=== PATIENT | female | born 1945 | race Caucasian/White ===

== ENCOUNTER → 2020-01-28 15:34 | Outpatient (CLI) | payer MEDICARE, OTHER, SELFPAY ==
[2016-10-03 23:32] VITALS: BMI 27.8
[2020-01-28 15:52] LABS: Bacteria 0 SEEN /hpf (None Seen); Mucous, Urine 0 SEEN /hpf (<or=2+); Squamous Epithelial Cells - UA 0 SEEN /hpf (5-10)
[2020-01-28 16:42] LABS: Color, Urine Yellow (Yellow); Glucose, Dipstick Normal (Normal); Ketone-Dipstick Negative (Negative); Leukocyte Esterase-Dipstick 100 /ul (Negative); Nitrite-Dipstick Negative (Negative); Occult Blood-Urine 25 /ul (Negative); Protein-Dipstick Negative (Negative); Urine Bilirubin Dipstick Negative (Negative); Urine Clarity Clear (Clear); Urine Urobilinogen Normal (Normal)
[2020-01-28 16:50] LABS: Red Blood Cells-Urine 0-5 SEEN /hpf (0-5); White Blood Cells 0-5 SEEN /hpf (0-5)
== END ==
PROVIDERS: PCP Internal Medicine; Referring Provider Nurse Practitioner Primary Care; Visit Provider Nurse Practitioner Primary Care
DX: M54.5 Low back pain (principal); R50.9 Fever, unspecified
CPT/HCPCS: 81001

== ENCOUNTER 2020-03-06 08:08 | Emergency (ER) | payer MEDICARE, OTHER, SELFPAY ==
[2020-03-06 08:10] VITALS: BP 142/101; PULSE 80; RESP 18; TEMP 36.2; O2SAT 96; BMI 30.3
--- NOTE | 2020-03-06 08:40 | EKG12_ITS ---
Test Reason : PALPS Blood Pressure : / mmHG Vent. Rate : 080 BPM Atrial Rate : 080 BPM P-R Int : 180 ms QRS Dur : 094 ms QT Int : 382 ms P-R-T Axes : 045 -52 034 degrees QTc Int : 440 ms Sinus rhythm with occasional Premature ventricular complexes Left axis deviation Inferior-posterior infarct , age undetermined Abnormal ECG Confirmed by WILLY ACOSTA, VIOLET ([id number]), subeditor BRITTANY FRANKLIN ([id number]) on 03/10/2020 9:36:17 AM Referred By: Ramy Loza Confirmed By:CHRISTAL AGUILERA MD
--- NOTE | 2020-03-06 08:40 | RAD_ITS ---
STUDY: X-RAY CHEST REASON FOR EXAM: Female, 74 years old. CP, ACUTE ONSET PALPITATIONS TECHNIQUE: PA and lateral views of the chest. COMPARISON: Comparison is made with prior examination dated 05/11/2016. FINDINGS: EKG electrodes are seen. Scattered calcified granulomas. No infiltrate is seen. There is no demonstrated pleural abnormality. Normal size heart. There are calcified mediastinal lymph nodes. Normal visualized pulmonary arteries. There is atherosclerotic calcification of the aortic arch with tortuosity. There is demineralization of the osseous structures. Prior right shoulder replacement. Moderate sized hiatal hernia. RAD/Chest PA and Lateral IMPRESSION: No acute abnormality is seen. Hiatal hernia. Electronically Signed: Mt Bonner, at 9:54 EDT , Service support ,
[2020-03-06 08:49] LABS: Absolute Lymphocyte Count 2.07 X10^3/uL (0.83-4.51); Absolute Neutrophil Count 3.6 X10^3/uL (2.0-7.7); Basophil# 0.05 X10^3/uL; Basophil% 0.8 % (0-1); Eosinophil# 0.18 X10^3/uL; Eosinophils% 2.8 % (0-5); Hematocrit 42.7 % (37-47); Hemoglobin 13.7 g/dL (12.0-15.0); Lymphocyte # 2.07 X10^3/ul (4.0); Lymphocyte % 32.2 % (19-41); Mean Corp Hgb Conc 32.1 g/dL (32-36); Mean Corpuscular Hgb 27.6 pg (27.0-32.0); Mean Corpuscular Volume 85.9 fL (81-99); Mean Platelet Vol. 8.6 fl (6.2-12.0); Monocyte# 0.53 X10^3/uL; Monocyte% 8.3 % (0-10); NRBC Flagged by Analyzer 0 % (0-5); Neutrophil # 3.57 X10^3/uL (2.7-7.7); Neutrophil % 55.6 % (47-70); Platelet Count 379 K/mm3 (150-450); RBC Distribution Width CV 13.2 % (11.6-14.6); RBC Distribution Width SD 40.7 fl (35.1-43.9); Red Blood Count 4.97 M/mm3 (4.2-5.4); White Blood Count 6.4 K/mm3 (4.4-11.0)
[2020-03-06 09:17] LABS: Anion Gap 2 (5-15); BUN 13 mg/dL (7-18); BUN/Creat Ratio 14.9 RATIO (10-20); Calcium,Total 9.4 mg/dL (8.5-10.1); Chloride 108 mmol/L (98-107); Creatinine, Serum 0.87 mg/dL (0.55-1.02); EST Glomerular Filtration Rate 68 mL/min (>60); Est Glom Filt Rate - Afr Amer 82 mL/min (>60); Estimated Creatinine Clearance 50.47 ml/min; Glucose 93 mg/dL (74-106); Magnesium 2.1 mg/dL (1.6-2.6); Potassium 3.6 mmol/L (3.5-5.1); Sodium Level 141 mmol/L (136-145); Thyroid Stim Hormone (TSH) 2.95 uIU/mL (0.358-3.74)
--- NOTE | 2020-03-06 09:50 | ED.DCSUM_ITS ---
History of Present Illness Chief Complaint: Palpitations Informant: Patient Narrative: Patient presenting for evaluation secondary to palpitations. Patient reports that prior to arrival, she was seated and not participating in any sort of vigorous activity when she had a sudden onset of palpitations. She reported that this was a feeling that she was having fast beating of her heart with hard heartbeats. She does report that it was associated with a feeling of feeling flushed and nauseous. She denies being lightheaded or presyncopal. She denies any chest pain or shortness of breath. Patient reports that yesterday she had a couple of slight palpitations but nothing that it was this prolonged, the episode today lasted about 4 minutes in its entirety. Patient states that due to the fact that she had a couple of palpitations yesterday she put even more decaf coffee in her typical half calf coffee that she drinks, and drank only a 40% caffeinated mixture today. Patient denies that she is on any stimulants. No changes in weight or appetite heat or cold intolerances recently. Patient does report that she has had a history of palpitations with frko-jgc-budshif cold medications in the past. She denies any cardiovascular history, but does have a history of hypertension. No DVT or PE risk factors. Review of systems otherwise negative. Past Medical History - Allergies and Home Meds Allergies/Adverse Reactions: Allergies fvnha-4-doashjijbu inhibitor [Sdqsr-0-Opfunqscvn Inhibitor] Allergy (Verified 03/06/20 08:10) Angioedema Antihistamines - Alkylamine Allergy (Verified 03/06/20 08:10) Chest tightness iodine Allergy (Verified 03/06/20 08:10) Shortness of breath adhesive tape Adverse Reaction (Verified 03/06/20 08:10) Rash Iodinated Contrast Media [CONTRASTS] Adverse Reaction (Verified 03/06/20 08:10) Swelling Primary Care Physician: Kristian Soto MD [Primary Care Provider] - Prior records reviewed: Yes Past Medical History: - - Hypertension Surgical History: noncontributory Lives: Spouse/ Significant Other Smoking Status: Never smoker Alcohol: None Drugs: None Review of Systems All systems negative except as indicated General: Denies: Chills, Fever, Sweats Eyes: Denies: Visual changes - bilaterally, Diplopia ENT: Denies: Rhinorrhea, Sore throat Cardiovascular: Reports: Palpitations Respiratory: Denies: Dyspnea, Cough, Dyspnea on exertion Gastrointestinal: Denies: Abdominal pain, Nausea, Vomiting, Diarrhea, Melena, Hematochezia Genitourinary: Denies: Dysuria, Hematuria, Frequency Musculoskeletal: Denies: Back pain, Extremity Pain Skin: Denies: Rash, Wounds Neurological: Denies: Headache, Weakness, Numbness Physical Exam Vital Signs/Narrative: Vital Signs Temp Pulse Resp BP Pulse Ox 03/06/20 08:10 97.2 F L 80 18 142/101 H 96 Inital Vital Signs reviewed: Yes General: Well nourished, Well developed, No Acute Distress Head: Normocephalic, Atraumatic Eyes: Perrl, EOMI ENT: Moist mucous membranes, No rhinorrhea, - - Thyroid normal to palpation Neck: Supple, Nontender Cardiovascular: Regular rate, Regular rhythm, No murmurs, - - Occasional extr asystoles, 2+ radial pulses Respiratory: No distress, CTA bilaterally, Chest nontender Abdomen: Soft, Nontender, Nondistended, Normal bowel sounds Back: Nontender, Normal Inspection Extremities: Nontender, No edema Skin: Normal color, No rash Neurological: Alert, Oriented x3, Cranial nerves II-XII grossly intact, Normal Strength, Normal Sensation Psychological: Normal affect, Normal Mood Diagnostic/Tx/Re-eval Clinical Impression(s) from Imaging Studies Chest X-Ray 03/06/20 08:40 IMPRESSION: No acute abnormality is seen. Hiatal hernia. Electronically Signed: Mt Kailey, at 9:54 EDT , Service support , Laboratory Data 03/06/20 03/06/20 03/06/20 08:04 08:04 11:40 WBC 6.4 RBC 4.97 Hgb 13.7 Hct 42.7 MCV 85.9 MCH 27.6 MCHC 32.1 RDW Std Deviation 40.7 RDW Coeff of Nell 13.2 Plt Count 379 MPV 8.6 Immature Gran % (Auto) 0.300 Neut % (Auto) 55.6 Lymph % (Auto) 32.2 [place] % (Auto) 8.3 Eos % (Auto) 2.8 Baso % (Auto) 0.8 Absolute Neuts (auto) 3.6 Absolute Lymphs (auto) 2.07 Nucleated RBC % 0 Sodium 141 Potassium 3.6 Chloride 108 H Carbon Dioxide 31.0 Anion Gap 2 L BUN 13 Creatinine 0.87 Estim Creat Clear Calc 50.47 Est GFR (MDRD) Af Amer 82 Est GFR (MDRD) Non-Af 68 BUN/Creatinine Ratio 14.9 Glucose 93 Calcium 9.4 Magnesium 2.1 Troponin I < 0.015 < 0.015 TSH 2.95 - EKG Initial EKG Interpretation: - - Sinus rhythm of 80 with occasional PVCs noted, left axis deviation, inferior Q waves noted on prior EKG in 2016 - Medical Decision Making Patient presented secondary to an episode of palpitations. EKG did show the patient to be having more frequent PVCs, on telemetry monitoring she did not have any nonsustained runs of ventricular tachycardia or any couplets. Work-up was negative including CBC chemistry and 2 troponins, 3 hours apart. Patient is asymptomatic. Discussed patient's case on the telephone with covering cardiology, Dr. Shaw, and we developed a plan for the patient that she is to be discharged on a low-dose beta-gemma, metoprolol 25 twice daily, and received a Holter monitor for 24 hours with outpatient follow-up in the cardiology office. Patient was informed of this, she was discharged in stable condition. ED Disposition - Plan for ED Patient: Disposition: Home or Assisted Living Diagnosis: Palpitations, PVCs (premature ventricular contractions) Instructions: Premature Ventricular Contractions, ED Palpitations Prescriptions: Metoprolol Tartrate 25 mg PO BID #20 tab Prescription Printed Referrals: Mar Shaw MD [STAFF PHYSICIAN] - As soon as possible
[2020-03-06 10:08] VITALS: BP 173/93; PULSE 64; RESP 18; O2SAT 94
[2020-03-06 12:44] VITALS: BP 138/80; PULSE 62; RESP 17; O2SAT 98
== END 2020-03-06 13:59 | disposition home or self-care (01) ==
PROVIDERS: Emergency Provider Emergency Medicine; PCP Internal Medicine
DX: R00.2 Palpitations (principal); I49.3 Ventricular premature depolarization
CPT/HCPCS: 71046; 80048; 83735; 84443; 84484; 85025; 93005; 93225; 93226; 99285

== ENCOUNTER → 2020-03-06 14:12 | Outpatient (CLI) | payer MEDICARE, OTHER, SELFPAY ==
[2020-03-06 08:10] VITALS: BMI 30.3
== END ==
PROVIDERS: PCP Internal Medicine; Referring Provider Emergency Medicine; Visit Provider Emergency Medicine
DX: R00.2 Palpitations (principal)
CPT/HCPCS: 93225; 93226

== ENCOUNTER 2020-04-18 21:38 | Emergency (ER) | payer MEDICARE, OTHER, SELFPAY ==
[2020-04-18 21:38] VITALS: BP 176/76; PULSE 71; RESP 16; TEMP 36.9; O2SAT 96; BMI 28.1
--- NOTE | 2020-04-18 21:48 | EKG12_ITS ---
Test Reason : DYSRHYTHMIA Blood Pressure : / mmHG Vent. Rate : 069 BPM Atrial Rate : 069 BPM P-R Int : 188 ms QRS Dur : 092 ms QT Int : 410 ms P-R-T Axes : 074 -52 052 degrees QTc Int : 439 ms Normal sinus rhythm Left anterior fascicular block Inferior-posterior infarct , age undetermined Abnormal ECG Confirmed by MICKEY HAIRSTON MD ([id number]), managing editor BRITTANY FRANKLIN ([id number]) on 04/21/2020 1:47:38 PM Referred By: LISA Confirmed By:MICKEY HAIRSTON MD
--- NOTE | 2020-04-18 21:57 | RAD_ITS ---
HISTORY: Palpitations. EXAMINATION/TECHNIQUE: XR Chest 1 View: COMPARISON: March 06, 2020 FINDINGS: LINES/DEVICES: None. LUNGS: No consolidation, edema or effusion. No pneumothorax. Left basilar atelectasis MEDIASTINUM AND CARDIOVASCULAR STRUCTURES: Cardiac silhouette not enlarged. Central airways and mediastinal contour are unremarkable. Tortuous aorta BONES AND SOFT TISSUES: Right humeral head prosthesis similar to prior study RAD/Chest 1 View (Portable) IMPRESSION: Left basilar atelectasis at 2243 Reported and signed by: Nathalia Romero DO Electronically Signed: Nathalia Romero DO at 22:42 EDT Tel , Service support ,
[2020-04-18 22:07] LABS: Absolute Lymphocyte Count 2.33 X10^3/uL (0.83-4.51); Absolute Neutrophil Count 4.1 X10^3/uL (2.0-7.7); Basophil# 0.06 X10^3/uL; Basophil% 0.8 % (0-1); Eosinophil# 0.13 X10^3/uL; Eosinophils% 1.8 % (0-5); Hematocrit 40.5 % (37-47); Hemoglobin 12.8 g/dL (12.0-15.0); Lymphocyte # 2.33 X10^3/ul (4.0); Lymphocyte % 31.8 % (19-41); Mean Corp Hgb Conc 31.6 g/dL (32-36); Mean Corpuscular Hgb 27.4 pg (27.0-32.0); Mean Corpuscular Volume 86.5 fL (81-99); Mean Platelet Vol. 8.5 fl (6.2-12.0); Monocyte# 0.66 X10^3/uL; NRBC Flagged by Analyzer 0 % (0-5); Neutrophil # 4.12 X10^3/uL (2.7-7.7); Neutrophil % 56.3 % (47-70); Platelet Count 340 K/mm3 (150-450); RBC Distribution Width CV 13.8 % (11.6-14.6); RBC Distribution Width SD 43.4 fl (35.1-43.9); Red Blood Count 4.68 M/mm3 (4.2-5.4); White Blood Count 7.3 K/mm3 (4.4-11.0)
[2020-04-18 22:26] LABS: Anion Gap 5 (5-15); BUN 16 mg/dL (7-18); BUN/Creat Ratio 13.3 RATIO (10-20); Calcium,Total 9.5 mg/dL (8.5-10.1); Chloride 107 mmol/L (98-107); EST Glomerular Filtration Rate 47 mL/min (>60); Est Glom Filt Rate - Afr Amer 57 mL/min (>60); Estimated Creatinine Clearance 36.59 ml/min; Glucose 119 mg/dL (74-106); Potassium 3.7 mmol/L (3.5-5.1); Sodium Level 142 mmol/L (136-145)
[2020-04-18 22:43] VITALS: BP 158/98; PULSE 54; RESP 20; O2SAT 96
--- NOTE | 2020-04-18 22:52 | ED.DCSUM_ITS ---
History of Present Illness Chief Complaint: Palpitations Informant: Patient Onset: Today Current Severity: Mild Maximum Severity: Moderate Narrative: Patient presents with palpitations which she describes as a fluttering sensation in her chest. She does have a history of PVCs. She states that she took her evening dose of metoprolol at 7 PM and started noticing palpitations around 730. When I did not settle down by 9 PM she told her she went to come to the emergency room. She denies chest pain, shortness of breath, or near syncope. Due to high acuity the emergency room there was a wait for her to be seen at this time patient states overall she feels pretty good. She denies any recent missed doses of her medication. She was active today and went out played golf without any difficulty. - Past Medical History (1) PVCs (premature ventricular contractions) Status: Chronic (2) Hypertension Status: Chronic (3) Kidney stone Status: Resolved Past Medical History - Allergies and Home Meds Allergies/Adverse Reactions: Allergies qcxpl-0-uolpsyhffn inhibitor [Boxwe-0-Tkfiajpmlq Inhibitor] Allergy (Verified 04/18/20 21:40) Angioedema Antihistamines - Alkylamine Allergy (Verified 04/18/20 21:40) Chest tightness iodine Allergy (Verified 04/18/20 21:40) Shortness of breath adhesive tape Adverse Reaction (Verified 04/18/20 21:40) Rash Iodinated Contrast Media [CONTRASTS] Adverse Reaction (Verified 04/18/20 21:40) Swelling Primary Care Physician: Kristian Soto MD [Primary Care Provider] - Prior records reviewed: Yes Surgical History: cholecystectomy Lives: Spouse/ Significant Other Smoking Status: Never smoker Review of Systems General: Denies: Chills, Fever Eyes: Denies: Visual changes - bilaterally ENT: Denies: Bilateral ear pain Cardiovascular: Reports: Palpitations. Denies: Chest pain, Heart racing Respiratory: Denies: Dyspnea, Cough Gastrointestinal: Denies: Abdominal pain Musculoskeletal: Denies: Swelling, Extremity Pain Skin: Denies: Rash Neurological: Denies: Headache Hematologic: Denies: Easy bruising, Easy bleeding Allergy: Denies: Uticaria Physical Exam Vital Signs/Narrative: Vital Signs Temp Pulse Resp BP Pulse Ox 04/18/20 22:43 54 L 20 H 158/98 H 96 04/18/20 21:38 98.4 F 71 16 176/76 H 96 Inital Vital Signs reviewed: Yes General: Well nourished, Well developed Head: Normocephalic ENT: Moist mucous membranes Neck: Supple Cardiovascular: Regular rate, Regular rhythm Respiratory: No distress, CTA bilaterally Abdomen: Soft, Nontender Skin: Normal color Neurological: Alert, Oriented x3 Psychological: Normal affect Diagnostic/Tx/Re-eval Impressions Chest X-Ray 04/18/20 21:57 IMPRESSION: Left basilar atelectasis at 2243 Reported and signed by: Nathalia Romero DO Electronically Signed: Nathalia Romero DO at 22:42 EDT Tel , Service support , 04/18/20 21:57 Chest 1 View (Portable) [RAD] Stat Laboratory Results 04/18/20 04/18/20 21:55 21:55 WBC 7.3 RBC 4.68 Hgb 12.8 Hct 40.5 MCV 86.5 MCH 27.4 MCHC 31.6 L RDW Std Deviation 43.4 RDW Coeff of Nell 13.8 Plt Count 340 MPV 8.5 Immature Gran % (Auto) 0.300 Neut % (Auto) 56.3 Lymph % (Auto) 31.8 Pope % (Auto) 9.0 Eos % (Auto) 1.8 Baso % (Auto) 0.8 Absolute Neuts (auto) 4.1 Absolute Lymphs (auto) 2.33 Nucleated RBC % 0 Sodium 142 Potassium 3.7 Chloride 107 Carbon Dioxide 30.0 Anion Gap 5 BUN 16 Creatinine 1.20 H Estim Creat Clear Calc 36.59 Est GFR (MDRD) Af Amer 57 L Est GFR (MDRD) Non-Af 47 L BUN/Creatinine Ratio 13.3 Glucose 119 H Calcium 9.5 Troponin I < 0.015 - EKG Initial EKG Interpretation: Sinus Rhythm - Sinus at 69 with no acute ischemia. No PVCs noted. - Medical Decision Making Patient's blood work is reviewed with her. Her creatinine is slightly bumped when compared to prior labs from a month ago. She will be given a liter of IV fluid. At this time no PVCs have been noted on her quality assurance monitor body. Her symptoms are improved. She will be discharged to continue her metoprolol as scheduled. ED Disposition - Plan for ED Patient: Disposition: Home or Assisted Living Diagnosis: Palpitations Instructions: ED Palpitations Referrals: Kristian Soto MD [Primary Care Provider] - 3-5 Days if not improving
[2020-04-18 23:02] VITALS: BP 151/79; PULSE 57; RESP 18; O2SAT 93
[2020-04-18] MEDS: 0.9% Normal Saline 1,000 ML 999 ML IV (23:02)
[2020-04-19] VITALS: BP 160/79; PULSE 60; RESP 21; O2SAT 97
== END 2020-04-19 00:02 | disposition home or self-care (01) ==
LOC: ED 23:09
PROVIDERS: Emergency Provider Emergency Medicine; PCP Internal Medicine
DX: R00.2 Palpitations (principal); Z87.442 Personal history of urinary calculi
CPT/HCPCS: 71045; 80048; 84484; 85025; 93005; 99282; J7030; A4216

== ENCOUNTER 2020-09-28 23:14 | Emergency (ER) | payer MEDICARE, OTHER, SELFPAY ==
[2020-09-28 23:15] VITALS: BP 162/100; PULSE 70; RESP 16; TEMP 36.6; O2SAT 96; BMI 31.2
[2020-09-28 23:18] VITALS: BP 162/100; PULSE 65; RESP 16; TEMP 36.6; O2SAT 96; O2SAT 97
--- NOTE | 2020-09-28 23:39 | EKG12_ITS ---
Test Reason : SOB Blood Pressure : / mmHG Vent. Rate : 061 BPM Atrial Rate : 061 BPM P-R Int : 214 ms QRS Dur : 078 ms QT Int : 408 ms P-R-T Axes : 063 -33 046 degrees QTc Int : 410 ms Sinus rhythm with 1st degree A-V block Left axis deviation Inferior infarct , age undetermined Abnormal ECG Confirmed by MARIKA ACOSTA, MICKEY ([id number]), editor managing director BRITTANY FRANKLIN ([id number]) on 09/30/2020 10:34:02 AM Referred By: ZACHARY Confirmed By:MICKEY HAIRSTON MD
[2020-09-28 23:53] VITALS: O2SAT 96
[2020-09-28 23:57] LABS: Absolute Lymphocyte Count 2.44 X10^3/uL (0.83-4.51); Basophil# 0.05 X10^3/uL; Basophil% 0.8 % (0-1); Eosinophil# 0.12 X10^3/uL; Eosinophils% 1.9 % (0-5); Hematocrit 39.5 % (37-47); Hemoglobin 12.4 g/dL (12.0-15.0); Lymphocyte # 2.44 X10^3/ul (4.0); Lymphocyte % 39.2 % (19-41); Mean Corp Hgb Conc 31.4 g/dL (32-36); Mean Corpuscular Hgb 27.6 pg (27.0-32.0); Mean Corpuscular Volume 87.8 fL (81-99); Mean Platelet Vol. 8.5 fl (6.2-12.0); Monocyte# 0.58 X10^3/uL; Monocyte% 9.3 % (0-10); NRBC Flagged by Analyzer 0 % (0-5); Neutrophil # 3.02 X10^3/uL (2.7-7.7); Neutrophil % 48.5 % (47-70); Platelet Count 302 K/mm3 (150-450); RBC Distribution Width CV 13.7 % (11.6-14.6); RBC Distribution Width SD 43.8 fl (35.1-43.9); White Blood Count 6.2 K/mm3 (4.4-11.0)
--- NOTE | 2020-09-29 | RAD_ITS ---
HISTORY: chest pain ADDITIONAL HISTORY: None provided. EXAMINATION/TECHNIQUE: XR Chest 1 View AP/PA Number of images including paperwork: 1 COMPARISON: 04/18/2020 FINDINGS: LUNGS AND PLEURA: No consolidation, mass or pleural effusion. CARDIAC SILHOUETTE: Unremarkable. MEDIASTINUM AND NESS: Unchanged aortic calcification and tortuosity. UPPER ABDOMEN: Unremarkable. SKELETON AND SOFT TISSUES: No acute skeletal findings. Degenerative changes. OTHER DEVICES AND HARDWARE: Right shoulder prosthesis. RAD/Chest 1 View (Portable) IMPRESSION: No acute cardiopulmonary abnormality. at 0018 Reported and signed by: Alejandra Willams MD Electronically Signed: Alejandra Willams MD at 0:17 EST Tel , Service support ,
[2020-09-29 00:21] LABS: Anion Gap 8 (5-15); BUN 18 mg/dL (7-18); BUN/Creat Ratio 21.6 RATIO (10-20); Calcium,Total 9.3 mg/dL (8.5-10.1); Chloride 105 mmol/L (98-107); Creatinine, Serum 0.83 mg/dL (0.55-1.02); EST Glomerular Filtration Rate 71 mL/min (>60); Est Glom Filt Rate - Afr Amer 86 mL/min (>60); Estimated Creatinine Clearance 49.94 ml/min; Glucose 105 mg/dL (74-106); Magnesium 2.2 mg/dL (1.6-2.6); Potassium 3.9 mmol/L (3.5-5.1); Sodium Level 141 mmol/L (136-145); Thyroid Stim Hormone (TSH) 3.54 uIU/mL (0.358-3.74)
--- NOTE | 2020-09-29 00:35 | ED.DCSUM_ITS ---
- ER Visit Summary Date of Service: 09/29/20 Chief Complaint: Palpitations History of Present Illness: The patient is a [address] Soto and Dr. Rosenberg. Patient reports that she was in bed when when she was awakened to her heart pounding. States that it was fast, not irregular. She does report she is slightly short of breath and nauseated with this. She denies any chest pain or vomiting. States that the last approximate 10 to 15 minutes. Patient denies any chest pain or change in disposition the past month. She had a stress test last year. She has never had a heart catheterization. Physical Examination: Vitals: Stable. Afebrile. General: Well-nourished and well-developed. Head: Normocephalic atraumatic. Neck: Supple, no lymphadenopathy. No JVD. Nontender. Cardiovascular: Regular rate and rhythm. No murmurs. Respiratory: No respiratory distress. Clear to auscultation bilaterally. Abdominal: Soft, nontender, nondistended, normal bowel sounds. No guarding, rebound, or peritoneal signs. Back: Nontender. Extremities: Nontender, no edema. Skin: Normal color, no rash. Neurologic: Alert and oriented ?3. Cranial nerves II through XII are intact. Normal strength and sensation. Psych: Normal affect. Test Results: EKG is sinus at 61 with Q waves in leads III and aVF. However, this is unchanged from April 18, 2020. Troponin is negative. BNP is 73.7. Chem-7 is normal. CBC is normal. TSH is 3.54. Clinical Impression(s) from Imaging Studies Chest X-Ray 09/29/20 00:00 IMPRESSION: No acute cardiopulmonary abnormality. at 0018 Reported and signed by: Alejandra Willams MD Electronically Signed: Alejandra Willams MD at 0:17 EST Tel , Service support , Emergency Department Course and Treatment: Patient feels well and would like to go home. She is already on Lopressor. I do not believe that this episode was ischemic in nature. Treatment Plan: Patient is instructed to speak with her search analyst in the next 2 days for further evaluation potential changes to her Lopressor. Return to the emergency department for any worsening symptoms. Disposition: To home in improved and stable condition. Impression: 1 1. Palpitations. This note was generated with Spreaker dictation software. It may contain incorrect words, spelling, and punctuation that were not noted in review of the chart prior to signing ED Disposition - Plan for ED Patient: Disposition: Home or Assisted Living Instructions: ED Palpitations Referrals: Kristian Soto MD [Primary Care Provider] - Additional Instructions: Follow-up with your search analyst within 3 to 5 days.
[2020-09-29 01:17] LABS: BNP,B-Type NATRIURETIC PEPTIDE 73.7 pg/mL (0-100)
[2020-09-29 01:31] VITALS: BP 144/83; PULSE 54; RESP 20; O2SAT 96
[2020-09-29 01:38] VITALS: BP 144/83; PULSE 54; RESP 20; O2SAT 96
== END 2020-09-29 01:39 | disposition home or self-care (01) ==
LOC: ED 09-29 01:26
PROVIDERS: Emergency Provider Emergency Medicine; PCP Internal Medicine
DX: R00.2 Palpitations (principal); R06.02 Shortness of breath; I10 Essential (primary) hypertension
CPT/HCPCS: 71045; 80048; 83735; 83880; 84443; 84484; 85025; 93005; 99285; A4216

== ENCOUNTER 2021-05-22 15:35 | Emergency (ER) | payer MEDICARE, OTHER, SELFPAY ==
[2021-05-22 15:35] VITALS: BP 162/98; PULSE 80; RESP 18; TEMP 36.8; O2SAT 97; BMI 30.5
--- NOTE | 2021-05-22 15:57 | EKG12_ITS ---
Test Reason : TACHY/PALPS Blood Pressure : / mmHG Vent. Rate : 076 BPM Atrial Rate : 076 BPM P-R Int : 190 ms QRS Dur : 090 ms QT Int : 384 ms P-R-T Axes : 057 -43 029 degrees QTc Int : 432 ms Normal sinus rhythm Left axis deviation Inferior infarct , age undetermined Abnormal ECG Confirmed by MARIKA ACOSTA, MICKEY ([id number]), society editor BRITTANY FRANKLIN ([id number]) on 05/26/2021 10:40:39 AM Referred By: DINA/LISA Confirmed By:MICKEY HAIRSTON MD
--- NOTE | 2021-05-22 16:01 | RAD_ITS ---
STUDY: X-RAY CHEST REASON FOR EXAM: Female, 75 years old. chest pain TECHNIQUE: AP COMPARISON: None. FINDINGS: EKG leads project over the chest. The lungs are clear and expanded. There is no demonstrated pleural abnormality. Normal size heart. Normal mediastinum and devang. Normal visualized pulmonary arteries. There is atherosclerotic tortuosity of the aortic arch and descending thoracic aorta. Normal visualized thoracic spine. Right shoulder replacement stable. There is no demonstrated abnormality of the visualized soft tissue structures of the upper abdomen. RAD/Chest 1 View (Portable) IMPRESSION: Nonacute portable x-ray examination of the chest. Electronically Signed: Chucho Celestin MD (Brooks) at 16:26 EDT , Service support ,
[2021-05-22 16:03] VITALS: O2SAT 98
[2021-05-22 16:06] LABS: Absolute Lymphocyte Count 2.22 X10^3/uL (0.83-4.51); Absolute Neutrophil Count 4.4 X10^3/uL (2.0-7.7); Basophil# 0.05 X10^3/uL; Basophil% 0.7 % (0-1); Eosinophil# 0.09 X10^3/uL; Eosinophils% 1.2 % (0-5); Hematocrit 40.7 % (37-47); Hemoglobin 12.9 g/dL (12.0-15.0); Lymphocyte # 2.22 X10^3/ul (0.83-4.51); Lymphocyte % 30.7 % (19-41); Mean Corp Hgb Conc 31.7 g/dL (32-36); Mean Corpuscular Hgb 26.9 pg (27.0-32.0); Mean Platelet Vol. 8.6 fl (6.2-12.0); Monocyte# 0.47 X10^3/uL; Monocyte% 6.5 % (0-10); NRBC Flagged by Analyzer 0 % (0-5); Neutrophil # 4.39 X10^3/uL (2.7-7.7); Neutrophil % 60.6 % (47-70); Platelet Count 378 K/mm3 (150-450); RBC Distribution Width CV 13.2 % (11.6-14.6); RBC Distribution Width SD 41.1 fl (35.1-43.9); Red Blood Count 4.79 M/mm3 (4.2-5.4); White Blood Count 7.2 K/mm3 (4.4-11.0)
--- NOTE | 2021-05-22 16:06 | EDS_ITS ---
HPI History of Present Illness Chief Complaint: Palpitations Informant: patient Narrative Narrative: Patient sat down with a cup of decaf coffee about to watch a hallmark movie when she had onset of palpitations. She is stated they last about 15 minutes. She has had this before but they normally only last a few minutes. She had a 24-hour Holter monitor once but she does not think they ever caught her rhythm. She is on metoprolol succinate 25 mg at night. She also took a as needed metoprolol when this started. She states she had a little bit of tightness but no real pain. No dyspnea. No nausea vomiting or diaphoresis. She was not lightheaded. She states she feels completely back to normal and completely asymptomatic at this time. Nothing specifically made this better or worse. She cannot think of anything that changed recently to cause this. She takes no cold medicines or decongestants. She has not missed her metoprolol. She has no history of cardiovascular disease. PFSH PFSH Home Medications omeprazole 20 mg PO DAILY 05/11/16 [History Last Taken 05/11/16] benazepril-hydrochlorothiazide [Lotensin Hct 20-25 mg Tablet] 1 ea PO DAILY #30 tab 05/12/16 [Rx Last Taken Unknown] metoprolol tartrate 25 mg PO QHS 09/28/20 [History Last Taken Unknown] Allergy/AdvReac Type Severity Reaction Status Date / Time iipuh-2-rdvbcnnbui inhibitor Allergy Angioedema Verified 05/22/21 15:39 [Hqchq-5-Nwjtebaszm Inhibitor] Antihistamines - Alkylamine Allergy Chest Verified 05/22/21 15:39 tightness iodine Allergy Shortness Verified 05/22/21 15:39 of breath adhesive tape AdvReac Rash Verified 05/22/21 15:39 Iodinated Contrast Media AdvReac Swelling Verified 05/22/21 15:39 [CONTRASTS] Social History Smoking Status: Never smoker ROS ROS ED Constitutional Constitutional ED: Denies chills, fever(s) or subjective Eyes Eyes: Denies blurry vision ENT ENT ED: Denies rhinorrhea or sore throat Cardiovascular Cardiovascular: Reports palpitations; Denies chest pain Respiratory/Chest Respiratory/Chest: Denies cough or dyspnea Gastrointestinal Gastrointestinal: Denies nausea or vomiting Genitourinary Genitourinary ED: Denies hematuria Musculoskeletal Musculoskeletal: Denies back pain or neck pain Integumentary Denies rash Neurologic Neurologic: Denies headache(s), paresthesias or weakness Endocrine Endocrinology: Denies polydipsia or polyuria Allergic/Immunologic Allergic/Immunologic ED: Denies mouth swelling, tongue swelling or urticaria EXAM Physical Exam Const Vital Signs: 05/22/21 15:35 05/22/21 16:03 05/22/21 16:44 Temperature 98.2 F Temperature Source Oral Pulse Rate 80 68 Respiratory Rate 18 20 H Blood Pressure 162/98 H 143/84 H Blood Pressure Mean 119 103 Pulse Ox 97 98 100 Oxygen Delivery Method Room Air Room Air Positive well nourished and well developed General Appearance ED: well developed and NAD; Negative for cyanotic or diaphoretic HEENT Reports moist mucous membranes Eyes General Eye ED: Negative for pale conjunctiva or scleral icterus Neck no JVD Chest Wall inspection of chest normal Resp normal respiratory effort and clear to auscultation bilaterally Effort and Inspection: Negative for pain with movement Auscultation: Negative for rales, rhonchi or wheezes Cardio regular rate, regular rhythm and no murmurs GI normal to inspection, nondistended, normoactive bowel sounds and non-tender Palpation: soft Neuro oriented x3 Sensorium / Orientation: alert Psych mental status grossly normal Skin no rashes or lesions noted and no wounds MDM MDM MDM Narrative Medical decision making narrative: Prehospital EKG was reviewed. This was a regular tachycardia narrow complex with a rate of 188. The complexes march out. This appears to be SVT. Patient CBC and electrolytes show no marked abnormalities. Creatinine was minimally elevated at 1.06. Glucose also minimally elevated at 129. Chest x- ray is negative. EKG showed no acute process. I watched patient multiple times in the monitor. She has never had any further episodes. She is remained asymptomatic. She feels normal. She would like to go home. By history, she has had many episodes of this. She will follow up with her wreath inspector. She will continue with her metoprolol. If she develops recurrent symptoms she may need to return. She can return with any other concerning symptoms such as chest pain shortness of breath etc. Lab Data Attestation: I reviewed the patient's lab results. Labs: Laboratory Results - last 24 hr 05/22/21 05/22/21 15:40 15:40 WBC 7.2 RBC 4.79 Hgb 12.9 Hct 40.7 MCV 85.0 MCH 26.9 L MCHC 31.7 L RDW Std Deviation 41.1 RDW Coeff of Nell 13.2 Plt Count 378 MPV 8.6 Immature Gran % (Auto) 0.300 Neut % (Auto) 60.6 Lymph % (Auto) 30.7 [place] % (Auto) 6.5 Eos % (Auto) 1.2 Baso % (Auto) 0.7 Absolute Neuts (auto) 4.4 Absolute Lymphs (auto) 2.22 Nucleated RBC % 0 Sodium 139 Potassium 3.7 Chloride 105 Carbon Dioxide 28.0 Anion Gap 6 BUN 16 Creatinine 1.06 H Estim Creat Clear Calc 40.82 Est GFR (MDRD) Af Amer 65 Est GFR (MDRD) Non-Af 54 L BUN/Creatinine Ratio 15.1 Glucose 129 H Calcium 9.4 Troponin I High Sens 8 Radiography Diagnostic Testing: Clinical Impression(s) from Imaging Studies Chest X-Ray 05/22/21 16:01 IMPRESSION: Nonacute portable x-ray examination of the chest. Electronically Signed: Chucho Celestin MD (Brooks) at 16:26 EDT , Service support , EKG Initial EKG: Comments: EKG done for palpitations read by me shows a normal sinus rhythm with overall rate of 76. No ectopy seen. No preexcitation. No ST elevation or depression. TX interval, QRS duration and QTc are normal. Discharge Plan Triage Chief Complaint: Palpitations ED Provider: Jevon Kumar Dx/Rx/DC Orders Clinical Impression: Paroxysmal SVT (supraventricular tachycardia) Instructions: ED Understanding Supraventricular Tachycardia (SVT) Prescriptions: No Action omeprazole 20 MG capsule 20 mg PO DAILY RF: 0 benazepril-hydrochlorothiazide [Lotensin HCT] 1 EACH tablet 1 ea PO DAILY Qty: 30 RF: 0 metoprolol tartrate 25 MG tablet 25 mg PO QHS RF: 0 Primary Care Provider: Kristian Soto Referrals: Kristian Soto MD [Primary Care Provider] - As Needed Disposition Disposition: Home, Self Care
[2021-05-22] MEDS: Aspirin 81 MG TAB.CHEW 324 MG PO (16:17)
[2021-05-22 16:24] LABS: Anion Gap 6 (5-15); BUN 16 mg/dL (7-18); BUN/Creat Ratio 15.1 RATIO (10-20); Calcium,Total 9.4 mg/dL (8.5-10.1); Chloride 105 mmol/L (98-107); Creatinine, Serum 1.06 mg/dL (0.55-1.02); EST Glomerular Filtration Rate 54 mL/min (>60); Est Glom Filt Rate - Afr Amer 65 mL/min (>60); Estimated Creatinine Clearance 40.82 ml/min; Glucose 129 mg/dL (74-106); Potassium 3.7 mmol/L (3.5-5.1); Sodium Level 139 mmol/L (136-145); Troponin-I HS 8 pg/mL (3.0-54.0)
[2021-05-22 16:44] VITALS: BP 143/84; PULSE 68; RESP 20; O2SAT 100
[2021-05-22 17:24] VITALS: BP 156/75; PULSE 75; RESP 18; O2SAT 99
== END 2021-05-22 17:27 | disposition home or self-care (01) ==
PROVIDERS: Emergency Provider Emergency Medicine; PCP Internal Medicine
DX: I47.1 Supraventricular tachycardia (principal); Z79.899 Other long term (current) drug therapy
CPT/HCPCS: 71045; 80048; 84484; 85025; 93005; 99285; J7030; A4216

== ENCOUNTER 2022-09-11 19:23 | Emergency (ER) | payer MEDICARE, OTHER, SELFPAY ==
[2022-09-11 19:24] VITALS: BP 169/88; PULSE 79; RESP 15; TEMP 36.4; O2SAT 98; BMI 29.9
--- NOTE | 2022-09-11 19:36 | EKG12_ITS ---
Test Reason : DYSRHYTHMIA Blood Pressure : / mmHG Vent. Rate : 072 BPM Atrial Rate : 072 BPM P-R Int : 192 ms QRS Dur : 100 ms QT Int : 408 ms P-R-T Axes : 088 -52 037 degrees QTc Int : 446 ms Normal sinus rhythm Left anterior fascicular block Inferior infarct , age undetermined Abnormal ECG Confirmed by MARIKA ACOSTA, MICKEY ([id number]), supervising editor news reel BRITTANY FRANKLIN ([id number]) on 09/13/2022 12:17:36 PM Referred By: KATH Confirmed By:MICKEY HAIRSTON MD
--- NOTE | 2022-09-11 19:45 | RAD_ITS ---
INDICATION: Chest pain EXAMINATION/TECHNIQUE: X-RAY - XR Chest 1 View COMPARISON: 05/22/2021 FINDINGS: LUNGS: Mild left lung base atelectasis. No consolidation, edema or effusion. No pneumothorax. MEDIASTINUM AND CARDIOVASCULAR STRUCTURES: Cardiac silhouette not enlarged. Central airways and mediastinal contour are unremarkable. RAD/Chest 1 View (Portable) IMPRESSION: Mild left lung base atelectasis. Electronically Signed: Fernando Newberry MD at 20:21 EST ,
[2022-09-11 19:54] LABS: Absolute Lymphocyte Count 2.63 X10^3/uL (0.83-4.51); Absolute Neutrophil Count 3.4 X10^3/uL (2.0-7.7); Basophil# 0.06 X10^3/uL; Basophil% 0.9 % (0-1); Eosinophil# 0.11 X10^3/uL; Eosinophils% 1.6 % (0-5); Hematocrit 43.2 % (37-47); Hemoglobin 13.8 g/dL (12.0-15.0); Lymphocyte # 2.63 X10^3/ul (0.83-4.51); Lymphocyte % 39.2 % (19-41); Mean Corp Hgb Conc 31.9 g/dL (32-36); Mean Corpuscular Hgb 27.5 pg (27.0-32.0); Mean Corpuscular Volume 86.2 fL (81-99); Mean Platelet Vol. 8.8 fl (6.2-12.0); Monocyte# 0.52 X10^3/uL; Monocyte% 7.7 % (0-10); NRBC Flagged by Analyzer 0 % (0-5); Neutrophil # 3.37 X10^3/uL (2.7-7.7); Neutrophil % 50.3 % (47-70); Platelet Count 374 K/mm3 (150-450); RBC Distribution Width CV 13.4 % (11.6-14.6); RBC Distribution Width SD 42.2 fl (35.1-43.9); Red Blood Count 5.01 M/mm3 (4.2-5.4); White Blood Count 6.7 K/mm3 (4.4-11.0)
[2022-09-11 20:06] VITALS: BP 151/80; PULSE 74; RESP 20; O2SAT 95
[2022-09-11 20:28] LABS: Anion Gap 7 (5-15); BUN 20 mg/dL (7-18); Calcium,Total 9.8 mg/dL (8.5-10.1); Chloride 106 mmol/L (98-107); Creatinine, Serum 0.91 mg/dL (0.55-1.02); EST Glomerular Filtration Rate 64 mL/min (>60); Est Glom Filt Rate - Afr Amer 77 mL/min (>60); Estimated Creatinine Clearance 46.13 ml/min; Glucose 169 mg/dL (74-106); Potassium 3.6 mmol/L (3.5-5.1); Sodium Level 140 mmol/L (136-145); Troponin-I HS 8 pg/mL (3.0-54.0)
--- NOTE | 2022-09-11 20:44 | EDS_ITS ---
HPI History of Present Illness Chief Complaint: Palpitations Narrative Narrative: 77-year-old female with history of SVT with palpitations. She states they lasted about an hour and a half. Patient states she took half of her nighttime dose of metoprolol 25 mg. On arrival to the ER her palpitations has resolved. She was told by EMS she was in SVT. She denies chest pain or shortness of breath. No fever, chills, cough. She was in her normal state of health prior to this event. She sees a Dr. Gomez at [facility] since her compliance auditor [facility] Home Medications omeprazole 20 mg capsule,delayed release 20 mg PO DAILY 05/11/16 [History Last Taken 05/11/16] benazepril 20 mg-hydrochlorothiazide 25 mg tablet (Lotensin HCT) 1 ea PO DAILY #30 tabs 05/12/16 [Rx Last Taken Unknown] metoprolol tartrate 25 mg tablet 25 mg PO QHS 09/28/20 [History Last Taken Unknown] Allergy/AdvReac Type Severity Reaction Status Date / Time kytta-[id number] inhibitor Allergy Angioedema Verified 09/11/22 19:31 [Uaasx-3-Ftiwxoieus Inhibitor] Antihistamines - Alkylamine Allergy Chest Verified 09/11/22 19:31 tightness iodine Allergy Shortness Verified 09/11/22 19:31 of breath adhesive tape AdvReac Rash Verified 09/11/22 19:31 Iodinated Contrast Media AdvReac Swelling Verified 09/11/22 19:31 [CONTRASTS] Social History Smoking Status: Never smoker ROS ROS ED Review of Systems ROS Unobtainable: Denies due to encephalopathy Constitutional Constitutional ED: Denies chills or fever(s) Eyes Eyes: Denies blurry vision or change in vision ENT ENT ED: Denies rhinorrhea Cardiovascular Cardiovascular: Reports palpitations and racing heartbeat; Denies chest pain Respiratory/Chest Respiratory/Chest: Denies cough or dyspnea Gastrointestinal Gastrointestinal: Denies abdominal pain or constipation Genitourinary Genitourinary ED: Denies dysuria or hematuria Musculoskeletal Musculoskeletal: Denies arthralgias or back pain Integumentary Denies abscess or Abrasions Neurologic Neurologic: Denies headache(s) or paresthesias Psychiatric Psychiatric: Denies anxiety or depression Endocrine Endocrinology: Denies cold intolerance or heat intolerance EXAM Physical Exam Const Vital Signs: 09/11/22 19:24 09/11/22 20:06 Temperature 97.5 F L Temperature Source Temporal Pulse Rate 79 74 Respiratory Rate 15 20 H Blood Pressure 169/88 H 151/80 H Blood Pressure Mean 115 103 Pulse Ox 98 95 Oxygen Delivery Method Room Air Room Air Positive well nourished General Appearance ED: NAD; Negative for pallor HEENT Reports moist mucous membranes Eyes Negative for PERRL or EOMs intact bilaterally Neck no lymphadenopathy Chest Wall inspection of chest normal and palpation of chest normal Resp normal respiratory effort and clear to auscultation bilaterally Cardio regular rate and regular rhythm GI normal to inspection, nondistended, normoactive bowel sounds Back/Spine no CVA tenderness Neuro oriented x3 and CN's II-XII intact bilaterally Sensorium / Orientation: alert Skin no rashes or lesions noted and no wounds General Skin Exam: elasticity normal; Negative for jaundice or pallor MDM MDM MDM Narrative Medical decision making narrative: 77-year-old female presenting with palpitations. I reviewed the rhythm strip from EMS and it appears to be SVT on my interpretation. It had resolved prior to arrival. She did not need adenosine. EKG was obtained and on my interpretation shows a normal sinus rhythm with a ventricular rate of 72 bpm without sign of ischemic change. Chest x-ray on my interpretation shows no acute cardiopulmonary process radiologist are persistent agrees. CBC shows no leukocytosis, hemoglobin hematocrit stable. Platelet count normal. No left shift. Renal function electrolytes within normal limits. High-sensitivity troponin is 8. Low suspicion for PE as patient has had SVT in the past. At this point since she is symptom-free I recommend she continue her metoprolol and follow-up with her compliance auditor. She is amenable to this plan. She discharged home in stable condition. Impression: 1. SVT 2. Palpitation Lab Data Labs: Laboratory Results - last 24 hr 09/11/22 09/11/22 19:08 19:08 WBC 6.7 RBC 5.01 Hgb 13.8 Hct 43.2 MCV 86.2 MCH 27.5 MCHC 31.9 L RDW Std Deviation 42.2 RDW Coeff of Nell 13.4 Plt Count 374 MPV 8.8 Immature Gran % (Auto) 0.300 Neut % (Auto) 50.3 Lymph % (Auto) 39.2 Crane % (Auto) 7.7 Eos % (Auto) 1.6 Baso % (Auto) 0.9 Absolute Neuts (auto) 3.4 Absolute Lymphs (auto) 2.63 Nucleated RBC % 0 Sodium 140 Potassium 3.6 Chloride 106 Carbon Dioxide 27.0 Anion Gap 7 BUN 20 H Creatinine 0.91 Estim Creat Clear Calc 46.13 Est GFR (MDRD) Af Amer 77 Est GFR (MDRD) Non-Af 64 BUN/Creatinine Ratio 22.0 H Glucose 169 H Calcium 9.8 Troponin I High Sens 8 Radiography Diagnostic Testing: Clinical Impression(s) from Imaging Studies Chest X-Ray 09/11/22 19:45 IMPRESSION: Mild left lung base atelectasis. Electronically Signed: Fernando Newberry MD at 20:21 EST , Discharge Plan Triage Chief Complaint: Palpitations ED Provider: Stanislav Romano Dx/Rx/DC Orders Instructions: ED Palpitations Prescriptions: No Action omeprazole 20 MG capsule 20 mg PO DAILY Label Comments: gastric reflux benazepril-hydrochlorothiazide [Lotensin HCT] 1 EACH tablet 1 ea PO DAILY Qty: 30 0RF Label Comments: BLOOD PRESSURE- ESCRIPTED TO [facility] metoprolol tartrate 25 MG tablet 25 mg PO QHS Primary Care Provider: Kristian Soto Referrals: Kristian Soto MD [Primary Care Provider] - Disposition Disposition: Home, Self Care
[2022-09-11 21:30] VITALS: BP 139/74; PULSE 61; RESP 15; O2SAT 98
== END 2022-09-11 21:46 | disposition home or self-care (01) ==
PROVIDERS: Emergency Provider Student in an Organized Health Care Education/Training Program; PCP Internal Medicine; Visit Provider Student in an Organized Health Care Education/Training Program
DX: I47.1 Supraventricular tachycardia (principal); R00.2 Palpitations
CPT/HCPCS: 71045; 80048; 84484; 85025; 93005; 99285

== ENCOUNTER 2022-10-05 09:30 | Outpatient (RCR) | payer MEDICARE, OTHER, SELFPAY ==
--- NOTE | 2022-07-15 13:18 | HP.PTEVAL_ITS ---
Patient's Visit Information LUCIANO BACA is a 77 year old F referred to Physical Therapy by Dr. Ramy Wilkes, with a diagnosis of PRIMARY OSTEOARTHRITIS ,RIGHT SHOULDER. Date of Evaluation: 07/15/22 Physical Therapist: Ray Cervantes, PT, Cert MDT, OCS - Visit Plan Frequency: 2x /Week Duration: 4 Weeks Plan: PT INTERVETIONS ROM ,RTC/SCAPULAR STRENGTHENING ,POSTURAL EX'S AND MODALTIES PRN - Subjective This 77 y/o female presents to physical therapy right shoulder pain. Patient developed right shoulder pain ~ [address] Wilkes did x-rays shoulder OA and prescribed pain medication. Pain located global right shoulder. Aggravating lifting ,raising arm with ADL'S ,reaching behind back and reaching in cupboard is limited. Symptoms affecting ADLS and housework tasks. Patient had elbow fracture ~ 18 years ago and TSR right. Patient symptoms better with rest and medication. Patient pain affects sleeping. Patient pain affects QOL and function. Patient denies paresthesia/tingling. Patient goal to have decrease pain and improve function. SOCIAL: . VOCATION: RETIRED - Pain Right Shoulder Pain Intensity (Out of 10): 9 Pain Intensity Range: 10 - Objective POSTURE: mild forward posture. NEURO: denies paresthesia/tingling. PALAPTION: unremarkable. AROM: shoulder flexion 140 degrees, abduction 135 degrees ,ER 890 degrees ,IR S1. PROM: shoulder flexion/abduction 160 degrees ,ER 90 degrees. MMT: infraspinatus 4-/5 ,supraspinatus 4-/5 ,subscapularis 4/5 ,anterior deltoid 4-/5 ,lateral deltoid 3+/5 - Special Tests R Shoulder Lift Off Test - Subscapular Tear: Negative R Shoulder Empty Can - SS: Positive R Shoulder Neer - Impingement: Positive R Shoulder Liriano Juan Antonio - Impingement: Positive R Shoulder Shrug Sign - OA/Adhesive Capsulitis: Negative - Balance/Special Test Scores Quick DASH Score: 52.2725 - Goals Goal 1:: Patient to be I with HEP Goal Time Frame: 4-6 Weeks Goal 2:: Patient to demonstrate 60% improvement with improved function with less pain Goal Time Frame: 4-6 Weeks Goal 3:: Patient to improve AROM shoulder flexion /abduction 150 degrees for reaching in cupboard and L1 IR to put on coat. Goal Time Frame: 4-6 Weeks Goal 4:: Patient to increase strength of RTC and Deltoid 4/5 to improve function for ADL's Goal Time Frame: 4-6 Weeks Goal 5:: Patient to improve quick dash by 5 points to improve function for ADLS' Goal Time Frame: 4-6 Weeks - Rehabilitation Potential Physical Therapy Diagnosis: This patient has h/o right shoulder TSR along with recent pain with weakness affecting functional activities with lifting and OH activities with ADL's thus benefit from skilled PT Rehabilitation Potential: Good - Anticipated Interventions Patient/Client Instruction: Educate patient on: Condition, Plan of Care For the Purpose of:: To decrease pain, To increase ROM, To improve muscle performance and motor function, To improve ability to perform ADL's, To increase tolerance to activity/condition/position, To improve ability of physical actions for home/community/work/leisure, To improve health of tissue Therapeutic Exercise to Include: Strength training, Postural training, Flexibil ty training, Active ROM Comment: RTC For the Purpose of:: To decrease pain, To increase ROM, To improve muscle performance and motor function, To improve ability to perform ADL's, To increase tolerance to activity/condition/position, To improve ability of physical actions for home/community/work/leisure, To improve health of tissue, To decrease soft tissue restriction, To increase flexibility/ROM, To prevent re-injury TENS: Yes IF ES: Yes Cryotherapy (ice pack, ice massage): Yes Thermo therapy (hot pack): Yes Ultrasound (thermal/non thermal): Yes For the Purpose of:: To decrease pain, To increase ROM, To improve nutrient delivery to tissue, To increase oxygenation perfusion, To improve health of tissue, To decrease soft tissue restriction Thank you for the opportunity to evaluate your patient. For Medicare and Medicare HMO plans, please review the plan of care and approve it. It will need to be FAXED BACK to us at [phone] for Medicare purposes. For Medicare only, by signing this I certify the plan of care. Please let me know if there are questions or concerns regarding this plan of care. Physician Signature: Date:
--- NOTE | 2022-08-12 09:25 | HP.PTREVAL ---
Dr. Ramy Wilkes, DO, It has been my pleasure to treat LUCIANO BACA over the last 9 visits for PRIMARY OSTEOARTHRITIS ,RIGHT SHOULDER. Please see the progress note below for an update on the physical therapy plan of care! Subjective: Doing better for ex reaching in cupboard Objective/Function: AROM: shoulder flexion 150 abduction ,ER 85,ABD 150 degrees. MMT: RTC 4/5 supraspinatus 4-/5 ,deltoid 4-/5 Plan Plan: CONT WITH POC. PT INTERVETIONS ROM ,RTC/SCAPULAR STRENGTHENING ,POSTURAL EX'S AND MODALTIES PRN Balance/Gait/Functional tests - Balance/Special Test Scores Quick DASH Score: 27.2725 Goals Goal 1:: Patient to be I with HEP Goal Time Frame: 4-6 Weeks Goal Progress: Progressing Goal 2:: Patient to demonstrate 60% improvement with improved function with less pain Goal Time Frame: 4-6 Weeks Goal Progress: Progressing Goal 3:: Patient to improve AROM shoulder flexion /abduction 150 degrees for reaching in cupboard and L1 IR to put on coat. Goal Time Frame: 4-6 Weeks Goal Progress: Progressing Goal 4:: Patient to increase strength of RTC and Deltoid 4/5 to improve function for ADL's Goal Time Frame: 4-6 Weeks Goal Progress: Progressing Goal 5:: Patient to improve quick dash by 5 points to improve function for ADLS' Goal Time Frame: 4-6 Weeks Goal Progress: Progressing Anticipated Interventions Patient/Client Instruction: Educate patient on: Condition, Plan of Care For the Purpose of:: To decrease pain, To increase ROM, To improve muscle performance and motor function, To improve ability to perform ADL's, To increase tolerance to activity/condition/position, To improve ability of physical actions for home/community/work/leisure, To improve health of tissue Therapeutic Exercise to Include: Strength training, Postural training, Flexibilty training, Active ROM Comment: RTC For the Purpose of:: To decrease pain, To increase ROM, To improve muscle performance and motor function, To improve ability to perform ADL's, To increase tolerance to activity/condition/position, To improve ability of physical actions for home/community/work/leisure, To improve health of tissue, To decrease soft tissue restriction, To increase flexibility/ROM, To prevent re-injury TENS: Yes IF ES: Yes Cryotherapy (ice pack, ice massage): Yes Thermo therapy (hot pack): Yes Ultrasound (thermal/non thermal): Yes For the Purpose of:: To decrease pain, To increase ROM, To improve nutrient delivery to tissue, To increase oxygenation perfusion, To improve health of tissue, To decrease soft tissue restriction Please do not hesitate to contact me at [phone] by phone or if you have questions or concerns regarding this new plan of care! Sincerely, Ray Cervantes, PT, Cert MDT, OCS
--- NOTE | 2022-10-05 09:58 | HP.PTDCSUM ---
It has been my pleasure to treat LUCIANO BACA referred by Dr. Ramy Wilkes DO, with the diagnosis of PRIMARY OSTEOARTHRITIS ,RIGHT SHOULDER for a total of 20 visit(s). Discharge Date: Please see the following information for a summary of their discharge status. Subjective: Doing well ..ready for d/c Right Shoulder Pain Intensity (Out of 10): 0 % Improvement: 75 Objective/Function: AROM: shoulder flexion/abduction 160 ,ER 90. MMT: RTC 4/5 ,deltoid 4-/5 Goal 1:: Patient to be I with HEP Goal Progress: Goal Met Goal 2:: Patient to demonstrate 60% improvement with improved function with less pain Goal Progress: Goal Met Goal 3:: Patient to improve AROM shoulder flexion /abduction 150 degrees for reaching in cupboard and L1 IR to put on coat. Goal Progress: Goal Met Goal 4:: Patient to increase strength of RTC and Deltoid 4/5 to improve function for ADL's Goal Progress: Goal Met Goal 5:: Patient to improve quick dash by 5 points to improve function for ADLS' Goal Progress: Goal Met Plan: D/C If there are questions or concerns regarding this patient's physical therapy, please feel free to call me at [phone]. Thank you for the referral of this patient. Sincerely, Ray Cervantes, PT, Cert MDT, OCS Balance/Gait/Functional tests - Balance/Special Test Scores Quick DASH Score: 13.6350
== END 2022-10-05 19:00 | disposition home or self-care (01) ==
LOC: PT 09:30
PROVIDERS: PCP Internal Medicine; Referring Provider Orthopaedic Surgery; Visit Provider Orthopaedic Surgery
DX: M19.011 Primary osteoarthritis, right shoulder (principal)
CPT/HCPCS: 97110; 97162

== ENCOUNTER 2023-06-01 09:30 | Outpatient (RCR) | payer MEDICARE, OTHER, SELFPAY ==
--- NOTE | 2023-04-18 12:45 | HP.PTEVAL_ITS ---
Patient's Visit Information Visit Information Visit Information: LUCIANO BACA is a 77 year old F referred to Physical Therapy by ANGEL GUERRERO with a diagnosis of BILTERAL PLANTAR FASCITIS ,EQUINUS CONTRACTURE OF ANKLE. Date of Evaluation: 04/18/23 Physical Therapist: Ray Cervantes, PT, Cert MDT, OCS Visit Plan Frequency: 2x /Week Duration: 6 Weeks Plan: PT INTERVTIONS STRETCHING CALF/PLANTAR FASCIA ,US ,CP ,MANUAL THERAPY TO CALF /PLANTAR FASCIA WITH STICK /HUAK /STM Subjective Subjective: This 77 y/o female presents to physical therapy with right plantar fasciitis . Patient has right foot pain in December 2022 which progressively worse ~ [address] recommended PT and cushion heel . Patient had x-rays - Location of pain arch to heel. Patient has new shoes and tried stretching. Patient pain worse with walking/standing impairs ADL's and housework tasks . Patient is able to sleep at night. Patient pain affects QOL and function. Pat ient denies paresthesia/tingling . Patient goals to decrease pain. VOCATION:retired SOCIAL: Pain Right Foot: Pain Intensity (Out of 10): 5 Pain Intensity Range: 10 Objective Objective: POSTURE:( frontal plane mechanics) Pes Cavus NEURO: denies paresthesia/tingling GAIT: ambulates with antalgic gait right side PALAPTION: tender G-S ,insertion of plantar fascia and calcaneus AROM: dorsiflexion 0 degrees ,plantar flexion 60 degrees , inversion 40 degrees ,eversion 5 degrees MMT: ankle grossly 5/5 ,except G-S 4/5 G-S FLEXABLITY: mod tight Balance/Special Test Scores Lower Extremity Functional Score: 30 Goals Goal 1:: Patient to be I with HEP for foot Goal Time Frame: 4-6 Weeks Goal 2:: Patient to normalize gait Goal Time Frame: 4-6 Weeks Goal 3:: Patient to improve dorsiflexion by 5 degrees to improve gait Goal Time Frame: 4-6 Weeks Goal 4:: Patient to demonstrate 50% improvement with decrease plantar fascia pain and heel pain for gait Goal Time Frame: 4-6 Weeks Goal 5:: Patient to improve LFES score by 5 -10 points to improve QOL and function Rehabilitation Potential Physical Therapy Diagnosis: This patient has right plantar fasciitis with pain heel impairs walking /standing difficulty with ADL's and housework thus benefit from skilled PT Rehabilitation Potential: Good Anticipated Interventions Patient/Client Instruction: Educate patient on: Condition and Plan of Care For the Purpose of:: To decrease pain, To increase ROM, To improve muscle performance and motor function, To improve ability to perform ADL's, To increase tolerance to activity/condition/position, To improve ability of physical actions for home/community/work/leisure, To improve gait and locomotor functions, To improve health of tissue, To decrease soft tissue restriction, To increase flexibility/ROM, To reduce risk of recurrence, To improve ability to perform tasks related to life management and To improve tolerance to ADL's Therapeutic Exercise to Include: Strength training, Postural training, Flexibilty training and Active ROM Comment: foot PF For the Purpose of:: To decrease pain, To increase ROM, To improve nutrient delivery to tissue, To increase oxygenation perfusion, To improve ability to perform ADL's, To increase tolerance to activity/condition/position, To improve ability of physical actions for home/community/work/leisure, To improve gait and locomotor functions, To improve health of tissue, To decrease soft tissue restriction and To increase flexibility/ROM Manual Therapy Techniques to Include: Mobilization and Soft tissue mobilization Comment: PLANTAR FASCIA HAWK /STICK For the Purpose of:: To decrease pain, To decrease swelling/inflammation, To increase ROM, To improve nutrient delivery to tissue, To increase oxygenation perfusion, To improve health of tissue and To decrease soft tissue restriction Cryotherapy (ice pack, ice massage): Yes Ultrasound (thermal/non thermal): Yes For the Purpose of:: To decrease pain, To increase ROM, To improve nutrient delivery to tissue, To improve muscle performance and motor function, To improve health of tissue and To decrease soft tissue restriction Text: Thank you for the opportunity to evaluate your patient. For Medicare and Medicare HMO plans, please review the plan of care and approve it. It will need to be FAXED BACK to us at [phone] for Medicare purposes. For Medicare only, by signing this I certify the plan of care. Please let me know if there are questions or concerns regarding this plan of care. Physician Sig nature: Date:
--- NOTE | 2023-04-18 12:45 | HP.PTEVAL2 ---
Patient's Visit Information Visit Information Visit Information: LCUIANO BACA is a 77 year old F referred to Physical Therapy by ANGEL GUERRERO with a diagnosis of . Date of Evaluation: Physical Therapist: Ray Cervantes, PT, Cert MDT, OCS Anticipated Interventions text: Thank you for the opportunity to evaluate your patient. For Medicare and Medicare HMO plans, please review the plan of care and approve it. It will need to be FAXED BACK to us at [phone] for Medicare purposes. For Medicare only, by signing this I certify the plan of care. Please let me know if there are questions or concerns regarding this plan of care. Physician Signature: Date:
--- NOTE | 2023-06-01 10:28 | HP.PTDCSUM ---
Discharge Summary D/C summary: It has been my pleasure to treat LUCIANO BACA referred by ANGEL GUERRERO, with the diagnosis of BILTERAL PLANTAR FASCITIS ,EQUINUS CONTRACTURE OF ANKLE for a total of 12 visit(s). Discharge Date: 06/01/23 Please see the following information for a summary of their discharge status. Subjective Subjective: Doing well Pain Right Foot: Pain Intensity (Out of 10): 0 Overall Improvement % Improvement: 90 Objective Objective/Function: POSTURE:( frontal plane mechanics) Pes Cavus NEURO: denies paresthesia/tingling GAIT: ambulates with reciprocal pattern PALAPTION: tender G-S ,insertion of plantar fascia and calcaneus AROM: dorsiflexion 0 degrees ,plantar flexion 60 degrees , inversion 40 degrees ,eversion 5 degrees MMT: ankle grossly 5/5 ,except G-S 4/5 G-S FLEXABLITY: min tight Goals Goal 1:: Patient to be I with HEP for foot Goal Progress: Goal Met Goal 2:: Patient to normalize gait Goal Progress: Goal Met Goal 3:: Patient to improve dorsiflexion by 5 degrees to improve gait Goal Progress: Goal Met Goal 4:: Patient to demonstrate 50% improvement with decrease plantar fascia pain and heel pain for gait Goal 5:: Patient to improve LFES score by 5 -10 points to improve QOL and function Goal Progress: Goal Met Plan Plan: D/C D/C Information Discharge Comments: HEP d/c sentence: If there are questions or concerns regarding this patient's physical therapy, please feel free to call me at [phone]. Thank you for the referral of this patient. Sincerely, Ray Cervantes, PT, Cert MDT, OCS Balance/Gait/Functional tests Balance/Special Test Scores Lower Extremity Functional Score: 70 Improvement % Improvement: 90
== END 2023-06-01 13:59 | disposition home or self-care (01) ==
LOC: PT 09:30
PROVIDERS: PCP Internal Medicine
DX: M72.2 Plantar fascial fibromatosis (principal); M24.573 Contracture, unspecified ankle
CPT/HCPCS: 97035; 97140; 97162

== ENCOUNTER 2023-12-07 09:00 | Outpatient (RCR) | payer MEDICARE, OTHER, SELFPAY ==
--- NOTE | 2023-09-13 14:44 | HP.PTEVAL_ITS ---
Patient's Visit Information Visit Information Visit Information: LUCIANO BACA is a 78 year old F referred to Physical Therapy by Dr. Kristian Soto MD with a diagnosis of OSTEOPOROSIS ,UNSPECIEFIED PATHOLOGICAL FRACTURE. Date of Evaluation: 09/13/23 Physical Therapist: Ray Cervantes, PT, Cert MDT, OCS Visit Plan Frequency: 2x /Week Duration: 4 Weeks Plan: PT INTERVENTIONS DLS Subjective Subjective: This 78 y/o female presents to physical therapy with osteoporosis. Patient has had osteoporosis for 20years . Recently , had bone density test sh owed decline in bone density. Dr wanted to do medication but patient declined. Patient wants to do therapy instead. Patient bone density test lower body showed worse in right hip . Patient does workout 1 x week. Denies paresthesia/tingling . Denies pain. Patient has no abnormal night pain. Patient condition affects QOL and function. Patient goals to decrease osteoporosis with exercises. SOCIAL: VOCATION: retired Objective Objective: POSTURE: mild forward posture rounded shoulders head forward GAIT: mild forward reciprocal pattern NEURO: denies paresthesia/tingling PALPATION: absent PROM HIP: WFL -IR 35 DEGREES MMT: BUE 4/5 shoulders ( peak force) 13.8 quads/hamstrings/ankle 4/5 , ( peak force) hip abduction right 17.2 ,left 18.6 ,right hip flexion 23.9 right ,left 22.9 LUMBAR ROM: min loss ,extension mod/severe loss ,side glides mod loss THORACIC ROM: flexion mod loss ,extension mod/severe loss FLEXABLITY: hamstrings min tight Special Tests L/S Slump test left side: Negative L/S Slump test right side: Negative L/S Left Straight Leg Raise: Negative L/S Right Straight Leg Raise: Negative Balance/Special Test Scores Lower Extremity Functional Score: 43 Goals Goal 1:: Patient to be I with HEP with osteoporosis program Goal Time Frame: 4-6 Weeks Goal 2:: Patient to demonstrate 70% improvement with function and ADLS Goal Time Frame: 4-6 Weeks Goal 3:: Patient to improve peak force shoulders by 5-10 # to improve function and ADLS Goal Time Frame: 4-6 Weeks Goal 4:: Patient to improve peak force of hips by 10# strength to improve function Goal Time Frame: 4-6 Weeks Goal 5:: Patient to improve LFES score by 5-10 points to improve function. Goal Time Frame: 4-6 Weeks Rehabilitation Potential Physical Therapy Diagnosis: This patient recently had bone density test recently has decreased since last test thus patient will benefit from osteoporosis program in physical therapy Rehabilitation Potential: Good Anticipated Interventions Patient/Client Instruction: Educate patient on: Condition and Plan of Care For the Purpose of:: To improve muscle performance and motor function, To improve ability to perform ADL's, To increase tolerance to activity/condition/position, To improve ability of physical actions for home/community/work/leisure, To improve health of tissue, To decrease soft tissue restriction, To increase flexibility/ROM, To improve endurance, To improve balance, To improve health and function and To improve tolerance to ADL's Other: osteoporosis Therapeutic Exercise to Include: Strength training, Endurance training, Flexibilty training and Dynamic Lumbar Stabilization Comment: osteoporosis For the Purpose of:: To improve muscle performance and motor function, To improve ability to perform ADL's, To increase tolerance to activity/condition/position, To improve ability of physical actions for home/community/work/leisure, To increase flexibility/ROM and To improve tolerance to ADL's Text: Thank you for the opportunity to evaluate your patient. For Medicare and Medicare HMO plans, please review the plan of care and approve it. It will need to be FAXED BACK to us at [phone] for Medicare purposes. For Medicare only, by signing this I certify the plan of care. Please let me know if there are questions or concerns regarding this plan of care. Physician Signature: Date:
--- NOTE | 2023-10-12 09:27 | HP.PTREVAL ---
Re-Evaluation Intro: Dr. Kristian Soto MD, It has been my pleasure to treat LUCIANO BACA over the last 9 visits for OSTEOPOROSIS ,UNSPECIEFIED PATHOLOGICAL FRACTURE. Please see the progress note below for an update on the physical therapy plan of care! Subjective Subjective: Patient had PVC's yesterday.. Objective Objective/Function: POSTURE: mild forward posture rounded shoulders head forward GAIT: mild forward reciprocal pattern NEURO: denies paresthesia/tingling PALPATION: absent PROM HIP: WFL -IR 35 DEGREES MMT: BUE 4/5 shoulders ( peak force) 13.8 quads/hamstrings/ankle 4/5 , ( peak force) hip abduction right 18.2 ,left 19.6 ,right hip flexion 23.7 right ,left 23.1 LUMBAR ROM: min loss ,extension mod/severe loss ,side glides mod loss THORACIC ROM: flexion mod loss ,extension mod/severe loss Plan Plan Plan: PT INTERVENTIONS DLS ,POSTURAL EX'S ,WB PROGRAM UE/LE ,OSTEOPOROSIS PROGRAM AND PATIENT EDUCATION Balance/Gait/Functional tests Balance/Special Test Scores Lower Extremity Functional Score: 43 Goals Goals Goal 1:: Patient to be I with HEP with osteoporosis program Goal Time Frame: 4-6 Weeks Goal Progress: Progressing Goal 2:: Patient to demonstrate 70% improvement with function and ADLS Goal Time Frame: 4-6 Weeks Goal Progress: Progressing Goal 3:: Patient to improve peak force shoulders by 5-10 # to improve function and ADLS Goal Time Frame: 4-6 Weeks Goal Progress: Progressing Goal 4:: Patient to improve peak force of hips by 10# strength to improve function Goal Time Frame: 4-6 Weeks Goal Progress: Progressing Goal 5:: Patient to improve LFES score by 5-10 points to improve function. Goal Time Frame: 4-6 Weeks Goal Progress: Progressing Anticipated Interventions Anticipated Interventions Patient/Client Instruction: Educate patient on: Condition and Plan of Care For the Purpose of:: To improve muscle performance and motor function, To improve ability to perform ADL's, To increase tolerance to activity/condition/position, To improve ability of physical actions for home/community/work/leisure, To improve health of tissue, To decrease soft tissue restriction, To increase flexibility/ROM, To improve endurance, To improve balance, To improve health and function and To improve tolerance to ADL's Other: osteoporosis Therapeutic Exercise to Include: Strength training, Endurance training, Flexibilty training and Dynamic Lumbar Stabilization Comment: osteoporosis For the Purpose of:: To improve muscle performance and motor function, To improve ability to perform ADL's, To increase tolerance to activity/condition/position, To improve ability of physical actions for home/community/work/leisure, To increase flexibility/ROM and To improve tolerance to ADL's Re-Evaluation Ending Re-evaluation ending: Please do not hesitate to contact me at [phone] by phone or if you have questions or concerns regarding this new plan of care! Sincerely, Ray Cervantes, PT, Cert MDT, OCS
--- NOTE | 2023-12-07 10:57 | HP.PTDCSUM ---
Discharge Summary D/C summary: It has been my pleasure to treat LUCIANO BACA referred by Dr. Kristian Soto MD, with the diagnosis of OSTEOPOROSIS ,UNSPECIEFIED PATHOLOGICAL FRACTURE for a total of 19 visit(s). Discharge Date: 12/07/23 Please see the following information for a summary of their discharge status. Subjective Subjective: Doing well ..ready for d/c Overall Improvement % Improvement: 100 Objective Objective/Function: POSTURE: mild forward posture rounded shoulders head forward GAIT: mild forward reciprocal pattern NEURO: denies paresthesia/tingling PALPATION: absent PROM HIP: WFL -IR 35 DEGREES MMT: BUE 4/5 shoulders ( peak force) 13.8 quads/hamstrings/ankle 4/5 , ( peak force) hip abduction right 19.2 ,left 26.6 ,right hip flexion 44,2 right ,left 44.1 LUMBAR ROM: min loss ,extension mod/severe loss ,side glides mod loss THORACIC ROM: flexion mod loss ,extension mod/severe loss Goals Goal 1:: Patient to be I with [facility] with osteoporosis program Goal Progress: Goal Met Goal 2:: Patient to demonstrate 70% improvement with function and ADLS Goal Progress: Goal Met Goal 3:: Patient to improve peak force shoulders by 5-10 # to improve function and ADLS Goal Progress: Goal Met Goal 4:: Patient to improve peak force of hips by 10# strength to improve function Goal Progress: Goal Met Goal 5:: Patient to improve LFES score by 5-10 points to improve function. Goal Progress: Goal Met Plan Plan: D/C D/C Information Discharge Comments: gym d/c sentence: If there are questions or concerns regarding this patient's physical therapy, please feel free to call me at [phone]. Thank you for the referral of this patient. Sincerely, Ray Cervantes, PT, Cert MDT, OCS Balance/Gait/Functional tests Balance/Special Test Scores Oswestry Low Back Score: 0 Lower Extremity Functional Score: 43 Improvement % Improvement: 100
== END 2023-12-07 19:00 | disposition home or self-care (01) ==
LOC: PT 09:00
PROVIDERS: PCP Internal Medicine; Referring Provider Internal Medicine; Visit Provider Internal Medicine
DX: M81.0 Age-related osteoporosis without current pathological fracture (principal)
CPT/HCPCS: 97110; 97162

== ENCOUNTER 2024-01-15 21:01 | Emergency (ER) | payer MEDICARE, OTHER, SELFPAY ==
[2024-01-15 21:02] VITALS: BP 165/89; PULSE 74; RESP 20; TEMP 36.3; O2SAT 97; BMI 31.2
--- NOTE | 2024-01-15 21:16 | EKG12_ITS ---
Test Reason : DYSRHYTHMIA Blood Pressure : / mmHG Vent. Rate : 074 BPM Atrial Rate : 074 BPM P-R Int : 208 ms QRS Dur : 090 ms QT Int : 392 ms P-R-T Axes : 083 -48 016 degrees QTc Int : 435 ms Sinus rhythm with occasional Premature ventricular complexes Pulmonary disease pattern Left anterior fascicular block Inferior-posterior infarct , age undetermined Abnormal ECG Confirmed by MARIKA ACOSTA, MICKEY ([id number]), associate entertainment editor BRITTANY FRANKLIN ([id number]) on 01/16/2024 10:08:10 AM Referred By: AR Confirmed By:MICKEY HAIRSTNO MD
--- NOTE | 2024-01-15 21:17 | EX.ED.DYSGE1 ---
HPI History of Present Illness Chief Complaint: Palpitations Narrative Narrative: 78-year-old female past medical history of paroxysmal supraventricular tachycardia for which she takes metoprolol tartrate 12.5 mg twice a day, sees a professor of environmental science at [facility], presents via EMS with heart rate in the 180s and feelings of palpitation. She states that she has been dealing with this for a few years. She is worn a Holter monitor for a month, but they never caught anything. She is experienced periods of supraventricular tachycardia that usually go away. This evening at around 8:00, over an hour ago, she went to the refrigerator and drink cold water and root beer, then started having fast, pounding heart rate when she sat down. She states that she looked on her Apple Watch, and it was confused and could not read how fast her heart rate was, saying it was in the 80s. She denies any chest pain or shortness of breath, or diaphoresis. She took her metoprolol to tartrate at around 815, was only about half an hour early from when she usually takes it, but her symptoms did not resolve so she called EMS [facility] Home Medications ?Medication ?Instructions ?Recorded ?Last Taken ?Type omeprazole 20 mg capsule,delayed 20 mg PO DAILY PRN acid reflux 05/11/16 05/11/16 History release metoprolol tartrate 25 mg tablet 12.5 mg PO BID 09/28/20 Unknown History benazepril 10 0.5 tab PO DAILY 01/15/24 Unknown History mg-hydrochlorothiazide 12.5 mg tablet Allergy/AdvReac Type Severity Reaction Status Date / Time hhlud-2-jvfbumsqpn inhibitor Allergy Angioedema Verified 01/15/24 21:04 (Tkzjx-9-Pbslumubfs Inhibitor) Antihistamines - Alkylamine Allergy Chest Verified 01/15/24 21:04 tightness iodine Allergy Shortness Verified 01/15/24 21:04 of breath adhesive tape AdvReac Rash Verified 01/15/24 21:04 Iodinated Contrast Media AdvReac Swelling Verified 01/15/24 21:04 (CONTRASTS) Social History Smoking Status: Never smoker ROS ROS ED ROS Narrative Constitutional: No fever, no chills. HEENT: No sore throat. No neck pain. No loss of vision. No rhinorrhea. Cardiovascular: No chest pain. Positive palpitations, positive pounding and chest. No pedal edema. Respiratory: No cough, no shortness of breath. Abdominal: No abdominal pain. No nausea. No vomiting. Genitourinary: No dysuria. No hematuria. Musculoskeletal: No myalgias. No arthralgias. Neurologic: No headaches. No dizziness. No lightheadedness. Skin: No rash. No change in color. Psychiatric: No depression. No anxiety. EXAM Physical Exam Narrative Exam Narrative: Afebrile. Vital signs noted. HEENT: Normocephalic. Atraumatic. PERRL, EOMI. Neck soft and supple. No point tenderness or step off. Cardiovascular: Regular rate and rhythm. No murmurs, rubs, or gallops appreciated. Respiratory: No tachypnea. Lungs clear to auscultation bilaterally. Gastrointestinal: Abdomen soft, nontender, with normoactive bowel sounds. No rebound or guarding. Neurological: Awake. Alert. Nonfocal, nonlateralizing. Skin: No rash. Normal color. No pallor. Musculoskeletal: No pedal edema. Full range of motion extremities. Const Vital Signs: 01/15/24 21:02 01/15/24 21:05 01/15/24 22:01 Temperature 97.4 F L 98.1 F Temperature Source Oral Temporal Pulse Rate 74 68 Respiratory Rate 20 H 18 Respiratory Effort Normal Non-Labored Blood Pressure 165/89 H 161/89 H Blood Pressure Mean 114 113 Pulse Ox 97 98 Oxygen Delivery Method Room Air Room Air 01/15/24 23:00 Temperature 97.7 F L Temperature Source Temporal Pulse Rate 64 Respiratory Rate 19 H Respiratory Effort Blood Pressure 143/84 H Blood Pressure Mean 103 Pulse Ox 93 Oxygen Delivery Method Room Air MDM MDM MDM Narrative Medical decision making narrative: I reviewed the prehospital EKG which showed supraventricular tachycardia at [address] changes. No STEMI. I reviewed her prior records and she has been here previously for paroxysmal SVT. However, on my interpretation of her EKG here it is normal sinus rhythm at 74 bpm with occasional PVCs which she has had in the past. She had not received any medications from EMS to bring her rhythm. I do feel that she experienced her paroxysmal SVT. I will obtain laboratory values and chest x-ray as she has gotten in the past and keep her on a cardiac nurse to make sure that she does not require any intervention or medications for her PSVT. I reviewed her laboratory work and she has a normal white count of 6.2, hemoglobin normal at 12.8, platelet count normal at 328. Sodium is normal at 139 with potassium 3.8, BUN of 16 and creatinine 0.88, glucose appropriately elevated at 137 with a normal anion gap of 7. High-sensitivity troponin 8, consistent with previous values when compared to prior laboratory work. I do not feel she requires serial enzymes. Chest x-ray in 1 view interpreted by myself independently shows no evidence of pneumonia or pneumothorax. I reviewed the radiology report which confirms my independent interpretation. At this point in time, upon repeat examination at approximately 2310, she states that she was able to take a nap. Her heart rate is 63 bpm on the monitor and appears regular. At this point in time, she did tell me that she remembers having a brief episode where her heart rate was in the 170s approximately 10 days ago but it only lasted 10 minutes. As she is having her episodes more frequently, I suggested that she continue her medication and follow-up with her professor of environmental science as soon as possible. Return instructions to the emergency department were reviewed. Patient is comfortable with discharge. Disposition is discharged home in stable condition. Lab Data Attestation: I reviewed the patient's lab results. Labs: Laboratory Results - last 24 hr 01/15/24 21:15 WBC 6.2 RBC 4.73 Hgb 12.8 Hct 40.9 MCV 86.5 MCH 27.1 MCHC 31.3 L RDW Std Deviation 43.9 RDW Coeff of Nell 13.9 Plt Count 328 MPV 8.6 Immature Gran % (Auto) 0.200 Neut % (Auto) 51.2 Lymph % (Auto) 36.8 [place] % (Auto) 9.4 Eos % (Auto) 1.6 Baso % (Auto) 0.8 Absolute Neuts (auto) 3.2 Absolute Lymphs (auto) 2.28 Nucleated RBC % 0 Sodium 139 Potassium 3.8 Chloride 106 Carbon Dioxide 26.0 Anion Gap 7 BUN 16 Creatinine 0.88 Estim Creat Clear Calc 56.55 Est GFR (MDRD) Af Amer 80 Est GFR (MDRD) Non-Af 66 BUN/Creatinine Ratio 18.2 Glucose 137 H Calcium 9.6 Troponin I High Sens 8 Radiography Diagnostic Testing: Clinical Impression(s) from Imaging Studies Chest X-Ray 01/15/24 21:20 IMPRESSION: There are no acute findings. Electronically Signed: Kwame Stevens MD at 21:44 EDT Reading Location ID and State: [facility] / [place] , Service support , Discharge Plan Triage Chief Complaint: Palpitations ED Provider: Alfredo Matos Dx/Rx/DC Orders Clinical Impression: Paroxysmal supraventricular tachycardia, Palpitations Instructions: ED Understanding Supraventricular Tachycardia (SVT), ED Palpitations Prescriptions: No Action omeprazole 20 MG capsule 20 mg PO DAILY PRN (Reason: acid reflux) Patient Comments: gastric reflux metoprolol tartrate 25 MG tablet 12.5 mg PO BID benazepril-hydrochlorothiazide 10-12.5 mg tablet 0.5 tab PO DAILY Primary Care Provider: Kristian Soto Referrals: Kristian Soto MD [Primary Care Provider] - Activity Restrictions/Additional Instructions: Follow-up with your professor of environmental science at the [facility] in the next week. Call for an appointment and tell him that you are having these episodes of paroxysmal supraventricular tachycardia more frequently. Print Language: Emirati Disposition Disposition: Home, Self Care
--- NOTE | 2024-01-15 21:20 | RAD_ITS ---
STUDY: XR Chest 1 View 01/15/2024 9:17 PM REASON FOR EXAM: Female, 78 years old. chest pain COMPARISON: 09/11/2022 TECHNIQUE: XR Chest 1 View FINDINGS: There is no demonstrated pleural abnormality. Total right shoulder arthroplasty. Normal heart size. Normal mediastinum. Normal devang. Prominent appearing increased interstitial lung markings. Normal visualized pulmonary arteries. There is atherosclerotic calcification of the aortic arch with tortuosity. There are diffuse degenerative changes of the visualized thoracic spine. There is degenerative osteoarthritis of the bilateral shoulders. There are no acute findings of the upper abdomen. RAD/Chest 1 View (Portable) IMPRESSION: There are no acute findings. Electronically Signed: Kwame Stevens MD at 21:44 EDT ,
[2024-01-15 21:24] LABS: Absolute Lymphocyte Count 2.28 X10^3/uL (0.83-4.51); Absolute Neutrophil Count 3.2 X10^3/uL (2.0-7.7); Basophil# 0.05 X10^3/uL; Basophil% 0.8 % (0-1); Eosinophils% 1.6 % (0-5); Hematocrit 40.9 % (37-47); Hemoglobin 12.8 g/dL (12.0-15.0); Lymphocyte # 2.28 X10^3/ul (0.83-4.51); Lymphocyte % 36.8 % (19-41); Mean Corp Hgb Conc 31.3 g/dL (32-36); Mean Corpuscular Hgb 27.1 pg (27.0-32.0); Mean Corpuscular Volume 86.5 fL (81-99); Mean Platelet Vol. 8.6 fl (6.2-12.0); Monocyte# 0.58 X10^3/uL; Monocyte% 9.4 % (0-10); NRBC Flagged by Analyzer 0 % (0-5); Neutrophil # 3.18 X10^3/uL (2.7-7.7); Neutrophil % 51.2 % (47-70); Platelet Count 328 K/mm3 (150-450); RBC Distribution Width CV 13.9 % (11.6-14.6); RBC Distribution Width SD 43.9 fl (35.1-43.9); Red Blood Count 4.73 M/mm3 (4.2-5.4); White Blood Count 6.2 K/mm3 (4.4-11.0)
[2024-01-15 21:42] LABS: Troponin-I HS 8 pg/mL (3.0-54.0)
[2024-01-15 22:01] VITALS: BP 161/89; PULSE 68; RESP 18; TEMP 36.7; O2SAT 98
[2024-01-15 22:27] LABS: Anion Gap 7 (5-15); BUN 16 mg/dL (7-18); BUN/Creat Ratio 18.2 RATIO (10-20); Calcium,Total 9.6 mg/dL (8.5-10.1); Chloride 106 mmol/L (98-107); Creatinine, Serum 0.88 mg/dL (0.55-1.02); EST Glomerular Filtration Rate 66 mL/min (>60); Est Glom Filt Rate - Afr Amer 80 mL/min (>60); Estimated Creatinine Clearance 56.55 ml/min; Glucose 137 mg/dL (74-106); Potassium 3.8 mmol/L (3.5-5.1); Sodium Level 139 mmol/L (136-145)
[2024-01-15 23:00] VITALS: BP 143/84; PULSE 64; RESP 19; TEMP 36.5; O2SAT 93
[2024-01-15 23:18] VITALS: BP 143/84; PULSE 78; RESP 17; TEMP 36.6; O2SAT 98
== END 2024-01-15 23:31 | disposition home or self-care (01) ==
PROVIDERS: Emergency Provider Emergency Medicine; PCP Internal Medicine; Visit Provider Emergency Medicine
DX: I47.10 Supraventricular tachycardia, unspecified (principal); R00.2 Palpitations; Z79.899 Other long term (current) drug therapy
CPT/HCPCS: 71045; 80048; 84484; 85025; 93005; 99284; A4216

== ENCOUNTER 2024-02-19 09:07 | Emergency (ER) | payer MEDICARE, OTHER, SELFPAY ==
[2024-02-19 09:07] VITALS: BP 187/84; PULSE 64; RESP 14; TEMP 35.7; O2SAT 98; BMI 30.2
--- NOTE | 2024-02-19 09:29 | EX.ED.VIS.EY ---
HPI History of Present Illness Chief Complaint: Eye Problem Detail of Chief Complaint: Left eyelid discomfort and swelling. Informant: spouse/S.O. Onset/Context/Timing Location: Left Eye Onset: Days Context: Gradual Onset Timing: Continuous Current Severity: Mild Maximum Severity: Mild Associated Symptoms Associated Symptoms - Eyes: Eyelid swelling; Negative for Burning, Crusting, Drainage, Foreign body sensation, Itching, Matting, Pain, Photophobia or Redness History of injury: No Visual correction: - (Bilateral lens implants.) Narrative Narrative: 78-year-old female with bilateral lens implants otherwise no significant past medical history of PVCs. Is developed a mild swelling to her left upper eyelid. Saw her primary care physician thought it was an early stye. It is not gotten better. Prior similar symptoms: No Recent Illness/Hospitalization: No PFSH PFSH Home Medications ?Medication ?Instructions ?Recorded ?Last Taken ?Type omeprazole 20 mg capsule,delayed 20 mg PO DAILY PRN acid reflux 05/11/16 05/11/16 History release metoprolol tartrate 25 mg tablet 12.5 mg PO BID 09/28/20 Unknown History benazepril 10 0.5 tab PO DAILY 01/15/24 Unknown History mg-hydrochlorothiazide 12.5 mg tablet Allergy/AdvReac Type Severity Reaction Status Date / Time jvwkc-9-sjdtieydks inhibitor Allergy Angioedema Verified 01/15/24 21:04 (Xxdtm-0-Txjymtpxhw Inhibitor) Antihistamines - Alkylamine Allergy Chest Verified 01/15/24 21:04 tightness iodine Allergy Shortness Verified 01/15/24 21:04 of breath adhesive tape AdvReac Rash Verified 01/15/24 21:04 Iodinated Contrast Media AdvReac Swelling Verified 01/15/24 21:04 (CONTRASTS) Social History Smoking Status: Never smoker ROS ROS ED ROS Narrative Denies recent illness. Review of Systems ROS Unobtainable: Denies due to encephalopathy Constitutional Constitutional ED: Denies chills or fever(s) Eyes Eyes: Denies blurry vision, change in vision or diplopia ENT ENT ED: Denies ear pain Cardiovascular Cardiovascular: Denies chest pain Respiratory/Chest Respiratory/Chest: Denies cough Gastrointestinal Gastrointestinal: Denies abdominal pain Genitourinary Genitourinary ED: Denies dysuria Musculoskeletal Musculoskeletal: Denies arthralgias Integumentary Denies abscess Neurologic Neurologic: Denies headache(s) Psychiatric Psychiatric: Denies anxiety Endocrine Endocrinology: Denies polydipsia Hematologic/Lymphatic Hematologic/Lymphatic: Denies easy bleeding Allergic/Immunologic Allergic/Immunologic ED: Denies mouth swelling, tongue swelling or urticaria EXAM Physical Exam Narrative Exam Narrative: This is-year-old female no acute distress vital signs stable afebrile. H EENT exam pupils round react light. Extra motions are intact. Left upper lid is swollen there is an early stye midportion of the left upper lid not on the border. Nothing to drain at this time. Pupils round reactive light. Extra motions are intact. She does have lens implants bilaterally. Her vision is unchanged. There is no preauricular lymphadenopathy. No orbital swelling or redness. Lungs clear. Heart regular rhythm. Otherwise exam unremarkable. Const Vital Signs: 02/19/24 09:07 Temperature 96.3 F L Temperature Source Temporal Pulse Rate 64 Respiratory Rate 14 Blood Pressure 187/84 H Blood Pressure Mean 118 Pulse Ox 98 Oxygen Delivery Method Room Air Positive well nourished and well developed; Negative for obese, cachectic, contractures or unkempt General Appearance ED: well developed and NAD; Negative for unkempt, cachectic or contractures Nutritional Appearance: Negative for cachectic or obese HEENT Reports other atraumatic and other; Negative for trauma or tenderness Neck no lymphadenopathy, supple and no JVD General: Negative for tenderness Resp normal respiratory effort, no retractions, no use of accessory muscles, clear to auscultation bilaterally and No percussion normal Effort and Inspection: Negative for other Cardio regular rate, regular rhythm, S1 normal heart sound, S2 normal heart sound and no murmurs Jugular Venous Distention: Negative for other GI non-tender, non-distended and no masses Inspection: Negative for other Auscultation: normoactive bowel sounds Palpation: soft Back/Spine no CVA tenderness General Back: Negative for CVA tenderness Extremity normal to inspection General Extremety ED: Negative for edema General Extremity: Negative for edema Neuro oriented x3, CN's II-XII intact bilaterally and moves all extremities Sensorium / Orientation: oriented to person, oriented to place and oriented to time; Negative for orientation impaired or other Motor Exam: strength 5/5 throughout; Negative for general weakness or strength abnormal Psych Appearance: Negative for unkempt Attitude: No agitated Mood & Affect: Negative for depressed, anxious or tearful Skin no wounds Lesions: no lesions Rashes: no rashes Trauma: Negative for abrasion or laceration Image ED - Eye Diagram: 1. Stye left upper eyelid mid lid. Not on the border. MDM MDM MDM Narrative Medical decision making narrative: Patient has a stye on her left eye. Nothing to drain at this time. Warm compresses. She has appointment to follow-up with her applications support specialist if not resolved in about 2 weeks. Discharge Plan Triage Chief Complaint: Eye Problem ED Provider: Gerald Simental Dx/Rx/DC Orders Clinical Impression: Stye Instructions: ED Stye Prescriptions: No Action omeprazole 20 MG capsule 20 mg PO DAILY PRN (Reason: acid reflux) Patient Comments: gastric reflux metoprolol tartrate 25 MG tablet 12.5 mg PO BID benazepril-hydrochlorothiazide 10-12.5 mg tablet 0.5 tab PO DAILY Primary Care Provider: Kristian Soto Referrals: Kristian Soto MD [Primary Care Provider] - Activity Restrictions/Additional Instructions: Warm compresses to your eye. Tylenol or Motrin for discomfort. Follow-up with your scheduled applications support specialist appointment as needed. Print Language: Lithuanian Disposition Disposition: Home, Self Care
== END 2024-02-19 09:33 | disposition home or self-care (01) ==
LOC: ED 09:32
PROVIDERS: Emergency Provider Emergency Medicine; PCP Internal Medicine; Visit Provider Emergency Medicine
DX: H00.014 Hordeolum externum left upper eyelid (principal)
CPT/HCPCS: 99282

== ENCOUNTER 2024-07-26 09:30 | Outpatient (RCR) | payer MEDICARE, OTHER, SELFPAY ==
--- NOTE | 2024-02-27 12:21 | HP.PTEVAL_ITS ---
Patient's Visit Information Visit Information Visit Information: LUCIANO BACA is a 78 year old F referred to Physical Therapy by Dr. Kristian Soto MD with a diagnosis of OSTEOPOROSIS ,UNSPECIFIED TYPE PATHOLGICAL FRACTURE PRESNENCE. Date of Evaluation: 02/27/24 Physical Therapist: Ray Cervantes, PT, Cert MDT, OCS Visit Plan Frequency: 2x /Week Duration: 4 Weeks Plan: PT INTERVENTIONS DLS ,POSTURAL EX'S HIP STRENGTHENING ,WB ACTIVITIES ( FUNCTIONAL STRENGTHENING) Subjective Subjective: This 78 y/o female presents to physical therapy with osteoporosis. Patient has had osteoporosis for many years . Recently ,had bone density test showed decline in bone density Aug 2023.No recent imaging. Dr wanted to do medication but patient declined but working. Patient wants to do therapy instead. Patient bone density test lower body showed worse in right hip and lumbar spine had small gains.Patient has been working out 1x week. Coughing/sneezing .Bowel/bladder- Denies paresthesia/tingling .Patient sleeping good. Patient has no abnormal night pain. Aggravating factors some ache twisting and excessive standing Patient condition affects QOL and function. Patient goals to decrease osteoporosis with exercises. SOCIAL: VOCATION: retired Pain Bilateral Back: Pain Intensity (Out of 10): 2 Pain Intensity Range: 10 Objective Objective: OSTURE: mild forward posture rounded shoulders head forward GAIT: mild forward reciprocal pattern NEURO: denies paresthesia/tingling ,reflexes L3-4,L4-5,L5-S1 1/3 PALPATION: mild tender LS/S1 PROM HIP: WFL -IR 40 DEGREES MMT: BUE 4/5 shoulders except shoulders 4-/5 quads/hamstrings/ankle 4/5 , ( peak force) hip abduction right 13.1 ,left 14.2 ,right hip flexion 21.2 right ,left 23.8 LUMBAR ROM: min loss ,extension mod/severe loss ,side glides mod loss THORACIC ROM: flexion mod loss ,extension mod/severe loss ,rotation min/mod loss FLEXABILITY: hamstrings min tight Special Tests L/S Slump test left side: Negative L/S Slump test right side: Negative L/S Left Straight Leg Raise: Negative L/S Right Straight Leg Raise: Negative Balance/Special Test Scores Oswestry Low Back Score: 11 Goals Goal 1:: Patient to be I with HEP for spine WB activities ( Osteoporosis Program) Goal Time Frame: 4-6 Weeks Goal 2:: Patient to demonstrate 75% improvement with improved function no symptoms with activity Goal Time Frame: 4-6 Weeks Goal 3:: Patient to improve peak force hips flexion/abduction by 10-15# to imp rove function Goal Time Frame: 4-6 Weeks Goal 4:: Patient to improve back oswestry score by 5 points to improve QOL and function. Goal Time Frame: 4-6 Weeks Rehabilitation Potential Physical Therapy Diagnosis: This patient has osteoporosis with decrease Lumbar ROM and weakness in hips thus benefit from skilled PT Rehabilitation Potential: Good Anticipated Interventions Patient/Client Instruction: Educate patient on: Condition and Plan of Care For the Purpose of:: To decrease pain, To increase ROM, To improve muscle performance and motor function, To improve ability to perform ADL's, To increase tolerance to activity/condition/position, To improve ability of physical actions for home/community/work/leisure, To improve health of tissue, To decrease soft tissue restriction and To reduce risk of recurrence Therapeutic Exercise to Include: Strength training, Postural training and Dynamic Lumbar Stabilization Comment: HIP STRENGTHENING WB ACTIVITIES ( OSTEOPROSIS) For the Purpose of:: To decrease pain, To increase ROM, To improve muscle performance and motor function, To improve ability to perform ADL's, To increase tolerance to activity/condition/position, To improve ability of physical actions for home/community/work/leisure, To improve health of tissue, To decrease soft tissue restriction, To improve endurance, To improve balance and To prevent re- injury Text: Thank you for the opportunity to evaluate your patient. For Medicare and Medicare HMO plans, please review the plan of care and approve it. It will need to be FAXED BACK to us at [phone] for Medicare purposes. For Medicare only, by signing this I certify the plan of care. Please let me know if there are questions or concerns regarding this plan of care. Physician Signature: Date:
--- NOTE | 2024-03-30 09:04 | HP.PTREVAL_ITS ---
Re-Evaluation Intro: Dr. Kristian Soto MD, It has been my pleasure to treat LUCIANO BACA over the last 10 visits for OSTEOPOROSIS ,UNSPECIFIED TYPE PATHOLGICAL FRACTURE PRESNENCE. Please see the progress note below for an update on the physical therapy plan of care! Subjective Subjective: Doing good Objective Objective/Function: POSTURE: mild forward posture rounded shoulders head forward GAIT: mild forward reciprocal pattern NEURO: denies paresthesia/tingling ,reflexes L3-4,L4-5,L5-S1 1/3 PALPATION: mild tender LS/S1 PROM HIP: WFL -IR 40 DEGREES MMT: BUE 4/5 shoulders except shoulders 4-/5 quads/hamstrings/ankle 4/5 , ( peak force) hip abduction right 17.3 ,left 24.2 ,right hip flexion 23.2 right ,left 23.8 LUMBAR ROM: FLEXION WFL ,extension min/mod ,side glides mod loss THORACIC ROM: flexion mod loss ,extension mod ,rotation WFL loss FLEXABILITY: hamstrings min tight Plan Plan Plan: PT INTERVENTIONS DLS ,POSTURAL EX'S HIP STRENGTHENING ,WB ACTIVITIES ( FUNCTIONAL STRENGTHENING) Balance/Gait/Functional tests Balance/Special Test Scores Oswestry Low Back Score: 10 Goals Goals Goal 1:: Patient to be I with HEP for spine WB activities ( Osteoporosis Program) Goal Time Frame: 4-6 Weeks Goal Progress: Progressing Goal 2:: Patient to demonstrate 75% improvement with improved function no symptoms with activity Goal Time Frame: 4-6 Weeks Goal Progress: Progressing Goal 3:: Patient to improve peak force hips flexion/abduction by 10-15# to improve function Goal Time Frame: 4-6 Weeks Goal Progress: Progressing Goal 4:: Patient to improve back oswestry score by 5 points to improve QOL and function. Goal Time Frame: 4-6 Weeks Goal Progress: Progressing Goal Progress: Progressing Anticipated Interventions Anticipated Interventions Patient/Client Instruction: Educate patient on: Condition and Plan of Care For the Purpose of:: To decrease pain, To increase ROM, To improve muscle performance and motor function, To improve ability to perform ADL's, To increase tolerance to activity/condition/position, To improve ability of physical actions for home/community/work/leisure, To improve health of tissue, To decrease soft tissue restriction and To reduce risk of recurrence Therapeutic Exercise to Include: Strength training, Postural training and Dynamic Lumbar Stabilization Comment: HIP STRENGTHENING WB ACTIVITIES ( OSTEOPROSIS) For the Purpose of:: To decrease pain, To increase ROM, To improve muscle performance and motor function, To improve ability to perform ADL's, To increase tolerance to activity/condition/position, To improve ability of physical actions for home/community/work/leisure, To improve health of tissue, To decrease soft tissue restriction, To improve endurance, To improve balance and To prevent re- injury Re-Evaluation Ending Re-evaluation ending: Please do not hesitate to contact me at [phone] by phone or if you have questions or concerns regarding this new plan of care! Sincerely, Ray Cervantes, PT, Cert MDT, OCS
--- NOTE | 2024-04-27 08:22 | HP.PTREVAL_ITS ---
Re-Evaluation Intro: Dr. Kristian Soto MD, It has been my pleasure to treat LUCIANO BACA over the last 16 visits for OSTEOPOROSIS ,UNSPECIFIED TYPE PATHOLGICAL FRACTURE PRESNENCE. Please see the progress note below for an update on the physical therapy plan of care! Subjective Subjective: doing okay just soreness in back Did a lot of cleaning Patient able to do more things at home Objective Objective/Function: * Patient will benefit from skilled PT to focus on WB and strengthening to prevent osteoporosis thus goals addressed and updated* POSTURE: mild forward posture rounded shoulders head forward GAIT: mild forward reciprocal pattern NEURO: denies paresthesia/tingling ,reflexes L3-4,L4-5,L5-S1 1/3 PALPATION: mild tender LS/S1 PROM HIP: WFL -IR 45DEGREES MMT: BUE 4/5 shoulders except shoulders 4-/5 quads/hamstrings/ankle 4/5 , ( peak force) hip abduction right 26.1 ,left 31.2 ,right hip flexion 43.2 right ,left38..8 LUMBAR ROM: FLEXION WFL ,extension min/mod ,side glides mod loss THORACIC ROM: flexion mod loss ,extension mod ,rotation WFL loss FLEXABILITY: hamstrings min tight Plan Plan Plan: PT INTERVENTIONS DLS ,POSTURAL EX'S HIP STRENGTHENING ,WB ACTIVITIES ( FUNCTIONAL STRENGTHENING) Balance/Gait/Functional tests Balance/Special Test Scores Oswestry Low Back Score: 9 Goals Goals Goal 1:: Patient to be I with HEP for spine WB activities ( Osteoporosis Program) Goal Time Frame: 4-6 Weeks Goal Progress: Progressing Goal 2:: Patient to demonstrate 75% improvement with improved function no symptoms with activity Goal Time Frame: 4-6 Weeks Goal Progress: Progressing Goal 3:: Patient to improve peak force hips flexion/abduction by 10-15# to improve function( new updated goal) Goal Time Frame: 4-6 Weeks Goal Progress: Progressing Goal 4:: Patient to improve back oswestry score by 5 points to improve QOL and function. Goal Time Frame: 4-6 Weeks Goal Progress: Progressing Goal Progress: Progressing Anticipated Interventions Anticipated Interventions Patient/Client Instruction: Educate patient on: Condition and Plan of Care For the Purpose of:: To decrease pain, To increase ROM, To improve muscle performance and motor function, To improve ability to perform ADL's, To increase tolerance to activity/condition/position, To improve ability of physical actions for home/community/work/leisure, To improve health of tissue, To decrease soft tissue restriction and To reduce risk of recurrence Therapeutic Exercise to Include: Strength training, Postural training and Dynamic Lumbar Stabilization Comment: HIP STRENGTHENING WB ACTIVITIES ( OSTEOPROSIS) For the Purpose of:: To decrease pain, To increase ROM, To improve muscle performance and motor function, To improve ability to perform ADL's, To increase tolerance to activity/condition/position, To improve ability of physical actions for home/community/work/leisure, To improve health of tissue, To decrease soft tissue restriction, To improve endurance, To improve balance and To prevent re- injury Re-Evaluation Ending Re-evaluation ending: Please do not hesitate to contact me at [phone] by phone or if you have questions or concerns regarding this new plan of care! Sincerely, Ray Cervantes, PT, Cert MDT, OCS
--- NOTE | 2024-05-25 10:21 | HP.PTREVAL_ITS ---
Re-Evaluation Intro: Dr. Kristian Soto MD, It has been my pleasure to treat LUCIANO BACA over the last 22 visits for OSTEOPOROSIS ,UNSPECIFIED TYPE PATHOLGICAL FRACTURE PRESNENCE. Please see the progress note below for an update on the physical therapy plan of care! Subjective Subjective: Feeling stronger ,more energy for housework Carry heavier stuff up the steps Objective Objective/Function: * Patient will benefit from skilled PT to focus on WB and strengthening to prevent osteoporosis thus goals addressed and updated* POSTURE: mild forward posture rounded shoulders head forward GAIT: mild forward reciprocal pattern NEURO: denies paresthesia/tingling ,reflexes L3-4,L4-5,L5-S1 1/3 PALPATION: mild tender LS/S1 PROM HIP: WFL -IR 45DEGREES MMT: BUE 4/5 shoulders except shoulders 4-/5 quads/hamstrings/ankle 4/5 , ( peak force) hip abduction right 24.1 ,left 30.2 ,right hip flexion 38.2 right ,left 35..8 LUMBAR ROM: FLEXION WFL ,extension min/mod ,side glides mod loss THORACIC ROM: flexion mod loss ,extension mod ,rotation WFL loss FLEXABILITY: hamstrings min tight Plan Plan Plan: PT INTERVENTIONS DLS ,POSTURAL EX'S HIP STRENGTHENING ,WB ACTIVITIES ( FUNCTIONAL STRENGTHENING),WN OSTEOPOROSIS EX'S Balance/Gait/Functional tests Balance/Special Test Scores Oswestry Low Back Score: 6 Goals Goals Goal 1:: Patient to be I with HEP for spine WB activities ( Osteoporosis Program) Goal Time Frame: 4-6 Weeks Goal Progress: Progressing Goal 2:: Patient to demonstrate 75% improvement with improved function no symptoms with activity Goal Time Frame: 4-6 Weeks Goal Progress: Progressing Goal 3:: Patient to improve peak force hips flexion/abduction by 10-15# to improve function( new updated goal) Goal Time Frame: 4-6 Weeks Goal Progress: Progressing Goal 4:: Patient to improve back oswestry score by 5 points to improve QOL and function. Goal Time Frame: 4-6 Weeks Goal Progress: Progressing Goal Progress: Progressing Anticipated Interventions Anticipated Interventions Patient/Client Instruction: Educate patient on: Condition and Plan of Care For the Purpose of:: To decrease pain, To increase ROM, To improve muscle performance and motor function, To improve ability to perform ADL's, To increase tolerance to activity/condition/position, To improve ability of physical actions for home/community/work/leisure, To improve health of tissue, To decrease soft tissue restriction and To reduce risk of recurrence Therapeutic Exercise to Include: Strength training, Postural training and Dynamic Lumbar Stabilization Comment: HIP STRENGTHENING WB ACTIVITIES ( OSTEOPROSIS) For the Purpose of:: To decrease pain, To increase ROM, To improve muscle performance and motor function, To improve ability to perform ADL's, To increase tolerance to activity/condition/position, To improve ability of physical actions for home/community/work/leisure, To improve health of tissue, To decrease soft tissue restriction, To improve endurance, To improve balance and To prevent re- injury Re-Evaluation Ending Re-evaluation ending: Please do not hesitate to contact me at [phone] by phone or if you have questions or concerns regarding this new plan of care! Sincerely, Ray Cervantes, PT, Cert MDT, OCS
--- NOTE | 2024-07-26 10:07 | HP.PTDCSUM ---
Discharge Summary D/C summary: It has been my pleasure to treat LUCIANO BACA referred by Dr. Kristian Soto MD, with the diagnosis of OSTEOPOROSIS ,UNSPECIFIED TYPE PATHOLGICAL FRACTURE PRESNENCE for a total of 33 visit(s). Discharge Date: 07/26/24 Please see the following information for a summary of their discharge status. Subjective Subjective: Doing well ready for d/c Pain Bilateral Back: Pain Intensity (Out of 10): 0 Overall Improvement % Improvement: 50 Objective Objective/Function: GAIT: mild forward reciprocal pattern NEURO: denies paresthesia/tingling ,reflexes L3-4,L4-5,L5-S1 1/3 PALPATION: mild tender LS/S1 PROM HIP: WFL -IR 45DEGREES MMT: BUE 4/5 shoulders except shoulders 4-/5 quads/hamstrings/ankle 4/5 , ( peak force) hip abduction right 26.1 ,left 26.2 ,right hip flexion 37.2 right ,left 35.8 LUMBAR ROM: FLEXION MIN ,extension min ,side glides WFL THORACIC ROM: flexion MIN ,extension mod ,rotation WFL loss FLEXABILITY: hamstrings min tight Goals Goal 1:: Patient to be I with HEP for spine WB activities ( Osteoporosis Program) Goal Progress: Goal Met Goal 2:: Patient to demonstrate 75% improvement with improved function no symptoms with activity Goal Progress: Goal Met Goal 3:: Patient to improve peak force hips flexion/abduction by 10-15# to improve function( new updated goal) Goal Progress: Goal Met Goal 4:: Patient to improve back oswestry score by 5 points to improve QOL and function. Goal Progress: Goal Met Goal Progress: Goal Met Plan Plan: D/C D/C Information Discharge Comments: HEP d/c sentence: If there are questions or concerns regarding this patient's physical therapy, please feel free to call me at [phone]. Thank you for the referral of this patient. Sincerely, Ray Cervantes, PT, Cert MDT, OCS Balance/Gait/Functional tests Balance/Special Test Scores Oswestry Low Back Score: 1 Improvement % Improvement: 50
== END 2024-07-26 19:00 | disposition home or self-care (01) ==
LOC: PT 09:30
PROVIDERS: PCP Internal Medicine; Referring Provider Internal Medicine; Visit Provider Internal Medicine
DX: M81.0 Age-related osteoporosis without current pathological fracture (principal)
CPT/HCPCS: 97110; 97162; 97530

== ENCOUNTER 2025-01-18 12:41 | Emergency (ER) | payer MEDICARE, OTHER, SELFPAY ==
[2025-01-18] VITALS (7 sets, daily range): BP systolic 98–172; BP diastolic 68–107; PULSE 70–141; RESP 16–30; TEMP 36.6–36.7; O2SAT 93–97; BMI 28.5
--- NOTE | 2025-01-18 12:58 | EKG12_ITS ---
Test Reason : Blood Pressure : */* mmHG Vent. Rate : 124 BPM Atrial Rate : * BPM P-R Int : * ms QRS Dur : 82 ms QT Int : 324 ms P-R-T Axes : * -44 30 degrees QTcB Int : 465 ms Atrial fibrillation with rapid ventricular response Left axis deviation Inferior infarct (cited on or before 04-Jan-2002) Abnormal ECG Confirmed by Ramy Davis ([id number]), restaurant expeditor MARISA BOYCE ([id number]) on 01/22/2025 11:38:03 AM Referred By: Alfredo Matos Confirmed By: Ramy Davis
--- NOTE | 2025-01-18 12:59 | EX.ED.DYSGE1 ---
HPI History of Present Illness Chief Complaint: Palpitations Narrative Narrative: 39-year-old female past medical history of paroxysmal SVT presents with heart palpitations that started around 1120 this morning, approximately an hour and a half or longer ago. She denies any chest pain and may feel little short of breath but no fevers or chills, no cough. Of note, she had history of paroxysmal SVT for which she would take half a dose of metoprolol 12.5 mg orally. She has not had an episode since last year and around this time. She states she followed up with her tinware lithograph press operator, Dr. Hassan in early November, approximately 2 months ago, and since she had not had an episode took her off her daily 12.5 mg of metoprolol. In the event that she had the palpitations and rapid heart rate again, she was supposed to take her dosing. She felt it shortly before, then stronger at around 1120, and states that her heart rate was as high as 180 bpm. While she denies chest pain she states that this feels different than her SVT, and is maintaining a rate in the 130s to 140s. She denies any leg swelling, no exacerbating or alleviating factors. [facility] Medical History Irregular heart beat Hypertension Home Medications ?Medication ?Instructions ?Recorded ?Last Taken ?Type omeprazole 20 mg capsule,delayed 20 mg PO DAILY PRN acid reflux 05/11/16 05/11/16 History release metoprolol tartrate 25 mg tablet 12.5 mg PO BID 09/28/20 Unknown History benazepril 10 0.5 tab PO DAILY 01/15/24 Unknown History mg-hydrochlorothiazide 12.5 mg tablet apixaban 5 mg tablet (Eliquis) 5 mg PO BID #60 tabs 01/18/25 Unknown Rx Allergy/AdvReac Type Severity Reaction Status Date / Time psrft-5-imizoztzkk inhibitor Allergy Angioedema Verified 01/18/25 12:49 (Eypxw-5-Epuhfklgdb Inhibitor) Antihistamines - Alkylamine Allergy Chest Verified 01/18/25 12:49 tightness iodine Allergy Shortness Verified 01/18/25 12:49 of breath adhesive tape AdvReac Rash Verified 01/18/25 12:49 Iodinated Contrast Media AdvReac Swelling Verified 01/18/25 12:49 (CONTRASTS) Social History Smoking Status: Never smoker ROS ROS ED ROS Narrative Review of systems positive for heart palpitations. No chest pain, mild shortness of breath but no fevers or chills, no cough. No leg swelling. No exacerbating or alleviating factors. States feels different than previous SVT episodes. EXAM Physical Exam Narrative Exam Narrative: Afebrile. Vital signs noted. Nontoxic-appearing. Cardiovascular examination reveals an irregularly irregular tachycardia with no murmurs rubs or gallops appreciated. Abdomen is soft nontender. No guarding or rebound. Lungs clear to auscultation bilaterally. No pedal edema appreciated bilaterally. Neurological examination nonfocal and nonlateralizing. Const Vital Signs: 01/18/25 12:43 01/18/25 13:15 01/18/25 13:21 Temperature 98.1 F Temperature Source Oral Pulse Rate 137 H 141 H 139 H Respiratory Rate 18 21 H Blood Pressure 172/107 H 122/86 H Blood Pressure Mean 128 98 Pulse Ox 97 97 Oxygen Delivery Method Room Air Room Air 01/18/25 13:23 01/18/25 13:24 01/18/25 13:25 Temperature Temperature Source Pulse Rate 119 H 126 H 116 H Respiratory Rate 30 H 26 H Blood Pressure 98/71 102/68 Blood Pressure Mean 80 79 Pulse Ox 94 93 Oxygen Delivery Method Room Air Room Air MDM MDM MDM Narrative Medical decision making narrative: Differential diagnosis includes but not limited to paroxysmal SVT episode versus atrial fibrillation versus heart palpitations. She may be dehydrated or have other electrolyte imbalance. As she has already taken metoprolol, EKG will be obtained to determine her current rhythm. On my individual interpretation, demonstrates atrial fibrillation with rapid ventricular response at [address] changes. No STEMI. I reviewed her laboratory work and she has a normal white count of 7.0 with hemoglobin normal at 13.0, hematocrit 41.0, platelet count normal at 355. Electrolyte panel is grossly unremarkable, magnesium also normal at 2.2 with potassium 4.1. LFTs are remarkable for alk phos slightly elevated at 114 which I think is nonspecific. Urinalysis negative for ketones or infection. I do not feel antibiotics are indicated. Chest x-ray interpreted by myself independently shows no evidence of pneumonia or pneumothorax. I reviewed the radiology report which confirms my independent interpretation but comments on linear atelectasis in the left base. She was administered labetalol 20 mg intravenously. Repeat examination does show her heart rate in the 60s to 70s and appears regular on the monitor. I do think that she cardioverted. I will obtain a second EKG, and I contacted the office of her tinware lithograph press operator at the [facility] Dr. Hassan. However, they have not returned the call. Repeat EKG interpreted by myself independently demonstrates normal sinus rhythm at 64 bpm without ectopy or acute ST changes. No STEMI. I discussed patient with Dr. Davis with cardiology who recommended putting her back on her oral metoprolol 12.5 mg twice a day and starting her on Eliquis 5 mg twice a day and following up with her tinware lithograph press operator. She was told of the risk of spontaneous hemorrhage and catastrophic hemorrhage with the use of Eliquis and acknowledges an understanding. She is to avoid falls and return instructions to the emergency department were reviewed. Repeat examination shows her feeling improved and she is no longer feels palpitations. Disposition is discharged home in stable condition. History & Record Review Discussion w/independent historian: Patient Lab Data Attestation: I reviewed the patient's lab results. Labs: Laboratory Results - last 24 hr 01/18/25 01/18/25 12:23 13:10 WBC 7.0 RBC 4.89 Hgb 13.0 Hct 41.0 MCV 83.8 MCH 26.6 L MCHC 31.7 L RDW Std Deviation 43.3 RDW Coeff of Nell 14.1 Plt Count 355 MPV 8.9 Immature Gran % (Auto) 0.300 Neut % (Auto) 55.5 Lymph % (Auto) 34.1 Fannin % (Auto) 7.9 Eos % (Auto) 1.3 Baso % (Auto) 0.9 Absolute Neuts (auto) 3.9 Absolute Lymphs (auto) 2.38 Nucleated RBC % 0 Sodium 139 Potassium 4.1 Chloride 101 Carbon Dioxide 25.7 Anion Gap 12 BUN 13 Creatinine 0.78 Estim Creat Clear Calc 58.59 Est GFR (MDRD) Non-Af 78 BUN/Creatinine Ratio 16.6 Glucose 98 Calcium 9.8 Magnesium 2.2 Total Bilirubin 0.26 AST 24 ALT 15 Alkaline Phosphatase 114 H Total Protein 7.7 Albumin 4.4 Globulin 3.3 Albumin/Globulin Ratio 1.3 Urine Color Yellow Urine Clarity Clear Urine pH 7.0 Ur Specific [place] 1.005 Urine Protein Negative Urine Glucose (UA) Normal Urine Ketones Negative Urine Occult Blood 10 H Urine Nitrite Negative Urine Bilirubin Negative Urine Urobilinogen Normal Ur Leukocyte Esterase Negative Urine RBC 0 SEEN Urine WBC 0-5 SEEN Ur Squamous Epith Cells 0 SEEN Urine Bacteria 0 SEEN Urine Mucus 0 SEEN Radiography Diagnostic Testing: Clinical Impression(s) from Imaging Studies Chest X-Ray 01/18/25 13:26 IMPRESSION: Mild increased linear markings at the left lung base suggestive of linear atelectasis. Reading Location: [facility] Management Discussion w/another healthcare provider: Multi Disciplined Language Analyst (Dr. Davis, cardiology) Discharge Plan Triage Chief Complaint: Palpitations ED Provider: Alfredo Matos Dx/Rx/DC Orders Clinical Impression: Atrial fibrillation with rapid ventricular response, New onset a-fib Instructions: ED AFIB, ED Palpitations Prescriptions: New Eliquis 5 mg tablet 5 mg PO BID Qty: 60 0RF No Action omeprazole 20 MG capsule 20 mg PO DAILY PRN (Reason: acid reflux) Patient Comments: gastric reflux metoprolol tartrate 25 MG tablet 12.5 mg PO BID benazepril-hydrochlorothiazide 10-12.5 mg tablet 0.5 tab PO DAILY Primary Care Provider: Kristian Soto Referrals: Kristian Soto MD [Primary Care Provider] - Activity Restrictions/Additional Instructions: Follow-up with your tinware lithograph press operator, 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 Return to the emergency department with an elevated heart rate above 120 bpm. You should take your metoprolol tartrate 12.5 mg orally twice a day as you have been doing prior to November. Take Eliquis 5 mg twice daily. Avoid falls or hitting your head. Return to the emergency department with bleeding, new or worsening symptoms. Print Language: Stateless Disposition Disposition: Home, Self Care
[2025-01-18 13:17] LABS: Bacteria 0 SEEN /hpf (None Seen); Mucous, Urine 0 SEEN /hpf (<or=2+); Red Blood Cells-Urine 0 SEEN /hpf (0-5); Squamous Epithelial Cells - UA 0 SEEN /hpf (5-10)
[2025-01-18] MEDS: Labetalol 20 MG/4 ML Vial IV (13:18)
[2025-01-18 13:19] LABS: Absolute Lymphocyte Count 2.38 X10^3/uL (0.83-4.51); Absolute Neutrophil Count 3.9 X10^3/uL (2.0-7.7); Basophil# 0.06 X10^3/uL; Basophil% 0.9 % (0-1); Eosinophil# 0.09 X10^3/uL; Eosinophils% 1.3 % (0-5); Lymphocyte # 2.38 X10^3/ul (0.83-4.51); Lymphocyte % 34.1 % (19-41); Mean Corp Hgb Conc 31.7 g/dL (32-36); Mean Corpuscular Hgb 26.6 pg (27.0-32.0); Mean Corpuscular Volume 83.8 fL (81-99); Mean Platelet Vol. 8.9 fl (6.2-12.0); Monocyte# 0.55 X10^3/uL; Monocyte% 7.9 % (0-10); NRBC Flagged by Analyzer 0 % (0-5); Neutrophil # 3.88 X10^3/uL (2.7-7.7); Neutrophil % 55.5 % (47-70); Platelet Count 355 K/mm3 (150-450); RBC Distribution Width CV 14.1 % (11.6-14.6); RBC Distribution Width SD 43.3 fl (35.1-43.9); Red Blood Count 4.89 M/mm3 (4.2-5.4)
[2025-01-18 13:19] LABS: Color, Urine Yellow (Yellow); Glucose, Dipstick Normal (Normal); Ketone-Dipstick Negative (Negative); Leukocyte Esterase-Dipstick Negative /ul (Negative); Nitrite-Dipstick Negative (Negative); Occult Blood-Urine 10 /ul (Negative); Protein-Dipstick Negative (Negative); Specific Gravity, Urine 1.005 (1.002-1.030); Urine Bilirubin Dipstick Negative (Negative); Urine Clarity Clear (Clear); Urine Urobilinogen Normal (Normal)
[2025-01-18 13:25] LABS: White Blood Cells 0-5 SEEN /hpf (0-5)
--- NOTE | 2025-01-18 13:26 | RAD_ITS ---
PROCEDURE: CHEST 1 VIEW (PORTABLE) N/A REASON FOR EXAM: PALPITATIONS TECHNIQUE: Frontal view of the chest. COMPARISON: Prior study dated January 15, 2024. FINDINGS: Hardware: EKG electrodes are seen. Status post right reverse shoulder replacement. Heart: Heart is nonenlarged. Tortuosity of the descending thoracic aorta. Lungs: Mild increased markings at the left lung base suggestive of linear atelectasis. Bones: Degenerative changes are identified within the thoracic spine. Other: RAD/Chest 1 View (Portable) IMPRESSION: Mild increased linear markings at the left lung base suggestive of linear atele ctasis. Reading Location: [place] [id number]
[2025-01-18 13:44] LABS: ALB/GLOB Ratio 1.3 RATIO (0.9-2.4); AST(SGOT) 24 U/L (<=31); Alanine Aminotransfer ALT/SGPT 15 U/L (<=34); Albumin, Serum 4.4 g/dL (3.4-4.8); Alkaline Phosphatase 114 U/L (35-104); Anion Gap 12 (5-15); BUN 13 mg/dL (4-19); BUN/Creat Ratio 16.6 RATIO (10-20); Calcium,Total 9.8 mg/dL (7.6-11.0); Carbon Dioxide 25.7 mmol/L (21.0-32.0); Chloride 101 mmol/L (98-108); Creatinine, Serum 0.78 mg/dL (0.70-1.20); EST Glomerular Filtration Rate 78 (>60); Estimated Creatinine Clearance 58.59 ml/min (50-250); Globulin 3.3 g/dL (2.2-4.2); Glucose 98 mg/dL (70-99); Magnesium 2.2 mg/dL (1.5-2.2); Potassium 4.1 mmol/L (3.3-5.1); Protein, Total 7.7 g/dL (5.9-8.4); Sodium Level 139 mmol/L (133-145); Total Bilirubin 0.26 mg/dL (0.00-1.30)
--- NOTE | 2025-01-18 13:47 | EKG12_ITS ---
Test Reason : ARRYTH Blood Pressure : */* mmHG Vent. Rate : 64 BPM Atrial Rate : 64 BPM P-R Int : 194 ms QRS Dur : 88 ms QT Int : 406 ms P-R-T Axes : 74 -47 17 degrees QTcB Int : 418 ms Normal sinus rhythm Left anterior fascicular block CAN NOT RULE OUT INFERIOR MD Abnormal ECG Confirmed by Ramy Davis ([id number]), online editor MARISA BOYCE ([id number]) on 01/22/2025 11:38:24 AM Referred By: Alfredo Matos Confirmed By: Ramy Davis
[2025-01-18] MEDS: APIXABAN 5 MG TABLET PO (15:18)
== END 2025-01-18 15:23 | disposition home or self-care (01) ==
PROVIDERS: Emergency Provider Emergency Medicine; PCP Internal Medicine; Referring Provider Emergency Medicine; Visit Provider Emergency Medicine
DX: I48.91 Unspecified atrial fibrillation (principal)
CPT/HCPCS: 71045; 80053; 81001; 83735; 85025; 93005; 96374; 99285; A4216

== ENCOUNTER 2025-02-12 14:30 | Outpatient (RCR) | payer MEDICARE, OTHER, SELFPAY ==
--- NOTE | 2024-08-24 09:37 | HP.PTEVAL ---
Patient's Visit Information Visit Information Visit Information: LUCIANO BACA is a 79 year old F referred to Physical Therapy by Dr. Kristian Soto MD with a diagnosis of OSTEOPOROSIS ,TYPE ,UNSPECIFIED PATHOLOGICAL FRACTURE PRESENCE. Date of Evaluation: 08/24/24 Physical Therapist: Ray Cervantes, PT, Cert MDT, OCS Visit Plan Frequency: 2x /Week Duration: 4 Weeks Plan: PT INTERVENTIONS DLS ,POSTURAL EX'S HIP STRENGTHENING ,WB ACTIVITIES ( FUNCTIONAL STRENGTHENING) AND AEROBIC EX'S Subjective Subjective: This 78 y/o female presents to physical therapy with osteoporosis. Patient seen DR and recommended PT. Patient did not have bone density test. Patient has had osteoporosis for many years . Thus PT doesn't help. Patient had last bone density Aug 2023.No recent imaging. Recently seen service promoter salesperson leakage valve aorta is same size . Patient wants to manage osteoporosis with diet and strengthening.In 2023, Patient bone density test lower body showed worse in right hip and lumbar spine had small gains. Patient has been working out 1x week. Coughing/sneezing .Bowel/bladder- Denies paresthesia/tingling .Patient sleeping good. Patient has no abnormal night pain. Aggravating factors some ache twisting and excessive standing Patient condition affects QOL and function. Patient goals to manage osteoporosis with exercises. SOCIAL: VOCATION: retired Objective Objective: POSTURE: mild forward posture rounded shoulders head forward GAIT: mild forward reciprocal pattern NEURO: denies paresthesia/tingling ,reflexes L3-4,L4-5,L5-S1 1/3 PALPATION: mild tender LS/S1 PROM HIP: WFL -IR 40 DEGREES MMT: BUE 4/5 shoulders except shoulders 4-/5 quads/hamstrings/ankle 4/5 , ( peak force) hip abduction right 20.0 ,left 18.2 ,right hip flexion 23. 5right ,left 24.8 LUMBAR ROM: WFL ,extension mod,side glides min loss THORACIC ROM: flexion min loss ,extension mod/severe loss ,rotation mi loss FLEXABILITY: hamstrings min tight Special Tests L/S Slump test left side: Negative L/S Slump test right side: Negative L/S Left Straight Leg Raise: Negative L/S Right Straight Leg Raise: Negative Lumbar Standing: Flexion - Mechanical Response: No effect Lumbar Standing: Flexion - Symptoms During Testing: No effect Lumbar Standing: Flexion - Symptoms After Testing: No effect Lumbar Standing: Extension - Mechanical Response: No effect Lumbar Standing: Extension - Symptoms During Testing: Increases Lumbar Standing: Extension - Symptoms After Testing: No worse Lumbar Standing: Right Side Glides - Mechanical Response: No effect Lumbar Standing: Right Side [place] - Symptoms During Testing: No effect Lumbar Standing: Right Side [place] - Symptoms After Testing: No effect Lumbar Standing: Left Side [place] - Mechanical Response: No effect Lumbar Standing: Left Side [place] - Symptoms During Testing: No effect Lumbar Standing: Left Side [place] - Symptoms After Testing: No effect R Hip Scour: Negative R Hip Quadrant - Intraarticular Pathology: Negative L Hip Scour: Negative L Hip Quadrant - Intraarticular Pathology: Negative Balance/Special Test Scores Lower Extremity Functional Score: 37 Goals Goal 1:: Patient to be I with HEP for spine WB activities ( Osteoporosis Program) Goal Time Frame: 4-6 Weeks Goal 2:: Patient to demonstrate 75% improvement with improved function no symptoms with activity Goal Time Frame: 4-6 Weeks Goal 3:: Patient to improve peak force hips flexion/abduction by 10-15# to improve function Goal Time Frame: 4-6 Weeks Goal 4:: Patient to improve back oswestry score by 5 points to improve QOL and function. Goal Time Frame: 4-6 Weeks Rehabilitation Potential Physical Therapy Diagnosis: This patient has osteoporosis with decrease Lumbar ROM and weakness in hips along with cardiac issues comorbities influences condition thus benefit from skilled Rehabilitation Potential: Good Anticipated Interventions Patient/Client Instruction: Educate patient on: Condition and Plan of Care For the Purpose of:: To decrease pain, To increase ROM, To improve muscle performance and motor function, To improve ability to perform ADL's, To increase tolerance to activity/condition/position, To improve ability of physical actions for home/community/work/leisure, To improve health of tissue, To decrease soft tissue restriction and To increase flexibility/ROM Therapeutic Exercise to Include: Strength training, Power training, Endurance training, Balance training and Dynamic Lumbar Stabilization Comment: BLE -HIPS For the Purpose of:: To decrease pain, To improve muscle performance and motor function, To improve ability to perform ADL's, To increase tolerance to activity/condition/position, To improve ability of physical actions for home/community/work/leisure, To improve health of tissue, To decrease soft tissue restriction and To increase flexibility/ROM Text: Thank you for the opportunity to evaluate your patient. For Medicare and Medicare HMO plans, please review the plan of care and approve it. It will need to be FAXED BACK to us at [phone] for Medicare purposes. For Medicare only, by signing this I certify the plan of care. Please let me know if there are questions or concerns regarding this plan of care. Physician Signature: Date:
--- NOTE | 2024-09-27 15:04 | HP.PTREVAL_ITS ---
Re-Evaluation Intro: Dr. Kristian Soto MD, It has been my pleasure to treat LUCIANO BACA over the last 10 visits for OSTEOPOROSIS ,TYPE ,UNSPECIFIED PATHOLOGICAL FRACTURE PRESENCE. Please see the progress note below for an update on the physical therapy plan of care! Subjective Subjective: Doing better overall ..stability Objective Objective/Function: Patient will continue to benefit from skilled PT with goal appropriate POSTURE: mild forward posture rounded shoulders head forward GAIT: mild forward reciprocal pattern NEURO: denies paresthesia/tingling ,reflexes L3-4,L4-5,L5-S1 1/3 PALPATION: mild tender LS/S1 PROM HIP: WFL -IR 40 DEGREES MMT: BUE 4/5 shoulders except shoulders 4-/5 quads/hamstrings/ankle 4/5 , ( peak force) hip abduction right 25.0 ,left 18.4 ,right hip flexion 23.9. right ,left 24.8 LUMBAR ROM: WFL ,extension mod,side glides min loss THORACIC ROM: flexion min loss ,extension mod loss ,rotation min loss FLEXABILITY: hamstrings min tight Plan Plan Plan: PT INTERVENTIONS DLS ,POSTURAL EX'S HIP STRENGTHENING ,WB ACTIVITIES ( FUNCTIONAL STRENGTHENING) AND AEROBIC EX'S Balance/Gait/Functional tests Balance/Special Test Scores Lower Extremity Functional Score: 48 Goals Goals Goal 1:: Patient to be I with HEP for spine WB activities ( Osteoporosis Program) Goal Time Frame: 4-6 Weeks Goal Progress: Progressing Goal 2:: Patient to demonstrate 75% improvement with improved function no symptoms with activity Goal Time Frame: 4-6 Weeks Goal 3:: Patient to improve peak force hips flexion/abduction by 10-15# to improve function Goal Time Frame: 4-6 Weeks Goal Progress: Progressing Goal 4:: Patient to improve LFES score by 5 points to improve QOL and function. Goal Time Frame: 4-6 Weeks Goal Progress: Progressing Anticipated Interventions Anticipated Interventions Patient/Client Instruction: Educate patient on: Condition and Plan of Care For the Purpose of:: To decrease pain, To increase ROM, To improve muscle performance and motor function, To improve ability to perform ADL's, To increase tolerance to activity/condition/position, To improve ability of physical actions for home/community/work/leisure, To improve health of tissue, To decrease soft tissue restriction and To increase flexibility/ROM Therapeutic Exercise to Include: Strength training, Power training, Endurance training, Balance training and Dynamic Lumbar Stabilization Comment: BLE -HIPS For the Purpose of:: To decrease pain, To improve muscle performance and motor function, To improve ability to perform ADL's, To increase tolerance to activity/condition/position, To improve ability of physical actions for home/community/work/leisure, To improve health of tissue, To decrease soft tissue restriction and To increase flexibility/ROM Re-Evaluation Ending Re-evaluation ending: Please do not hesitate to contact me at [phone] by phone or Fax: if you have questions or concerns regarding this new plan of care! Sincerely, Ray Cervantes, PT, Cert MDT, OCS
--- NOTE | 2024-11-07 11:02 | HP.PTREVAL ---
Re-Evaluation Intro: Dr. Kristian Soto MD, It has been my pleasure to treat LUCIANO BACA over the last 19 visits for OSTEOPOROSIS ,TYPE ,UNSPECIFIED PATHOLOGICAL FRACTURE PRESENCE. Please see the progress note below for an update on the physical therapy plan of care! Subjective Subjective: Doing okay ,monitor HR per MD BP was elevated yesterday Objective Objective/Function: Patient will continue to benefit from skilled PT with goal appropriate thus skilled PT due to motor HR during ex's to ensure under 106 beats POSTURE: mild forward posture rounded shoulders head forward GAIT: mild forward reciprocal pattern NEURO: denies paresthesia/tingling ,reflexes L3-4,L4-5,L5-S1 1/3 PALPATION: mild tender LS/S1 PROM HIP: WFL -IR 40 DEGREES MMT: BUE 4/5 shoulders except shoulders 4-/5 quads/hamstrings/ankle 4/5 , ( peak force) hip abduction right 25.9 ,left 19.4 ,right hip flexion 24.1. right ,left 25.1 LUMBAR ROM: WFL ,extension mod,side glides min loss THORACIC ROM: flexion min loss ,extension mod loss ,rotation min loss FLEXABILITY: hamstrings min tight Plan Plan Plan: PT INTERVENTIONS DLS ,POSTURAL EX'S HIP STRENGTHENING ,WB ACTIVITIES ( FUNCTIONAL STRENGTHENING) AND AEROBIC EX'S Balance/Gait/Functional tests Balance/Special Test Scores Lower Extremity Functional Score: 50 Goals Goals Goal 1:: Patient to be I with HEP for spine WB activities ( Osteoporosis Program) Goal Time Frame: 4-6 Weeks Goal Progress: Progressing Goal 2:: Patient to demonstrate 75% improvement with improved function no symptoms with activity Goal Time Frame: 4-6 Weeks Goal Progress: Progressing Goal 3:: Patient to improve peak force hips flexion/abduction by 10-15# to improve function Goal Time Frame: 4-6 Weeks Goal Progress: Progressing Goal 4:: Patient to improve LFES score by 5 points to improve QOL and function. Goal Time Frame: 4-6 Weeks Goal Progress: Progressing Anticipated Interventions Anticipated Interventions Patient/Client Instruction: Educate patient on: Condition and Plan of Care For the Purpose of:: To decrease pain, To increase ROM, To improve muscle performance and motor function, To improve ability to perform ADL's, To increase tolerance to activity/condition/position, To improve ability of physical actions for home/community/work/leisure, To improve health of tissue, To decrease soft tissue restriction and To increase flexibility/ROM Therapeutic Exercise to Include: Strength training, Power training, Endurance training, Balance training and Dynamic Lumbar Stabilization Comment: BLE -HIPS For the Purpose of:: To decrease pain, To improve muscle performance and motor function, To improve ability to perform ADL's, To increase tolerance to activity/condition/position, To improve ability of physical actions for home/community/work/leisure, To improve health of tissue, To decrease soft tissue restriction and To increase flexibility/ROM Re-Evaluation Ending Re-evaluation ending: Please do not hesitate to contact me at [phone] by phone or if you have questions or concerns regarding this new plan of care! Sincerely, Ray Cervantes PT, Cert MDT, OCS
--- NOTE | 2024-12-18 09:25 | HP.PTREVAL_ITS ---
Re-Evaluation Intro: Dr. Kristian Soto MD, It has been my pleasure to treat LUCIANO BACA over the last 27 visits for OSTEOPOROSIS ,TYPE ,UNSPECIFIED PATHOLOGICAL FRACTURE PRESENCE. Please see the progress note below for an update on the physical therapy plan of care! Subjective Subjective: Doing good . Objective Objective/Function: *Patient will continue to benefit from skilled PT with goal appropriate thus skilled PT to diminish osteoporosis * POSTURE: mild forward posture rounded shoulders head forward GAIT: mild forward reciprocal pattern NEURO: denies paresthesia/tingling ,reflexes L3-4,L4-5,L5-S1 1/3 PALPATION: mild tender LS/S1 PROM HIP: WFL -IR 40 DEGREES MMT: BUE 4/5 shoulders except shoulders 4-/5 quads/hamstrings/ankle 4/5 , ( peak force) hip abduction right 15.9 ,left 19.5 ,right hip flexion 25.8. right ,left 28.1 LUMBAR ROM: WFL ,extension mod,side glides min loss THORACIC ROM: flexion min loss ,extension mod loss ,rotation min loss FLEXABILITY: hamstrings min tight Plan Plan Plan: PT INTERVENTIONS DLS ,POSTURAL EX'S HIP STRENGTHENING ,WB ACTIVITIES ( FU NCTIONAL STRENGTHENING) AND AEROBIC EX'S Balance/Gait/Functional tests Balance/Special Test Scores Lower Extremity Functional Score: 50 Goals Goals Goal 1:: Patient to be I with HEP for spine WB activities ( Osteoporosis Program) Goal Time Frame: 4-6 Weeks Goal Progress: Progressing Goal 2:: Patient to demonstrate 75% improvement with improved function no symptoms with activity Goal Time Frame: 4-6 Weeks Goal Progress: Progressing Goal 3:: Patient to improve peak force hips flexion/abduction by 10-15# to improve function Goal Time Frame: 4-6 Weeks Goal Progress: Progressing Goal 4:: Patient to improve LFES score by 5 points to improve QOL and function. Goal Time Frame: 4-6 Weeks Goal Progress: Progressing Anticipated Interventions Anticipated Interventions Patient/Client Instruction: Educate patient on: Condition and Plan of Care For the Purpose of:: To decrease pain, To increase ROM, To improve muscle performance and motor function, To improve ability to perform ADL's, To increase tolerance to activity/condition/position, To improve ability of physical actions for home/community/work/leisure, To improve health of tissue, To decrease soft tissue restriction and To increase flexibility/ROM Therapeutic Exercise to Include: Strength training, Power training, Endurance training, Balance training and Dynamic Lumbar Stabilization Comment: BLE -HIPS For the Purpose of:: To decrease pain, To improve muscle performance and motor function, To improve ability to perform ADL's, To increase tolerance to activity/condition/position, To improve ability of physical actions for home/community/work/leisure, To improve health of tissue, To decrease soft tissue restriction and To increase flexibility/ROM Re-Evaluation Ending Re-evaluation ending: Please do not hesitate to contact me at [phone] by phone or if you have questions or concerns regarding this new plan of care! Sincerely, Ray Cervantes, PT, Cert MDT, OCS
--- NOTE | 2025-02-12 15:02 | HP.PTDCSUM_ITS ---
Discharge Summary D/C summary: It has been my pleasure to treat LUCIANO BACA referred by Dr. Kristian Soto MD, with the diagnosis of OSTEOPOROSIS ,TYPE ,UNSPECIFIED PATHOLOGICAL FRACTURE PRESENCE for a total of 32 visit(s). Discharge Date: 02/12/25 Please see the following information for a summary of their discharge status. Subjective Subjective: Seen Dr mcelroy to resume exercises Still golfing Seen Material Handling Crew Supervisor calcium gemma ,lotensin w/o diuretic On telle for A-Fib No SOB or chest Plan to go to family Overall Improvement % Improvement: 60 Objective Objective/Function: POSTURE: mild forward posture rounded shoulders head forward GAIT: mild forward reciprocal pattern NEURO: denies paresthesia/tingling ,reflexes L3-4,L4-5,L5-S1 1/3 PALPATION: mild tender LS/S1 PROM HIP: WFL -IR 40 DEGREES MMT: BUE 4/5 shoulders except shoulders 4-/5 quads/hamstrings/ankle 4/5 , ( peak force) hip abduction right 14.3 ,left 22.5 ,right hip flexion 22.8. right ,left 26.1 LUMBAR ROM: WFL ,extension mod,side glides min loss THORACIC ROM: flexion min loss ,extension mod loss ,rotation min loss FLEXABILITY: hamstrings min tight Goals Goal 1:: Patient to be I with HEP for spine WB activities ( Osteoporosis Program) Goal Progress: Goal Met Goal 2:: Patient to demonstrate 75% improvement with improved function no symptoms with activity Goal Progress: Goal Met Goal 3:: Patient to improve peak force hips flexion/abduction by 10-15# to improve function Goal Progress: Goal Met Goal 4:: Patient to improve LFES score by 5 points to improve QOL and function. Goal Progress: Goal Met Goal Progress: Goal Met Plan Plan: D/C O HEP D/C Information Discharge Comments: HEP d/c sentence: If there are questions or concerns regarding this patient's physical therapy, please feel free to call me at [phone]. Thank you for the referral of this patient. Sincerely, Ray Cervantes, PT, Cert MDT, OCS Balance/Gait/Functional tests Balance/Special Test Scores Lower Extremity Functional Score: 61 Improvement % Improvement: 60
== END 2025-02-12 15:22 | disposition home or self-care (01) ==
LOC: PT 14:30
PROVIDERS: PCP Internal Medicine; Referring Provider Internal Medicine; Visit Provider Internal Medicine
DX: M81.0 Age-related osteoporosis without current pathological fracture (principal)
CPT/HCPCS: 97110; 97162; 97530

== ENCOUNTER 2025-03-30 01:51 | Emergency (ER) | payer MEDICARE, OTHER, SELFPAY ==
[2025-03-30] VITALS (16 sets, daily range): BP systolic 128–160; BP diastolic 76–104; PULSE 67–182; RESP 14–30; TEMP 36.6; O2SAT 93–98; BMI 29.6
--- NOTE | 2025-03-30 02:00 | EKG12_ITS ---
Test Reason : PALPITATIONS Blood Pressure : */* mmHG Vent. Rate : 173 BPM Atrial Rate : * BPM P-R Int : * ms QRS Dur : 86 ms QT Int : 280 ms P-R-T Axes : * -18 87 degrees QTcB Int : 475 ms Critical Test Result: High HR Supraventricular tachycardia Marked ST abnormality, possible lateral subendocardial injury Abnormal ECG Confirmed by Ramy Davis ([id number]), editor & co founder MARISA BOYCE ([id number]) on 04/02/2025 10:29:26 AM Referred By: CASSIE Confirmed By: Ramy Davis
--- NOTE | 2025-03-30 02:05 | EKG12_ITS ---
Test Reason : RHYTHM CONVERSION Blood Pressure : */* mmHG Vent. Rate : 92 BPM Atrial Rate : 92 BPM P-R Int : 178 ms QRS Dur : 86 ms QT Int : 364 ms P-R-T Axes : 51 -43 38 degrees QTcB Int : 450 ms Normal sinus rhythm Left axis deviation Abnormal ECG Confirmed by Ramy Davis ([id number]), food editor MARISA BOYCE ([id number]) on 04/02/2025 10:29:44 AM Referred By: CASSIE Confirmed By: Ramy Davis
[2025-03-30 02:19] LABS: Hematocrit 37.9 % (37-47); Hemoglobin 12.1 g/dL (12.0-15.0); Immature Granulocytes Count 0.020 X10^3/uL (0.0-0.0); Mean Corp Hgb Conc 31.9 g/dL (32-36); Mean Corpuscular Volume 83.7 fL (81-99); Mean Platelet Vol. 8.6 fl (6.2-12.0); NRBC Flagged by Analyzer 0 % (0-5); Platelet Count 328 K/mm3 (150-450); RBC Distribution Width CV 13.8 % (11.6-14.6); RBC Distribution Width SD 42.0 fl (35.1-43.9); Red Blood Count 4.53 M/mm3 (4.2-5.4); White Blood Count 7.0 K/mm3 (4.4-11.0)
--- NOTE | 2025-03-30 02:21 | EDS_ITS ---
HPI History of Present Illness Chief Complaint: Chest Pain Narrative Narrative: Chief complaint and HPI: Tachycardia and chest pressure. 79-year-old female with past medical history of atrial fibrillation, HTN presents for evaluation of tachycardia and chest pressure. Patient states that she was having side effects from her metoprolol. She was on metoprolol 12.5 mg twice daily. States she follows with [facility] cardiology. She states in January they switched her to one one 20 mg diltiazem. She is on Eliquis which she has been taking regularly. Patient states this evening around 12:30 AM. She developed tachycardia. states she could feel the palpitations. She then developed chest pressure and nausea. On EMS arrival, patient's heart rate was 160s. She denies any fever, chills, shortness of breath. Review of systems: See HPI Medications: As listed on the chart Allergies: As listed on the chart PFSH: Per chart Vital signs: As listed on the chart. Reviewed. Physical exam: Gen: A&O x3, NAD Head: Normocephalic, atraumatic Eyes: No sclera icterus, conjunctiva clear, PERRL, EOMI ENT: Moist mucous membranes Neck: Trachea midline, No JVD CV: RRR, no murmurs, no peripheral edema Resp: Lungs CTA BL, no w/r/c GI: Abd soft, non-distended, non-tender, no r/r/g Musc: Full ROM, no deformity Skin: Warm, dry Neuro: Alert, oriented, grossly intact, sensation intact Psych: Cooperative, appropriate mood and affect [facility] Medical History Irregular heart beat Hypertension Home Medications ?Medication ?Instructions ?Recorded ?Last Taken ?Type benazepril 10 0.5 tab PO DAILY 01/15/24 Un known History mg-hydrochlorothiazide 12.5 mg tablet apixaban 5 mg tablet (Eliquis) 5 mg PO BID #60 tabs Unknown Rx diltiazem HCl 120 mg 120 mg PO DAILY 03/30/25 Unk nown History tablet,extended release 24 hr Allergy/AdvReac Type Severity Reaction Status Date / Time qyeum-9-eicrhihdey inhibitor Allergy Angioedema Verified 03/30/25 01:52 (Pygmb-3-Ercxajibgf Inhibitor) Antihistamines - Alkylamine Allergy Chest Verified 03/30/25 01:52 tightness iodine Allergy Shortness Verified 03/30/25 01:52 of breath adhesive tape AdvReac Rash Verified 03/30/25 01:52 Iodinated Contrast Media AdvReac Swelling Verified 03/30/25 01:52 (CONTRASTS) Social History Smoking Status: Never smoker EXAM Physical Exam Const Vital Signs: 03/30/25 01:52 03/30/25 01:59 03/30/25 02:04 Temperature 98 F Temperature Source Oral Pulse Rate 182 H 92 93 Respiratory Rate 20 H 22 H 15 Blood Pressure 149/104 H 143/100 H Blood Pressure Mean 119 114 Pulse Ox 94 96 98 Oxygen Delivery Method 03/30/25 02:15 03/30/25 02:30 03/30/25 02:45 Temperature Temperature Source Pulse Rate 85 90 80 Respiratory Rate 15 30 H 14 Blood Pressure 148/88 H 128/80 H Blood Pressure Mean 106 95 Pulse Ox 93 95 93 Oxygen Delivery Method 03/30/25 03:00 03/30/25 03:02 03/30/25 03:08 Temperature Temperature Source Pulse Rate 87 78 Respiratory Rate 21 H 16 Blood Pressure 160/90 H 160/90 H Blood Pressure Mean 111 113 Pulse Ox 97 Oxygen Delivery Method Room Air 03/30/25 03:15 03/30/25 03:30 03/30/25 03:33 Temperature Temperature Source Pulse Rate 92 76 76 Respiratory Rate 29 H 17 14 Blood Pressure 141/76 H Blood Pressure Mean 95 Pulse Ox 98 97 96 Oxygen Delivery Method 03/30/25 03:45 03/30/25 04:00 Temperature Temperature Source Pulse Rate 76 69 Respiratory Rate 18 20 H Blood Pressure 151/86 H Blood Pressure Mean 104 Pulse Ox 95 Oxygen Delivery Method MDM MDM MDM Narrative Medical decision making narrative: 79-year-old female with past medical history of atrial fibrillation, HTN presents for evaluation of tachycardia and chest pressure. Patient takes diltiazem and Eliquis. On arrival, patient's heart rate was in the 180s. EKG was immediately obtained and personally reviewed by me, ED physician. Showed suspected atrial flutter versus SVT. Nonspecific ST changes which I think are likely secondary to her heart rate. Heart rate 173. Immediately after EKG was obtained, patient converted to normal sinus rhythm without any drug intervention. Repeat EKG was personally reviewed and interpreted by me, ED physician. Normal sinus rhythm. No ST elevation. Heart rate 92. Differential diagnosis includes but is not limited to atrial flutter, SVT, electrolyte abnormality, CHF, ACS, PE. Patient's heart rate will be monitored. Aspirin ordered. Cardiac workup ordered. CBC unremarkable without leukocytosis or anemia. Coagulation panel unremarkable. D-dimer unremarkable. BMP unremarkable without significant electrolyte abnormality. Magnesium level unremarkable. TSH elevated at 4.9. Will obtain free T4. BNP unremarkable. Free T4 unremarkable. Patient has subclinical hypothyroidism. She needs to follow-up outpatient for this. Troponin 11 and 27. Patient not having any chest pain since her tachycardia has resolved. I do suspect that this is likely in response to her tachycardia and arrhythmia. However given that patient's troponin is elevated, I did reach out to cardiology, Dr. Bob. He agrees that the elevated troponin is likely secondary to the heart rate. Given that patient has remained in normal sinus rhythm with a heart rate in the 60s. No change in medication at this time. 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 Patient and family updated of all results confirmed understanding. Patient stable to discharge home. Diagnostic: Interpreted by me/EM physician: Chest x-ray doubt pneumonia, effusion, cardiomegaly, pneumothorax. Radiology in agreement. Impression: 1. Tachycardia, suspect atrial flutter, converted to normal sinus rhythm spontaneously 2. History of atrial fibrillation on Eliquis 3. Subclinical hypothyroidism Lab Data Labs: Laboratory Results - last 24 hr 03/30/25 03/30/25 02:03 04:02 WBC 7.0 RBC 4.53 Hgb 12.1 Hct 37.9 MCV 83.7 MCH 26.7 L MCHC 31.9 L RDW Std Deviation 42.0 RDW Coeff of Nell 13.8 Plt Count 328 MPV 8.6 Immature Gran % (Auto) 0.300 Neut % (Auto) 49.5 Lymph % (Auto) 37.0 Bea[place]gard % (Auto) 11.0 H Eos % (Auto) 1.3 Baso % (Auto) 0.9 Absolute Neuts (auto) 3.5 Absolute Lymphs (auto) 2.58 Nucleated RBC % 0 PT 14.3 INR 1.1 APTT 30.6 D-Dimer Quant (PE/DVT) < 0.27 L Sodium 139 Potassium 3.7 Chloride 105 Carbon Dioxide 22.9 Anion Gap 11 BUN 16 Creatinine 0.83 Estim Creat Clear Calc 57.47 Est GFR (MDRD) Non-Af 72 BUN/Creatinine Ratio 19.4 Glucose 112 H Calcium 9.4 Magnesium 2.1 Troponin T High Sens 11 Troponin T Hi Sens 2 Hr 27 H NT pro BNP II 222 TSH 4.930 H Free T4 1.10 Radiography Diagnostic Testing: Clinical Impression(s) from Imaging Studies Chest X-Ray 03/30/25 02:54 IMPRESSION: Improved bibasilar atelectasis. Reading Location: [place] [address] Discharge Plan Triage Chief Complaint: Chest Pain ED Provider: Lasha Restrepo Dx/Rx/DC Orders Prescriptions: No Action benazepril-hydrochlorothiazide 10-12.5 mg tablet 0.5 tab PO DAILY diltiazem HCl 120 mg tablet extended release 24 hr 120 mg PO DAILY Eliquis 5 mg tablet 5 mg PO BID Qty: 60 0RF Primary Care Provider: Kristian Soto Referrals: Kristian Soto MD [Primary Care Provider] - Print Language: Marshallese
[2025-03-30 02:38] LABS: Prothrombin Time (Protime)PT. 14.3 SECONDS (11.7-14.9)
[2025-03-30 02:39] LABS: Partial Thromboplast Time 30.6 Seconds (24.1-36.2)
[2025-03-30 02:49] LABS: D-Dimer Quantitative (DVT/PE) < 0.27 FEU/ug/m (0.27-0.49)
--- NOTE | 2025-03-30 02:54 | RAD_ITS ---
PROCEDURE: CHEST PA AND LATERAL 03/30/2025 REASON FOR EXAM: CHEST PAIN TECHNIQUE: Procedure Code: RADCXR Modality: DX Procedure: CHEST PA AND LATERAL COMPARISON: 01/18/2025. FINDINGS: Improved bibasilar atelectatic pulmonary changes. Unchanged metallic prosthesis of the right shoulder. There is no demonstrated pleural abnormality. Normal heart and pericardium. Normal mediastinum and devang. Normal visualized pulmonary arteries. Normal visualized aortic arch and descending thoracic aorta. Normal visualized thoracic spine. Normal visualized ribs, clavicles, and shoulders. There is no demonstrated abnormality of the visualized soft tissue structures of the upper abdomen. RAD/Chest PA and Lateral IMPRESSION: Improved bibasilar atelectasis. Reading [facility]
[2025-03-30 03:16] LABS: Anion Gap 11 (5-15); BUN 16 mg/dL (4-19); BUN/Creat Ratio 19.4 RATIO (10-20); Calcium,Total 9.4 mg/dL (7.6-11.0); Carbon Dioxide 22.9 mmol/L (21.0-32.0); Chloride 105 mmol/L (98-108); Estimated Creatinine Clearance 57.47 ml/min (50-250); Glucose 112 mg/dL (70-99); Magnesium 2.1 mg/dL (1.5-2.2); Potassium 3.7 mmol/L (3.3-5.1); Pro- Brain NATRIURETIC PEPTIDE 222 pg/mL (<=1800); Troponin T High Sensitivity 11 ng/L (<=14)
--- OUTSIDE RECORDS SUMMARY | 2025-03-30 03:36 | XMS RPT_ITS | CCD ---
Author Organization [facility] Care Team Providers Care Record Changer Name Role Phone Kristian Soto MD Primary Care Provider Mainor ACOSTA, Vivek Alvarez Unavailable Chet ACOSTA, Murphy King Unavailable Kristian Soto MD Primary Care Provider Mainor HENSON MD, Vivek Martin Unavailable U smithailable Chet ACOSTA, Murphy King Unavailable Gregorio PROCESSING REP.Ingrid GREY Unavailable PROVIDER, UNKNOWN Admitting Unavailable PROVIDER, UNKNOWN Attending Unavailable PROVIDER, UNKNOWN Referring Unavailable KRISTIAN SOTO Primary Care Unavailable INGRID PERKINS Referring Unavailable KRISTIAN SOTO Primary Care Unavailable Dr. Kristian Soto MD Primary Care Provider Dr. Kristian Soto MD Attending Provider Dr. Kristian Soto MD Referring Provider Alfredo Matos MD Referring Provider Alfredo Matos MD Emergency Provider Dr. Kristian Soto MD Primary Care Provider Alfredo Matos MD Attending Provider Dr. Kristian Soto MD Attending Provider Dr. Kristian Soto MD Referring Provider Kristian Soto Primary Care Unavailable Kristian Soto Referring Unavailable Kristian Soto Attending Unavailable Alfredo Matos Referring Unavailable Alfredo Matos Attending Unavailable Soto, Kristian Primary Care Unavailable Soto, Kristian Primary Care Unavailable Gerald Simental Attending Unavailable Soto, Kristian Primary Care Unavailable Soto, Kristian Referring Unavailable Soto, Kristian Attending Unavailable FAULXDANIEL Referring Unavailable SOTO, ISA Primary Care Unavailable SOTO, KRISTIAN Becerra Attending Unavailable SOTO, ISA Primary Care Unavailable SOTO, KRISTIAN Becerra Referring Unavailable SOTO, ISA Primary Care Unavailable SOTO, ISA Primary Care Unavailable FAULX, DANIEL Delgado Referring Unavailable SOTO, KRISTIAN Becerra Primary Care Unavailable FAULX, DANIEL Delgado Referring Unavailable SOTO, KRISTIAN Becerra Primary Care Unavailable SOTO, KRISTIAN Becerra Attending Unavailable SOTO, KRISTIAN Becerra Primary Care Unavailable FAULX, DANIEL Delgado Referring Unavailable SOTO, ISA Primary Care Unavailable FAULX, DANIEL Delgado Referring Unavailable SOTO, KRISTIAN Becerra Primary Care Unavailable FAULX, DANIEL Delgado Referring Unavailable SOTO, KRISTIAN Becerra Primary Care Unavailable SOTO, KRISTIAN Becerra Referring Unavailable SOTO, KRISTIAN Becerra Primary Care Unavailable SOTO, KRISTIAN Becerra Referring Unavailable SOTO, KRISTIAN Becerra Primary Care Unavailable LEIDY MCKEON Attending Unavailable SOTO, KRISTIAN Becerra Referring Unavailable SOTO, KRISTIAN Becerra Primary Care Unavailable LEIDY MCKEON Attending Unavailable SOTO, KRISTIAN Becerra Primary Care Unavailable INGRID PERKINS Attending Unavailable SOTO, KRISTIAN Becerra Primary Care Unavailable SOTO, KRISTIAN Becerra Attending Unavailable SOTO, KRISTIAN Becerra Primary Care Unavailable FAULX, DANIEL Delgado Referring Unavailable SOTO, KRISTIAN Becerra Primary Care Unavailable FAULX, DANIEL Delgado Attending Unavailable FAULX, DANIEL Delgado Referring Unavailable SOTO, KRISTIAN Becerra Primary Care Unavailable FAULX, DANIEL Delgado Attending Unavailable SOTO, KRISTIAN Becerra Primary Care Unavailable Allergies Allergy Classification Reported Allergen(s) Allergy Type Date of Onset Reaction(s) Facility Adhesive Tape (1 source) Adhesive Tape Substance Allergy 03-12-[address] [facility] amLODIPine (1 source) amLODIPine Drug Allergy 09-17-[address] [facility] guaiFENesin / Phenylephrine (1 source) guaiFENesin / Phenylephrine Drug Allergy 05-19-[address] [facility] Work Phone: Iodine (and Iodine containting drugs) (1 source) Iodine Drug Allergy 05-19-[address] [facility] (20 sources) Adhesive Tape; Translations: [ADHESIVE TAPE (ROSINS)] Allergy to substance 03-12-[address] [facility] (20 sources) amLODIPine; Translations: [AMLODIPINE BESYLATE] Drug Allergy 09-17-[address] [facility] (20 sources) guaiFENesin / Phenylephrine; Translations: [PHENYLEPHRINE-GUA IFENESIN] Drug Allergy 05-19-[address] [facility] Work Phone: (20 sources) Iodine; Translations: [IODINE] Drug Allergy 05-19-20 [address] [facility] Work Phone: (20 sources) Propylamine derivative antihistamine; Translations: [ANTIHISTAMINES - ALKYLAMINE] Drug Allergy 04-18-20 20 Other: See Comments [facility] (8 sources) Influenza Virus Vaccines; Translations: [INFLUENZA VIRUS VACCINES] Propensity to adverse reactions to drug 07-07-20 09 Other: See Comments [facility] Work Phone: (20 sources) Iodinated Contrast Media; Translations: [IODINATED CONTRAST MEDIA] Drug Allergy 04-18-[address] [facility] (20 sources) Influenza Virus Vaccines Propensity to adverse reactions to drug 07-07-20 09 Other: See Comments [facility] Work Phone: (7 sources) Adhesive Tape; Translations: [adhesive tape] Propensity to adverse reactions 09-11-19 23 Rash [facility] (6 sources) alpha 1-Antitrypsin Drug Allergy 09-11-19 23 Angioedema [facility] (6 sources) Triiodobenzoic Acids Propensity to adverse reactions 09-11-19 23 Swelling [facility] (6 sources) Antihistamines - Alkylamine Allergy to substance 09-11-19 23 Chest tightness [facility] (1 source) Iodine Drug Allergy 01-19-20 25 [facility] (1 source) Iodinated Contrast Media Drug allergy (disorder) 01-19-20 25 [facility] Rep[facility] (1 source) Antihistamines - Alkylamine Drug allergy (disorder) 01-19-20 25 [facility] Rep[facility] (1 source) [id number] inhibitor Drug allergy (disorder) 01-19-20 [facility] Rep[facility] Medications Current Medications Medication Drug Class(es) Dates Sig (Normalized) Sig (Original) acyclovir 400 mg oral tablet (4 sources) Herpesvirus Nucleoside Analog DNA Polymerase Inhibitor, Herpes Simplex Virus Nucleoside Analog DNA Polymerase Inhibitor, Herpes Zoster Virus Nucleoside Analog DNA Polymerase Inhibitor Start: 06-18-2024 End: 06-23-2024 take 1 tablet by mouth three times daily acyclovir (ZOVIRAX) 400 mg tablet Indications: Herpes simplex labialis Take 1 tablet by mouth three times a day for 5 days. 15 tablet 06/18/2024 06/23/2024 Active apixaban 5 mg oral tablet (6 sources) Factor Xa Inhibitor Start: 01-18-2025 take 1 tablet by mouth twice daily apixaban (ELIQUIS) 5 mg tab(s) Take 5 mg by mouth two times a day. 01/18/2025 Active benazepril hydrochloride 5 mg oral tablet (4 sources) Angiotensin Converting Enzyme Inhibitor Start: 02-11-2025 take 1 tablet by mouth once daily benazepril (LOTENSIN) 5 mg tablet Take 1 tablet by mouth once daily. 90 tablet 3 02/11/2025 Active benazepril hydrochloride 10 mg / hydroCHLOROthiazide 12.5 mg oral tablet (20 sources) Thiazide Diuretic, Angiotensin Converting Enzyme Inhibitor Start: 02-09-2023 End: 02-11-2025 take 1 tablet by mouth once daily Benazepril-hydr oCHLOROthiazide 10-12.5 mg per tablet Take 1 tablet by mouth once daily. 01/15/2024 Active Start: 06-22-2021 End: 03-31-2022 Benazepril-hydroCHLOROthiazi de (LOTENSIN HCT) 10-12.5 mg per tablet Indications: White coat syndrome with diagnosis of hypertension One half (1/2) tablet daily. 45 tablet 3 06/22/2021 03/22/2022 Discontinued Start: 05-12-2016 End: 01-15-2024 take 20-25 mg by mouth once daily Benazepril-Hydrochlorothiazide (Lotensin Hct 20-25 Mg Tablet) 1 EACH tablet Discontinued 1 NMA PO DAILY 30 0 May 12, 2016 12:00am January 15, 2024 9:07pm Start: 08-24-2013 End: 05-12-2016 Benazepril-Hydrochlorothiazi de (Lotensin Hct 20-12.5 Tablet) 1 TAB tablet Discontinued 1 {tbl} PO DAILY August 24, 2013 1:00am May 12, 2016 11:27am Comment on above: One half (1/2) table t daily. Calcium Carbonate / vitamin D3 (9 sources) calcium carbonate/vitamin D3 (CALCIUM 500 + D ORAL) Take by mouth. Active cholecalciferol, vitamin D3, (VITAMIN D3 ORAL) (20 sources) take 4000 [IU] by mouth once daily cholecalciferol, vitamin D3, (VITAMIN D3 ORAL) Take 4,000 Units by mouth once daily. Active take 4000 [IU] by mouth once [place] cholecalciferol, vitamin D3, (VITAMIN D3 ORAL) Take 4,000 Units by mouth once daily. 0 Active Comment on above: Take 4,000 Units by mouth once daily. 24 hr dilTIAZem hydrochloride 120 mg extended release oral tablet (4 sources) Calcium Channel Gemma Start: 2024 take 1 tablet by mouth once daily dilTIAZem LA (CARDIZEM LA) 120 mg 24 hr tablet Take 1 tablet by mouth once daily. 90 tablet 3 02/11/2025 Active iv contrast (will be provided with radiology test) (2 sources) Start: 2023 End: 2023 inject 1 dose intravenously once iv contrast (will be provided with radiology test) CTA Chest. No IV access, insert saline lock prior to the sedation, infusion, injection for imaging exam. Discontinue saline lock post exam. If Pt. has a central line or IVAD, may access for administration according to line specific nursing protocol. Once exam is complete flush line and de-access according to line specific nursing protocol in the CT contrast administration guidelines link. 1 Each 0 09/06/2023 09/07/2023 Active Comment on above: CTA Chest. No IV acc ess, insert saline lock prior to the sedation, infusion, injection for imaging exam. Discontinue saline lock post exam. If Pt. has a central line or IVAD, may access for administration according to line specific nursing protocol. Once exam is complete flush line and de-access according to line specific nursing protocol in the CT contrast administration guidelines link. omeprazole 20 mg delayed release oral capsule (20 sources) Proton Pump Inhibitor Start: 2015 take 1 capsule by mouth once daily as needed omeprazole (PRILOSEC) 20 mg capsule Take 1 capsule by mouth once daily as needed. 06/10/2018 Active Comment on above: Take 1 capsule by mo [facility] once daily as needed. perflutren lipid microspheres 1.3 mL in NaCl (PF) 0.9% 10 mL injection (DEFINITY) (20 sources) Start: 2022 End: 2023 perflutren lipid microspheres 1.3 mL in NaCl (PF) 0.9% 10 mL injection (DEFINITY) Start: 08-06-2021 End: 11-05-2022 perflutren lipid microsphere s 1.3 mL in NaCl (PF) 0.9% 10 mL injection (DEFINITY) Start: 06-15-2021 End: 03-22-2022 perflutren lipid microsphere s 1.3 mL in NaCl (PF) 0.9% 10 mL injection (DEFINITY) Start: 06-15-2021 End: 09-14-2022 perflutren lipid microsphere s 1.3 mL in NaCl (PF) 0.9% 10 mL injection (DEFINITY) vitamin b12 1 mg oral tablet (20 sources) Vitamin B12 take 2 tablets by mouth once daily cyanocobalamin (VITAMIN B-12) 1,000 mcg tab Take 2,000 mcg by mouth once daily. Active Comment on above: Take 2,000 mcg by [facility] once daily. Completed/Discontinued Medications Medication Drug Class(es) Dates Sig (Normalized) Sig (Original) Ca/D3/mag ox/zinc/copy clerk/nell/sharla r (CALCIUM 600-D3 PLUS, MAG-ZINC, ORAL) (20 sources) End: 08-17-2024 Ca/D3/mag ox/zinc/copy clerk/nell/bor (CALCIUM 600-D3 PLUS, MAG-ZINC, ORAL) Take 1 capsule by mouth three times daily. 08/17/2024 Discontinued Ca/D3/mag ox/zin c/copy clerk/nell/bor (CALCIUM 600-D3 PLUS, MAG-ZINC, ORAL) Take 1 capsule by mouth three times daily. Active Ca/D3/mag ox/zin c/copy clerk/nell/bor (CALCIUM 600-D3 PLUS, MAG-ZINC, ORAL) Take 1 capsule by mouth three times daily. 0 Active Comment on above: Take 1 capsule by mo [facility] three times daily. diazePAM 5 mg oral tablet (1 source) Benzodiazepine Start: 09-03-19 End: 09-04-19 diazePAM (VALIUM) 5 mg tablet Indications: Anxiety Take 1 tablet by mouth available for use prior to procedure for 1 day. 1 tablet 09/03/2024 09/04/2024 diclofenac sodium 0.01 mg/mg topical gel (20 sources) Nonsteroidal Anti-inflammatory Drug End: 08-17-19 diclofenac (VOLTAREN) 1 % topical gel Apply to affected area as needed. 08/17/2024 Discontinued Comment on above: Apply to affected ar ea four times daily. Apply to affected ar ea as needed. magnesium citrate 100 mg oral tablet (13 sources) Start: 05-18-20 take 2 tablets by mouth once daily magnesium citrate 100 mg tab Take 2 tablets by mouth once daily. 0 05/18/2022 Active Comment on above: Take 2 tablets by [facility] once daily. metoprolol tartrate 25 mg oral tablet (20 sources) beta-Adrenergic Gemma Start: 08-02-19 End: 02-12-20 metoprolol tartrate, short acting, (LOPRESSOR) 25 mg tablet Indications: Palpitations , White coat syndrome with diagnosis of hypertension TAKE ONE-HALF (1/2) TABLET TWICE A DAY 90 tablet 3 08/02/2024 02/11/2025 Discontinued (Side Effects) Start: 09-08-2023 End: 09-07-2024 take 0.5 tablet by mouth twice daily metoprolol tartrate, short acting, (LOPRESSOR) 25 mg tablet Indications: Palpitations , White coat syndrome with diagnosis of hypertension Take 0.5 tablets by mouth two times a day. 90 tablet 3 09/08/2023 08/02/2024 Discontinued Start: 08-06-2021 End: 01-25-2023 take 0.5 tablet by mouth twice daily metoprolol tartrate, short acting, (LOPRESSOR) 25 mg tablet Indications: Palpitations , White coat syndrome with diagnosis of hypertension Take 0.5 tablets by mouth twice daily. 90 tablet 3 08/06/2021 06/15/2022 Discontinued Start: 09-28-2020 Metoprolol Tar trate 25 MG tablet Active 12.5 mg PO TWICE A DAY September 29, 2020 12:30am Start: 03-06-2020 End: 09-28-2020 take 1 tablet by mouth twice daily Metoprolol Tartrate 25 MG tablet Discontinued 25 mg PO TWICE A DAY 20 0 March 06, 2020 12:00am September 29, 2020 12:22am Comment on above: Take 0.5 tablets by mouth twice daily. naproxen 500 mg oral tablet (1 source) Nonsteroidal Anti-inflammatory Drug Start: 2 take 1 tablet by mouth twice daily as needed for pain naproxen (NAPROSYN) 500 mg tablet Indications: Acute pain of left foot Take 1 tablet by mouth twice daily as needed (for pain/inflammation). Take with food. 30 tablet 0 01/07/2022 Active Comment on above: Take 1 tablet by jamel th twice daily as needed (for pain/inflammation). Take with food. rivaroxaban 20 mg oral tablet (7 sources) Factor Xa Inhibitor Start: 2 End: 2 take 1 tablet by mouth once daily at dinner rivaroxaban (XARELTO) 20 mg tablet Indications: Acute deep vein thrombosis (DVT) of popliteal vein of left lower extremity (HCC) Take 1 tablet by mouth daily with dinner. 90 tablet 09/27/2021 01/01/2022 Discontinued (Course of therapy completed) Start: 08-30-2021 End: 11-06-2021 take 1 tablet by mouth twice daily at mealtime rivaroxaban (XARELTO DVT-PE TREAT 30D START) 15 mg (42)- 20 mg (9) DsPk Indications: Acute deep vein thrombosis (DVT) of popliteal vein of left lower extremity (HCC) Take 1 tablet (15 mg) by mouth twice daily with food for 21 days. Then take 1 tablet (20 mg) by mouth once daily with food for 9 days. 51 tablet 08/30/2021 11/06/2021 Discontinued Comment on above: Take 1 tablet by jamel th daily with dinner. 125 ml sodium chloride 9 mg/ml prefilled syringe (20 sources) Start: 06-15-2021 End: 12-28-2023 sodium chloride 0.9 % (flush) 10 mL (BD POSIFLUSH) Problems Active Problems Problem Classification Problem Date Documented Date Episodic/Chronic Aortic; peripheral; and visceral artery aneurysms (3 sources) Aneurysm of ascending aorta; Translations: [Aneurysm of ascending aorta without rupture (HCC)] Chronic Calculus of urinary tract (6 sources) Kidney stone; Translations: [Calculus of kidney] 04-18-2020 Episodic Cardiac dysrhythmias (20 sources) Multiple premature ventricular complexes; Translations: [Ventricular premature depolarization] Onset: 02-11-2025 04-18-2020 Chronic Disorders of lipid metabolism (20 sources) Hyperlipidemia; Translations: [Hyperlipidemia, unspecified] Onset: 09-17-2008 05-07-2015 Chronic Esophageal disorders (20 sources) Gastroesophageal reflux disease; Translations: [Gastro-esophageal reflux disease without esophagitis] Onset: 05-19-2005 Resolved: 10-08-2011 12-14-2013 Chronic Essential hypertension (20 sources) Hypertensive disorder; Translations: [Essential (primary) hypertension] Onset: 05-19-2005 01-19-2021 Chronic Fever of unknown origin (2 sources) Fever; Translations: [Fever, unspecified] Episodic Immunizations and screening for infectious disease (4 sources) Vaccination needed; Translations: [Encounter for immunization] Episodic Inflammation; infection of eye (except that caused by tuberculosis or sexually transmitteddisease) (3 sources) Hordeolum externum of upper eyelid of left eye; Translations: [Hordeolum externum left upper eyelid] 02-14-2024 Episodic Malaise and fatigue (2 sources) Fatigue; Translations: [Chronic fatigue, unspecified] Onset: 02-11-2025 02-11-2025 Chronic Malaise and fatigue (2 sources) Fatigue 02-11-2025 Episodic Neoplasms of unspecified nature or uncertain behavior (1 source) Neoplasm of skin; Translations: [Neoplasm of unspecified behavior of bone, soft tissue, and skin] Episodic Nutritional deficiencies (20 sources) Vitamin D deficiency; Translations: [Vitamin D deficiency, unspecified] Onset: 12-18-2010 12-18-2010 Chronic Osteoporosis (20 sources) Osteoporosis; Translations: [Age-related osteoporosis without current pathological fracture] Onset: 05-19-2005 07-27-2021 Chronic Other and unspecified benign neoplasm (1 source) Senile angioma; Translations: [Hemangioma of skin and subcutaneous tissue] Episodic Other and unspecified benign neoplasm (1 source) Multiple benign melanocytic nevi ; Translations: [Melanocytic nevi, unspecified] Episodic Other bone disease and musculoskeletal deformities (1 source) Costal chondritis; Translations: [Chondrocostal junction syndrome [Tietze]] Episodic Other circulatory disease (20 sources) Disorder of thoracic aorta; Translations: [Other specified disorders of arteries and arterioles] Onset: 10-08-2011 03-13-2019 Chronic Other circulatory disease (3 sources) Disorder of artery; Translations: [Disorder of arteries and arterioles, unspecified] 09-06-2023 Chronic Other circulatory disease (2 sources) Disorder of arteries and arterioles, unspecified; Translations: [Disorder of artery or arteriole] Onset: 07-23-2024 Chronic Other circulatory disease (1 source) Other specified disorders of arteries and arterioles; Translations: [Enlarged thoracic aorta] Onset: 03-13-2019 Chronic Other circulatory disease (4 sources) Carotid bruit; Translations: [Other specified symptoms and signs involving the circulatory and respiratory systems] 10-17-2024 Episodic Other connective tissue disease (1 source) Tendonitis of left patellar tendon; Translations: [Patellar tendinitis, left knee] Episodic Other connective tissue disease (2 sources) Foot pain; Translations: [Pain in left foot] Episodic Other connective tissue disease (2 sources) Plantar fasciitis; Translations: [Plantar fascial fibromatosis] 09-06-2023 Episodic Other lower respiratory disease (2 sources) Cough; Translations: [Cough] Episodic Other non-epithelial cancer of skin (1 source) History of malignant neoplasm of skin; Translations: [Personal history of other malignant neoplasm of skin] Episodic Other nutritional; endocrine; and metabolic disorders (20 sources) Obese class I; Translations: [Obesity, unspecified] Onset: 06-22-2021 06-22-2021 Chronic Other screening for suspected conditions (not mental disorders or infectious disease) (5 sources) Finding of thyroid gland; Translations: [Abnormal findings on diagnostic imaging of other specified body structures] Onset: 09-10-2024 09-06-2024 Chronic Other screening for suspected conditions (not mental disorders or infectious disease) (9 sources) Patient encounter status; Translations: [Encounter for screening mammogram for malignant neoplasm of breast] Episodic Other skin disorders (1 source) Disorder of nail; Translations: [Nail disorders in diseases classified elsewhere] Episodic Other skin disorders (2 sources) Actinic keratosis; Translations: [Actinic keratosis] Episodic Other skin disorders (1 source) Inflamed seborrheic keratosis; Translations: [Inflamed seborrheic keratosis] Episodic Other skin disorders (1 source) Seborrheic keratosis; Translations: [Other seborrheic keratosis] Episodic Other skin disorders (1 source) Lentiginosis; Translations: [Other melanin hyperpigmentation] Episodic Other skin disorders (2 sources) Mass of neck; Translations: [Localized swelling, mass and lump, neck] 10-17-2024 Episodic Other upper respiratory disease (20 sources) Allergic rhinitis; Translations: [Allergic rhinitis, unspecified] Onset: 12-01-2007 09-17-2008 Chronic Residual codes; unclassified (1 source) Family history of malignant melanoma; Translations: [Family history of malignant neoplasm of other organs or systems] Episodic Residual codes; unclassified (2 sources) Past history of procedure; Translations: [Other specified postprocedural states] 10-17-2024 Episodic Thyroid disorders (20 sources) Goiter; Translations: [Nontoxic goiter, unspecified] Onset: 08-17-2024 Resolved: 11-01-2024 08-17-2024 Chronic Unclassified (1 source) Aneurysm of ascending aorta without rupture; Translations: [Aneurysm of ascending aorta without rupture] Onset: 12-03-2024 Unclassified (1 source) Aneurysm of ascending aorta without rupture (HCC); Translations: [Aneurysm of ascending aorta without rupture (HCC)] Onset: 07-23-2024 Past or Other Problems Problem Classification Problem Date Documented Da te Episodic/Chronic Anxiety disorders (20 sources) Anxiety state; Translations: [Generalized anxiety disorder] Onset: 05-19-2005 Resolved: 06-15-2006 06-15-2006 Chronic Cardiac dysrhythmias (20 sources) Palpitations; Translations: [Palpitations] Onset: 03-17-2020 03-17-2020 Episodic Headache; including migraine (20 sources) Migraine aura without headache ; Translations: [Migraine with aura, not intractable, without status migrainosus] Onset: 09-30-2009 Resolved: 04-26-2012 04-26-2012 Chronic Nonspecific chest pain (20 sources) Chest pain; Translations: [Chest pain, unspecified] Onset: 05-19-2005 Resolved: 06-15-2006 06-15-2006 Episodic Other circulatory disease (2 sources) Other specified symptoms and signs involving the circulatory and respiratory systems; Translations: [Bruit of right carotid artery] Onset: 10-17-2024 Episodic Other connective tissue disease (20 sources) Capsulitis; Translations: [Enthesopathy, unspecified] Onset: 02-14-2012 Resolved: 12-14-2013 12-14-2013 Episodic Other connective tissue disease (1 source) Plantar fascial fibromatosis; Translations: [Plantar fasciitis] Onset: 07-23-2024 Episodic Other eye disorders (20 sources) Tear film insufficiency; Translations: [Dry eye syndrome of unspecified lacrimal gland] Onset: 04-26-2012 07-27-2021 Episodic Other gastrointestinal disorders (20 sources) Occult blood in stools; Translations: [Other fecal abnormalities] Onset: 08-04-2015 Resolved: 11-15-2016 11-15-2016 Episodic Other lower respiratory disease (20 sources) Wheezing; Translations: [Wheezing] Onset: 09-06-2013 Resolved: 07-21-2015 07-21-2015 Episodic Other non-traumatic joint disorders (20 sources) Multiple joint pain; Translations: [Pain in unspecified joint] Onset: 03-03-2020 03-03-2020 Episodic Other nutritional; endocrine; and metabolic disorders (20 sources) Obesity; Translations: [Obesity, unspecified] Onset: 09-17-2008 Resolved: 06-22-2021 06-22-2021 Chronic Other skin disorders (1 source) Localized swelling, mass and lump, head; Translations: [Localized swelling, mass and lump, head] Onset: 03-08-2024 Episodic Other skin disorders (1 source) Localized swelling, mass and lump, neck; Translations: [Pulsatile neck mass] Onset: 10-17-2024 Episodic Other upper respiratory infections (6 sources) Sore throat symptom; Translations: [Acute pharyngitis, unspecified] Onset: 06-18-2024 Episodic Phlebitis; thrombophlebitis and thromboembolism (20 sources) Acute deep venous thrombosis of popliteal vein of left leg; Translations: [Acute embolism and thrombosis of left popliteal vein] Onset: 08-29-2021 Resolved: 01-04-2022 09-07-2021 Episodic Residual codes; unclassified (1 source) Other specified postprocedural states; Translations: [S/P thyroid biopsy] Onset: 10-17-2024 Episodic Screening and history of mental health and substance abuse codes (2 sources) Encounter for screening for depression; Translations: [Encounter for screening examination for other mental health and behavioral disorders] Onset: 08-17-2024 Episodic Viral infection (20 sources) Herpes labialis; Translations: [Herpesviral vesicular dermatitis] Onset: 04-26-2012 04-26-2012 Episodic Results Test Name Value Interpretation Reference Range Facility CBC W Auto Differential pane l (Bld)on 02-12-2025 Basophils (Bld) [#/Vol] 0.04 10*3/uL Normal <0.[address] [facility]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 Procedure Date : Feb 11 2025 08:05:58 Edit Date : Mar 19 2025 17:45:18 Diagnosis: NORMAL SINUS RHYTHM LEFT AXIS DEVIATION INCOMPLETE RIGHT BUNDLE BRANCH BLOCK ABNORMAL ECG Confirmed by ORIN MUNIZ MD ([id number]) on 03/19/2025 5:45:13 PM Test Reason : I48.0 PAF (paroxysmal atrial fibrillation) ([facility]) Location : 567 : J24NS Overread By : ORIN MUNIZ MD Edited By : ORIN MUNIZ MD Referred By : , Acquired by : [id number], Normal [facility] 12 Lead EKGon 01-18-2025 12 Lead EKG [facility] Cardiovascular Services [address] [place] [address] 12 Lead EKG 01/18/25 1400 MR#: [id number] Acct: [id number] Name: DOT MCGILL Rep #: [id number] : 1945 79 From: Daniel Davis MD Attending Dr: Status: DEP ER Ordering Dr: Alfredo Matos MD Date: 01/18/25 Location: ED Sex: F C Admitted: Test Reason : ARRYTH Blood Pressure : */* mmHG Vent. Rate : 64 BPM Atrial Rate : 64 BPM P-R Int : 194 ms QRS Dur : 88 ms QT Int : 406 ms P-R-T Axes : 74 -47 17 degrees QTcB Int : 418 ms Normal sinus rhythm Left anterior fascicular block CAN NOT RULE OUT INFERIOR IA Abnormal ECG Confirmed by Daniel Davis ([id number]), legal editor MARISA BOYCE ([id number]) on 01/22/2025 11:38:24 AM Referred By: Alfredo Matos Confirmed By: Daniel Davis 01/22/25 113 Date Daniel Davis MD CC: Dr. Alfredo Matos MD; Dr. Kristian Soto MD Signed Normal [facility] 12 Lead EKG [facility] Cardiovascular Services [address] [place] [address] 12 Lead EKG 01/18/25 1335 MR#: [id number] Acct: [id number] Name: DOT MCGILL Rep #: [id number] : 1945 79 From: Daniel Davis MD Attending Dr: Status: DEP ER Ordering Dr: Alfredo Matos MD Date: 01/18/25 Location: ED Sex: F C Admitted: Test Reason : Blood Pressure : */* mmHG Vent. 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 Alfredo Matos MD; Dr. Kristian Soto MD Signed Normal [facility] Absolute lymphocyte countOrd ered By: Alfredo Matos on 01-18-2025 Lymphocytes Auto (Unsp spec) [#/Vol] 2.38 10*3/uL 0.83-4.51 [facility] Absolute neutrophil countOrd ered By: Alfredo Matos on 01-18-2025 Neutrophils (Bld) [#/Vol] 3.9 10*3/uL 2.0-7.7 [facility] Anion gap in Serum or Plasma Ordered By: Alfredo Matos on 01-18-2025 Anion gap [Moles/Vol] 12 mmol/L 5- [facility] Automated lymphocyte count a s percentage of total leukocytesOrdered By: Alfredo Matos on 01-18-2025 Lymphocytes/100 WBC Auto (Unsp spec) 34.1 % - [facility] BUN/creatinine ratioOrdered By: Alfredo Matos on 01-18-2025 Urea nitrogen/Creatinine [Mass ratio] 16.6 mg/mg 05-20 [facility] Basophil percentageOrdered B y: Alfredo Matos on 01-18-2025 Basophils/100 WBC (Bld) 0.9 % 0-1 [facility] Bilirubin Test strip Ql (U)O rdered By: Alfredo Matos on 01-18-2025 Bilirubin Ql (U) Negative Negative [facility] Bilirubin, totalOrdered By: Alfredo Matos on 01-18-2025 Bilirubin [Mass/Vol] 0.26 mg/dL 0.00-1.30 [facility] CBC W/Diff, Automatedon 12-31 Absolute Lymph 2.38 X10 3/uL Normal 0.83-4.51 [facility] Comment on above: Performed By: #### L 501.5200, L100.0100, L500.4050 ####[facility] [address] [place], [address] Absolute Neut 3.9 X10 3/uL Normal 2.0-7.7 [facility] Comment on above: Performed By: #### L 501.5200, L100.0100, L500.4050 ####[facility] [address] [place], [address] Basophils/100 WBC (Bld) 0.9 % Normal 0-1 [facility] Comment on above: Performed By: #### L 501.5200, L100.0100, L500.4050 ####[facility] [address] [place], [address] Eosinophils/100 WBC (Bld) 1.3 % Normal 0-5 [facility] Comment on above: Performed By: #### L 501.5200, L100.0100, L500.4050 ####[facility] [address] [place], [address] Erythrocyte distribution width (RBC) [Ratio] 14.1 % Normal 11.6-14.6 [facility] Comment on above: Performed By: #### L 501.5200, L100.0100, L500.4050 ####[facility] [address] [place], [address] Hematocrit (Bld) [Volume fraction] 41.0 % Normal 37-47 [facility] Comment on above: Performed By: #### L 501.5200, L100.0100, L500.4050 ####[facility] [address] [place], [address] Hemoglobin (Bld) [Mass/Vol] 13.0 g/dL Normal 12.0-15.0 [facility] Comment on above: Performed By: #### L 501.5200, L100.0100, L500.4050 ####[facility] [address] [place], [address] IG% 0.300 Normal 0.0-0.9 [facility] Comment on above: Result Comment: IG% - Immature Granulocytes (promyelocytes, myelocytes and metamyelocytes) > 1% indicates that a LEFT SHIFT is Present. Performed By: #### L 501.5200, L100.0100, L500.4050 ####[facility] [address] [place], [address] Lymphocytes/100 WBC (Bld) 34.1 % Normal 19-41 [facility] Comment on above: Performed By: #### L 501.5200, L100.0100, L500.4050 ####[facility] [address] [place], [address] MCH (RBC) [Entitic mass] 26.6 pg Low 27.0-32.0 [facility] Comment on above: Performed By: #### L 501.5200, L100.0100, L500.4050 ####[facility] [address] [place], [address] MCHC (RBC) [Mass/Vol] 31.7 g/dL Low 32-36 [facility] Comment on above: Performed By: #### L 501.5200, L100.0100, L500.4050 ####[facility] [address] [place], [address] MCV (RBC) [Entitic vol] 83.8 fL Normal 81-99 [facility] Comment on above: Performed By: #### L 501.5200, L100.0100, L500.4050 ####[facility] [address] [place], [address] Monocytes/100 WBC (Bld) 7.9 % Normal 0-10 [facility] Comment on above: Performed By: #### L 501.5200, L100.0100, L500.4050 ####[facility] [address] [place], [address] Neutrophils/100 WBC (Bld) 55.5 % Normal 47-70 [facility] Comment on above: Performed By: #### L 501.5200, L100.0100, L500.4050 ####[facility] [address] [place], [address] Nucleated RBC (Bld) [#/Vol] 0 10*3/uL Normal 0-5 [facility] Comment on above: Performed By: #### L 501.5200, L100.0100, L500.4050 ####[facility] [address] [place], [address] Platelet mean volume (Bld) [Entitic vol] 8.9 fL Normal 6.2-12.0 [facility] Comment on above: Performed By: #### L 501.5200, L100.0100, L500.4050 ####[facility] [address] [place], [address] Platelets (Bld) [#/Vol] 355 10*3/uL Normal 150-450 [facility] Comment on above: Performed By: #### L 501.5200, L100.0100, L500.4050 ####[facility] [address] [place], [address] RBC (Bld) [#/Vol] 4.89 10*6/uL Normal 4.2-5.4 [facility] Comment on above: Performed By: #### L 501.5200, L100.0100, L500.4050 ####[facility] [address] [place], [address] RDW SD 43.3 fl Normal 35.1-43.9 [facility] Comment on above: Performed By: #### L 501.5200, L100.0100, L500.4050 ####[facility] [address] [place], [address] WBC (Bld) [#/Vol] 7.0 10*3/uL Normal 4.4-11.0 [facility] Comment on above: Performed By: #### L 501.5200, L100.0100, L500.4050 ####[facility] [address] [place], [address] CNPNon 01-18-2025 CNPN Telephone (CARCMN) DOT MCGILL ([id number]) 1945 F Date Time Provider Department 01/18/25 DANIEL HASSAN CARCCO During your visit today, we recorded the following information about you: Lico Fung 01/18/2025 1:59 PM Signed January 18, 2025 Patient Contact Number: [phone] (home) Patient last seen within the last year: Yes Date of last office visit: 12/03/2024 Reason For Call: Other Issue: Patient in ER in atrial fibrillation Dr. Matos from [place] [facility] called. Patient is there currently w/ afib and Dr. Matos would like to speak with Dr. Hassan regarding restarting her Metoprolol. Patient was taking medication PRN and he would like to consult w/ Dr. Hassan if okay to have her restart. Dr. Matos can be reached at [phone] Encounter printed and give to Dr. Hassan. Physician: Daniel Hassan MD Patient was informed that non-urgent calls may be returned within the next three business days. Yes Lico Fung Allergies As of Date: 01/18/2025 Noted Allergy Reaction INFLUENZA VIRUS VACCINES 07/07/2009 14 - Other: See Comments Comments: Dizziness ADHESIVE TAPE (ROSINS) 03/12/2014 2 - Rash ANTIHISTAMINES - ALKYLAMINE 04/18/2020 14 - Other: See Comments ENTEX LA (PHENYLEPHRINE-GUAIFE PAULA*05/19/2005 IODINATED CONTRAST MEDIA 04/18/2020 7 - Swelling Comments: Eye swelling, SOB, airway and throat swelling IODINE 05/19/2005 NORVASC (AMLODIPINE BESYLATE) 09/17/2008 Comments: lip swelling - gum bleeding Date Reviewed: 12/03/2024 Reviewed by: Yann Hguhes MA - Fully Assessed Reason for Visit: Patient Update [1234] Prescriptions as of 01/18/2025 - Benazepril-hydroCHLOR Othiazide (LOTENSIN HCT) 10-12.5 mg per tablet One half (1/2) tablet daily. - calcium carbonate/vitamin D3 (CALCIUM 500 + D ORAL) Take by mouth. - metoprolol tartrate, short acting, (LOPRESSOR) 25 mg tablet TAKE ONE-HALF (1/2) TABLET TWICE A DAY - cholecalciferol, vitamin D3, (VITAMIN D3 ORAL) Take 4,000 Units by mouth once daily. - cyanocobalamin (VITAMIN B-12) 1,000 mcg tab Take 2,000 mcg by mouth once daily. - omeprazole (PRILOSEC) 20 mg capsule Take 1 capsule by mouth once daily as needed. 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] 09/30/2009 04/26/2012 Vitamin D deficiency [E55.9] 12/18/2010 Enlarged thoracic aorta (HCC) [I77.89] 10/08/2011 Capsulitis [M77.9] 02/14/2012 12/14/2013 Dry eye syndrome [H04.129] 04/26/2012 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] 04/26/2012 Wheezing [R06.2] 09/06/2013 07/21/2015 GERD (gastroesophageal reflux disease) [K21.9] 12/14/2013 Occult GI bleeding [R19.5] 08/04/2015 11/15/2016 Multiple joint pain [M25.50] 03/03/2020 Palpitations [R00.2] 03/17/2020 Obesity, Class I, BMI 30-34.9 [E66.811] 06/22/2021 Acute deep vein thrombosis (DVT) of popliteal v*08/29/2021 01/04/2022 Goiter [E04.9] 08/17/2024 11/01/2024 Multiple thyroid nodules [E04.2] 08/29/2024 Encounter Status:Closed by LICO FUNG on 01/18/25 [facility] CNPN Telephone (CARCMN) DOT MCGILL ([id number]) 1945 F Date Time Provider Department 01/18/25 DANIEL HASSAN CARCCO During your visit today, we recorded the following information about you: Lico Fung 01/18/2025 4:50 PM Signed January 18, 2025 Patient Contact Number: [phone] (home) Patient last seen within the last year: Yes Date of last office visit: 12/03/24 Reason For Call: Patient was in Afib and went to local ER Patient called. States HR was about 186 today and she was taken to ER. She was found to be in Afib. At that time, BP was 180/130 and patient was having Shortness of Breath and weakness. Given extra dosage of Metoprolol and told to restart Metoprolol from [facility] w/ Dr. Hassan. She was discharged w/ Eliquis 5mg twice daily and instructed to restart Metoprolol daily. Patient would like Dr. Hassan to be aware as well and awaits additional instructions. Physician: Daniel Hassan MD Patient was informed that non-urgent calls may be returned within the next three business days. Yes Irma Barr RN 01/21/2025 7:24 AM Signed Messaged patient BLAYNE Shah Roquel 01/21/2025 3:40 PM Signed Spoke with patient. She is scheduled for 02/11/25 w/ Dr. Hassan. Lico, Senior Game Advisor II January 21, 2025 Allergies As of Date: 01/18/2025 Noted Allergy Reaction INFLUENZA VIRUS VACCINES 07/07/2009 14 - Other: See Comments Comments: Dizziness ADHESIVE TAPE (ROSINS) 03/12/2014 2 - Rash ANTIHISTAMINES - ALKYLAMINE 04/18/2020 14 - Other: See Comments ENTEX LA (PHENYLEPHRINE-GUAIFE PAULA*05/19/2005 IODINATED CONTRAST MEDIA 04/18/2020 7 - Swelling Comments: Eye swelling, SOB, airway and throat swelling IODINE 05/19/2005 NORVASC (AMLODIPINE BESYLATE) 09/17/2008 Comments: lip swelling - gum bleeding Date Reviewed: 12/03/2024 Reviewed by: Yann Hughes MA - Fully Assessed Reason for Visit: Patient Update [1234] Prescriptions as of 01/21/2025 - Benazepril-hydroCHLOR Othiazide (LOTENSIN HCT) 10-12.5 mg per tablet One half (1/2) tablet daily. - calcium carbonate/vitamin D3 (CALCIUM 500 + D ORAL) Take by mouth. - metoprolol tartrate, short acting, (LOPRESSOR) 25 mg tablet TAKE ONE-HALF (1/2) TABLET TWICE A DAY - cholecalciferol, vitamin D3, (VITAMIN D3 ORAL) Take 4,000 Units by mouth once daily. - cyanocobalamin (VITAMIN B-12) 1,000 mcg tab Take 2,000 mcg by mouth once daily. - omeprazole (PRILOSEC) 20 mg capsule Take 1 capsule by mouth once daily as needed. 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] 09/30/2009 04/26/2012 Vitamin D deficiency [E55.9] 12/18/2010 Enlarged thoracic aorta (HCC) [I77.89] 10/08/2011 Capsulitis [M77.9] 02/14/2012 12/14/2013 Dry eye syndrome [H04.129] 04/26/2012 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 Carbon dioxide, total [Moles /volume] in Central venous bloodOrdered By: Alfredo Matos on 01-18-2025 CO2 [Moles/Vol] 25.7 mmol/L 21.0-32.0 [facility] Chest 1 View (Portable)on Chest 1 View (Portable) [facility] Imaging Services [address] [place] [address] Chest 1 View (Portable) MR#: [id number] Acct: [id number] Name: DOT MCGILL Rep #: [id number] : 1945 F 79 From: Mt olivarez MD PCP: Dr. Kristian Soto MD Status: REG ER Study: Chest 1 View (Portable) Date of Exam: 01/18/25 Exam# [id number] Ordering Dr: Alfredo Matos MD PROCEDURE: CHEST 1 VIEW (PORTABLE) N/A REASON FOR EXAM: PALPITATIONS TECHNIQUE: Frontal view of the chest. COMPARISON: Prior study dated January 15, 2024. FINDINGS: Hardware: EKG electrodes are seen. Status post right reverse shoulder replacement. Heart: Heart is nonenlarged. Tortuosity of the descending thoracic aorta. Lungs: Mild increased markings at the left lung base suggestive of linear atelectasis. Bones: Degenerative changes are identified within the thoracic spine. Other: RAD/Chest 1 View (Portable) IMPRESSION: Mild increased linear markings at the left lung base suggestive of linear atelectasis. Reading Location: [place] [address] CC: Dr. Alfredo Matos MD; Dr. Kristian Soto MD Motion Designer: Signed Normal [facility] Chloride assayOrdered By: Paulo Matos on 01-18-2025 Chloride [Moles/Vol] 101 mmol/L 98-108 [facility] Comprehensive Metabolic Prof ilon 01-18-2025 Albumin [Mass/Vol] 4.4 g/dL Normal 3.4-4.8 [facility] Comment on above: Performed By: #### L 501.5200, L100.0100, L500.4050 ####[facility] [address] [place], [address] Albumin/Globulin [Mass ratio] 1.3 {ratio} Normal 0.9-2.4 [facility] Comment on above: Performed By: #### L 501.5200, L100.0100, L500.4050 ####[facility] [address] [place], [address] ALK PHOS 114 U/L High 35-104 [facility] Comment on above: Performed By: #### L 501.5200, L100.0100, L500.4050 ####[facility] [address] [place], [address] ALT [Catalytic activity/Vol] 15 U/L Normal <=34 [facility] Comment on above: Performed By: #### L 501.5200, L100.0100, L500.4050 ####[facility] [address] [place], [address] AST [Catalytic activity/Vol] 24 U/L Normal <=31 [facility] Comment on above: Performed By: #### L 501.5200, L100.0100, L500.4050 ####[facility] [address] [place], [address] Bilirubin [Mass/Vol] 0.26 mg/dL Normal 0.00-1.30 [facility] Comment on above: Performed By: #### L 501.5200, L100.0100, L500.4050 ####[facility] [address] [place], [address] BUN/CRE 16.6 RATIO Normal 10-20 [facility] Comment on above: Performed By: #### L 501.5200, L100.0100, L500.4050 ####[facility] [address] [place], [address] Calcium [Mass/Vol] 9.8 mg/dL Normal 7.6-11.0 [facility] Comment on above: Performed By: #### L 501.5200, L100.0100, L500.4050 ####[facility] [address] [place], [address] Chloride [Moles/Vol] 101 mmol/L Normal 98-108 [facility] Comment on above: Performed By: #### L 501.5200, L100.0100, L500.4050 ####[facility] [address] [place], [address] CO2 [Moles/Vol] 25.7 mmol/L Normal 21.0-32.0 [facility] Comment on above: Performed By: #### L 501.5200, L100.0100, L500.4050 ####[facility] [address] [place], [address] Creatinine [Mass/Vol] 0.78 mg/dL Normal 0.70-1.20 [facility] Comment on above: Performed By: #### L 501.5200, L100.0100, L500.4050 ####[facility] [address] [place], [address] ECRCL 58.59 ml/min Normal 50-250 [facility] Comment on above: Performed By: #### L 501.5200, L100.0100, L500.4050 ####[facility] [address] [place], [address] GAP 12 Normal 5-15 [facility] Comment on above: Performed By: #### L 501.5200, L100.0100, L500.4050 ####[facility] [facility] [address] [place], [address] GFR/1.73 sq M.predicted among non-blacks MDRD (S/P/Bld) [Vol rate/Area] 78 mL/min/{1.73_m2} Normal >60 [facility] Comment on above: Result Comment: mL/m in/1.73m2 CKD-EPI Creatinine Equation (2020) Performed By: #### L 501.5200, L100.0100, L500.4050 ####[facility] [address] [place], [address] Globulin (S) [Mass/Vol] 3.3 g/dL Normal 2.2-4.2 [facility] Comment on above: Performed By: #### L 501.5200, L100.0100, L500.4050 ####[facility] [address] [place], [address] Glucose [Mass/Vol] 98 mg/dL Normal 70-99 [facility] Comment on above: Performed By: #### L 501.5200, L100.0100, L500.4050 ####[facility] [address] [place], [address] Potassium [Moles/Vol] 4.1 mmol/L Normal 3.3-5.1 [facility] Comment on above: Performed By: #### L 501.5200, L100.0100, L500.4050 ####[facility] [address] [place], [address] Sodium [Moles/Vol] 139 mmol/L Normal 133-145 [facility] Comment on above: Performed By: #### L 501.5200, L100.0100, L500.4050 ####[facility] [address] [place], [address] T PROT 7.7 g/dL Normal 5.9-8.4 [facility] Comment on above: Performed By: #### L 501.5200, L100.0100, L500.4050 ####[facility] [address] [place], [address] Urea nitrogen [Mass/Vol] 13 mg/dL Normal 4-19 [facility] Comment on above: Performed By: #### L 501.5200, L100.0100, L500.4050 ####[facility] [address] [place], [address] Emergency Department Summary on 01-18-2025 Emergency Department Summary [facility] Medical Records Department [address] [place] [address] Emergency Department Summary 01/18/25 MR#: [id number] Acct: [id number] Name: DOT MCGILL Rep #: [id number] : 1945 79 From: Alfredo aMtos MD PCP: Dr. Kristian Soto MD Status:REG ER Location: ED HPI History of Present Illness Chief Complaint: Palpitations Narrative Narrative: 39-year-old female past medical history of paroxysmal SVT presents with heart palpitations that started around 1120 this morning, approximately an hour and a half or longer ago. She denies any chest pain and may feel little short of breath but no fevers or chills, no cough. Of note, she had history of paroxysmal SVT for which she would take half a dose of metoprolol 12.5 mg orally. She has not had an episode since last year and around this time. 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 Hassan in early November, approximately 2 months ago, and since she had not had an episode took her off her daily 12.5 mg of metoprolol. In the event that she had the palpitations and rapid heart rate again, she was supposed to take her dosing. She felt it shortly before, then stronger at around 1120, and states that her heart rate was as high as 180 bpm. While she denies chest pain she states that this feels different than her SVT, and is maintaining a rate in the 130s to 140s. She denies any leg swelling, no exacerbating or alleviating factors. [facility] Medical History Irregular heart beat Hypertension Home Medications ???Medication ???Instructions ???Recorded ???Last Taken ???Type omeprazole 20 mg capsule,delayed 20 mg PO DAILY PRN acid reflux 06/1605/11/16 History release metoprolol tartrate 25 mg tablet 12.5 mg PO BID 09/28/20 Unknown Hi story benazepril 10 0.5 tab PO DAILY 01/15/24 Unknown History mg-hydrochlorothiazid e 12.5 mg tablet apixaban 5 mg tablet (Eliquis) 5 mg PO BID #60 tabs 01/18/25 Unkn own Rx Allergy/AdvReac Type Severity Reaction Status Date / Time dnsqf-7-ffjzcnptco inhibitor Allergy Angioedema Verified 01/18/25 12:49 (Rqmyl-3-Evlnqgctki Inhibitor) Antihistamines - Alkylamine Allergy Chest Verified 01/18/25 12:49 tightness iodine Allergy Shortness Verified 01/18/25 12:49 of breath adhesive tape AdvReac Rash Verified 01/18/25 12:49 Iodinated Contrast Media AdvReac Swelling Verified 01/18/25 12:49 (CONTRASTS) Social History Smoking Status: Never smoker ROS ROS ED ROS Narrative Review of systems positive for heart palpitations. No chest pain, mild shortness of breath but no fevers or chills, no cough. No leg swelling. No exacerbating or alleviating factors. States feels different than previous SVT episodes. EXAM Physical Exam Narrative Exam Narrative: Afebrile. Vital signs noted. Nontoxic-appearing. Cardiovascular examination reveals an irregularly irregular tachycardia with no murmurs rubs or gallops appreciated. Abdomen is soft nontender. No guarding or rebound. Lungs clear to auscultation bilaterally. No pedal edema appreciated bilaterally. Neurological examination nonfocal and nonlateralizing. Const Vital Signs: 01/18/25 12:43 01/18/25 13:15 01/18/25 13:21 Temperature 98.1 F Temperature Source Oral Pulse Rate 137 H 141 H 139 H Respiratory Rate 18 21 H Blood Pressure 172/107 H 122/86 H Blood Pressure Mean 128 98 Pulse Ox 97 97 Oxygen Delivery Method Room Air Room Air 01/18/25 13:23 01/18/25 13:24 01/18/25 13:25 Temperature Temperature Source Pulse Rate 119 H 126 H 116 H Respiratory Rate 30 H 26 H Blood Pressure 98/71 102/68 Blood Pressure Mean 80 79 Pulse Ox 94 93 Oxygen Delivery Method Room Air Room Air MDM MDM MDM Narrative Medical decision making narrative: Differential diagnosis includes but not limited to paroxysmal SVT episode versus atrial fibrillation versus heart palpitations. She may be dehydrated or have other electrolyte imbalance. As she has already taken metoprolol, EKG will be obtained to determine her current rhythm. On my individual interpretation, demonstrates atrial fibrillation with rapid ventricular response at [address] changes. No STEMI. I reviewed her laboratory work and she has a normal white count of 7.0 with hemoglobin normal at 13.0, hematocrit 41.0, platelet count normal at 355. Electrolyte panel is grossly unremarkable, magnesium also normal at 2.2 with potassium 4.1. LFTs are remarkable for alk phos slightly elevated at 114 which I think is nonspecific. Urinalysis negative for ketones or infection. I do not feel antibiotics are indicated. Chest x-ray interpreted by myself independently shows no evidence (more content not included)... Normal [facility] Eosinophil percentageOrdered By: Alfredo Matos on 01-18-2025 Eosinophils/100 WBC (Bld) 1.3 % 0-5 [facility] Erythrocyte distribution wid th ratioOrdered By: Alfredo Matos on 01-18-2025 Erythrocyte distribution width (RBC) [Ratio] 14.1 % 11.6-14.6 [facility] Erythrocyte distribution wid th standard deviationOrdered By: Alfredo Matos on 01-18-2025 Erythrocyte distribution width (RBC) [Ratio] 43.3 fl 35.1-43.9 [facility] Glomerular filtration rate ( GFR) estimation/1.73 sq m using serum, plasma, or whole bOrdered By: Alfredo Matos on 01-18-2025 GFR/1.73 sq M.predicted among non-blacks MDRD (S/P/Bld) [Vol rate/Area] 78 mL/min/{1.73_m2} >60 [facility] Comment on above: mL/min/1.73m2 CKD-EP I Creatinine Equation (2020) Hematocrit Auto (Bld) [Volum e fraction]Ordered By: Alfredo Matos on 01-18-2025 Hematocrit (Bld) [Volume fraction] 41.0 % 37-47 [facility] Hemoglobin measurementOrdere d By: Alfredo Matos on 01-18-2025 Hemoglobin (Bld)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 Allergic Rhinitis, Cause Unspecified Hyperlipemia Vitamin D Deficiency Enlarged thoracic aorta (HCC) Dry Eye Syndrome Herpes Simplex Labialis Gerd (Gastroesophageal Reflux Disease) Multiple Joint Pain Palpitations Obesity, Class I, Bmi 30-34.9 Multiple Thyroid Nodules Social History Tobacco Use Smoking status: Never Smokeless tobacco: Never Vaping Use Vaping status: Never Used Substance Use Topics Alcohol use: Not Currently Drug use: Never Current Outpatient Medications Medication Sig calcium carbonate/vitamin D3 (CALCIUM 500 + D ORAL) Take by mouth. metoprolol tartrate, short acting, (LOPRESSOR) 25 mg tablet TAKE ONE-HALF (1/2) TABLET TWICE A DAY Benazepril-hydroCHLOR Othiazide (LOTENSIN HCT) 10-12.5 mg per tablet One half (1/2) tablet daily. cholecalciferol, vitamin D3, (VITAMIN D3 ORAL) Take 4,000 Units by mouth once daily. cyanocobalamin (VITAMIN B-12) 1,000 mcg tab Take 2,000 mcg by mouth once daily. omeprazole (PRILOSEC) 20 mg capsule Take 1 capsule by mouth once daily as needed. No current facility-administered medications for this visit. Objective BP 130/74 (BP Site: Left Arm, BP Position: Sitting, BP Cuff Size: Large Adult) Pulse 75 Wt 75.3 kg (166 lb 0.1 oz) BMI 28.05 kg/m? Physical Exam Neck: Comments: Pulsatile artery base of right neck, non tender, consistent with tortuous artery. Cardiovascular: Rate and Rhythm: Normal rate and regular rhythm. Occasional Extrasystoles are present. Heart sounds: No murmur heard. No gallop. Pulmonary: Breath sounds: Normal breath sounds. Musculoskeletal: Right lower leg: No edema. Left lower leg: No edema. Neurological: Mental Status: She is alert. Assessment and Plan 1. White coat syndrome with diagnosis of hypertension - ICD9: 401.9, ICD10: I10 (primary diagnosis) - Controlled - Continue current medications - Home BP logs lower than office readings at this time. 2. Palpitations - ICD9: 785.1, ICD10: R00.2 - Controlled. She will see cardiology. 3. Multiple thyroid nodules - ICD9: 241.1, ICD10: E04.2 - Biopsied 3 months ago. Recheck US in one year. Kristian Soto MD Allergies As of Date: 10/31/2024 Noted Allergy Reaction INFLUENZA VIRUS VACCINES 07/07/2009 14 - Other: See Comments Comments: Dizziness ADHESIVE TAPE (ROSINS) 03/12/2014 2 - Rash ANTIHISTAMINES - ALKYLAMINE 04/18/2020 14 - Other: See Comments ENTEX LA (PHENYLEPHRINE-GUAIFE PAULA*05/19/2005 IODINATED CONTRAST MEDIA 04/18/2020 7 - Swelling Comments: Eye swelling, SOB, airway and throat swelling IODINE 05/19/2005 NORVASC (AMLODIPINE BESYLATE) 09/17/2008 Comments: lip swelling - gum bleeding Date Reviewed: 10/31/2024 Reviewed by: Trinidad Cormier LPN - Fully Assessed Reason for Visit: Blood Pressure [15] Primary Visit Diagnosis:White coat syndrome with diagnosis of hypertension [I10] Other Visit Diagnoses:Palpitation s [R00.2] Multiple thyroid nodules [E04.2] Prescriptions as of 11/01/2024 - calcium carbonate/vitamin D3 (CALCIUM 500 + D ORAL) Take by mouth. - metoprolol tartrate, short acting, (LOPRESSOR) 25 mg tablet TAKE ONE-HALF (1/2) TABLET TWICE A DAY - Benazepril-hydroCHLOR Othiazide (LOTENSIN HCT) 10-12.5 mg per tablet One half (1/2) tablet daily. - cholecalciferol, vitamin D3, (VITAMIN D3 ORAL) Take 4,000 Units by mouth once daily. - cyanocobalamin (VITAMIN B-12) 1,000 mcg tab Take 2,000 mcg by mouth once daily. - omeprazole (PRILOSEC) 20 mg capsule Take 1 capsule by mouth once daily as needed. Problem List As Of Date 10/31/2024 Noted Resolved Osteoporosis [M81.0] 05/19/2005 White coat syndrome with diagnosis of hypertens*05/19/2005 Esophageal reflux [K21.9] 05/19/2005 (more content not included)... Normal [facility] CNPNon 10-22-2024 CNPN Telephone (CARCMN) DOT MCGILL ([id number]) 1945 F Date Time Provider Department 10/22/24 DANIEL HASSANCO During your visit today, we recorded the following information about you: Tia Fungelba 10/22/2024 8:42 AM Signed October 22, 2024 Patient Contact Number: [phone] (home) Patient last seen within the last year: Yes Date of last office visit: 09/06/2023 Reason For Call: Blood Pressure Changes Patient called. In the past week or so her BP has been fluctuating. Her PCP had her complete an ultrasound of carotid d/t bulge on neck and is following with her for BP management. Patient states she would also like Dr. Hassan to be aware of what's going on. When BP was in 150s/160s last week, patient endorses lightheadedness. BP started decreasing at the latter part of the week and patient felt better. BP readings: 10/17/24 163/94 68 164/90 62 175/91 56 10/18/24 169/93 62 155/80 57 162/88 62 /25 134/79 68 131/78 128/77 62 10/20/24 134/74 64 144/80 57 Physician: Daniel Hassan MD Patient was informed that non-urgent calls may be returned within the next three business days. Yes Irma Barr RN 10/30/2024 8:37 AM Signed Messaged patient Irma Cameron RN Allergies As of Date: 10/22/2024 Noted Allergy Reaction INFLUENZA VIRUS VACCINES 07/07/2009 14 - Other: See Comments Comments: Dizziness ADHESIVE TAPE (ROSINS) 03/12/2014 2 - Rash ANTIHISTAMINES - ALKYLAMINE 04/18/2020 14 - Other: See Comments ENTEX LA (PHENYLEPHRINE-GUAIFE PAULA*05/19/2005 IODINATED CONTRAST MEDIA 04/18/2020 7 - Swelling Comments: Eye swelling, SOB, airway and throat swelling IODINE 05/19/2005 NORVASC (AMLODIPINE BESYLATE) 09/17/2008 Comments: lip swelling - gum bleeding Date Reviewed: 10/17/2024 Reviewed by: Ingrid Perkins, PROCESSING REP.COUNTERSINKER - Fully Assessed Reason for Visit: Patient Update [1234] Prescriptions as of 10/30/2024 - metoprolol tartrate, short acting, (LOPRESSOR) 25 mg tablet TAKE ONE-HALF (1/2) TABLET TWICE A DAY - Benazepril-hydroCHLOR Othiazide (LOTENSIN HCT) 10-12.5 mg per tablet One half (1/2) tablet daily. - cholecalciferol, vitamin D3, (VITAMIN D3 ORAL) Take 4,000 Units by mouth once daily. - cyanocobalamin (VITAMIN B-12) 1,000 mcg tab Take 2,000 mcg by mouth once daily. - omeprazole (PRILOSEC) 20 mg capsule Take 1 capsule by mouth once daily as needed. 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] 09/30/2009 04/26/2012 Vitamin D deficiency [E55.9] 12/18/2010 Enlarged thoracic aorta (HCC) [I77.89] 10/08/2011 Capsulitis [M77.9] 02/14/2012 12/14/2013 Dry eye syndrome [H04.129] 04/26/2012 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] 04/26/2012 Wheezing [R06.2] 09/06/2013 07/21/2015 GERD (gastroesophageal reflux disease) [K21.9] 12/14/2013 Occult GI bleeding [R19.5] 08/04/2015 11/15/2016 Multiple joint pain [M25.50] 03/03/2020 Palpitations [R00.2] 03/17/2020 Obesity, Class I, BMI 30-34.9 [E66.811] 06/22/2021 Acute deep vein thrombosis (DVT) of popliteal v*08/29/2021 01/04/2022 Goiter [E04.9] 08/17/2024 Multiple thyroid nodules [E04.2] 08/29/2024 Encounter Status:Closed by IRMA CAMERON on 10/30/[address] [facility] US CAROTID ARTERIES [facility] LABon 10-19-2024 US CAROTID ARTERIES [facility] Non-Invasive Vascular Laboratory [facility] Carotid Duplex Bilateral/Complete Date of service/time: 10/19/2024 1:35:42 PM Name: DOT MCGILL Date of : 1945 Age: 79 years Gender: F Medical History Hypertension: Yes Prior deep vein thrombosis: Yes Clinical Indication Asymptomatic cervical bruit. TECHNIQUE -------- A carotid duplex ultrasound examination was performed, including grayscale imaging and color Doppler and spectral Doppler examination of the below mentioned arteries. FINDINGS -------- RIGHT SIDE Common carotid artery: Origin: PSV: 57 cm/s. EDV: 17 cm/s. Proximal: PSV: 62 cm/s. EDV: 19 cm/s. Mid: PSV: 65 cm/s. EDV: 18 cm/s. Distal: PSV: 66 cm/s. EDV: 24 cm/s. Internal carotid artery: Origin: PSV: 64 cm/s. EDV: 18 cm/s. Proximal: PSV: 56 cm/s. EDV: 22 cm/s. Mid: PSV: 68 cm/s. EDV: 26 cm/s. Distal: PSV: 61 cm/s. EDV: 24 cm/s. ICA/CCA Ratio: 1.0 External carotid artery: Proximal: PSV: 85 cm/s. EDV: 19 cm/s. Subclavian artery: Origin: PSV: 142 cm/s. Innominate artery: PSV: 201 cm/s. Vertebral artery: PSV: 57 cm/s. EDV: 16 cm/s. LEFT SIDE Common carotid artery: Proximal: PSV: 77 cm/s. EDV: 23 cm/s. Mid: PSV: 76 cm/s. EDV: 18 cm/s. Distal: PSV: 75 cm/s. EDV: 29 cm/s. Internal carotid artery: Origin: PSV: 55 cm/s. EDV: 16 cm/s. Proximal: PSV: 66 cm/s. EDV: 24 cm/s. Mid: PSV: 75 cm/s. EDV: 28 cm/s. Distal: PSV: 83 cm/s. EDV: 29 cm/s. ICA/CCA Ratio: 0.9 External carotid artery: Proximal: PSV: 80 cm/s. EDV: 16 cm/s. Subclavian artery: Proximal: PSV: 98 cm/s. Vertebral artery: PSV: 57 cm/s. EDV: 17 cm/s. IMPRESSION Please note: the new carotid interpretation criteria are used as recommended by [facility]. RIGHT SIDE Common carotid artery: Patent. Internal carotid artery: <50% stenosis consistent with mild carotid artery disease. External carotid artery: Patent. Vertebral artery: Patent and antegrade flow noted. Innominate artery: Patent. Subclavian artery: Patent. LEFT SIDE Common carotid artery: Patent. Internal carotid artery: <50% stenosis consistent with mild carotid artery disease. External carotid artery: Patent. Vertebral artery: Patent and antegrade flow noted. Subclavian artery: Patent. Technologist: Ezekiel Martel Ordering physician: INGRID PERKINS Interpreting physician: Estiven Garcia MD Final CC [facility] : [id number] amicsSISUID See Link below for Image Normal [facility] US Carotid arteries - bilate mónica 10-19-2024 Non-Invasive Vascular Laboratory [facility] Carotid Duplex Bilateral/Complete Date of service/time: 10/19/2024 1:35:42 PM Name: DOT MCGILL Date of : 1945 Age: 79 years Gender: F Medical History Hypertension: Yes Prior deep vein thrombosis: Yes Clinical Indication Asymptomatic cervical bruit. TECHNIQUE -------- A carotid duplex ultrasound examination was performed, including grayscale imaging and color Doppler and spectral Doppler examination of the below mentioned arteries. FINDINGS -------- RIGHT SIDE Common carotid artery: Origin: PSV: 57 cm/s. EDV: 17 cm/s. Proximal: PSV: 62 cm/s. EDV: 19 cm/s. Mid: PSV: 65 cm/s. EDV: 18 cm/s. Distal: PSV: 66 cm/s. EDV: 24 cm/s. Internal carotid artery: Origin: PSV: 64 cm/s. EDV: 18 cm/s. Proximal: PSV: 56 cm/s. EDV: 22 cm/s. Mid: PSV: 68 cm/s. EDV: 26 cm/s. Distal: PSV: 61 cm/s. EDV: 24 cm/s. ICA/CCA Ratio: 1.0 External carotid artery: Proximal: PSV: 85 cm/s. EDV: 19 cm/s. Subclavian artery: Origin: PSV: 142 cm/s. Innominate artery: PSV: 201 cm/s. Vertebral artery: PSV: 57 cm/s. EDV: 16 cm/s. LEFT SIDE Common carotid artery: Proximal: PSV: 77 cm/s. EDV: 23 cm/s. Mid: PSV: 76 cm/s. EDV: 18 cm/s. Distal: PSV: 75 cm/s. EDV: 29 cm/s. Internal carotid artery: Origin: PSV: 55 cm/s. EDV: 16 cm/s. Proximal: PSV: 66 cm/s. EDV: 24 cm/s. Mid: PSV: 75 cm/s. EDV: 28 cm/s. Distal: PSV: 83 cm/s. EDV: 29 cm/s. ICA/CCA Ratio: 0.9 External carotid artery: Proximal: PSV: 80 cm/s. EDV: 16 cm/s. Subclavian artery: Proximal: PSV: 98 cm/s. Vertebral artery: PSV: 57 cm/s. EDV: 17 cm/s. IMPRESSION Please note: the new carotid interpretation criteria are used as recommended by [employer]. RIGHT SIDE Common carotid artery: Patent. Internal carotid artery: <50% stenosis consistent with mild carotid artery disease. External carotid artery: Patent. Vertebral artery: Patent and antegrade flow noted. Innominate artery: Patent. Subclavian artery: Patent. LEFT SIDE Common carotid artery: Patent. Internal carotid artery: <50% stenosis consistent with mild carotid artery disease. External carotid artery: Patent. Vertebral artery: Patent and antegrade flow noted. Subclavian artery: Patent. Technologist: Ezekiel Martel Ordering physician: INGRID PERKINS Interpreting physician: Estiven Garcia MD Final See Link below for Image [facility] CARDIOLOG[facility] 10-18-2024 CNPN Telephone (GENSWS) DOT MCGILL ([id number]) 1945 F Date Time Provider Department 10/18/24 LEIDY MCKEON GENDENNISS During your visit today, we recorded the following information about you: Leidy Mckeon MD 10/18/2024 5:31 PM Signed Patient identified by name and number Told her results of Afirma testing - benign Have recommended follow up US in one year - can be issued by her PCP. Patient acknowledges the above. Allergies As of Date: 10/18/2024 Noted Allergy Reaction INFLUENZA VIRUS VACCINES 07/07/2009 14 - Other: See Comments Comments: Dizziness ADHESIVE TAPE (ROSINS) 03/12/2014 2 - Rash ANTIHISTAMINES - ALKYLAMINE 04/18/2020 14 - Other: See Comments ENTEX LA (PHENYLEPHRINE-GUAIFE PAULA*05/19/2005 IODINATED CONTRAST MEDIA 04/18/2020 7 - Swelling Comments: Eye swelling, SOB, airway and throat swelling IODINE 05/19/2005 NORVASC (AMLODIPINE BESYLATE) 09/17/2008 Comments: lip swelling - gum bleeding Date Reviewed: 10/17/2024 Reviewed by: Ingrid Perkins, PROCESSING REP.COUNTERSINKER - Fully Assessed Reason for Visit: Results [95] Prescriptions as of 10/18/2024 - metoprolol tartrate, short acting, (LOPRESSOR) 25 mg tablet TAKE ONE-HALF (1/2) TABLET TWICE A DAY - Benazepril-hydroCHLOR Othiazide (LOTENSIN HCT) 10-12.5 mg per tablet One half (1/2) tablet daily. - cholecalciferol, vitamin D3, (VITAMIN D3 ORAL) Take 4,000 Units by mouth once daily. - cyanocobalamin (VITAMIN B-12) 1,000 mcg tab Take 2,000 mcg by mouth once daily. - omeprazole (PRILOSEC) 20 mg capsule Take 1 capsule by mouth once daily as needed. 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] 09/30/2009 04/26/2012 Vitamin D deficiency [E55.9] 12/18/2010 Enlarged thoracic aorta (HCC) [I77.89] 10/08/2011 Capsulitis [M77.9] 02/14/2012 12/14/2013 Dry eye syndrome [H04.129] 04/26/2012 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] 04/26/2012 Wheezing [R06.2] 09/06/2013 07/21/2015 GERD (gastroesophageal reflux disease) [K21.9] 12/14/2013 Occult GI bleeding [R19.5] 08/04/2015 11/15/2016 Multiple joint pain [M25.50] 03/03/2020 Palpitations [R00.2] 03/17/2020 Obesity, Class I, BMI 30-34.9 [E66.811] 06/22/2021 Acute deep vein thrombosis (DVT) of popliteal v*08/29/2021 01/04/2022 Goiter [E04.9] 08/17/2024 Multiple thyroid nodules [E04.2] 08/29/2024 Encounter Status:Closed by LEIDY MCKEON on 10/18/24 [facility] CNOVon 10-17-2024 CNOV Office Visit (INTMWS ) DOT MCGILL ([id number]) 1945 F Date Time Provider Department 10/17/24 4:00 PM INGRID PERKINS INTMWS During your visit today, we recorded the following information about you: Pulse Respiration Blood pressure Weight 66/minute 14/minute 152/82 76.1 kg Ingrid Perkins, PROCESSING REP.COUNTERSINKER 10/17/2024 4:36 PM Signed - Continue taking your current medications as prescribed. - Monitor your blood pressure at home several times a day. Take 2-4 readings in a row with about a minute in between, and average the readings. The best time to check is when you are calm, such as in the morning before eating or drinking. - Watch for any signs of severe headache, stroke symptoms (slurred speech, facial drooping, numbness, tingling, weakness on one side of the body), or heart symptoms (chest pain, shortness of breath, dizziness, or feeling like you could pass out). If you experience any of these symptoms, call 911 or go to the emergency room immediately. - Continue with your normal activities, but avoid strenuous activities that could raise your blood pressure or heart rate. Listen to your body and stop if you feel weak, tired, short of breath, or experience pain. - Schedule a carotid ultrasound as discussed. Ingrid Perkins, PROCESSING REP.COUNTERSINKER 10/17/2024 4:47 PM Signed CC: Patient presents with: Fatigue: Hypertension x 1 day HPI Dot is a 79-year-old female with a history of HTN, presenting for evaluation of elevated blood pressure readings and visible neck pulsations. The patient consented to the use of Zite software for draft documentation of the visit consistent with [facility]?s Notice of Privacy Practices. Hypertension: - Recent home blood pressure readings as high as 189 mmHg; most recent reading was 141 mmHg. - Adheres strictly to medication regimen, taking benazepril/hydrochlor othiazide 5 mg/6.25 mg daily and metoprolol. - Denies missing any doses of antihypertensive medications. - Denies chest pain, palpitations, dyspnea, orthopnea, edema. - Reports feeling sluggish and experiencing mild lightheadedness. - No recent illness, but had a cold following the second thyroid biopsy, which has resolved. - Following a diet avoiding chips, salty snacks, candy, cakes, and donuts. Right neck pulsation: - Noted visible right neck pulsations and swelling last night after showering, causing concern. Associated with sensation of pressure on the right side of her neck in that general area, resolved by this morning - Reports similar neck pulsations in her sister, who had multiple CVAs and last November. - Denies severe headaches, blurred vision, or syncope. - No issues with balance, coordination, or unilateral weakness. - Denies dysphagia, odynophagia, or sore throat. - No numbness, tingling, or facial drooping. - Recent thyroid biopsies x2 in the last 6 weeks; awaiting results. - No personal history of carotid disease, stroke or TIA Review of Systems See HPI PAST MEDICAL HISTORY Diagnosis Date Abnormal ultrasound of thyroid gland 09/03/2024 Acute deep vein thrombosis (DVT) of popliteal vein of left lower extremity (HCC) 08/29/2021 Anxiety Benign neoplasm of colon Cardiac murmur 10/08/2011 Disorder of bone and cartilage, unspecified Enlarged thoracic aorta (HCC) 10/08/2011 ECHO 09/2011 - Dilated aorta, stable since 2004, mild LVH stable since 2004. 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 Osteoporosis, unspecified 05/19/2005 Pneumonia 10/03/2019 Shingles outbreak 10/09/2019 Unspecified essential hypertension Vitamin D deficiency 12/18/2010 PAST SURGICAL HISTORY Procedure Laterality Date ARTHROPLASTY GLENOHUMRL JT HEMIARTHROPLASTY Right Hemiarthroplasty, right shoulder CHOLECYSTECTOMY Cholecystectomy COLONOSCOPY FLX DX W/COLLJ SPEC WHEN PFRMD 11/11/2000 Colonoscopy COLONOSCOPY FLX DX W/COLLJ SPEC WHEN PFRMD 10/09/2015 Colonoscopy [facility]NEA LESION-PHOTOCOAGULATI ON Left 07/2024 LIG/TRNSXJ FLP TUBE ABDL/VAG APPR UNI/BI Tubal ligation PAST SURGICAL HISTORY OF Corrective Lasix Surgery/Left Eye VAGINAL HYSTERECTOMY UTERUS 250 GM/< Hysterectomy, vaginal ALLERGIES Influenza Virus Vaccines, Adhesive Tape (Rosins), Antihistamines - Alkylamine, Entex La [Phenylephrine-Guaife nesin], Iodinated Contrast Media, Iodine, and Norvasc [Amlodipine Besylate] MEDICATIONS metoprolol tartrate, short acting, (LOPRESSOR) 25 mg tablet TAKE ONE-HALF (1/2) TABLET TWICE A DAY Benazepril-hydroCHLOR Othiazide (LOTENSIN HCT) 10-12.5 mg per tablet One half (1/2) tablet daily. cholecalciferol, vitamin D3, (VITAMIN D3 ORAL) Take 4,000 Units by mouth once daily. cyanocobalamin (VITAMIN B-12) 1,000 mcg tab Take 2,000 mcg by mouth once daily. omeprazole (PRILOSEC) 20 mg capsule (more content not included)... Normal [facility] THYROID FNA ANALYSISo n 09-28-2024 [facility] Normal [facility] Comment on above: Order Comment: Speci men Type: SPECIMEN OBTAINED BY ASPIRATION Ordering Facility: [facility] Address: [address] [place] [address] Result Comment: View results in Scanned Documents link when available. October 18, 2024 SH Performed By: #### A FIRMA #### [facility] CLIA [id number] [address] [place] [address] [place] BRIEF OP NOTon 09-28-2024 BRIEF OP NOT HNO ID: [id number] Author: RENETTA CRUZ MD Service: Radiology Author Type: Physician Type: Brief Op Note Filed: 09/28/2024 13:24 Note Text: BRIEF OPERATIVE / PROCEDURE NOTE LOG ID: [id number] SURGERY/PROCEDURE DATE: 09/28/2024 INCISION/PROCEDURE START TIME: INCISION CLOSE/PROCEDURE END TIME: SURGEON(S)/PROCEDURAL IST(S) AND DIRECTOR OF WORKFORCE DEVELOPMENT(S): Surgeons and Role: * Renetta Cruz MD - Primary No Additional Staff SURGERY/PROCEDURE(S): Ultrasound guided right thyroid nodule FNA ANESTHESIA: Local FINDINGS: ESTIMATED BLOOD LOSS: minimal SPECIMENS: multiple aspirates COMPLICATIONS: None CLOSURE TECHNIQUE: Non-primary PRE-OP/PRE-PROCEDURE DIAGNOSIS: Right thyroid nodule POST-OP/POST-PROCEDUR E DIAGNOSIS: Same as Preop SIGNATURE: Renetta Cruz MD PATIENT NAME: Dot Mcgill DATE: September 28, 2024 TIME: 1:24 PM Normal [facility] CYTOLOGY NON-GYNon ADEQUACY INTERPRETATION Normal A [facility] Comment on above: Order Comment: Speci men Type: SPECIMEN OBTAINED BY ASPIRATION Ordering Facility: [facility] Address: [address] [place] [address] Result Comment: A: R ight Thyroid #1 Adequate sample. Each letter in the above intra-procedural assessment refers to a unique site. The specific site is indicated in the final diagnosis portion of the report. Each number in this assessment references a discrete evaluation episode. The above adequacy assessment(s) were performed by senior manager mmcoe, BILL Balderas(ASCP). Intra-procedural assessment performed at [facility], [address] [place] [address] Performed By: #### C YTONON #### [facility] CLIA [id number] [address] [place] [address] AP DISCLAIMER Normal [facility] Comment on above: Order Comment: Speci men Type: SPECIMEN OBTAINED BY ASPIRATION Ordering Facility: [facility] Address: [address] [place] [address] Result Comment: Dani Kapoor Test (LDT) Disclaimer: Performance characteristics of immunohistochemical, immunofluorescent, and chromogenic in-situ hybridization tests have been determined by the performing laboratory within [facility]'s [facility]ology and Laboratory Medicine Department ([facility], [facility], [facility], [facility], [facility], [facility], or [facility]) in a manner consistent with CLIA requirements. One or more of these tests may not have been cleared or approved by the FDA. [facility] is regulated under CLIA as qualified to perform high-complexity testing. These tests are used for clinical purposes. These should not be regarded as investigational or for research. Positive and negative controls stain appropriately. Performed By: #### C YTONON #### [facility] CLIA [id number] [address] [place] [address] STATES [facility] CASE REPORT Normal [facility] Comment on above: Order Comment: Speci men Type: SPECIMEN OBTAINED BY ASPIRATION Ordering Facility: [facility] Address: [address] [place] [address] Result Comment: [facility] Cytology Report Case: [id number] Authorizing Provider: Renetta Cruz MD Collected: 09/28/2024 01:07 PM [facility] Received: 10/01/2024 05:33 AM INTERVENTIONAL RADIOLOGY Pathologist: Carrie Cannon DO Specimen: Thyroid, Right, Lobe, 3.9 cm Performed By: #### C YTONON #### [facility] CLIA [id number] [address] CLINICAL HISTORY thyroid nodules Normal [facility] Comment on above: Order Comment: Speci men Type: SPECIMEN OBTAINED BY ASPIRATION Ordering Facility: [facility] Address: [address] [place] [address] Performed By: #### C YTONON #### [facility] CLIA [id number] [address] [place] [address] DIAGNOSIS COMMENT This specimen will b e sent for reflex molecular (Afirma) testing. Please refer to the separate Afirma report for results and clinical recommendation. Normal [facility] Comment on above: Order Comment: Speci men Type: SPECIMEN OBTAINED BY ASPIRATION Ordering Facility: [facility] Address: [address] [place] [address] Performed By: #### C YTONON #### [facility] CLIA [id number] [address] FINAL DIAGNOSIS Normal [facility] Comment on above: Order Comment: Speci men Type: SPECIMEN OBTAINED BY ASPIRATION Ordering Facility: [facility] Address: [address] [place] [address] Result Comment: A - Thyroid, Right, Lobe, FNA - 3.9 cm Atypia of undetermined significance. (See comment) - Focal cytologic atypia. at 1202 EST Performed By: #### C YTONON #### [facility] CLIA [id number] [address] FINAL PERFORMING LAB Normal [facility] Comment on above: Order Comment: Speci men Type: SPECIMEN OBTAINED BY ASPIRATION Ordering Facility: [facility] Address: [address] [place] [address] Result Comment: Tech nical component, senior manager mmcoe screening performed at: [facility], [address] [place] [address] CLIA: [id number] Diagnostic interpretation performed at: [facility], [address] [place] [address] CLIA# [id number] Sonographer: Messi Jauregui MD Performed By: #### C YTONON #### [facility] CLIA [id number] [address] [place] [address] [facility] Comment on above: Order Comment: Speci men Type: SPECIMEN OBTAINED BY ASPIRATION Ordering Facility: [facility] Address: [address] [place] [address] Result Comment: A. T hyroid, Right, Lobe 30 cc clear colorless CytoLyt. ThinPrep prepared and 4 smears (1 air dried and 3 fixed). Afirma collected. Performed By: #### C YTONON #### [facility] CLIA [id number] [address] [place] [address] US FNA W GUIDANCEon 09-28-19 25 US FNA W GUIDANCE * * *Final Report* * * DATE OF EXAM: Sep 28 2024 2:49PM [facility] 8593 - US FNA W GUIDANCE / PROCEDURE REASON: R93.89 * * * * Physician Interpretation * * * * EXAM TITLE: ULTRASOUND GUIDED THYROID NODULE FINE-NEEDLE ASPIRATION CLINICAL INDICATION/HISTORY: Thyroid nodule TECHNIQUE: Patient was brought to the ultrasound suite and placed in supine position on the ultrasound table. Ultrasound examination the neck was performed to identify the percutaneous aspiration/biopsy site. Images were saved to the PACS system. Informed consent was obtained from the patient. The risks, benefits, and alternatives to the procedure were explained. The patient agrees to the procedure. Appropriate skin entry site was identified, prepped, and anesthetized. 21 gauge Sonopsy needle was advanced using direct ultrasound guidance into the thyroid nodule. Fine needle aspiration samples were obtained and evaluated by the cytology sterile supply technician to assess for specimen adequacy. Needle was removed and manual pressure and bandage were applied. There was no immediate complication. FINDINGS: Images demonstrate the needle tip within the nodule. IMPRESSION: Technically successful and uncomplicated ultrasound guided fine needle aspiration of the right thyroid nodule. Motion Designer: [facility] Transcribe Date/Time: Sep 28 2024 2:49P Dictated by : RENETTA CRUZ MD This examination was interpreted and the report reviewed and electronically signed by: RENETTA CRUZ MD on Sep 28 2024 2:51PM EST [id number] Normal [facility] US Guidance for fine needle aspiration of Unspecified body regionon 09-28-2024 IMPRESSION: Technically successful and uncomplicated ultrasound guided fine needle aspiration of the right thyroid nodule. Motion Designer: [facility] Transcribe Date/Time: Sep 28 2024 2:49P Dictated by : RENETTA CRUZ MD This examination was interpreted and the report reviewed and electronically signed by: RENETTA CRUZ MD on Sep 28 2024 2:51PM EST [employer] * * *Final Report* * * DATE OF EXAM: Sep 28 2024 2:49PM [facility] 8593 - US FNA W GUIDANCE / PROCEDURE REASON: R93.89 * * * * Physician Interpretation * * * * EXAM TITLE: ULTRASOUND GUIDED THYROID NODULE FINE-NEEDLE ASPIRATION CLINICAL INDICATION/HISTORY: Thyroid nodule TECHNIQUE: Patient was brought to the ultrasound suite and placed in supine position on the ultrasound table. Ultrasound examination the neck was performed to identify the percutaneous aspiration/biopsy site. Images were saved to the PACS system. Informed consent was obtained from the patient. The risks, benefits, and alternatives to the procedure were explained. The patient agrees to the procedure. Appropriate skin entry site was identified, prepped, and anesthetized. 21 gauge Sonopsy needle was advanced using direct ultrasound guidance into the thyroid nodule. Fine needle aspiration samples were obtained and evaluated by the cytology sterile supply technician to assess for specimen adequacy. Needle was removed and manual pressure and bandage were applied. There was no immediate complication. FINDINGS: Images demonstrate the needle tip within the nodule. [employer] Provider, [facility] - 09/28/2024 * * *Final Report* * * DATE OF EXAM: Sep 28 2024 2:49PM [facility] 8593 - US FNA W GUIDANCE / PROCEDURE REASON: R93.89 * * * * Physician Interpretation * * * * EXAM TITLE: ULTRASOUND GUIDED THYROID NODULE FINE-NEEDLE ASPIRATION CLINICAL INDICATION/HISTORY: Thyroid nodule TECHNIQUE: Patient was brought to the ultrasound suite and placed in supine position on the ultrasound table. Ultrasound examination the neck was performed to identify the percutaneous aspiration/biopsy site. Images were saved to the PACS system. Informed consent was obtained from the patient. The risks, benefits, and alternatives to the procedure were explained. The patient agrees to the procedure. Appropriate skin entry site was identified, prepped, and anesthetized. 21 gauge Sonopsy needle was advanced using direct ultrasound guidance into the thyroid nodule. Fine needle aspiration samples were obtained and evaluated by the cytology sterile supply technician to assess for specimen adequacy. Needle was removed and manual pressure and bandage were applied. There was no immediate complication. FINDINGS: Images demonstrate the needle tip within the nodule. IMPRESSION IMPRESSION: Technically successful and uncomplicated ultrasound guided fine needle aspiration of the right thyroid nodule. Motion Designer: [employer] Transcribe Date/Time: Sep 28 2024 2:49P Dictated by : RENETTA CRUZ MD This examination was interpreted and the report reviewed and electronically signed by: RENETTA CRUZ MD on Sep 28 2024 2:51PM EST [facility] Radiology Study observation (narrative) [facility] US Guidance for fine needle aspiration of Unspecified body regionOrdered By: Ccf Provider on 09-28-[address] [facility] Re-Evaluation - PT (1)on Re-Evaluation - PT (1) [facility] Physical [facility] [address] [place] [address] [address] [place] [address] / REEVALUATION / MEDICARE RECERTIFICATION PHYSICAL THERAPY MR#: [id number] Acct: [id number] Name: DOT MCGILL Rep #: [id number] : 1945 79 From: Ray Cervantes PT, Cert. T, [facility] Referring Dr.: Dr. Kristian Soto MD Status:REG RC R Insurance: MEDICARE PART A B [employer] Re-Evaluation Intro: Dr. Kristian Soto MD, It has been my pleasure to treat DOT MCGILL over the last 10 visits for OSTEOPOROSIS ,TYPE ,UNSPECIFIED PATHOLOGICAL FRACTURE PRESENCE. Please see the progress note below for an update on the physical therapy plan of care! Subjective Subjective: Doing better overall ..stability Objective Objective/Function: Patient will continue to benefit from skilled PT with goal appropriate POSTURE: mild forward posture rounded shoulders head forward GAIT: mild forward reciprocal pattern NEURO: denies paresthesia/tingling ,reflexes L3-4,L4-5,L5-S1 1/3 PALPATION: mild tender LS/S1 PROM HIP: WFL -IR 40 DEGREES MMT: BUE 4/5 shoulders except shoulders 4-/5 quads/hamstrings/ankl e 4/5 , ( peak force) hip abduction right 25.0 ,left 18.4 ,right hip flexion 23.9. right ,left 24.8 LUMBAR ROM: WFL ,extension mod,side glides min loss THORACIC ROM: flexion min loss ,extension mod loss ,rotation min loss FLEXABILITY: hamstrings min tight Plan Plan Plan: PT INTERVENTIONS DLS ,POSTURAL EX'S HIP STRENGTHENING ,WB ACTIVITIES ( FUNCTIONAL STRENGTHENING) AND AEROBIC EX'S Balance/Gait/Function al tests Balance/Special Test Scores Lower Extremity Functional Score: 48 Goals Goals Goal 1:: Patient to be I with HEP for spine WB activities ( Osteoporosis Program) Goal Time Frame: 4-6 Weeks Goal Progress: Progressing Goal 2:: Patient to demonstrate 75% improvement with improved function no symptoms with activity Goal Time Frame: 4-6 Weeks Goal 3:: Patient to improve peak force hips flexion/abduction by 10-15# to improve function Goal Time Frame: 4-6 Weeks Goal Progress: Progressing Goal 4:: Patient to improve LFES score by 5 points to improve QOL and function. Goal Time Frame: 4-6 Weeks Goal Progress: Progressing Anticipated Interventions Anticipated Interventions Patient/Client Instruction: Educate patient on: Condition and Plan of Care For the Purpose of:: To decrease pain, To increase ROM, To improve muscle performance and motor function, To improve ability to perform ADL's, To increase tolerance to activity/condition/po sition, To improve ability of physical actions for home/community/work/l eisure, To improve health of tissue, To decrease soft tissue restriction and To increase flexibility/ROM Therapeutic Exercise to Include: Strength training, Power training, Endurance training, Balance training and Dynamic Lumbar Stabilization Comment: BLE -HIPS For the Purpose of:: To decrease pain, To improve muscle performance and motor function, To improve ability to perform ADL's, To increase tolerance to activity/condition/po sition, To improve ability of physical actions for home/community/work/l eisure, To improve health of tissue, To decrease soft tissue restriction and To increase flexibility/ROM Re-Evaluation Ending Re-evaluation ending: Please do not hesitate to contact me at [phone] by phone or if you have questions or concerns regarding this new plan of care! Sincerely, Ray Cervantes PT, Cert MDT, [facility] 09/27/24 [id number] CC: Dr. Kristian Soto MD RAUL Signed For Medicare only, by signing this I certify the plan of care. Physicians Signature Date Normal [facility] CNCOon 09-25-2024 CNCO Letter Text Normal [facility] CNPNon 09-19-2024 [facility] Telephone (LDPRAD) DOT MCGILL ([id number]) 1945 F Date Time Provider Department 09/19/24 LEIDY MCKEON During your visit today, we recorded the following information about you: Leidy Mckeon MD 09/19/2024 1:55 PM Signed Left message - pathology from FNA of thyroid - no cancer seen. However, inadequate findings on right nodule. Left nodule was OK - no cancer seen and adequate pathology reading. I have offered repeat US FNA at [place] or I can refer patient to [facility] imaging center. Patient can call office to give her preference. Olivia Urrutia RN 09/19/2024 2:57 PM Signed Patient called back stating that she would like to get the repeat US FNA done at [facility]. Patient is asking that she has an order for pre procedural Valium again. BLAYNE Will Amy M, MA 09/21/2024 8:19 AM Signed Patient called back again and would like to proceed with getting set up in [place] for the repeat FNA. She has not heard anything and thought she would touch base with the office again. Please contact patient back on home phone number and it is ok to leave a message if she does not answer. Keturah Williamson RN 09/21/2024 11:04 AM Signed Pt contacted and advised of number to schedule appointment. Allergies As of Date: 09/19/2024 Noted Allergy Reaction INFLUENZA VIRUS VACCINES 07/07/2009 14 - Other: See Comments Comments: Dizziness ADHESIVE TAPE (ROSINS) 03/12/2014 2 - Rash ANTIHISTAMINES - ALKYLAMINE 04/18/2020 14 - Other: See Comments ENTEX LA (PHENYLEPHRINE-GUAIFE PAULA*05/19/2005 IODINATED CONTRAST MEDIA 04/18/2020 7 - Swelling Comments: Eye swelling, SOB, airway and throat swelling IODINE 05/19/2005 NORVASC (AMLODIPINE BESYLATE) 09/17/2008 Comments: lip swelling - gum bleeding Date Reviewed: 09/03/2024 Reviewed by: Dot Greco LPN - Fully Assessed Reason for Visit: Results [95] Prescriptions as of 09/21/2024 - metoprolol tartrate, short acting, (LOPRESSOR) 25 mg tablet TAKE ONE-HALF (1/2) TABLET TWICE A DAY - Benazepril-hydroCHLOR Othiazide (LOTENSIN HCT) 10-12.5 mg per tablet One half (1/2) tablet daily. - cholecalciferol, vitamin D3, (VITAMIN D3 ORAL) Take 4,000 Units by mouth once daily. - cyanocobalamin (VITAMIN B-12) 1,000 mcg tab Take 2,000 mcg by mouth once daily. - omeprazole (PRILOSEC) 20 mg capsule Take 1 capsule by mouth once daily as needed. 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] 09/30/2009 04/26/2012 Vitamin D deficiency [E55.9] 12/18/2010 Enlarged thoracic aorta (HCC) [I77.89] 10/08/2011 Capsulitis [M77.9] 02/14/2012 12/14/2013 Dry eye syndrome [H04.129] 04/26/2012 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] 04/26/2012 Wheezing [R06.2] 09/06/2013 07/21/2015 GERD (gastroesophageal reflux disease) [K21.9] 12/14/2013 Occult GI bleeding [R19.5] 08/04/2015 11/15/2016 Multiple joint pain [M25.50] 03/03/2020 Palpitations [R00.2] 03/17/2020 Obesity, Class I, BMI 30-34.9 [E66.811] 06/22/2021 Acute deep vein thrombosis (DVT) of popliteal v*08/29/2021 01/04/2022 Goiter [E04.9] 08/17/2024 Multiple thyroid nodules [E04.2] 08/29/2024 Encounter Status:Closed by LEIDY MCKEON on 09/19/24 [facility]avian 09-10-2024 CNOV Office Visit (GENSWS ) KEVENDOT ([id number]) 1945 F Date Time Provider Department 09/10/24 10:00 AM LEIDY MCKEON During your visit today, we recorded the following information about you: Leidy Mckeon MD 09/11/2024 2:09 PM Signed Dot is here for US guided FNA of right and left thyroid nodules PROCEDURE NOTE: After informed consent was given and patient gives permission for the procedure, the patient was in the supine position with neck in slight extension. Appropriate time out protocol was followed. The ultrasound machine was used for real time imaging. The anterior neck skin was cleansed with a sterile surgical skin preparation. The skin and subcutaneous tissues were infiltrated with 1% xylocaine with epinephrine. The ultrasound transducer probe was brought up to localize the thyroid nodules. The right thyroid nodule was identified with the US transducer. It was located in the lower pole. It was about 3.5 cm in maximum dimension A 22 G needle was inserted into the nodule under US guidance. Several passes were made to ensure obtaining enough material. Of note, this was mostly of bloody fluid - which may represent a ruptured thyroid nodule. The needle was withdrawn. The specimen was placed in a cytology fixative solution and forwarded to pathology. The above was repeated with a new 22 G needle attached to a 10 cc syringe. This was done to ensure adequate sampling. This process was again repeated until adequate sampling was deemed to be achieved. The specimens were then forwarded to pathology. Hemostasis was achieved by pressure. The left thyroid nodule were then next approached. The location of the nodule(s) was inferior aspect. It was about 1.5 cm in maximum dimension. Identified under US guidance. A 22 G needle attached to a 10 cc syringe was inserted into the nodule under US guidance. Several passes were made to ensure obtaining enough material. The needle was withdrawn. The specimen was placed in a cytology fixative solution (and also a sample for Afirma testing) The above was repeated with a new 22 G needle attached to a 10 cc syringe. This was done to ensure adequate sampling. This process was again repeated until adequate sampling was deemed to be achieved. The specimens were then forwarded to pathology. Hemostasis was achieved by pressure. A small bandaid was applied to both locations and patient told that could be removed tomorrow. No evidence of bleeding noted. Patient tolerated procedure well. Complications - none EBL - minimal Of note: the labelling for the US guided right and left images are reversed. PLAN: Wound care instructions given by clinic staff. I will contact patient with results. Patient acknowledges the above. Dot Greco LPN 09/11/2024 2:09 PM Signed UNIVERSAL PROTOCOL / SAFETY CHECKLIST Procedure to be Performed: US guided FNA of right and left thyroid nodules Sign In: A Moment of CARE was completed. Personnel directly involved with the procedure wore the appropriate PPE (Personal Protective Equipment). No special equipment needed. Patient/Surrogate Stated/Verified: PATIENT VERIFIED(optional for EMERGENT procedures): Patient name, Date of , Relevant allergies, and The intended procedure Time Out Communication: Intended patient and procedure match the source documents. Consent documented and matches the intended procedure. Relevant labs, photos, and/or imaging studies have been reviewed. Correct side/site marked and visible. Medications required for procedure verified. No fire risk assessment and interventions applicable. No implant(s) inserted. Sign Out: SIGN OUT (optional for EMERGENT procedures): All specimen containers correctly labeled. All instruments, equipment, possible retained foreign bodies accounted for. Post-procedure follow-up management communicated and Plan of Care Visit completed when applicable. MADY English Kimberly, LPN 09/10/2024 11:02 AM Addendum The following instructions are important for you related to your office visit today with the [facility]. Instructions After THYROID FINE NEEDLE ASPIRATION Please do not take aspirin or other blood thinners for the next few days. If you have bleeding from the needle site, hold pressure with a clean gauze. If the bleeding continues, contact our office immediately. I recommend taking Advil or Tylenol for the discomfort. An ice pack may improve your discomfort to the area. Contact our office immediately if you have any questions or concerns @ [phone]. Dr. Mckeon will call with results. If you note any additional difficulties, questions, or concerns, you should contact our office immediately @ [phone] and ask to be transferred to the General Surgery department. Allergies As of Date: 0 (more content not included)... Normal [facility] CYTOLOGY NON-GYNon CASE REPORT Normal [facility] Comment on above: Order Comment: Speci men Type: SPECIMEN OBTAINED BY ASPIRATIONOrdering Facility: [facility] Address: [address] [place] [address] Result Comment: [facility] Cytology Report Case: [id number] Authorizing Provider: Leidy Mckeon MD Collected: 09/10/2024 10:49 AM Ordering Location: General Surgery Received: 09/10/2024 01:42 PM Pathologist: Shanelle Gilmore MD Specimens: A) - Thyroid, Right, Lobe B) - Thyroid, Left, Lobe Performed By: #### C YTONON ####[facility] LABCLIA [id number] [address] OF [facility] CLINICAL HISTORY Normal [facility] Comment on above: Order Comment: Speci men Type: SPECIMEN OBTAINED BY ASPIRATIONOrdering Facility: [facility] Address: [address] [place] [address] Result Comment: Afir ma sample received for part B only. No Afirma was collected for part A per clinician. Performed By: #### C YTONON ####[facility] LABCLIA [id number] [address] STATES OF [facility] FINAL DIAGNOSIS Normal [facility] Comment on above: Order Comment: Speci men Type: SPECIMEN OBTAINED BY ASPIRATIONOrdering Facility: [facility] Address: [address] [place] [address] Result Comment: A - Thyroid, Right Lobe, FNA Non-diagnostic aspirate sample. Predominantly blood. Insufficient thyroid follicular epithelial cells present for evaluation. B - Thyroid, Left Lobe, FNA Benign. Benign follicular cells, cyst contents, and colloid. The following cell blocks were associated with this case: A1 Cell Block, Alcohol Fixed B1 Cell Block, Alcohol Fixed at 1657 EST Performed By: #### C YTONON ####[facility] LABCLIA [id number] [place] [id number] [place] FINAL PERFORMING LAB Normal [facility] Comment on above: Order Comment: Speci men Type: SPECIMEN OBTAINED BY ASPIRATIONOrdering Facility: [facility] Address: [address] [place] [address] Result Comment: Tech nical component, senior manager mmcoe screening performed at [facility], [address] [place], [place] [id number] CLIA# [id number] Diagnostic interpretation performed at [facility], [address] [place] [address] CLIA# [id number] Sonographer: Goran Urias M.D. Performed By: #### C YTONON ####[facility] LABCLIA [id number] [place] [address] [place] GROSS DESCRIPTION Normal [facility] Comment on above: Order Comment: Speci men Type: SPECIMEN OBTAINED BY ASPIRATIONOrdering Facility: [facility] Address: [address] [place] [address] Result Comment: A. T hyroid, Right, Lobe Two containers received, totaling 65 cc cloudy dark red CytoLyt with material. ThinPrep and Cell Block prepared. B. Thyroid, Left, Lobe 30 cc clear light pink CytoLyt with scant particles. ThinPrep and Cell Block prepared. Afirma sample received Performed By: #### C YTONON ####[facility] LABCLIA [id number] [place] [address] [place] CASE REPORT Normal [facility] Comment on above: Order Comment: Speci men Type: SPECIMEN OBTAINED BY ASPIRATIONOrdering Facility: [facility] Address: [address] [place] [address] Result Comment: [facility] Cytology Report Case: [id number] Authorizing Provider: Leidy Mckeon MD Collected: 09/10/2024 10:49 AM Ordering Location: General Surgery Received: 09/10/2024 01:42 PM Pathologist: Shanelle Gilmore MD Specimens: A) - Thyroid, Right, Lobe B) - Thyroid, Left, Lobe Performed By: #### C YTONON ####[facility] LABCLIA [id number] [place] [address] [place] CLINICAL HISTORY Normal [facility] Comment on above: Order Comment: Speci men Type: SPECIMEN OBTAINED BY ASPIRATIONOrdering Facility: [facility] Address: [address] [place] [address] Result Comment: Afir ma sample received for part B only. No Afirma was collected for part A per clinician. Performed By: #### C YTONON ####[facility] LABCLIA [id number] [place] [address] [place] FINAL DIAGNOSIS Normal [facility] Comment on above: Order Comment: Speci men Type: SPECIMEN OBTAINED BY ASPIRATIONOrdering Facility: [facility] Address: [address] [place] [address] Result Comment: A - Thyroid, Right Lobe, FNA Non-diagnostic aspirate sample. Predominantly blood. Insufficient thyroid follicular epithelial cells present for evaluation. B - Thyroid, Left Lobe, FNA Benign. Benign follicular cells, cyst contents, and colloid. The following cell blocks were associated with this case: A1 Cell Block, Alcohol Fixed B1 Cell Block, Alcohol Fixed at 1657 EST Performed By: #### C YTONON ####[facility] LABCLIA [id number] [address] STATES OF [place] FINAL PERFORMING LAB Normal [facility] Comment on above: Order Comment: Speci men Type: SPECIMEN OBTAINED BY ASPIRATIONOrdering Facility: [facility] Address: [address] [place] [address] Result Comment: Tech nical component, senior manager mmcoe screening performed at [facility], [address] [place] [address] CLIA# [id number] Diagnostic interpretation performed at [facility], [address] [place], [place] [address] CLIA# [id number] Sonographer: Goran Urias M.D. Performed By: #### C YTONON ####[facility] LABCLIA [id number] [address] STATES OF [place]OSS [place] Normal [facility] Comment on above: Order Comment: Speci men Type: SPECIMEN OBTAINED BY ASPIRATIONOrdering Facility: [facility] Address: [address] [place] [address] Result Comment: A. T hyroid, Right, Lobe Two containers received, totaling 65 cc cloudy dark red CytoLyt with material. ThinPrep and Cell Block prepared. B. Thyroid, Left, Lobe 30 cc clear light pink CytoLyt with scant particles. ThinPrep and Cell Block prepared. Afirma sample received Performed By: #### C YTONON ####[facility] LABIA [id number] [address] STATES OF [facility] THYROID BIOPSY LEFT (POC) SURG USE ONLYon 09-10-[address] [facility] US THYROID BIOPSY RIGHT (POC ) SURG USE ONLYon 09-10-[address] [facility] CNOVon 09-03-2024 CNOV Office Visit (GENSWS ) DOT MCGILL ([id number]) 1945 F Date Time Provider Department 09/03/24 11:00 AM LEIDY MCKEON During your visit today, we recorded the following information about you: Temperature Pulse Respiration Weight 97.1 degrees 64/minute 14/minute 77.6 kg Height 1.638 m Leidy Mckeon MD 09/06/2024 2:51 PM Signed Dot Mcgill 1945 REFERRING PHYSICIAN: Kristian Soto MD CHIEF COMPLAINT: Consult (Thyroid nodules) HPI: The patient is a 79 year old female incidental findings of thyroid nodules from CT chest. She notes no family history of thyroid cancer, though multiple family members had thyroid surgery She denies swallowing problems She denies globus symptoms She denies exposure to unusual radiation She denies taking thyroid hormones She has noted a raspy voice recently. US thyroid - 08/27/2024 - right thyroid nodule - 3.9 x 3 x 3 cm mixed cystic and solid with punctate echogenic foci; left lower - 1.9 x 1.5 x 1.5 cm - both of which radiologist recommends FNA PAST MEDICAL HISTORY Diagnosis Date Acute deep vein thrombosis (DVT) of popliteal vein of left lower extremity (HCC) 08/29/2021 Benign neoplasm of colon Cardiac murmur 10/08/2011 Disorder of bone and cartilage, unspecified Enlarged thoracic aorta (HCC) 10/08/2011 ECHO 09/2011 - Dilated aorta, stable since 2004, mild LVH stable since 2004. 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 Osteoporosis, unspecified 05/19/2005 Pneumonia 10/03/2019 Shingles outbreak 10/09/2019 Unspecified essential hypertension Vitamin D deficiency 12/18/2010 PAST SURGICAL HISTORY Procedure Laterality Date ARTHROPLASTY GLENOHUMRL JT HEMIARTHROPLASTY Right Hemiarthroplasty, right shoulder CHOLECYSTECTOMY Cholecystectomy COLONOSCOPY FLX DX W/COLLJ SPEC WHEN PFRMD 11/11/2000 Colonoscopy COLONOSCOPY FLX DX W/COLLJ SPEC WHEN PFRMD 10/09/2015 Colonoscopy [facility]NE[facility] LESION-PHOTOCOAGULATI ON Left 07/2024 LIG/TRNSXJ FLP TUBE ABDL/VAG APPR UNI/BI Tubal ligation PAST SURGICAL HISTORY OF Corrective Lasix Surgery/Left Eye VAGINAL HYSTERECTOMY UTERUS 250 GM/< Hysterectomy, vaginal Current Outpatient Medications Medication Sig metoprolol tartrate, short acting, (LOPRESSOR) 25 mg tablet TAKE ONE-HALF (1/2) TABLET TWICE A DAY Benazepril-hydroCHLOR Othiazide (LOTENSIN HCT) 10-12.5 mg per tablet One half (1/2) tablet daily. cholecalciferol, vitamin D3, (VITAMIN D3 ORAL) Take 4,000 Units by mouth once daily. cyanocobalamin (VITAMIN B-12) 1,000 mcg tab Take 2,000 mcg by mouth once daily. omeprazole (PRILOSEC) 20 mg capsule Take 1 capsule by mouth once daily as needed. No current facility-administered medications for this visit. ALLERGIES: Influenza Virus Vaccines, Adhesive Tape (Rosins), Antihistamines - Alkylamine, Entex La [Phenylephrine-Guaife nesin], Iodinated Contrast Media, Iodine, and Norvasc [Amlodipine Besylate] PERSONAL HISTORY: Social History Tobacco Use Smoking status: Never Smokeless tobacco: Never Vaping Use Vaping status: Never Used Substance Use Topics Alcohol use: Not Currently Drug use: Never FAMILY HISTORY Problem Relation Age of Onset Heart Mother Hypertension Mother Arthritis Mother Osteoarthritis Hyperlipidemia Mother Stroke Father Hypertension Father Hyperlipidemia Father Hypertension Sister Hypertension Sister Hypertension Sister Hypertension Sister Colon Cancer Maternal Grandfather Breast Cancer Sister 69 Thyroid Sister Thyroid Sister REVIEW OF SYSTEMS: General: The patient denies fatigue, denies weight loss, denies weight gain, denies feeling hot, and denies feelings of cold. Eyes: The patient denies glaucoma, denies eye injury/surgery, wears glasses or contacts. Ear/Nose/Throat: The patient denies allergies, denies hayfever, denies ear infections, and denies bloody noses. Cardiovascular: The patient denies chest pain, denies heart disease, notes high blood pressure,denies cardiac stent, denies prior heart attack, denies irregular heart beat, denies high cholesterol, denies poor circulation, denies heart failure, other cardiac issues, denies claudication, denies cold feet, denies peripheral arterial stent. Respiratory: The patient denies tuberculosis, denies pneumonia, denies frequent cough, denies pulmonary embolism, denies shortness of breath, and denies coughing up blood. Gastrointestinal: The patient denies difficulty swallowing, denies acid reflux, denies ulcers, denies vomiting, denies jaundice/hepatitis, denies gallbladder problems, denies black or tarry stools, denies hemorrhoids, denies bleeding from rectum, denies diverticulitis, denies constipation, denies diarrhea, denies loss of stool control, and denies hernias. Kidney/Bladder: The p (more content not included)... Normal [facility] THYROID/PARATHYROIDon US THYROID/PARATHYROID * * *Final Report * * * DATE OF EXAM: Aug 27 2024 7:50AM [facility] 1048 - US THYROID/PARATHYROID / PROCEDURE REASON: Goiter * * * * Physician Interpretation * * * * EXAMINATION: THYROID ULTRASOUND CLINICAL HISTORY: Goiter TECHNIQUE: Sonography and Doppler imaging of the thyroid was performed. Images were obtained and stored in a permanent archive. MQ: UST_1 COMPARISON: None. RESULT: Right Lobe: 5.1 cm x 2.7 cm x 3.0 cm; homogeneous echogenicity, expected vascular flow. Left Lobe: 4.2 cm x 1.6 cm x 2.1 cm; homogeneous echogenicity, expected vascular flow. Isthmus: 0.3 cm The most suspicious thyroid nodule(s) (up to four) as below: NODULE 1: Location: Right Size: 3.9 x 3 x 3 cm Characteristics: Composition: Mixed cystic and solid, 1 point Echogenicity: Hypoechoic, 2 points Shape: [id number], 0 points Margin: Smooth, 0 points Echogenic foci (add points for all that apply): Punctate echogenic foci, 3 points Internal vascularity: present Interval growth: No prior available for comparison TI-RADS Category: TR4 ACR Recommendation: TI-RADS 4 nodule. FNA is recommended. NODULE 2: Location: Left lower pole Size: 1.9 x 1.5 x 1.5 cm Characteristics: Composition: Solid or almost completely solid, 2 points Echogenicity: Hypoechoic, 2 points Shape: Qsgud-tjec-qfbb, 0 points Margin: Smooth, 0 points Echogenic foci (add points for all that apply): None, 0 points Internal vascularity: present Interval growth: No prior available for comparison TI-RADS Category: TR4 ACR Recommendation: TI-RADS 4 nodule. FNA is recommended. NODULE 3: Location: Left upper pole Size: 0.9 x 0.8 x 0.6 cm Characteristics: Composition: Solid or almost completely solid, 2 points Echogenicity: Hypoechoic, 2 points Shape: Jzcvv-xzsg-ppyv, 0 points Margin: Smooth, 0 points Echogenic foci (add points for all that apply): None, 0 points Internal vascularity: present Interval growth: No prior available for comparison TI-RADS Category: TR4 ACR Recommendation: TI-RADS 4 nodule. No FNA or follow-up imaging is advised. IMPRESSION: Thyroid nodule(s) is/are present. Fine needle aspiration is recommended if not previously performed. . TI-RADS Category: TR4 ACR Recommendation: TI-RADS 4 nodule. FNA is recommended. ACR recommendations are strictly based on the size and imaging appearance at the time of the exam and do not consider stability or previous biopsy results. Motion Designer: ALEJANDRO Transcribe Date/Time: Aug 28 2024 1:31P Dictated by : KAYLEIGH JOVEL MD This examination was interpreted and the report reviewed and electronically signed by: KAYLEIGH JOVEL MD on Aug 28 2024 1:42PM EST [id number] Normal [facility] Inital Evaluation (1) - PTon 08-24-2024 Inital Evaluation (1) - PT [facility] [address] [place] [address] / REHABILITATION SERVICES INITIAL EVALUATION MR#: [id number] Acct: [id number] Name: DOT MCGILL Rep #: [id number] : 1945 79 From: Satish An PT. T, OCS Referring Dr.: Dr. Kristian Soto MD Status: REG RCR Insurance: MEDICARE PART A B [employer] Patient's Visit Information Visit Information Visit Information: DOT MCGILL is a 79 year old F referred to Physical Therapy by Dr. Kristian Soto MD with a diagnosis of OSTEOPOROSIS ,TYPE ,UNSPECIFIED PATHOLOGICAL FRACTURE PRESENCE. Date of Evaluation: 08/24/24 Physical Therapist: Ray Cervantes PT, Cert T, OCS Visit Plan Frequency: 2x /Week Duration: 4 Weeks Plan: PT INTERVENTIONS DLS ,POSTURAL EX'S HIP STRENGTHENING ,WB ACTIVITIES ( FUNCTIONAL STRENGTHENING) AND AEROBIC EX'S Subjective Subjective: This 78 y/o female presents to physical therapy with osteoporosis. Patient seen DR and recommended PT. Patient did not have bone density test. Patient has had osteoporosis for many years . Thus PT doesn't help. Patient had last bone density Aug 2023.No recent imaging. 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 Patient wants to manage osteoporosis with diet and strengthening.In 2023, Patient bone density test lower body showed worse in right hip and lumbar spine had small gains. Patient has been working out 1x week. Coughing/sneezing .Bowel/bladder- Denies paresthesia/tingling .Patient sleeping good. Patient has no abnormal night pain. Aggravating factors some ache twisting and excessive standing Patient condition affects QOL and function. Patient goals to manage osteoporosis with exercises. SOCIAL: VOCATION: retired Objective Objective: POSTURE: mild forward posture rounded shoulders head forward GAIT: mild forward reciprocal pattern NEURO: denies paresthesia/tingling ,reflexes L3-4,L4-5,L5-S1 1/3 PALPATION: mild tender LS/S1 PROM HIP: WFL -IR 40 DEGREES MMT: BUE 4/5 shoulders except shoulders 4-/5 quads/hamstrings/ankl e 4/5 , ( peak force) hip abduction right 20.0 ,left 18.2 ,right hip flexion 23. 5right ,left 24.8 LUMBAR ROM: WFL ,extension mod,side glides min loss THORACIC ROM: flexion min loss ,extension mod/severe loss ,rotation mi loss FLEXABILITY: hamstrings min tight Special Tests L/S Slump test left side: Negative L/S Slump test right side: Negative L/S Left Straight Leg Raise: Negative L/S Right Straight Leg Raise: Negative Lumbar Standing: Flexion - Mechanical Response: No effect Lumbar Standing: Flexion - Symptoms During Testing: No effect Lumbar Standing: Flexion - Symptoms After Testing: No effect Lumbar Standing: Extension - Mechanical Response: No effect Lumbar Standing: Extension - Symptoms During Testing: Increases Lumbar Standing: Extension - Symptoms After Testing: No worse Lumbar Standing: Right Side Glides - Mechanical Response: No effect Lumbar Standing: Right Side [place] - Symptoms During Testing: No effect Lumbar Standing: Right Side [place] - Symptoms After Testing: No effect Lumbar Standing: Left Side [place] - Mechanical Response: No effect Lumbar Standing: Left Side [place] - Symptoms During Testing: No effect Lumbar Standing: Left Side [place] - Symptoms After Testing: No effect R Hip Scour: Negative R Hip Quadrant - Intraarticular Pathology: Negative L Hip Scour: Negative L Hip Quadrant - Intraarticular Pathology: Negative Balance/Special Test Scores Lower Extremity Functional Score: 37 Goals Goal 1:: Patient to be I with HEP for spine WB activities ( Osteoporosis Program) Goal Time Frame: 4-6 Weeks Goal 2:: Patient to demonstrate 75% improvement with improved function no symptoms with activity Goal Time Frame: 4-6 Weeks Goal 3:: Patient to improve peak force hips flexion/abduction by 10-15# to improve function Goal Time Frame: 4-6 Weeks Goal 4:: Patient to improve back oswestry score by 5 points to improve QOL and function. Goal Time Frame: 4-6 Weeks Rehabilitation Potential Physical Therapy Diagnosis: This patient has osteoporosis with decrease Lumbar ROM and weakness in hips along with cardiac issues comorbities influences condition thus benefit from skilled Rehabilitation Potential: Good Anticipated Interventions Patient/Client Instruction: Educate patient on: Condition and Plan of Care For the Purpose of:: To decrease pain, To increase ROM, To improve muscle performance and motor function, To improve ability to perform ADL's, To increase tolerance to activity/condition/po sition, To improve ability of physical actions for home/community/work/l eisure, To improve health of tissue, To decrease soft tissue restriction and To increase flexibility/ROM Therapeutic Exercise to Include: Strength training, Power training, Endurance dulce (more content not included)... Normal [facility] Lipid 1996 panelon 5 Cholesterol [Mass/Vol] 206 mg/dL High <200 Cl [facility] Comment on above: Order Comment: Speci men Type: BLOOD SPECIMENOrdering Facility: [facility] Address: [address] [place] [address] Result Comment: <200 mg/dL, Desirable 200-239 mg/dL, Borderline high >239 mg/dL, High Performed By: #### 3 016-3, 96468-2, 3024-01 ####[facility] LABCLIA [id number] [place] [address] [place] Cholesterol in HDL [Mass/Vol] 68 mg/dL Normal >[address] [facility] Comment on above: Order Comment: Speci men Type: BLOOD SPECIMENOrdering Facility: [facility] Address: [address] [place] [address] Result Comment: 40-5 9 mg/dL, Acceptable >59 mg/dL, High: Negative risk factor for coronary heart disease <40 mg/dL, Low: Positive risk factor for coronary heart disease Performed By: #### 3 016-3, 90993-0, 3024-01 ####[facility] LABCLIA [id number] [address] [address] [place] Cholesterol in LDL [Mass/Vol] 112 mg/dL High <[address] [facility] Comment on above: Order Comment: Leslye dasilva Type: BLOOD SPECIMENOrdering Facility: [facility] Address: [address] [place] [address] Result Comment: <100 mg/dL, Optimal 100-129 mg/dL, Near optimal/above optimal 130-159 mg/dL, Borderline high 160-189 mg/dL, High >189 mg/dL, Very high Secondary prevention optimal LDL Cholesterol levels are recommended to be < 70 mg/dL Performed By: #### 3 016-3, 20819-6, 3024-01 ####[facility] LABCLIA [id number] [address] [address] [place] Cholesterol in LDL/Cholesterol in HDL [Mass ratio] 1.65 {ratio} Normal <2.[address] [facility] Comment on above: Order Comment: Leslye dasilva Type: BLOOD SPECIMENOrdering Facility: [facility] Address: [address] [place] [address] Result Comment: Refe curtce: 1. National Cholesterol Education Program ATP III Guideline At-A-Glance Quick Desk Reference: National Heart, Lung, and Blood [place]. National Institutes of Health. 2001: NIH Publication No. 01-3305. 2. An International Atherosclerosis Society position paper: global recommendations for the management of dyslipidemia: executive summary, Atherosclerosis. 2014: 232(2):410-413. Performed By: #### 3 016-3, 48236-3, 3024-01 ####[facility] LABCLIA [id number] [place] [id number] [place] Cholesterol in VLDL [Mass/Vol] 26 mg/dL Normal <[address] [facility] Comment on above: Order Comment: Leslye dasilva Type: BLOOD SPECIMENOrdering Facility: [facility] Address: [address] [place] [address] Performed By: #### 3 016-3, 06057-7, 3024-01 ####[facility] LABCLIA [id number] [address] [address] [place] Cholesterol non HDL [Mass/Vol] 138 mg/dL High <[address] [facility] Comment on above: Order Comment: Speci men Type: BLOOD SPECIMENOrdering Facility: [facility] Address: [address] [place] [address] Result Comment: <130 mg/dL, Optimal 130-159 mg/dL, Near optimal/above optimal 160-189 mg/dL, Borderline high 190-219 mg/dL, High >219 mg/dL, Very high Secondary prevention optimal non HDL Cholesterol levels are recommended to be <100 mg/dL Performed By: #### 3 016-3, 66215-3, 7 ####[facility] LABCLIA [id number] [place] [address] [place] Cholesterol.total/Choles terol in HDL [Mass ratio] 3.03 {ratio} Normal <5.[address] [facility] Comment on above: Order Comment: Speci men Type: BLOOD SPECIMENOrdering Facility: [facility] Address: [address] [place] [address] Performed By: #### 3 016-3, 45338-4, 3024-01 ####[facility] LABCLIA [id number] [place] [address] [place] FASTING TIME 12 hrs Normal [facility] Comment on above: Order Comment: Speci men Type: BLOOD SPECIMENOrdering Facility: [facility] Address: [address] [place] [address] Performed By: #### 3 016-3, 50190-8, 7 ####[facility] LABCLIA [id number] [place] [id number] [place] Triglyceride [Mass/Vol] 130 mg/dL Normal <[address] [facility] Comment on above: Order Comment: Speci men Type: BLOOD SPECIMENOrdering Facility: [facility] Address: [address] [place] [address] Result Comment: <150 mg/dL, Normal 150-199 mg/dL, Borderline high 200-499 mg/dL, High >499 mg/dL, Very high Performed By: #### 3 016-3, 19975-8, 3024-7 ####[facility] LABIA [id number] [place] [address] [place] T4 Free SerPl-mCncon 025 Free T4 [Mass/Vol] 1.2 ng/dL Normal 0.9-1.7 [facility] Comment on above: Order Comment: Speci men Type: BLOOD SPECIMENOrdering Facility: [facility] Address: [address] [place] [address] Performed By: #### 3 016-3, 80757-9, 30247 ####[facility] [id number] [place] [address] [place] TSH SerPl-aCncon 08-18-2024 TSH Qn 2.900 m[IU]/L Normal 0.270-4.[address] [facility] Comment on above: Order Comment: Speci men Type: BLOOD SPECIMENOrdering Facility: [facility] Address: [address] [place] [address] Performed By: #### 3 016-3, 85911-0, 30247 ####[facility] [id number] [address] [place] CNOVon 08-17-2024 CNOV Office Visit (INTMWS ) DOT MCGILL ([id number]) 1945 F Date Time Provider Department 08/17/24 10:00 AM KRISTIAN SOTO INTAnniWS During your visit today, we recorded the following information about you: Temperature Pulse Respiration Blood pressure 97.7 degrees 64/minute 16/minute 131/73 Weight 77.2 kg Kristian Soto MD 08/17/2024 12:50 PM Signed Dot Mcgill is a 79 year old female here for a Medicare wellness visit. Medicare Health Risk Assessment General Health Very good Exercise: Minutes/Day 60 min Exercise: Days/Week 3 days Alcohol: Daily Use Never Alcohol: Drinks/Day Patient does not drink Alcohol: 6 or more drinks Never Feel off balance No Concerns: Teeth/Dentures No Concerns: Sexual function No Troubled by feelings None of the above Frequency: Eating healthy diet Nearly every day ADLs requiring help None of the above Safety precautions in home/vehicle Yes Smoke, vape, chews tobacco No Difficulty hearing Yes, I wear a hearing aid Difficulty seeing No Current Providers Specialists: I have reviewed specialist-related care of the patient in the medical record. Current care team: Patient Care Team: Kristian Soto MD as PCP - General (Internal Medicine) Ingrid Perkins APRN.COUNTERSINKER as Electronics Repair Technician (Internal Medicine) Outside specialists seen: Dr. Daniel Hassan, Cardiology [facility]. Dr. Estiven Shaw, [facility] Dermatology. Dr. Ngo, Ophthalmology, [facility]. Medical/Family history review Reviewed and updated problem list, medical/surgical/fami ly/social history, medications, and allergies. Opioid use review Opioid Medications (last 90 days) No data to display Anxiety/Depression screening PHQ-9 Score: 2 (Minimal Depression) TYSHAWN-7 Score: 0. Recommendation: no further intervention at this time Cognitive screening Mini Cog Score: 4 Cognitive screening reviewed and No further action needed (score 3-5). Functional Observation Was the patient's Timed Up AND Go test unsteady or >= 12 seconds? No Advance Care Planning Patient did not wish or was not able to name a surrogate decision maker or provide an advance care plan Measurements BP 131/73 Pulse 64 Temp 36.5 ?C (97.7 ?F) (Temporal) Resp 16 Wt 77.2 kg (170 lb 3.1 oz) SpO2 97% BMI 29.21 kg/m? Vision Screening: Follows with optometry/ophthalmolo gy Assessment/Plan Medicare annual wellness visit, subsequent (Z00.00) - Counseled on healthy diet and regular exercise - Fall avoidance information provided - Personalized prevention plan provided - Discussed need for and benefit of weight loss. BMI 29.21 kg/(m2) - We agreed to space out routine mammograms to every 2 years. Kristian Soto MD 08/17/2024 12:50 PM Signed This note was created using Cynvec. Subjective Dot Mcgill is a 79 year old female. She was doing well. She had some kind of corneal procedure done on the left eye. Her hypertension, palpitations, hyperlipidemia, and joint pains were controlled. She elected non medication treatment for osteoporosis. For the past several months, she had been benefiting from regular supervised physical therapy exercises, and was interested in continuing that supervised program. HEP was harder for her to sustain. She needed a new referral. 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 She's had a right sided goiter that had not been formally evaluated. Review of Systems Constitutional: Negative for fatigue and unexpected weight change. Respiratory: Negative for shortness of breath. Cardiovascular: Negative for chest pain, palpitations and leg swelling. Gastrointestinal: Negative. Musculoskeletal: Negative. Neurological: Negative for dizziness and headaches. Psychiatric/Behaviora l: Negative. 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 Allergic Rhinitis, Cause Unspecified Hyperlipemia Vitamin D Deficiency Enlarged thoracic aorta (HCC) Dry Eye Syndrome Herpes Simplex Labialis Gerd (Gastroesophageal Reflux Disease) Multiple Joint Pain Palpitations Obesity, Class I, Bmi 30-34.9 Social History Tobacco Use Smoking status: Never Smokeless tobacco: Never Vaping Use Vaping status: Never Used Substance Use Topics Alcohol use: No Drug use: No Current Outpatient Medications Medication Sig metoprolol tartrate, short acting, (LOPRESSOR) 25 mg tablet TAKE ONE-HALF (1/2) TABLET TWICE A DAY Benazepril-hydroCHLOR Othiazide (LOTENSIN HCT) 10-12.5 mg per tablet One half (1/2) tablet daily. cholecalciferol, vitamin D3, (VITAMIN D3 ORAL) Take 4,000 Units by mouth once daily. cyanocobalamin (VITAMIN B-12) 1,000 mcg tab Take 2,000 mcg by mouth once daily. omeprazole (PRILOSEC) 20 mg capsule Take 1 capsule by mouth once daily as needed. No current facility-administered medicatio (more content not included)... [facility] (CARCMN) DOT MCGILL ([id number]) 1945 F Date Time Provider Department 07/31/24 DANIEL HASSAN During your visit today, we recorded the following information about you: Lico Fung 07/31/2024 8:20 AM Signed July 31, 2024 Patient Contact Number: [phone] (home) Patient last seen within the last year: Yes Date of last office visit: 09/06/23 Reason For Call: Test Results Patient called. States she would like to know the results of her echo and CT chest from 07/23/24. She is scheduled next in November [address] Hassan, but would like to know if any medications or additional tests are needed. Physician: Daniel Hassan MD Patient was informed that non-urgent calls may be returned within the next three business days. Yes Irma Barr, RN 08/07/2024 7:43 AM Signed Messaged patient Pended echo order to Dr Hassan to sign off. Irma Cameron RN Allergies As of Date: 07/31/2024 Noted Allergy Reaction INFLUENZA VIRUS VACCINES 07/07/2009 14 - Other: See Comments Comments: Dizziness ADHESIVE TAPE (ROSINS) 03/12/2014 2 - Rash ANTIHISTAMINES - ALKYLAMINE 04/18/2020 14 - Other: See Comments ENTEX LA (PHENYLEPHRINE-GUAIFE PAULA*05/19/2005 IODINATED CONTRAST MEDIA 04/18/2020 7 - Swelling Comments: Eye swelling, SOB, airway and throat swelling IODINE 05/19/2005 NORVASC (AMLODIPINE BESYLATE) 09/17/2008 Comments: lip swelling - gum bleeding Date Reviewed: 06/15/2024 Reviewed by: Warren Wesley LPN - Fully Assessed Reason for Visit: Results [95] Primary Visit Diagnosis:Plantar fasciitis [M72.2] Other Visit Diagnoses:Aneurysm of ascending aorta without rupture (HCC) [I71.21] Disorder of artery or arteriole (HCC) [I77.9] Primary hypertension [I10] Enlarged thoracic aorta (HCC) [I77.89] Order(s):ECHO [665768] Order #: [id number]: 1 FUTURE Prescriptions as of 08/07/2024 - metoprolol tartrate, short acting, (LOPRESSOR) 25 mg tablet TAKE ONE-HALF (1/2) TABLET TWICE A DAY - Benazepril-hydroCHLOR Othiazide (LOTENSIN HCT) 10-12.5 mg per tablet One half (1/2) tablet daily. - diclofenac (VOLTAREN) 1 % topical gel Apply to affected area as needed. - Ca/D3/mag ox/zinc/copy clerk/nell/bor (CALCIUM 600-D3 PLUS, MAG-ZINC, ORAL) Take 1 capsule by mouth three times daily. - cholecalciferol, vitamin D3, (VITAMIN D3 ORAL) Take 4,000 Units by mouth once daily. - cyanocobalamin (VITAMIN B-12) 1,000 mcg tab Take 2,000 mcg by mouth once daily. - omeprazole (PRILOSEC) 20 mg capsule Take 1 capsule by mouth once daily as needed. Problem List As Of Date 07/31/2024 Noted Resolved Osteoporosis [M81.0] 05/19/2005 White coat syndrome with diagnosis of hypertens*05/19/2005 Esophageal reflux [K21.9] 05/19/2005 10/08/2011 ANXIETY STATE NOS [F41.1] 05/19/2005 06/15/2006 CHEST PAIN NOS [R07.9] 05/19/2005 06/15/2006 ALLERGIC RHINITIS NOS [J30.9] 12/01/2007 Hyperlipemia [E78.5] 09/17/2008 OVERWEIGHT [E66.9] 09/17/2008 06/22/2021 Migraine aura without headache [G43.109] 09/30/2009 04/26/2012 Vitamin D deficiency [E55.9] 12/18/2010 Enlarged thoracic aorta (HCC) [I77.89] 10/08/2011 Capsulitis [M77.9] 02/14/2012 12/14/2013 Dry eye syndrome [H04.129] 04/26/2012 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] 04/26/2012 Wheezing [R06.2] 09/06/2013 07/21/2015 GERD (gastroesophageal reflux disease) [K21.9] 12/14/2013 Occult GI bleeding [R19.5] 08/04/2015 11/15/2016 Multiple joint pain [M25.50] 03/03/2020 Palpitations [R00.2] 03/17/2020 Obesity, Class I, BMI 30-34.9 [E66.811] 06/22/2021 Acute deep vein thrombosis (DVT) of popliteal v*08/29/2021 01/04/2022 Encounter Status:Closed by DANIEL HASSAN on 08/07/[address] [facility] PT D/C Summary (1)on 024 PT D/C Summary (1) [facility] Physical Therapy [facility] [place] [address] / REHABILITATION SERVICES DISCHARGE SUMMARY MR#: [id number] Acct: [id number] Name: DOT MCGILL Rep #: [id number] : 1945 79 From: Ray Cervantes PT, Cert. T, [facility] Referring Dr.: Dr. Kristian Soto MD Status: REG RCR Insurance: MEDICARE PART A B [employer] Discharge Summary D/C summary: It has been my pleasure to treat DOT MCGILL referred by Dr. Kristian Soto MD, with the diagnosis of OSTEOPOROSIS ,UNSPECIFIED TYPE PATHOLGICAL FRACTURE PRESNENCE for a total of 33 visit(s). Discharge Date: 07/26/24 Please see the following information for a summary of their discharge status. Subjective Subjective: Doing well ready for d/c Pain Bilateral Back: Pain Intensity (Out of 10): 0 Overall Improvement % Improvement: 50 Objective Objective/Function: GAIT: mild forward reciprocal pattern NEURO: denies paresthesia/tingling ,reflexes L3-4,L4-5,L5-S1 1/3 PALPATION: mild tender LS/S1 PROM HIP: WFL -IR 45DEGREES MMT: BUE 4/5 shoulders except shoulders 4-/5 quads/hamstrings/ankl e 4/5 , ( peak force) hip abduction right 26.1 ,left 26.2 ,right hip flexion 37.2 right ,left 35.8 LUMBAR ROM: FLEXION MIN ,extension min ,side glides WFL THORACIC ROM: flexion MIN ,extension mod ,rotation WFL loss FLEXABILITY: hamstrings min tight Goals Goal 1:: Patient to be I with HEP for spine WB activities ( Osteoporosis Program) Goal Progress: Goal Met Goal 2:: Patient to demonstrate 75% improvement with improved function no symptoms with activity Goal Progress: Goal Met Goal 3:: Patient to improve peak force hips flexion/abduction by 10-15# to improve function( new updated goal) Goal Progress: Goal Met Goal 4:: Patient to improve back oswestry score by 5 points to improve QOL and function. Goal Progress: Goal Met Goal Progress: Goal Met Plan Plan: D/C D/C Information Discharge Comments: HEP d/c sentence: If there are questions or concerns regarding this patient's physical therapy, please feel free to call me at [phone]. Thank you for the referral of this patient. Sincerely, Ray Cervantes, PT, Cert MDT, OCS Balance/Gait/Function al tests Balance/Special Test Scores Oswestry Low Back Score: 1 Improvement % Improvement: 50 07/26/24 1036 CC: Dr. Kristian Soto MD RAUL Signed Normal [facility] CT CHEST CARDIAC WO IVCONon 07-23-2024 IMPRESSION: 1. Stable dilation of the mid ascending thoracic aorta (4.6 cm, area = 16.1 cm2; same in 2020) and aortic root (4.0 cm). The remainder of the thoracic aorta is normal sized. 2. Enlarged right thyroid gland. Consider dedicated examination with ultrasonography. Motion Designer: PSCB Transcribe Date/Time: Jul 23 2024 9:33A Dictated by : AISHA POSEY MD This examination was interpreted and the report reviewed and electronically signed by: RUPINDER FALK MD on Jul 23 2024 9:59AM [facility] DIVISION OF RADIOLOGY * * *Final Report* * * DATE OF EXAM: Jul 23 2024 9:00AM [facility] 2055 - CT CHEST CARDIAC WO IVCON / PROCEDURE REASON: Disorder of artery or arteriole (HCC) * * * * Physician Interpretation * * * * CT Aorta chest Direct Image Comparison: Noncontrast CT chest 06/26/2021 HISTORY: 79 years old Female with dilated thoracic aorta. Evaluation for interval change. There is request to define thoracic and aortic anatomy TECHNIQUE: SCANNER: out-patient Multi-detector scanner PROTOCOL: Prospectively triggered helical high-pitch acquisitions (triggered Flash-mode) was performed without intravenous administration of contrast material. Scan Range: thoracic inlet to the diaphragm CT Dose-Length Product (DLP): 217 mGy*cm CT Dose Reduction Employed: Automated exposure control(AEC) and iterative recon CONTRAST: None Scan acquisition: uncomplicated Macro Version: [id number] For optimization of anatomic evaluation postprocessing was performed on a dedicated workstation by the interpreting physician. STUDY LIMITATIONS: None. RESULT: LINES, TUBES and DEVICES: None CHEST: Chest wall anatomy: Enlarged right thyroid gland LUNGS: Isolated thin-walled cyst in the right lower lobe MEDIASTINUM: small mediastinal lymph nodes, which are not pathologic by size criteria. Small hiatal hernia PERICARDIUM: unremarkable CENTRAL PULMONARY ARTERY: Dilated, 3.7 cm CARDIAC CHAMBERS: assessment is limited in the non-contrast study. LEFT VENTRICLE: normal size. RIGHT VENTRICLE: normal size Left Atrium: dilated. WINIFRED: assessment is limited in the non-contrast study. Right Atrium: normal size CENTRAL VENOUS and PULMONARY VENOUS RETURN: normal. Coronary Sinus: normal size MITRAL VALVE: assessment is limited in the current study - no leaflet calcification. Moderate mitral annular calcification TRICUSPID and PULMONIC VALVE: appear unremarkable. CORONARY ANATOMY: normal origin of the coronary arteries. Direct epicardial course of the mid LAD without intramyocardial extension. Mild calcified atherosclerotic changes of the coronary arteries. However, the current study is not optimized for coronary assessment. AORTIC VALVE: assessment is limited in the current study. Mild calcification at the commissures. AORTA: Pathology: assessment for acute aortic pathology is limited in the non-contrast study. Intervention: None Complications: n/a Aortic Size: Dilation. STJ: partially effaced Wall Changes: Mild calcified wall changes arch and descending thoracic aorta. Arch Branch Vessels: Normal size proximal segments of the arch branch vessels, without evidence of wall calcification. AORTIC DIMENSIONS: [place] AORTIC ROOT: 4.0 cm measured [id number]-[id number] mid ASCENDING THORACIC AORTA: 4.6 cm area = 16.1 sq cm distal ascending thoracic aorta: 4.2 cm mid AORTIC ARCH: 3.2 cm mid DESCENDING THORACIC AORTA: 2.8 cm limited upper ABDOMEN: Cystic lesion of the liver BONES and SOFT TISSUES: degenerative changes of the thoracic spine. Right shoulder arthroplasty. Sports Medicine Trainer (topogram) images: No additional findings. DIVISION OF RADIOLOGY Provider, [facility]24 * * *Final Report* * * DATE OF EXAM: Jul 23 2024 9:00AM [facility] 2055 - CT CHEST CARDIAC WO IVCON / PROCEDURE REASON: Disorder of artery or arteriole (HCC) * * * * Physician Interpretation * * * * CT Aorta chest Direct Image Comparison: Noncontrast CT chest 06/26/2021 HISTORY: 79 years old Female with dilated thoracic aorta. Evaluation for interval change. There is request to define thoracic and aortic anatomy TECHNIQUE: SCANNER: out-patient Multi-detector scanner PROTOCOL: Prospectively triggered helical high-pitch acquisitions (triggered Flash-mode) was performed without intravenous administration of contrast material. Scan Range: thoracic inlet to the diaphragm CT Dose-Length Product (DLP): 217 mGy*cm CT Dose Reduction Employed: Automated exposure control(AEC) and iterative recon CONTRAST: None Scan acquisition: uncomplicated Macro Version: [id number] For optimization of anatomic evaluation postprocessing was performed on a dedicated workstation by the interpreting physician. STUDY LIMITATIONS: None. RESULT: LINES, TUBES and DEVICES: None CHEST: Chest wall anatomy: Enlarged right thyroid gland LUNGS: Isolated thin-walled cyst in the right lower lobe MEDIASTINUM: small mediastinal lymph nodes, which are not pathologic by size criteria. Small hiatal hernia PERICARDIUM: unremarkable CENTRAL PULMONARY ARTERY: Dilated, 3.7 cm CARDIAC CHAMBERS: assessment is limited in the non-contrast study. LEFT VENTRICLE: normal size. RIGHT VENTRICLE: normal size Left Atrium: dilated. WINIFRED: assessment is limited in the non-contrast study. Right Atrium: normal size CENTRAL VENOUS and PULMONARY VENOUS RETURN: normal. Coronary Sinus: normal size MITRAL VALVE: assessment is limited in the current study - no leaflet calcification. Moderate mitral annular calcification TRICUSPID and PULMONIC VALVE: appear unremarkable. CORONARY ANATOMY: normal origin of the coronary arteries. Direct epicardial course of the mid LAD without intramyocardial extension. Mild calcified atherosclerotic changes of the coronary arteries. However, the current study is not optimized for coronary assessment. AORTIC VALVE: assessment is limited in the current study. Mild calcification at the commissures. AORTA: Pathology: assessment for acute aortic pathology is limited in the non-contrast study. Intervention: None Complications: n/a Aortic Size: Dilation. STJ: partially effaced Wall Changes: Mild calcified wall changes arch and descending thoracic aorta. Arch Branch Vessels: Normal size proximal segments of the arch branch vessels, without evidence of wall calcification. AORTIC DIMENSIONS: [place] AORTIC ROOT: 4.0 cm measured [id number] mid ASCENDING THORACIC AORTA: 4.6 cm area = 16.1 sq cm distal ascending thoracic aorta: 4.2 cm mid AORTIC ARCH: 3.2 cm mid DESCENDING THORACIC AORTA: 2.8 cm limited upper ABDOMEN: Cystic lesion of the liver BONES and SOFT TISSUES: degenerative changes of the thoracic spine. Right shoulder arthroplasty. Sports Medicine Trainer (topogram) images: No additional findings. IMPRESSION IMPRESSION: 1. Stable dilation of the mid ascending thoracic aorta (4.6 cm, area = 16.1 cm2; same in 2020) and aortic root (4.0 cm). The remainder of the thoracic aorta is normal sized. 2. Enlarged right thyroid gland. Consider dedicated examination with ultrasonography. Motion Designer: PSCB Transcribe Date/Time: Jul 23 2024 9:33A Dictated by : AISHA POSEY MD This examination was interpreted and the report reviewed and electronically signed by: RUPINDER FALK MD on Jul 23 2024 9:59AM [facility] CT CHEST CARDIAC WO IVCON * * *Final Report* * * DATE OF EXAM: Jul 23 2024 9:00AM [facility] 6 - CT CHEST CARDIAC WO IVCON / PROCEDURE REASON: Disorder of artery or arteriole (HCC) * * * * Physician Interpretation * * * * CT Aorta chest Direct Image Comparison: Noncontrast CT chest 06/26/2021 HISTORY: 79 years old Female with dilated thoracic aorta. Evaluation for interval change. There is request to define thoracic and aortic anatomy TECHNIQUE: SCANNER: out-patient Multi-detector scanner PROTOCOL: Prospectively triggered helical high-pitch acquisitions (triggered Flash-mode) was performed without intravenous administration of contrast material. Scan Range: thoracic inlet to the diaphragm CT Dose-Length Product (DLP): 217 mGy*cm CT Dose Reduction Employed: Automated exposure control(AEC) and iterative recon CONTRAST: None Scan acquisition: uncomplicated Macro Version: [id number] For optimization of anatomic evaluation postprocessing was performed on a dedicated workstation by the interpreting physician. STUDY LIMITATIONS: None. RESULT: LINES, TUBES and DEVICES: None CHEST: Chest wall anatomy: Enlarged right thyroid gland LUNGS: Isolated thin-walled cyst in the right lower lobe MEDIASTINUM: small mediastinal lymph nodes, which are not pathologic by size criteria. Small hiatal hernia PERICARDIUM: unremarkable CENTRAL PULMONARY ARTERY: Dilated, 3.7 cm CARDIAC CHAMBERS: assessment is limited in the non-contrast study. LEFT VENTRICLE: normal size. RIGHT VENTRICLE: normal size Left Atrium: dilated. WINIFRED: assessment is limited in the non-contrast study. Right Atrium: normal size CENTRAL VENOUS and PULMONARY VENOUS RETURN: normal. Coronary Sinus: normal size MITRAL VALVE: assessment is limited in the current study - no leaflet calcification. Moderate mitral annular calcification TRICUSPID and PULMONIC VALVE: appear unremarkable. CORONARY ANATOMY: normal origin of the coronary arteries. Direct epicardial course of the mid LAD without intramyocardial extension. Mild calcified atherosclerotic changes of the coronary arteries. However, the current study is not optimized for coronary assessment. AORTIC VALVE: assessment is limited in the current study. Mild calcification at the commissures. AORTA: Pathology: assessment for acute aortic pathology is limited in the non-contrast study. Intervention: None Complications: n/a Aortic Size: Dilation. STJ: partially effaced Wall Changes: Mild calcified wall changes arch and descending thoracic aorta. Arch Branch Vessels: Normal size proximal segments of the arch branch vessels, without evidence of wall calcification. AORTIC DIMENSIONS: [place] AORTIC ROOT: 4.0 cm measured [id number] mid ASCENDING THORACIC AORTA: 4.6 cm area = 16.1 sq cm distal ascending thoracic aorta: 4.2 cm mid AORTIC ARCH: 3.2 cm mid DESCENDING THORACIC AORTA: 2.8 cm limited upper ABDOMEN: Cystic lesion of the liver BONES and SOFT TISSUES: degenerative changes of the thoracic spine. Right shoulder arthroplasty. Sports Medicine Trainer (topogram) images: No additional findings. IMPRESSION: 1. Stable dilation of the mid ascending thoracic aorta (4.6 cm, area = 16.1 cm2; same in 2020) and aortic root (4.0 cm). The remainder of the thoracic aorta is normal sized. 2. Enlarged right thyroid gland. Consider dedicated examination with ultrasonography. Motion Designer: ALEJANDRO Transcribe Date/Time: Jul 23 2024 9:33A Dictated by : AISHA POSEY MD This examination was interpreted and the report reviewed and electronically signed by: RUPINDER FALK MD on Jul 23 2024 9:59AM EST [id number] Normal [facility] Radiology Study observation (narrative) [facility] CT CHEST CARDIAC WO IVCONOrd ered By: [facility] Provider on 07-23-[address] [facility] ECHOon 07-23-2024 Echocardiography Echocardiography Report: Transthoracic Echo [facility] A17 Date of service: 07/23/2024 9:34:24 AM TOP ASSEMBLER Ordering physician: DANIEL HASSAN Indication: Re-evaluation of known ascending aortic dilatation with the change in clinical status Technologist: Phylicia Kothari Interpreting physician: Kurtis Oh MD PATIENT: Name: MRS. DOT MCGILL : 1945 Age: 79 years Gender: F History of dyslipidemia. Primary rhythm: sinus. Height: 162.60 cm BSA: 1.89 m Weight: 79.30 kg BMI: 30.0 kg/m Heart rate 58 bpm Blood pressure 129/84 mmHg Color Doppler was utilized to interrogate the cardiac valves assessed and spectral Doppler was utilized to determine the flow velocities and pressure gradients reported in this exam. MEASUREMENTS: Value Indexed Normal Max aortic dimension 4.6 cm Ao < 3.8 Left atrial volume 75 ml (biplane A-L) 40 ml/m Suly <= 34 LV ID (diastole) 4.0 cm (2D) 2.11 cm/m LV ID (systole) 2.6 cm (2D) 1.37 cm/m IVS, leaflet tips 1.3 cm (2D) Posterior wall thickness 1.2 cm (2D) Left ventricular mass 176 g (2D) 93 g/m LV stroke volume 38 ml (2D biplane) LV end diastolic volume 64 ml (2D biplane) 33.6 ml/m 29<=EDVi<62 LV end systolic volume 26 ml (2D biplane) 13.5 ml/m Ejection Fraction 60 % (2D biplane) EF > 54 FINDINGS: LEFT VENTRICLE The left ventricle is normal in size. There is mild left ventricular hypertrophy. Left ventricular systolic function is normal globally. Grade I left ventricular diastolic dysfunction. Mitral annular lateral E/e': 9.0. Mitral annular septal E/e': 15.1. Wall Motion: All scored segments are normal. RIGHT VENTRICLE The right ventricle is normal in size. Right ventricular systolic function is normal globally. RV systolic tissue Doppler velocity is 10.4 cm/s. Tricuspid annular displacement is 1.8 cm. Estimated right ventricular systolic pressure is 38 mmHg consistent with mild pulmonary hypertension. Estimated right atrial pressure is 8 mmHg based on IVC assessment. LEFT ATRIUM The left atrial cavity is moderately dilated. RIGHT ATRIUM The right atrial cavity is normal in size. Inferior Vena Cava: The inferior vena cava appears normal measuring 1.4 cm. The vessel decreases less than 50 percent with inspiration. MITRAL VALVE There is mild mitral annular calcification observed posterior. There is trace mitral valve regurgitation. There is mild thickening. The pressure half time is 108 msec. The peak mitral E/A ratio is 0.61. The average mitral E/e' ratio is 12.0. The mitral flow deceleration time is 373 msec. TRICUSPID VALVE There is moderate (2+) tricuspid valve regurgitation. There is no thickening. The hepatic venous pattern showed normal systolic flow. AORTIC VALVE There is trace aortic valve regurgitation. Tricuspid aortic valve. There is mild thickening. PULMONIC VALVE The pulmonic valve was not seen or not interrogated. There is trace pulmonic valve regurgitation. AORTA The visualized aorta is dilated. Measurements - Sinus: 3.8 cm. Sinotubular junction 2.8 cm. Mid ascending aorta 4.6 cm. Distal ascending aorta 4.2 cm. Mid arch 3.8 cm. Distal descending diaphragmatic level 2.2 cm. PULMONARY ARTERIES The pulmonary arteries are unseen or not interrogated. INTERATRIAL SEPTUM There is no evidence of intracardiac shunting as detected by Doppler. INTERVENTRICULAR SEPTUM There is no flow through the interventricular septum as detected by Doppler. PERICARDIUM There is a trivial pericardial effusion adjacent to the right ventricle. There is an epicardial fat pad. CONCLUSIONS: - Exam indication: Re-evaluation of known ascending aortic dilatation with the change in clinical status - The left ventricle is normal in size. There is mild left ventricular hypertrophy. Left ventricular systolic function is normal. EF = 60 5% (2D biplane) Grade I left ventricular diastolic dysfunction. - The right ventricle is normal in size. Right ventricular systolic function is normal. - The left atrial cavity is moderately dilated. - The visualized aorta is dilated with a maximal dimension of 4.6 cm. - There is moderate (2+) tricuspid valve regurgitation. - Estimated right ventricular systolic pressure is 38 mmHg consistent with mild pulmonary hypertension. Estimated right atrial pressure is 8 mmHg based on IVC assessment. - Exam was compared with the prior echocardiographic exam performed on 01/25/2023, stable aortic aneurysm with interval increase in TR. TR is underestimated by color doppler and more prominent by spectral doppler. * * * Final * * * [facility] [facility] Image : [id number] amicsSISUID [facility] (INTMWS[facility] DOT MCGILL ([id number]) 1945 F Date Time Provider Department 06/19/24 KRISTIAN SOTO INTWS During your visit today, we recorded the following information about you: Trinidad Cormier LPN 06/19/2024 11:53 AM Signed ----- Message from Kristian Soto MD sent at 06/19/2024 11:50 AM EST ----- Chest xray normal. Update on symptoms please based on phone message yesterday. Trinidad Cormier LPN 06/19/2024 12:01 PM Signed Temp has returned to normal, 97.4, feels that she has turned a corner. She has been drinking fluids, resting, congestion has improved, it is yellowish in color, was able to cough this am phelgm was yellow, sore throat is gone. Family is coming to her house next week for Thanksgiving, if Dr. Soto she should be on an ATB please send to [facility]. Please advise. Kristian Lino LPN, MD 06/20/2024 12:44 PM Signed No antibiotic needed. Trinidad Cormier LPN 06/20/2024 2:01 PM Signed Left message to call AND speak to nurse. Trinidad Davis LPN, LPN 06/20/2024 4:07 PM Signed Patient notified. Trinidad Cormier LPN Allergies As of Date: 06/19/2024 Noted Allergy Reaction INFLUENZA VIRUS VACCINES 07/07/2009 14 - Other: See Comments Comments: Dizziness ADHESIVE TAPE (ROSINS) 03/12/2014 2 - Rash ANTIHISTAMINES - ALKYLAMINE 04/18/2020 14 - Other: See Comments ENTEX LA (PHENYLEPHRINE-GUAIFE PAULA*05/19/2005 IODINATED CONTRAST MEDIA 04/18/2020 7 - Swelling IODINE 05/19/2005 NORVASC (AMLODIPINE BESYLATE) 09/17/2008 Comments: lip swelling - gum bleeding Date Reviewed: 06/15/2024 Reviewed by: Warren Wesley LPN - Fully Assessed Reason for Visit: Results [95] Prescriptions as of 06/20/2024 - acyclovir (ZOVIRAX) 400 mg tablet Take 1 tablet by mouth three times a day for 5 days. - Benazepril-hydroCHLOR Othiazide (LOTENSIN HCT) 10-12.5 mg per tablet One half (1/2) tablet daily. - metoprolol tartrate, short acting, (LOPRESSOR) 25 mg tablet Take 0.5 tablets by mouth two times a day. - diclofenac (VOLTAREN) 1 % topical gel Apply to affected area as needed. - Ca/D3/mag ox/zinc/copy clerk/nell/bor (CALCIUM 600-D3 PLUS, MAG-ZINC, ORAL) Take 1 capsule by mouth three times daily. - cholecalciferol, vitamin D3, (VITAMIN D3 ORAL) Take 4,000 Units by mouth once daily. - cyanocobalamin (VITAMIN B-12) 1,000 mcg tab Take 2,000 mcg by mouth once daily. - omeprazole (PRILOSEC) 20 mg capsule Take 1 capsule by mouth once daily as needed. 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] 09/30/2009 04/26/2012 Vitamin D deficiency [E55.9] 12/18/2010 Enlarged thoracic aorta (HCC) [I77.89] 10/08/2011 Capsulitis [M77.9] 02/14/2012 12/14/2013 Dry eye syndrome [H04.129] 04/26/2012 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] 04/26/2012 Wheezing [R06.2] 09/06/2013 07/21/2015 GERD (gastroesophageal reflux disease) [K21.9] 12/14/2013 Occult GI bleeding [R19.5] 08/04/2015 11/15/2016 Multiple joint pain [M25.50] 03/03/2020 Palpitations [R00.2] 03/17/2020 Obesity, Class I, BMI 30-34.9 [E66.811] 06/22/2021 Acute deep vein thrombosis (DVT) of popliteal v*08/29/2021 01/04/2022 Encounter Status:Closed by TRINIDAD CORMIER on 06/20/24 [facility] 06-18-2024 [facility] Telephone (INTMWS) DOT MCGILL ([id number]) 1945 F Date Time Provider Department 06/18/24 KRISTIAN SOTO INTMWS During your visit today, we recorded the following information about you: Stephanie Baeza RN 06/18/2024 8:39 AM Signed Pt called in and reports she saw Soto on 06/15/24. She states last night se was running a temp of 101.4 she took an Aleve and this morning it was 100.3. The Pt states she is so congested she was up 4 hours through the night and she isn't able to lay down in be, she has to be propped up. She said she is blowing out yellow mucus through her nose, and she has it in her throat but isn't able to cough it up. She reports SOB at night when trying to lay down because of all the mucus. Pt reports pressure to her ear, jaw, and molars. She reports with all this mucus it usually sprague her skin and gives her cold sore and the provider will normally call her in Acyclovir for that. Pt is asking if the provider will call her in something to help all the mucus and pressure as well. Please call into [facility] and call Pt back. Kristian Soto MD 06/18/2024 9:44 AM Signed ASSESSMENT/PLAN: 1. Viral URI with cough - ICD9: 465.9, ICD10: J06.9 (primary diagnosis) Please have her do chest xray. Take Mucinex over the counter for mucus. - XR CHEST 2V FRONTAL/LAT 2. Herpes simplex labialis - ICD9: 054.9, ICD10: B00.1 - ACYCLOVIR 400 MG TABLET MD Felisha Downey Amanda, RN 06/18/2024 10:14 AM Signed Pt called and is notified of providers results and instructions. Pt voices understanding. She will come in today to get chest x-ray. Stephanie Baeza RN Allergies As of Date: 06/18/2024 Noted Allergy Reaction INFLUENZA VIRUS VACCINES 07/07/2009 14 - Other: See Comments Comments: Dizziness ADHESIVE TAPE (ROSINS) 03/12/2014 2 - Rash ANTIHISTAMINES - ALKYLAMINE 04/18/2020 14 - Other: See Comments ENTEX LA (PHENYLEPHRINE-GUAIFE PAULA*05/19/2005 IODINATED CONTRAST MEDIA 04/18/2020 7 - Swelling IODINE 05/19/2005 NORVASC (AMLODIPINE BESYLATE) 09/17/2008 Comments: lip swelling - gum bleeding Date Reviewed: 06/15/2024 Reviewed by: Warren Wesley LPN - Fully Assessed Reason for Visit: Patient Update [1234] Medacation request [Other] Primary Visit Diagnosis:Viral URI with cough [J06.9] Other Visit Diagnosis: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] Order(s):acyclovir (ZOVIRAX) 400 mg tabletTake 1 tablet by mouth three times a day for 5 days.Disp: 15 tabletRfl: 0 XR CHEST 2V FRONTAL/LAT [[id number]] Order #: [id number] FUTURE Prescriptions as of 06/18/2024 - acyclovir (ZOVIRAX) 400 mg tablet Take 1 tablet by mouth three times a day for 5 days. - Benazepril-hydroCHLOR Othiazide (LOTENSIN HCT) 10-12.5 mg per tablet One half (1/2) tablet daily. - metoprolol tartrate, short acting, (LOPRESSOR) 25 mg tablet Take 0.5 tablets by mouth two times a day. - diclofenac (VOLTAREN) 1 % topical gel Apply to affected area as needed. - Ca/D3/mag ox/zinc/copy clerk/nell/bor (CALCIUM 600-D3 PLUS, MAG-ZINC, ORAL) Take 1 capsule by mouth three times daily. - cholecalciferol, vitamin D3, (VITAMIN D3 ORAL) Take 4,000 Units by mouth once daily. - cyanocobalamin (VITAMIN B-12) 1,000 mcg tab Take 2,000 mcg by mouth once daily. - omeprazole (PRILOSEC) 20 mg capsule Take 1 capsule by mouth once daily as needed. 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] 09/30/2009 04/26/2012 Vitamin D deficiency [E55.9] 12/18/2010 Enlarged thoracic aorta (HCC) [I77.89] 10/08/2011 Capsulitis [M77.9] 02/14/2012 12/14/2013 Dry eye syndrome [H04.129] 04/26/2012 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] 04/26/2012 Wheezing [R06.2] 09/06/2013 07/21/2015 GERD (gastroesophageal reflux disease) [K21.9] 12/14/2013 Occult GI bleeding [R19.5] 08/04/2015 11/15/2016 Multiple joint pain [M25.50] 03/03/2020 Palpitations [R00.2] 03/17/2020 Obesity, Class I, BMI 30-34.9 [E66.811] 06/22/2021 Acute deep vein thrombosis (DVT) of popliteal v*08/29/2021 01/04/2022 Prescriptions ordered this encounter Disp Refills Start End ACYCLOVIR 400 MG TABLET 15 t* 0 06/18/2024 06/23/2024 Route: ORAL Sig: Take 1 tablet by mouth three times a day for 5 days. Medications Discontinued During This Encounter Prescriptions - acyclovir (ZOVIRAX) 400 mg tablet (Discontinued) Take 1 tablet by mouth three times daily for 5 days. Encounter Status:Closed by STEPHANIE BAEZA on 06/18/24 [facility] XR CHEST 2V FRONTAL/LATon XR CHEST 2V FRONTAL/LAT * * *Final Repor t* * * DATE OF EXAM: Jun 18 2024 11:42AM WOX [id number] - XR CHEST 2V FRONTAL/LAT / PROCEDURE REASON: Viral URI with cough * * * * Physician Interpretation * * * * EXAMINATION: CHEST RADIOGRAPH (2 VIEW FRONTAL and LATERAL) CLINICAL HISTORY: Viral URI with cough MQ: [id number] EXAM DATE/TIME: 06/18/2024 11:42 AM COMPARISON: 11/18/2021 RESULT: Lines, tubes, and devices: None. Lungs and pleura: No consolidation. No lung mass. No pleural effusion. No pneumothorax. Cardiomediastinal silhouette: Normal cardiomediastinal silhouette. Bones and soft tissues: Partially visualized right shoulder prosthesis. IMPRESSION: No acute radiographic abnormality. Motion Designer: ALEJANDRO Transcribe Date/Time: Jun 19 2024 10:01A Dictated by : IRENE GRIGGS MD This examination was interpreted and the report reviewed and electronically signed by: IRENE GRIGGS MD on Jun 19 2024 10:01AM EST [id number] N Normal [facility] CNOVon 06-15-2024 CNOV Office Visit (INTMWS ) DOT MCGILL ([id number]) 1945 F Date Time Provider Department 06/15/24 9:20 AM KRISTIAN SOTO INTMWS During your visit today, we recorded the following information about you: Temperature Pulse Blood pressure Weight 98.8 degrees 59/minute 129/84 79.3 kg Height 1.626 m Kristian Soto MD 06/15/2024 10:06 AM Signed This note was created using [employer]. Subjective Dot Mcgill is a 79 year old female who presents with complaint of sore throat mild, nasal congestion, post nasal drip, and cough- dry for a week. Associated symptoms include cold sore that resolved. She denies fever, ear pain, dyspnea, wheezing, nausea, vomiting, diarrhea, and myalgias. Treatments tried include cough drops with partial relief of symptoms. Home Covid test today was negative. Her joint pains have resolved with physical therapy, exercises, and conditioning. Review of Systems Per HPI. 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 Allergic Rhinitis, Cause Unspecified Hyperlipemia Vitamin D Deficiency Enlarged thoracic aorta (HCC) Dry Eye Syndrome Herpes Simplex Labialis Gerd (Gastroesophageal Reflux Disease) Multiple Joint Pain Palpitations Obesity, Class I, Bmi 30-34.9 Current Outpatient Medications Medication Sig Benazepril-hydroCHLOR Othiazide (LOTENSIN HCT) 10-12.5 mg per tablet One half (1/2) tablet daily. metoprolol tartrate, short acting, (LOPRESSOR) 25 mg tablet Take 0.5 tablets by mouth two times a day. diclofenac (VOLTAREN) 1 % topical gel Apply to affected area as needed. Ca/D3/mag ox/zinc/copy clerk/nell/bor (CALCIUM 600-D3 PLUS, MAG-ZINC, ORAL) Take 1 capsule by mouth three times daily. cholecalciferol, vitamin D3, (VITAMIN D3 ORAL) Take 4,000 Units by mouth once daily. cyanocobalamin (VITAMIN B-12) 1,000 mcg tab Take 2,000 mcg by mouth once daily. omeprazole (PRILOSEC) 20 mg capsule Take 1 capsule by mouth once daily as needed. No current facility-administered medications for this visit. Objective BP 129/84 (BP Site: Left Arm) Pulse (!) 59 Temp 37.1 ?C (98.8 ?F) Ht 162.6 cm (5' 4) Wt 79.3 kg (174 lb 13.2 oz) SpO2 98% BMI 30.01 kg/m? Physical Exam Constitutional: General: She is not in acute distress. Appearance: She is not ill-appearing. HENT: Right Ear: Tympanic membrane normal. Left Ear: Tympanic membrane normal. Nose: Right Turbinates: Pale. Left Turbinates: Pale. Right Sinus: No maxillary sinus tenderness or frontal sinus tenderness. Left Sinus: No maxillary sinus tenderness or frontal sinus tenderness. Mouth/Throat: Mouth: Mucous membranes are moist. No oral lesions. Pharynx: Posterior oropharyngeal erythema present. No oropharyngeal exudate or uvula swelling. Cardiovascular: Heart sounds: Normal heart sounds. Pulmonary: Breath sounds: Normal breath sounds. No wheezing or rales. Abdominal: Tenderness: There is no abdominal tenderness. Lymphadenopathy: Cervical: No cervical adenopathy. Neurological: Mental Status: She is alert. Assessment and Plan 1. Sore throat - ICD9: 462, ICD10: J02.9 - suspect viral - Discussed supportive care treatment with fluids, rest and analgesia. - STREP A MOLECULAR (POC) MD Charles Downey Victor H, MD 06/15/2024 10:06 AM Signed You have a viral illness for which antibiotics are not recommended. Viral illnesses, like a cold, are expected to resolve on their own. You need rest, fluids, and over the counter medications for symptoms. Call us if symptoms worsen, persist, or if you have new symptoms. Allergies As of Date: 06/15/2024 Noted Allergy Reaction INFLUENZA VIRUS VACCINES 07/07/2009 14 - Other: See Comments Comments: Dizziness ADHESIVE TAPE (ROSINS) 03/12/2014 2 - Rash ANTIHISTAMINES - ALKYLAMINE 04/18/2020 14 - Other: See Comments ENTEX LA (PHENYLEPHRINE-GUAIFE PAULA*05/19/2005 IODINATED CONTRAST MEDIA 04/18/2020 7 - Swelling IODINE 05/19/2005 NORVASC (AMLODIPINE BESYLATE) 09/17/2008 Comments: lip swelling - gum bleeding Date Reviewed: 06/15/2024 Reviewed by: Warren Wesley LPN - Fully Assessed Reason for Visit: URI [115] Cmt: Covid was negative Primary Visit Diagnosis:Sore throat [J02.9] Order(s):STREP A MOLECULAR (POC) [[id number]] Order #: [id number]. #:[id number] Prescriptions as of 06/15/2024 - Benazepril-hydroCHLOR Othiazide (LOTENSIN HCT) 10-12.5 mg per tablet One half (1/2) tablet daily. - metoprolol tartrate, short acting, (LOPRESSOR) 25 mg tablet Take 0.5 tablets by mouth two times a day. - diclofenac (VOLTAREN) 1 % topical gel Apply to affected area as needed. - Ca/D3/mag ox/zinc/copy clerk/nell/bor (CALCIUM 600-D3 PLUS, MAG-ZINC, ORAL) Take 1 capsule by mouth three times daily. - cholecalciferol, vitamin D3, (VITAMIN D3 ORAL) Take 4,000 Units by mouth once daily (more content not included)... Normal [facility] 06-15-2024 [facility] Telephone (INTMWS) KEVENDOT ([id number]) 1945 F Date Time Provider Department 06/15/24 KRISTIAN SOTO During your visit today, we recorded the following information about you: Lottie Davis RN 06/15/2024 8:23 AM Signed Patient calling in to request appointment for today for evaluation of upper respiratory symptoms. Report low grade temperature off and on for approximately 2 weeks. Started to feel more ill last night and discomfort in left chest when coughs.. Sore throat, chills, nasal congestion, occasional left ear discomfort, cough, and fatigue. Denies chest pain, SOB, weakness or lightheadedness. Reports negative covid home test this morning. Pt requested to see Dr. Soto. Appt made for this morning. Lottie Davis RN Allergies As of Date: 06/15/2024 Noted Allergy Reaction INFLUENZA VIRUS VACCINES 07/07/2009 14 - Other: See Comments Comments: Dizziness ADHESIVE TAPE (ROSINS) 03/12/2014 2 - Rash ANTIHISTAMINES - ALKYLAMINE 04/18/2020 14 - Other: See Comments ENTEX LA (PHENYLEPHRINE-GUAIFE PAULA*05/19/2005 IODINATED CONTRAST MEDIA 04/18/2020 7 - Swelling IODINE 05/19/2005 NORVASC (AMLODIPINE BESYLATE) 09/17/2008 Comments: lip swelling - gum bleeding Date Reviewed: 02/19/2024 Reviewed by: David Tran RN - Fully Assessed Reason for Visit: Patient Update [1234] Prescriptions as of 06/15/2024 - Benazepril-hydroCHLOR Othiazide (LOTENSIN HCT) 10-12.5 mg per tablet One half (1/2) tablet daily. - metoprolol tartrate, short acting, (LOPRESSOR) 25 mg tablet Take 0.5 tablets by mouth two times a day. - diclofenac (VOLTAREN) 1 % topical gel Apply to affected area as needed. - Ca/D3/mag ox/zinc/copy clerk/nell/bor (CALCIUM 600-D3 PLUS, MAG-ZINC, ORAL) Take 1 capsule by mouth three times daily. - cholecalciferol, vitamin D3, (VITAMIN D3 ORAL) Take 4,000 Units by mouth once daily. - cyanocobalamin (VITAMIN B-12) 1,000 mcg tab Take 2,000 mcg by mouth once daily. - omeprazole (PRILOSEC) 20 mg capsule Take 1 capsule by mouth once daily as needed. 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] 09/30/2009 04/26/2012 Vitamin D deficiency [E55.9] 12/18/2010 Enlarged thoracic aorta (HCC) [I77.89] 10/08/2011 Capsulitis [M77.9] 02/14/2012 12/14/2013 Dry eye syndrome [H04.129] 04/26/2012 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] 04/26/2012 Wheezing [R06.2] 09/06/2013 07/21/2015 GERD (gastroesophageal reflux disease) [K21.9] 12/14/2013 Occult GI bleeding [R19.5] 08/04/2015 11/15/2016 Multiple joint pain [M25.50] 03/03/2020 Palpitations [R00.2] 03/17/2020 Obesity, Class I, BMI 30-34.9 [E66.811] 06/22/2021 Acute deep vein thrombosis (DVT) of popliteal v*08/29/2021 01/04/2022 Encounter Status:Closed by LOTTIE DAVIS on 06/15/[address] [facility] Michael STREP A MOLECULAR (POC)on Procedural Control Valid [facility] Strep A (POCT) Negative Negative [facility] Basic metabolic 2000 panelon 06-14-2024 Anion gap [Moles/Vol] 11 mmol/L Normal 8-15 [facility] Comment on above: Order Comment: Speci men Type: BLOOD SPECIMENOrdering Facility: [facility] Address: [address] [place] [address] Performed By: #### 2 4321-2 ####[facility] LABCLIA [id number] [place] [address] [place] Calcium [Mass/Vol] 9.8 mg/dL Normal 8.5-10.2 [facility] Comment on above: Order Comment: Speci men Type: BLOOD SPECIMENOrdering Facility: [facility] Address: [address] [place] [address] Performed By: #### 2 4321-2 ####[facility] LABCLIA [id number] [place] [address] [place] Chloride [Moles/Vol] 104 mmol/L Normal 98-107 [facility] Comment on above: Order Comment: Speci men Type: BLOOD SPECIMENOrdering Facility: [facility] Address: [address] [place] [address] Performed By: #### 2 4321-2 ####[facility] LABCLIA [id number] [place] [address] [place] CO2 [Moles/Vol] 26 mmol/L Normal 22-[address] [facility] Comment on above: Order Comment: Speci men Type: BLOOD SPECIMENOrdering Facility: [facility] Address: [address] [place], [place] [address] Performed By: #### 2 4321-2 ####[facility] LABCLIA [id number] [place] [id number] [place] Creatinine [Mass/Vol] 0.78 mg/dL Normal 0.58-0.96 [facility] Comment on above: Order Comment: Speci men Type: BLOOD SPECIMENOrdering Facility: [facility] Address: [address] [place] [address] Performed By: #### 2 4321-2 ####[facility] LABIA [id number] [place] [address] [place] Creatinine and Glomerular filtration rate.predicted panel (S/P/Bld) 78 mL/min/1.73m??? Normal >=[address] [facility] Comment on above: Order Comment: Leslye dasilva Type: BLOOD SPECIMENOrdering Facility: [facility] Address: [address] [place] [address] Result Comment: Mavis mated Glomerular Filtration Rate (eGFR) is calculated using the 2020 CKD-EPI creatinine equation. This equation utilizes serum creatinine, sex, and age as parameters. The creatinine assay has traceable calibration to isotope dilution-mass spectrometry. Refer to KDIGO guidelines for clinical interpretation. In patients with unstable renal function, e.g. those with acute kidney injury, the eGFR may not accurately reflect actual GFR. Performed By: #### 2 4321-2 ####[facility] LABIA [id number] [place] [address] [place] Glucose [Mass/Vol] 79 mg/dL Normal 74-99 [facility] Comment on above: Order Comment: Leslye brown Type: BLOOD SPECIMENOrdering Facility: [facility] Address: [address] [place] [address] Result Comment: The [place] Diabetes Association (ADA) provides guidance for cutoff values for fasting glucose and random glucose. The ADA defines fasting as no caloric intake for at least 8 hours. Fasting plasma glucose results between 100 to 125 mg/dL indicate increased risk for diabetes (prediabetes). Fasting plasma glucose results greater than or equal to 126 mg/dL meet the criteria for diagnosis of diabetes. In the absence of unequivocal hyperglycemia, results should be confirmed by repeat testing. In a patient with classic symptoms of hyperglycemia or hyperglycemic crisis, random plasma glucose results greater than or equal to 200 mg/dL meet the criteria for diagnosis of diabetes. Reference: Standards of Medical Care in Diabetes 2016, [place] [employer]. Diabetes Care. 2016.39(Suppl 1). Performed By: #### 2 4321-2 ####[facility] LABCLIA [id number] [place] [address] [place] Potassium [Moles/Vol] 4.3 mmol/L Normal 3.7-5.1 [facility] Comment on above: Order Comment: Speci men Type: BLOOD SPECIMENOrdering Facility: [facility] Address: [address] [place] [address] Performed By: #### 2 4321-2 ####[facility] LABCLIA [id number] [place] [address] [place] Sodium [Moles/Vol] 141 mmol/L Normal 136-144 [facility] Comment on above: Order Comment: Speci men Type: BLOOD SPECIMENOrdering Facility: [facility] Address: [address] [place] [address] Performed By: #### 2 4321-2 ####[facility] LABCLIA [id number] [place] [address] [place] Urea nitrogen [Mass/Vol] 13 mg/dL Normal 7-[address] [facility] Comment on above: Order Comment: Speci men Type: BLOOD SPECIMENOrdering Facility: [facility] Address: [address] [place] [address] Performed By: #### 2 4321-2 ####[facility] LABCLIA [id number] [place] [address] [place] CBC panel Auto (Bld)on 06-14 Erythrocyte distribution width (RBC) [Ratio] 14.1 % Normal 11.5-15.[address] [facility] Comment on above: Order Comment: Speci men Type: BLOOD SPECIMENOrdering Facility: [facility] Address: [address] [place] [address] Performed By: #### 5 8410-2 ####[facility] LABCLIA [id number] [address] [place] [address] [place] Hematocrit (Bld) [Volume fraction] 40.0 % Normal 36.0-46.[address] [facility] Comment on above: Order Comment: Speci men Type: BLOOD SPECIMENOrdering Facility: [facility] Address: [address] [place] [address] Performed By: #### 5 8410-2 ####[facility] LABCLIA [id number] [place] [address] [place] Hemoglobin (Bld) [Mass/Vol] 12.5 g/dL Normal 11.5-15.[address] [facility] Comment on above: Order Comment: Speci men Type: BLOOD SPECIMENOrdering Facility: [facility] Address: [address] [place] [address] Performed By: #### 5 8410-2 ####[facility] LABCLIA [id number] [place] [address] [place] MCH (RBC) [Entitic mass] 27.1 pg Normal 26.0-34.[address] [facility] Comment on above: Order Comment: Speci men Type: BLOOD SPECIMENOrdering Facility: [facility] Address: [address] [place] [address] Performed By: #### 5 8410-2 ####[facility] LABCLIA [id number] [place] [address] [place] MCHC (RBC) [Mass/Vol] 31.3 g/dL Normal 30.5-36.0 [facility] Comment on above: Order Comment: Speci men Type: BLOOD SPECIMENOrdering Facility: [facility] Address: [address] [place] [address] Performed By: #### 5 8410-2 ####[facility] LABCLIA [id number] [place] [address] [place] MCV (RBC) [Entitic vol] 86.6 fL Normal 80.0-100.[address] [facility] Comment on above: Order Comment: Speci men Type: BLOOD SPECIMENOrdering Facility: [facility] Address: [address] [place] [address] Performed By: #### 5 8410-2 ####[facility] LABIA [id number] [place] [address] [place] Nucleated RBC (Bld) [#/Vol] 10*3/uL Normal <0.[address] [facility] Comment on above: Order Comment: Speci men Type: BLOOD SPECIMENOrdering Facility: [facility] Address: [address] [place] [address] Performed By: #### 5 8410-2 ####[facility] LABIA [id number] [place] [address] [place] Platelet mean volume (Bld) [Entitic vol] 8.9 fL Low 9.0-12.[address] [facility] Comment on above: Order Comment: Speci men Type: BLOOD SPECIMENOrdering Facility: [facility] Address: [address] [place] [address] Performed By: #### 5 8410-2 ####[facility] LABIA [id number] [place] [address] [place] Platelets (Bld) [#/Vol] 344 10*3/uL Normal 150-[address] [facility] Comment on above: Order Comment: Speci men Type: BLOOD SPECIMENOrdering Facility: [facility] Address: [address] [place] [address] Performed By: #### 5 8410-2 ####[facility] LABIA [id number] [place] [address] [place] RBC (Bld) [#/Vol] 4.62 10*6/uL Normal 3.90-5.20 [facility] Comment on above: Order Comment: Speci men Type: BLOOD SPECIMENOrdering Facility: [facility] Address: [address] [place] [address] Performed By: #### 5 8410-2 ####[facility] LABCLIA [id number] [place] [id number] [place] WBC (Bld) [#/Vol] 6.71 10*3/uL Normal 3.70-11.00 [facility] Comment on above: Order Comment: Speci men Type: BLOOD SPECIMENOrdering Facility: [facility] Address: [facility] [place] [address] Performed By: #### 5 8410-2 ####[facility] LABCLIA [id number] [place] [id number] [place] Re-Evaluation - PT (1)on Re-Evaluation - PT (1) [facility] [address] [place] [address]. [address] [place] [address] / REEVALUATION / MEDICARE RECERTIFICATION PHYSICAL THERAPY MR#: [id number] Acct: [id number] Name: DOT MCGILL Rep #: [id number] : 1945 78 From: Ray Cervantes PT, Cert. T, [facility] Referring Dr.: Dr. Kristian Soto MD Status:REG RC R Insurance: MEDICARE PART A B [employer] Re-Evaluation Intro: Dr. Kristian Soto MD, It has been my pleasure to treat DOT MCGILL over the last 22 visits for OSTEOPOROSIS ,UNSPECIFIED TYPE PATHOLGICAL FRACTURE PRESNENCE. Please see the progress note below for an update on the physical therapy plan of care! Subjective Subjective: Feeling stronger ,more energy for housework Carry heavier stuff up the steps Objective Objective/Function: * Patient will benefit from skilled PT to focus on WB and strengthening to prevent osteoporosis thus goals addressed and updated* POSTURE: mild forward posture rounded shoulders head forward GAIT: mild forward reciprocal pattern NEURO: denies paresthesia/tingling ,reflexes L3-4,L4-5,L5-S1 1/3 PALPATION: mild tender LS/S1 PROM HIP: WFL -IR 45DEGREES MMT: BUE 4/5 shoulders except shoulders 4-/5 quads/hamstrings/ankl e 4/5 , ( peak force) hip abduction right 24.1 ,left 30.2 ,right hip flexion 38.2 right ,left 35..8 LUMBAR ROM: FLEXION WFL ,extension min/mod ,side glides mod loss THORACIC ROM: flexion mod loss ,extension mod ,rotation WFL loss FLEXABILITY: hamstrings min tight Plan Plan Plan: PT INTERVENTIONS DLS ,POSTURAL EX'S HIP STRENGTHENING ,WB ACTIVITIES ( FUNCTIONAL STRENGTHENING),WN OSTEOPOROSIS EX'S Balance/Gait/Function al tests Balance/Special Test Scores Oswestry Low Back Score: 6 Goals Goals Goal 1:: Patient to be I with HEP for spine WB activities ( Osteoporosis Program) Goal Time Frame: 4-6 Weeks Goal Progress: Progressing Goal 2:: Patient to demonstrate 75% improvement with improved function no symptoms with activity Goal Time Frame: 4-6 Weeks Goal Progress: Progressing Goal 3:: Patient to improve peak force hips flexion/abduction by 10-15# to improve function( new updated goal) Goal Time Frame: 4-6 Weeks Goal Progress: Progressing Goal 4:: Patient to improve back oswestry score by 5 points to improve QOL and function. Goal Time Frame: 4-6 Weeks Goal Progress: Progressing Goal Progress: Progressing Anticipated Interventions Anticipated Interventions Patient/Client Instruction: Educate patient on: Condition and Plan of Care For the Purpose of:: To decrease pain, To increase ROM, To improve muscle performance and motor function, To improve ability to perform ADL's, To increase tolerance to activity/condition/po sition, To improve ability of physical actions for home/community/work/l eisure, To improve health of tissue, To decrease soft tissue restriction and To reduce risk of recurrence Therapeutic Exercise to Include: Strength training, Postural training and Dynamic Lumbar Stabilization Comment: HIP STRENGTHENING WB ACTIVITIES ( OSTEOPROSIS) For the Purpose of:: To decrease pain, To increase ROM, To improve muscle performance and motor function, To improve ability to perform ADL's, To increase tolerance to activity/condition/po sition, To improve ability of physical actions for home/community/work/l eisure, To improve health of tissue, To decrease soft tissue restriction, To improve endurance, To improve balance and To prevent re- injury Re-Evaluation Ending Re-evaluation ending: Please do not hesitate to contact me at [phone] by phone or if you have questions or concerns regarding this new plan of care! Sincerely, Ray Cervantes, PT, Cert MDT, OCS 05/25/24 1301 CC: Dr. Kristian Soto MD RAUL Signed For Medicare only, by signing this I certify the plan of care. Physicians Signature Date Normal [facility] CNNURSEon 05-10-2024 CNNURSE Nurse Visit (FAMPWS) DOT MCGILL ([id number]) 1945 F Date Time Provider Department 05/10/24 9:15 AM [place] [facility] During your visit today, we recorded the following information about you: Kayleigh Mcgill LPN 05/10/2024 9:20 AM Signed Patient presents for COVID vaccine. Denies any problems at this time. Tolerated injection well. Kayleigh Mcgill LPN Allergies As of Date: 05/10/2024 Noted Allergy Reaction INFLUENZA VIRUS VACCINES 07/07/2009 14 - Other: See Comments Comments: Dizziness ADHESIVE TAPE (ROSINS) 03/12/2014 2 - Rash ANTIHISTAMINES - ALKYLAMINE 04/18/2020 14 - Other: See Comments ENTEX LA (PHENYLEPHRINE-GUAIFE PAULA*05/19/2005 IODINATED CONTRAST MEDIA 04/18/2020 7 - Swelling IODINE 05/19/2005 NORVASC (AMLODIPINE BESYLATE) 09/17/2008 Comments: lip swelling - gum bleeding Date Reviewed: 02/19/2024 Reviewed by: David Tran RN - Fully Assessed Reason for Visit: Imm/Inj [58] Primary Visit Diagnosis:Encounter for immunization [Z23] Order(s):[facility] COVID-19 VACCINE AGE 12+ YR (ZACK) [29261QNL] Order #: [id number] Prescriptions as of 05/10/2024 - Benazepril-hydroCHLOR Othiazide (LOTENSIN HCT) 10-12.5 mg per tablet One half (1/2) tablet daily. - metoprolol tartrate, short acting, (LOPRESSOR) 25 mg tablet Take 0.5 tablets by mouth two times a day. - diclofenac (VOLTAREN) 1 % topical gel Apply to affected area as needed. - Ca/D3/mag ox/zinc/copy clerk/nell/bor (CALCIUM 600-D3 PLUS, MAG-ZINC, ORAL) Take 1 capsule by mouth three times daily. - cholecalciferol, vitamin D3, (VITAMIN D3 ORAL) Take 4,000 Units by mouth once daily. - cyanocobalamin (VITAMIN B-12) 1,000 mcg tab Take 2,000 mcg by mouth once daily. - omeprazole (PRILOSEC) 20 mg capsule Take 1 capsule by mouth once daily as needed. 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] 09/30/2009 04/26/2012 Vitamin D deficiency [E55.9] 12/18/2010 Enlarged thoracic aorta (HCC) [I77.89] 10/08/2011 Capsulitis [M77.9] 02/14/2012 12/14/2013 Dry eye syndrome [H04.129] 04/26/2012 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 Re-Evaluation - PT (1)on Re-Evaluation - PT (1) [facility] [address] [place] [address] / REEVALUATION / MEDICARE RECERTIFICATION PHYSICAL THERAPY MR#: [id number] Acct: [id number] Name: DOT MCGILL Rep #: [id number] : 1945 78 From: Ray Cervantes PT, Cert. T, OCS Referring Dr.: Dr. Kristian Soto MD Status:REG RC R Insurance: MEDICARE PART A B [employer] Re-Evaluation Intro: Dr. Kristian Soto MD, It has been my pleasure to treat DOT MCGILL over the last 16 visits for OSTEOPOROSIS ,UNSPECIFIED TYPE PATHOLGICAL FRACTURE PRESNENCE. Please see the progress note below for an update on the physical therapy plan of care! Subjective Subjective: doing okay just soreness in back Did a lot of cleaning Patient able to do more things at home Objective Objective/Function: * Patient will benefit from skilled PT to focus on WB and strengthening to prevent osteoporosis thus goals addressed and updated* POSTURE: mild forward posture rounded shoulders head forward GAIT: mild forward reciprocal pattern NEURO: denies paresthesia/tingling ,reflexes L3-4,L4-5,L5-S1 1/3 PALPATION: mild tender LS/S1 PROM HIP: WFL -IR 45DEGREES MMT: BUE 4/5 shoulders except shoulders 4-/5 quads/hamstrings/ankl e 4/5 , ( peak force) hip abduction right 26.1 ,left 31.2 ,right hip flexion 43.2 right ,left38..8 LUMBAR ROM: FLEXION WFL ,extension min/mod ,side glides mod loss THORACIC ROM: flexion mod loss ,extension mod ,rotation WFL loss FLEXABILITY: hamstrings min tight Plan Plan Plan: PT INTERVENTIONS DLS ,POSTURAL EX'S HIP STRENGTHENING ,WB ACTIVITIES ( FUNCTIONAL STRENGTHENING) Balance/Gait/Function al tests Balance/Special Test Scores Oswestry Low Back Score: 9 Goals Goals Goal 1:: Patient to be I with HEP for spine WB activities ( Osteoporosis Program) Goal Time Frame: 4-6 Weeks Goal Progress: Progressing Goal 2:: Patient to demonstrate 75% improvement with improved function no symptoms with activity Goal Time Frame: 4-6 Weeks Goal Progress: Progressing Goal 3:: Patient to improve peak force hips flexion/abduction by 10-15# to improve function( new updated goal) Goal Time Frame: 4-6 Weeks Goal Progress: Progressing Goal 4:: Patient to improve back oswestry score by 5 points to improve QOL and function. Goal Time Frame: 4-6 Weeks Goal Progress: Progressing Goal Progress: Progressing Anticipated Interventions Anticipated Interventions Patient/Client Instruction: Educate patient on: Condition and Plan of Care For the Purpose of:: To decrease pain, To increase ROM, To improve muscle performance and motor function, To improve ability to perform ADL's, To increase tolerance to activity/condition/po sition, To improve ability of physical actions for home/community/work/l eisure, To improve health of tissue, To decrease soft tissue restriction and To reduce risk of recurrence Therapeutic Exercise to Include: Strength training, Postural training and Dynamic Lumbar Stabilization Comment: HIP STRENGTHENING WB ACTIVITIES ( OSTEOPROSIS) For the Purpose of:: To decrease pain, To increase ROM, To improve muscle performance and motor function, To improve ability to perform ADL's, To increase tolerance to activity/condition/po sition, To improve ability of physical actions for home/community/work/l eisure, To improve health of tissue, To decrease soft tissue restriction, To improve endurance, To improve balance and To prevent re- injury Re-Evaluation Ending Re-evaluation ending: Please do not hesitate to contact me at [phone] by phone or if you have questions or concerns regarding this new plan of care! Sincerely, Ray Cervantes PT, Cert T, OCS 04/27/24 0823 CC: Dr. Kristian Soto MD RAUL Signed For Medicare only, by signing this I certify the plan of care. Physicians Signature Date Normal [facility] Re-Evaluation - PT (1)on Re-Evaluation - PT (1) [facility] [place] [address] / REEVALUATION / MEDICARE RECERTIFICATION PHYSICAL THERAPY MR#: [id number] Acct: [id number] Name: DOT MCGILL Rep #: [id number] : 1945 78 From: Ray Cervantes PT, Cert. T, OCS Referring Dr.: Dr. Kristian Soto MD Status:REG RC R Insurance: MEDICARE PART A B [employer] Re-Evaluation Intro: Dr. Kristian Soto MD, It has been my pleasure to treat DOT MCGILL over the last 10 visits for OSTEOPOROSIS ,UNSPECIFIED TYPE PATHOLGICAL FRACTURE PRESNENCE. Please see the progress note below for an update on the physical therapy plan of care! Subjective Subjective: Doing good Objective Objective/Function: POSTURE: mild forward posture rounded shoulders head forward GAIT: mild forward reciprocal pattern NEURO: denies paresthesia/tingling ,reflexes L3-4,L4-5,L5-S1 1/3 PALPATION: mild tender LS/S1 PROM HIP: WFL -IR 40 DEGREES MMT: BUE 4/5 shoulders except shoulders 4-/5 quads/hamstrings/ankl e 4/5 , ( peak force) hip abduction right 17.3 ,left 24.2 ,right hip flexion 23.2 right ,left 23.8 LUMBAR ROM: FLEXION WFL ,extension min/mod ,side glides mod loss THORACIC ROM: flexion mod loss ,extension mod ,rotation WFL loss FLEXABILITY: hamstrings min tight Plan Plan Plan: PT INTERVENTIONS DLS ,POSTURAL EX'S HIP STRENGTHENING ,WB ACTIVITIES ( FUNCTIONAL STRENGTHENING) Balance/Gait/Function al tests Balance/Special Test Scores Oswestry Low Back Score: 10 Goals Goals Goal 1:: Patient to be I with HEP for spine WB activities ( Osteoporosis Program) Goal Time Frame: 4-6 Weeks Goal Progress: Progressing Goal 2:: Patient to demonstrate 75% improvement with improved function no symptoms with activity Goal Time Frame: 4-6 Weeks Goal Progress: Progressing Goal 3:: Patient to improve peak force hips flexion/abduction by 10-15# to improve function Goal Time Frame: 4-6 Weeks Goal Progress: Progressing Goal 4:: Patient to improve back oswestry score by 5 points to improve QOL and function. Goal Time Frame: 4-6 Weeks Goal Progress: Progressing Goal Progress: Progressing Anticipated Interventions Anticipated Interventions Patient/Client Instruction: Educate patient on: Condition and Plan of Care For the Purpose of:: To decrease pain, To increase ROM, To improve muscle performance and motor function, To improve ability to perform ADL's, To increase tolerance to activity/condition/po sition, To improve ability of physical actions for home/community/work/l eisure, To improve health of tissue, To decrease soft tissue restriction and To reduce risk of recurrence Therapeutic Exercise to Include: Strength training, Postural training and Dynamic Lumbar Stabilization Comment: HIP STRENGTHENING WB ACTIVITIES ( OSTEOPROSIS) For the Purpose of:: To decrease pain, To increase ROM, To improve muscle performance and motor function, To improve ability to perform ADL's, To increase tolerance to activity/condition/po sition, To improve ability of physical actions for home/community/work/l eisure, To improve health of tissue, To decrease soft tissue restriction, To improve endurance, To improve balance and To prevent re- injury Re-Evaluation Ending Re-evaluation ending: Please do not hesitate to contact me at [phone] by phone or if you have questions or concerns regarding this new plan of care! Sincerely, Ray Cervantes, PT, Cert MDT, OCS 03/30/24 0904 CC: Dr. Kristian Soto MD RAUL Signed For Medicare only, by signing this I certify the plan of care. Physicians Signature Date Normal [facility] Inital Evaluation (1) - PTon 02-27-2024 Inital Evaluation (1) - PT [facility] Physical Therapy [facility] [address] [place] [address] / REHABILITATION SERVICES INITIAL EVALUATION MR#: [id number] Acct: [id number] Name: DOT MCGILL Rep #: [id number] : 1945 78 From: Satish An PT. T, OCS Referring Dr.: Dr. Kristain Soto MD Status: REG RCR Insurance: MEDICARE PART A B [employer] Patient's Visit Information Visit Information Visit Information: DOT MCGILL is a 78 year old F referred to Physical Therapy by Dr. Kristian Soto MD with a diagnosis of OSTEOPOROSIS ,UNSPECIFIED TYPE PATHOLGICAL FRACTURE PRESNENCE. Date of Evaluation: 02/27/24 Physical Therapist: Ray Cervantes PT, Cert T, OCS Visit Plan Frequency: 2x /Week Duration: 4 Weeks Plan: PT INTERVENTIONS DLS ,POSTURAL EX'S HIP STRENGTHENING ,WB ACTIVITIES ( FUNCTIONAL STRENGTHENING) Subjective Subjective: This 78 y/o female presents to physical therapy with osteoporosis. Patient has had osteoporosis for many years . Recently ,had bone density test showed decline in bone density Aug 2023.No recent imaging. Dr wanted to do medication but patient declined but working. Patient wants to do therapy instead. Patient bone density test lower body showed worse in right hip and lumbar spine had small gains.Patient has been working out 1x week. Coughing/sneezing .Bowel/bladder- Denies paresthesia/tingling .Patient sleeping good. Patient has no abnormal night pain. Aggravating factors some ache twisting and excessive standing Patient condition affects QOL and function. Patient goals to decrease osteoporosis with exercises. SOCIAL: VOCATION: retired Pain Bilateral Back: Pain Intensity (Out of 10): 2 Pain Intensity Range: 10 Objective Objective: OSTURE: mild forward posture rounded shoulders head forward GAIT: mild forward reciprocal pattern NEURO: denies paresthesia/tingling ,reflexes L3-4,L4-5,L5-S1 1/3 PALPATION: mild tender LS/S1 PROM HIP: WFL -IR 40 DEGREES MMT: BUE 4/5 shoulders except shoulders 4-/5 quads/hamstrings/ankl e 4/5 , ( peak force) hip abduction right 13.1 ,left 14.2 ,right hip flexion 21.2 right ,left 23.8 LUMBAR ROM: min loss ,extension mod/severe loss ,side glides mod loss THORACIC ROM: flexion mod loss ,extension mod/severe loss ,rotation min/mod loss FLEXABILITY: hamstrings min tight Special Tests L/S Slump test left side: Negative L/S Slump test right side: Negative L/S Left Straight Leg Raise: Negative L/S Right Straight Leg Raise: Negative Balance/Special Test Scores Oswestry Low Back Score: 11 Goals Goal 1:: Patient to be I with HEP for spine WB activities ( Osteoporosis Program) Goal Time Frame: 4-6 Weeks Goal 2:: Patient to demonstrate 75% improvement with improved function no symptoms with activity Goal Time Frame: 4-6 Weeks Goal 3:: Patient to improve peak force hips flexion/abduction by 10-15# to improve function Goal Time Frame: 4-6 Weeks Goal 4:: Patient to improve back oswestry score by 5 points to improve QOL and function. Goal Time Frame: 4-6 Weeks Rehabilitation Potential Physical Therapy Diagnosis: This patient has osteoporosis with decrease Lumbar ROM and weakness in hips thus benefit from skilled PT Rehabilitation Potential: Good Anticipated Interventions Patient/Client Instruction: Educate patient on: Condition and Plan of Care For the Purpose of:: To decrease pain, To increase ROM, To improve muscle performance and motor function, To improve ability to perform ADL's, To increase tolerance to activity/condition/po sition, To improve ability of physical actions for home/community/work/l eisure, To improve health of tissue, To decrease soft tissue restriction and To reduce risk of recurrence Therapeutic Exercise to Include: Strength training, Postural training and Dynamic Lumbar Stabilization Comment: HIP STRENGTHENING WB ACTIVITIES ( OSTEOPROSIS) For the Purpose of:: To decrease pain, To increase ROM, To improve muscle performance and motor function, To improve ability to perform ADL's, To increase tolerance to activity/condition/po sition, To improve ability of physical actions for home/community/work/l eisure, To improve health of tissue, To decrease soft tissue restriction, To improve endurance, To improve balance and To prevent re- injury Text: Thank you for the opportunity to evaluate your patient. For Medicare and Medicare HMO plans, please review the plan of care and approve it. It will need to be FAXED BACK to us at [phone] for Medicare purposes. For Medicare only, by signing this I certify the plan of care. Please let me know if there are questions or concerns regarding this plan of care. Physician Signature: Date : 02/27/24 1222 CC: Dr. Kristian Soto MD DD: 02/26 (more content not included)... Normal [facility] Emergency Department Summary on 02-19-2024 Emergency Department Summary [facility] Medical Records Department [address] [place] [address] Emergency Department Summary 02/19/24 MR#: [id number] Acct: [id number] Name: DOT MCGILL Rep #: [id number] : 1945 78 From: Gerald Simental MD PCP: Dr. Kristian Soto MD Status:DEP ER Location: ED HPI History of Present Illness Chief Complaint: Eye Problem Detail of Chief Complaint: Left eyelid discomfort and swelling. Informant: spouse/S.O. Onset/Context/Timing Location: Left Eye Onset: Days Context: Gradual Onset Timing: Continuous Current Severity: Mild Maximum Severity: Mild Associated Symptoms Associated Symptoms - Eyes: Eyelid swelling; Negative for Burning, Crusting, Drainage, Foreign body sensation, Itching, Matting, Pain, Photophobia or Redness History of injury: No Visual correction: - (Bilateral lens implants.) Narrative Narrative: 78-year-old female with bilateral lens implants otherwise no significant past medical history of PVCs. Is developed a mild swelling to her left upper eyelid. Saw her primary care physician thought it was an early stye. It is not gotten better. Prior similar symptoms: No Recent Illness/Hospitalizati on: No PFSH PFSH Home Medications ???Medication ???Instructions ???Recorded ???Last Taken ???Type omeprazole 20 mg capsule,delayed 20 mg PO DAILY PRN acid reflux 05/11/16 05/11/16 History release metoprolol tartrate 25 mg tablet 12.5 mg PO BID 09/28/20 Unknown History benazepril 10 0.5 tab PO DAILY 01/15/24 Unknown History mg-hydrochlorothiazid e 12.5 mg tablet Allergy/AdvReac Type Severity Reaction Status Date / Time [id number] inhibitor Allergy Angioedema Verified 01/15/24 21:04 (Nmujh-9-[id number] Inhibitor) Antihistamines - Alkylamine Allergy Chest Verified 01/15/24 21:04 tightness iodine Allergy Shortness Verified 01/15/24 21:04 of breath adhesive tape AdvReac Rash Verified 01/15/24 21:04 Iodinated Contrast Media AdvReac Swelling Verified 01/15/24 21:04 (CONTRASTS) Social History Smoking Status: Never smoker ROS ROS ED ROS Narrative Denies recent illness. Review of Systems ROS Unobtainable: Denies due to encephalopathy Constitutional Constitutional ED: Denies chills or fever(s) Eyes Eyes: Denies blurry vision, change in vision or diplopia ENT ENT ED: Denies ear pain Cardiovascular Cardiovascular: Denies chest pain Respiratory/Chest Respiratory/Chest: Denies cough Gastrointestinal Gastrointestinal: Denies abdominal pain Genitourinary Genitourinary ED: Denies dysuria Musculoskeletal Musculoskeletal: Denies arthralgias Integumentary Denies abscess Neurologic Neurologic: Denies headache(s) Psychiatric Psychiatric: Denies anxiety Endocrine Endocrinology: Denies polydipsia Hematologic/Lymphatic Hematologic/Lymphatic : Denies easy bleeding Allergic/Immunologic Allergic/Immunologic ED: Denies mouth swelling, tongue swelling or urticaria EXAM Physical Exam Narrative Exam Narrative: This is-year-old female no acute distress vital signs stable afebrile. H EENT exam pupils round react light. Extra motions are intact. Left upper lid is swollen there is an early stye midportion of the left upper lid not on the border. Nothing to drain at this time. Pupils round reactive light. Extra motions are intact. She does have lens implants bilaterally. Her vision is unchanged. There is no preauricular lymphadenopathy. No orbital swelling or redness. Lungs clear. Heart regular rhythm. Otherwise exam unremarkable. Const Vital Signs: 02/19/24 09:07 Temperature 96.3 F L Temperature Source Temporal Pulse Rate 64 Respiratory Rate 14 Blood Pressure 187/84 H Blood Pressure Mean 118 Pulse Ox 98 Oxygen Delivery Method Room Air Positive well nourished and well developed; Negative for obese, cachectic, contractures or unkempt General Appearance ED: well developed and NAD; Negative for unkempt, cachectic or contractures Nutritional Appearance: Negative for cachectic or obese HEENT Reports other atraumatic and other; Negative for trauma or tenderness Neck no lymphadenopathy, supple and no JVD General: Negative for tenderness Resp normal respiratory effort, no retractions, no use of accessory muscles, clear to auscultation bilaterally and No percussion normal Effort and Inspection: Negative for other Cardio regular rate, regular rhythm, S1 normal heart sound, S2 normal heart sound and no murmurs Jugular Venous Distention: Negative for other GI non-tender, non-distended and no masses Inspection: Negative for other Auscultation: normoactive bowel sounds Palpation: soft Back/Spine no CVA tenderness General Back: Negative for CVA tenderness Extremity normal to inspe (more content not included)... Normal [facility] Absolute lymphocyte countOrd ered By: Dr. Romano on 09-11-2022 Lymphocytes Auto (Unsp spec) [#/Vol] 2.63 10*3/uL 0.83-4.51 [facility] Basophil percentageOrdered B y: Dr. Romano on 09-11-2022 Basophils/100 WBC (Bld) 0.9 % 0-1 [facility] Chloride [Moles/Vol] 106 mmol/L 98-107 [facility] Eosinophils/100 WBC (Bld) 1.6 % 0-5 [facility] Glucose [Mass/Vol] 169 mg/dL 74-106 [facility] Comment on above: Fasting Glucose resu lt greater than or equal to 126 mg/dL suggests DIABETES MELLITUS per A.D.A. criteria. Neutrophils (Bld) [#/Vol] 3.4 10*3/uL 2.0-7.7 [facility] Neutrophils/100 WBC (Bld) 50.3 % 47-70 [facility] Potassium [Moles/Vol] 3.6 mmol/L 3.5-5.1 [facility] Sodium [Moles/Vol] 140 mmol/L 136-145 [facility] WBC (Bld) [#/Vol] 6.7 10*3/uL 4.4-11.0 [facility] Blood erythrocytes count (nu mber/volume)Ordered By: Dr. Romano on 09-11-2022 RBC (Bld) [#/Vol] 5.01 10*6/uL 4.2-5.4 [facility] Blood hemoglobin measurement (mass/volume)Ordered By: Dr. Romano on 09-11-2022 Hemoglobin (Bld) [Mass/Vol] 13.8 g/dL 12.0-15.0 [facility] Blood lymphocytes/100 leukoc ytesOrdered By: Dr. Romano on 09-11-2022 Lymphocytes/100 WBC (Bld) 39.2 % 19-41 [facility] Blood monocytes/100 leukocyt esOrdered By: Dr. Romano on 09-11-2022 Monocytes/100 WBC (Bld) 7.7 % 0-10 [facility] Blood platelet mean volumeOr dered By: Dr. Romano on 09-11-2022 Platelet mean volume (Bld) [Entitic vol] 8.8 fL 6.2-12.0 [facility] Determination of erythrocyte mean corpuscular volume (MCV)Ordered By: Dr. Romano on 09-11-2022 MCV (RBC) [Entitic vol] 86.2 fL 81-99 [facility] Hematocrit Auto (Bld) [Volum e fraction]Ordered By: Dr. Romano on 09-11-2022 Hematocrit (Bld) [Volume fraction] 43.2 % 37-47 [facility] Laboratory - Chemistry and C hemistry - challengeOrdered By: Dr. Romano on 09-11-2022 CO2 [Moles/Vol] 27.0 mmol/L 21.0-32.0 [facility] Urea nitrogen/Creatinine [Mass ratio] 22.0 mg/mg 10-20 [facility] Laboratory - Hematology and Cell countsOrdered By: Dr. Romano on 09-11-2022 Erythrocyte distribution width (RBC) [Entitic vol] 42.2 fL 35.1-43.9 [facility] Erythrocyte distribution width (RBC) [Ratio] 13.4 % 11.6-14.6 [facility] Immature granulocytes/100 WBC (Bld) 0.300 % 0.0-0.9 [facility] Comment on above: IG% - Immature Granu locytes (promyelocytes, myelocytes and metamyelocytes) > 1% indicates that a LEFT SHIFT is Present. MCH (RBC) [Entitic mass] 27.5 pg 27.0-32.0 [facility] Nucleated RBC/100 WBC (Bld) [Ratio] 0 % 0-5 [facility] MCHC Auto (RBC) [Mass/Vol]Or dered By: Dr. Romano on 09-11-2022 MCHC (RBC) [Mass/Vol] 31.9 g/dL 32-36 [facility] No Panel InformationOrdered By: Dr. Romano on 09-11-2022 Estimated Creatinine Clearance Calc 46.13 ml/min [facility] Estimated GFR (MDRD) Amer 77 mL/min >60 [facility] Comment on above: GFR Calc Estimated GFR (MDRD) Non-Af Amer 64 mL/min >60 [facility] Comment on above: Non- GFR Calc Troponin I High Sensitivity 8 pg/mL 3.0-54.0 [facility] Comment on above: Please Note: New Brenna t Units and Gender Specific Reference Ranges. For more information see Policy Stat Procedure [place] High Sensitivity Troponin (TNIH) and attachments. Platelets bldOrdered By: Dr. Romano on 09-11-2022 Platelets (Bld) [#/Vol] 374 10*3/uL 150-450 [facility] Serum or plasma calcium mary jane urement (mass/volume)Ordered By: Dr. Romano on 09-11-2022 Calcium [Mass/Vol] 9.8 mg/dL 8.5-10.1 [facility] Serum or plasma creatinine m easurement (mass/volume)Ordered By: Dr. Romano on 09-11-2022 Creatinine [Mass/Vol] 0.91 mg/dL 0.55-1.02 [facility] Comment on above: The validity of the calculated GFR & GFRAA in patients over 70 years has not been determined. Clinical correlation is essential. Serum or plasma urea nitroge n measurement (mass/volume)Ordered By: Dr. Romano on 09-11-2022 Urea nitrogen [Mass/Vol] 20 mg/dL -18 [facility] Thin prep Papanicolaou smear with manual screeningOrdered By: Dr. Romano on 09-11-2022 Thin prep Papanicolaou smear with manual screening 7 5-15 [facility] KADY SCREENINGon 05-17-[address] [facility] 25-hydroxyvitamin D3 [Mass/V ol]on 03-10-2022 Interpretation and review of laboratory results Normal [facility] The reference range interval was based on an analysis of samples from healthy adults and may not pertain to children from 0-18 years old. [facility] CBC panel Auto (Bld)on 03-10 Erythrocyte distribution width (RBC) [Ratio] 13.4 % 11.5 - 15.0 % [facility] Hematocrit (Bld) [Volume fraction] 40.4 % 36.0 - 46.0 % [facility] Hemoglobin (Bld) [Mass/Vol] 13.0 g/dL 11.5 - 15.5 g/dL [facility] Interpretation and review of laboratory results Abnormal [facility] MCH (RBC) [Entitic mass] 27.2 pg 26. 0 - 34.[address] [facility] MCHC (RBC) [Mass/Vol] 32.2 g/dL 30.5 - 36.0 g/dL [facility] MCV (RBC) [Entitic vol] 84.5 fL 80.0 - 100.[address] [facility] Nucleated RBC (Bld) [#/Vol] NINF [facility] Platelet mean volume (Bld) [Entitic vol] 8.7 fL Low 9.0 - 12.[address] [facility] Platelets (Bld) [#/Vol] 335 10*3/uL [facility] RBC (Bld) [#/Vol] 4.78 10*6/uL 3.90 - 5.2 0 m/uL [facility] WBC (Bld) [#/Vol] 5.56 10*3/uL [facility] Comprehensive metabolic 2000 panelOrdered By: Mirella Cadet on 03-10-2022 Albumin [Mass/Vol] 4.2 g/dL 3.9 - 4.9 g/dL [facility] ALP [Catalytic activity/Vol] 106 U/L 34 - 123 U/L [facility] ALT [Catalytic activity/Vol] 11 U/L 7 - 38 U/L [facility] Anion gap [Moles/Vol] 8 mmol/L Low 9 - 18 mmol/L [facility] AST [Catalytic activity/Vol] 17 U/L 13 - 35 U/L [facility] Bilirubin [Mass/Vol] 0.3 mg/dL 0.2 - 1 .3 mg/dL [facility] Calcium [Mass/Vol] 9.2 mg/dL 8.5 - 10. 2 mg/dL [facility] Chloride [Moles/Vol] 105 mmol/L 97 - 10 5 mmol/L [facility] CO2 [Moles/Vol] 23 mmol/L 22 - 30 mmol/L [facility] Creatinine [Mass/Vol] 0.80 mg/dL 0.58 - 0.96 mg/dL [facility] GFR/1.73 sq M.predicted among non-blacks MDRD (S/P/Bld) [Vol rate/Area] 77 mL/min/{1.73_m2} - PINF [facility] Comment on above: Estimated Glomerular Filtration Rate (eGFR) is calculated using the 2020 CKD-EPI creatinine equation. This equation utilizes serum creatinine, sex, and age as parameters. The creatinine assay has traceable calibration to isotope dilution-mass spectrometry. Refer to KDIGO guidelines for clinical interpretation. In patients with unstable renal function, e.g. those with acute kidney injury, the eGFR may not accurately reflect actual GFR. Glucose [Mass/Vol] 99 mg/dL 74 - 99 mg/dL [facility] Comment on above: The [place] Diabete s Association (ADA) provides guidance for cutoff values for fasting glucose and random glucose. The ADA defines fasting as no caloric intake for at least 8 hours. Fasting plasma glucose results between 100 to 125 mg/dL indicate increased risk for diabetes (prediabetes). Fasting plasma glucose results greater than or equal to 126 mg/dL meet the criteria for diagnosis of diabetes. In the absence of unequivocal hyperglycemia, results should be confirmed by repeat testing. In a patient with classic symptoms of hyperglycemia or hyperglycemic crisis, random plasma glucose results greater than or equal to 200 mg/dL meet the criteria for diagnosis of diabetes. Reference: Standards of Medical Care in Diabetes 2016, [place] Diabetes Association. Diabetes Care. 2016.39(Suppl 1). Interpretation and review of laboratory results Abnormal [facility] Potassium [Moles/Vol] 4.2 mmol/L 3.7 - 5.1 mmol/L [facility] Protein [Mass/Vol] 7.1 g/dL 6.3 - 8.0 g/dL [facility] Sodium [Moles/Vol] 136 mmol/L 136 - 144 mmol/L [facility] Urea nitrogen [Mass/Vol] 14 mg/dL 7 - 21 mg/d L [facility] Lipid 1996 panelon 2 Cholesterol [Mass/Vol] 224 mg/dL High NINF - 200 mg/dL [facility] Comment on above: <200 mg/dL, Desirabl e 200-239 mg/dL, Borderline high >239 mg/dL, High Cholesterol in HDL [Mass/Vol] 68 mg/dL 39 - PINF mg/dL [facility] Comment on above: 40-59 mg/dL, Accepta ble >59 mg/dL, High: Negative risk factor for coronary heart disease <40 mg/dL, Low: Positive risk factor for coronary heart disease Cholesterol in LDL [Mass/Vol] 130 mg/dL High NINF - 100 mg/dL [facility] Comment on above: <100 mg/dL, Optimal 100-129 mg/dL, Near optimal/above optimal 130-159 mg/dL, Borderline high 160-189 mg/dL, High >189 mg/dL, Very high Secondary prevention optimal LDL Cholesterol levels are recommended to be < 70 mg/dL Cholesterol in LDL/Cholesterol in HDL [Mass ratio] 1.91 {ratio} NINF - 2.[address] [facility] Comment on above: Reference: 1. National Cholesterol Education Program ATP III Guideline At-A-Glance Quick Desk Reference: National Heart, Lung, and Blood [place]. National Institutes of Health. 2001: NIH Publication No. 01-3305. 2. An International Atherosclerosis Society position paper: global recommendations for the management of dyslipidemia: executive summary, Atherosclerosis. 2014: 232(2):410-413. Cholesterol in VLDL [Mass/Vol] 26 mg/dL NINF - 30 mg/dL [facility] Cholesterol non HDL [Mass/Vol] 156 mg/dL High NINF - 130 mg/dL [facility] Comment on above: <130 mg/dL, Optimal 130-159 mg/dL, Near optimal/above optimal 160-189 mg/dL, Borderline high 190-219 mg/dL, High >219 mg/dL, Very high Secondary prevention optimal non HDL Cholesterol levels are recommended to be <100 mg/dL Cholesterol.total/Choles terol in HDL [Mass ratio] 3.29 {ratio} NINF - 5.[address] [facility] Fasting Time [address] [facility] Interpretation and review of laboratory results Abnormal [facility] Triglyceride [Mass/Vol] 130 mg/dL NINF - 150 mg/dL [facility] Comment on above: <150 mg/dL, Normal 150-199 mg/dL, Borderline high 200-499 mg/dL, High >499 mg/dL, Very high [facility] VITAMIN D 25 HYDROXYon 03-10 25-hydroxyvitamin D3 [Mass/Vol] 49.7 ng/mL 31.0 - 80.0 ng/mL [facility] Comment on above: Classification of 25 [place] Vitamin D status: Deficiency/Insufficiency: < or = 30 ng/ml. Sufficiency/Optimal Levels: 31-80 ng/mL Toxicity: > 100 ng/mL. Test performed by chemiluminescent immunoassay. XR Foot - left AP and Latera l and obliqueon 01-08-2022 IMPRESSION: Osteopenia and degenerative change. No acute process. Motion Designer: PSCB Transcribe Date/Time: Jan 08 2022 11:12A Dictated by : LIZZETH HAAS MD This examination was interpreted and the report reviewed and electronically signed by: LIZZETH HAAS MD on Jan 08 2022 11:21AM EST [email or web address] E_DIVISION OF RADIOLOGY * * *Final Report* * * DATE OF EXAM: Jan 07 2022 6:19PM WOX [id number] - XR FOOT 3V AP/LAT/OBL LT / PROCEDURE REASON: Acute pain of left foot * * * * Physician Interpretation * * * * EXAMINATION: XR FOOT 3V AP/LAT/OBL LT HISTORY: Pain in left foot w/erythema of skin. Acute pain of left foot. TECHNIQUE: XR FOOT 3V AP/LAT/OBL LT Laterality: LEFT Number of different views (projections): 3 M: XB_1 COMPARISON: Comparison is made to prior left foot dated 01/25/2012 RESULT: Standing frontal radiographs of the bilateral feet with oblique and lateral weightbearing views of the left foot show no acute osseous, articular or soft tissue process. The bony structures are osteopenic and there is degenerative change of the IP joints with joint space narrowing and marginal spurring. Joint spaces are preserved and there are no erosive or bony destructive changes. Moderate to large calcaneal spur noted at the left Achilles tendon insertion [email or web address] E_DIVISION OF RADIOLOGY Provider, Del Garza - 01/08/2022 * * *Final Report* * * DATE OF EXAM: Jan 07 2022 6:19PM WOX [id number] - XR FOOT 3V AP/LAT/OBL LT / PROCEDURE REASON: Acute pain of left foot * * * * Physician Interpretation * * * * EXAMINATION: XR FOOT 3V AP/LAT/OBL LT HISTORY: Pain in left foot w/erythema of skin. Acute pain of left foot. TECHNIQUE: XR FOOT 3V AP/LAT/OBL LT Laterality: LEFT Number of different views (projections): 3 M: XB_1 COMPARISON: Comparison is made to prior left foot dated 01/25/2012 RESULT: Standing frontal radiographs of the bilateral feet with oblique and lateral weightbearing views of the left foot show no acute osseous, articular or soft tissue process. The bony structures are osteopenic and there is degenerative change of the IP joints with joint space narrowing and marginal spurring. Joint spaces are preserved and there are no erosive or bony destructive changes. Moderate to large calcaneal spur noted at the left Achilles tendon insertion IMPRESSION IMPRESSION: Osteopenia and degenerative change. No acute process. Motion Designer: ALEJANDRO Transcribe Date/Time: Jan 08 2022 11:12A Dictated by : LIZZETH HAAS MD This examination was interpreted and the report reviewed and electronically signed by: LIZZETH HAAS MD on Jan 08 2022 11:21AM EST [facility] XR Foot - left AP and Latera l and obliqueOrdered By: Cc Provider on 01-08-[address] [facility] XR Foot - left AP and Latera l and obliqueon 01-07-2022 Radiology Study observation (narrative) [facility] XR CHEST 2V FRONTAL/LATon [facility] XR Chest PA and Lateralon IMPRESSION: Left basilar atelectasis. Motion Designer: ALEJANDRO Transcribe Date/Time: Nov 18 2021 10:56A Dictated by : YARIEL MONREAL MD This examination was interpreted and the report reviewed and electronically signed by: YARIEL MONREAL MD on Nov 18 2021 10:58AM EST ZZZ_DO_[email or web address] E_DIVISION OF RADIOLOGY * * *Final Report* * * DATE OF EXAM: Nov 18 2021 10:49AM WOX [id number] - XR CHEST 2V FRONTAL/LAT / PROCEDURE REASON: multiple diagnoses * * * * Physician Interpretation * * * * EXAMINATION: CHEST RADIOGRAPH (2 VIEW FRONTAL & LATERAL) CLINICAL HISTORY: Fever, unspecified fever cause Cough MQ: XC2_6 EXAM DATE/TIME: 11/18/2021 10:49 AM COMPARISON: Chest x-ray on 11/19/2019. RESULT: Lines, tubes, and devices: None. Lungs and pleura: Left basilar atelectasis is demonstrated. The lungs are otherwise clear of consolidations. No lung mass. No pleural effusion. No pneumothorax. Cardiomediastinal silhouette: Stable cardiac silhouette, with tortuosity of the thoracic aorta. Bones and soft tissues: There are degenerative changes in the spine. Status post right shoulder arthroplasty. [id number] E_DIVISION OF RADIOLOGY Provider, [facility] - 11/18/2021 * * *Final Report* * * DATE OF EXAM: Nov 18 2021 10:49AM WOX [id number] - XR CHEST 2V FRONTAL/LAT / PROCEDURE REASON: multiple diagnoses * * * * Physician Interpretation * * * * EXAMINATION: CHEST RADIOGRAPH (2 VIEW FRONTAL & LATERAL) CLINICAL HISTORY: Fever, unspecified fever cause Cough MQ: XC2_6 EXAM DATE/TIME: 11/18/2021 10:49 AM COMPARISON: Chest x-ray on 11/19/2019. RESULT: Lines, tubes, and devices: None. Lungs and pleura: Left basilar atelectasis is demonstrated. The lungs are otherwise clear of consolidations. No lung mass. No pleural effusion. No pneumothorax. Cardiomediastinal silhouette: Stable cardiac silhouette, with tortuosity of the thoracic aorta. Bones and soft tissues: There are degenerative changes in the spine. Status post right shoulder arthroplasty. IMPRESSION IMPRESSION: Left basilar atelectasis. Motion Designer: PSCB Transcribe Date/Time: Nov 18 2021 10:56A Dictated by : YARIEL MONREAL MD This examination was interpreted and the report reviewed and electronically signed by: YARIEL MONREAL MD on Nov 18 2021 10:58AM EST [facility] PA and LateralOrder ed By: Ccf Provider on 11-18-[address] [facility] Vital Signs Date Time Vital Sign Value Performing Clinician Facility 02-11-2025 07:57-0400 Body height 162.6 cm Daniel Hassan MD Work Phone: [facility] 02-11-2025 07:57-0400 Body mass index (BMI) [Ratio] 28.15 kg/m2 Daniel Hassan MD Work Phone: [facility] 02-11-2025 07:57-0400 Body weight 74.39 kg Daniel Hassan MD Work Phone: [facility] 02-11-2025 07:57-0400 Diastolic blood pressure 87 mm[Hg] Daniel Hassan MD Work Phone: [facility] 02-11-2025 07:57-0400 Heart rate 60 /min Daniel Hassan MD Work Phone: [facility] 02-11-2025 07:57-0400 Respiratory rate 16 /min Daniel Hassan MD Work Phone: [facility] 02-11-2025 07:57-0400 SaO2% (BldA) [Mass fraction] 97 % Daniel Hassan MD Work Phone: [facility] 02-11-2025 07:57-0400 Systolic blood pressure 160 mm[Hg] Daniel Hassan MD Work Phone: [facility] 01-18-2025 15:21-0400 Body temperature 97.8 [degF] Dr. Kristian Soto MD Work Phone: [facility] 01-18-2025 15:21-0400 Diastolic blood pressure 69 mm[Hg] Dr. Kristian Soto MD Work Phone: [facility] 01-18-2025 15:21-0400 Heart rate 70 /min Dr. Kristian Soto MD Work Phone: [facility] 01-18-2025 15:21-0400 Respiratory rate 16 /min Dr. Kristian Soto MD Work Phone: [phone] [place] [address] 01-18-2025 15:21-0400 SaO2% (BldA) [Mass fraction] 97 % Dr. Kristian Soto MD Work Phone: [phone] [place] [address] 01-18-2025 15:21-0400 Systolic blood pressure 116 mm[Hg] Dr. Kristian Soto MD Work Phone: 9(136)[phone] [place] [address] 01-18-2025 12:43-0400 Body height 162.[address] Kristian Soto MD Work Phone: 7(965)[phone] [place] [address] 01-18-2025 12:43-0400 Body mass index (BMI) [Ratio] 28.5 kg/m2 Dr. Kristian Soto MD Work Phone: 8(321)[phone] [place] [address] 01-18-2025 12:43-0400 Body weight 75.[address] Kristian Soto MD Work Phone: [facility] 12-03-2024 15:48-0400 Body height 162.6 cm Daniel Hassan MD Work Phone: [facility] 12-03-2024 15:48-0400 Body mass index (BMI) [Ratio] 28.49 kg/m2 Daniel Hassan MD Work Phone: [facility] 12-03-2024 15:48-0400 Body weight 75.3 kg Daniel Hassan MD Work Phone: [facility] 12-03-2024 15:48-0400 Diastolic blood pressure 86 mm[Hg] Daniel Hassan MD Work Phone: [facility] 12-03-2024 15:48-0400 Heart rate 66 /min Daniel Hassan MD Work Phone: [facility] 12-03-2024 15:48-0400 Respiratory rate 16 /min Daniel Hassan MD Work Phone: [facility] 12-03-2024 15:48-0400 SaO2% (BldA) [Mass fraction] 96 % Daniel Hassan MD Work Phone: [facility] 12-03-2024 15:48-0400 Systolic blood pressure 165 mm[Hg] Daniel Hassan MD Work Phone: [facility] 10-31-2024 16:34-0400 Diastolic blood pressure 74 mm[Hg] Kristian Soto MD Work Phone: [facility] 10-31-2024 16:34-0400 Heart rate 75 /min Kristian Stoo MD Work Phone: [facility] 10-31-2024 16:34-0400 Systolic blood pressure 130 mm[Hg] Kristian Soto MD Work Phone: [facility] 10-31-2024 16:22-0400 Body mass index (BMI) [Ratio] 28.05 kg/m2 Kristian Soto MD Work Phone: [facility] 10-31-2024 16:22-0400 Body weight 75.3 kg Kristian oSto MD Work Phone: [facility] 10-17-2024 16:32-0400 Diastolic blood pressure 82 mm[Hg] Ingrid Perkins PROCESSING REP.COUNTERSINKER Work Phone: [facility] Comment on above: torey bp average 10-17-2024 16:32-0400 Systolic blood pressure 152 mm[Hg] Ingrid Perkins PROCESSING REP.COUNTERSINKER Work Phone: [facility] Comment on above: torey bp average 10-17-2024 15:56-0400 Body mass index (BMI) [Ratio] 28.35 kg/m2 Ingrid Perkins PROCESSING REP.COUNTERSINKER Work Phone: [facility] 10-17-2024 15:56-0400 Body weight 76.1 kg Ingrid Gregorio PROCESSING REP.COUNTERSINKER Work Phone: [facility] 10-17-2024 15:56-0400 Heart rate 66 /min Ingrid Gregorio PROCESSING REP.COUNTERSINKER Work Phone: [facility] 10-17-2024 15:56-0400 Respiratory rate 14 /min Ingrid Gregorio PROCESSING REP.COUNTERSINKER Work Phone: [facility] 10-17-2024 15:56-0400 SaO2% (BldA) [Mass fraction] 97 % Ingrid Gregorio PROCESSING REP.COUNTERSINKER Work Phone: [facility] 09-03-2024 10:54-0500 Body height 163.8 cm Leidy Mckeon MD Work Phone: [facility] 09-03-2024 10:54-0500 Body mass index (BMI) [Ratio] 28.9 kg/m2 Leidy Mckeon MD Work Phone: [facility] 09-03-2024 10:54-0500 Body temperature 97.11 [degF] Leidy Mckeon MD Work Phone: [facility] 09-03-2024 10:54-0500 Body weight 77.56 kg Leidy Mckeon MD Work Phone: [facility] 09-03-2024 10:54-0500 Heart rate 64 /min Leidy Mckeon MD Work Phone: [facility] 09-03-2024 10:54-0500 Respiratory rate 14 /min Leidy Mckeon MD Work Phone: [facility] 09-03-2024 10:54-0500 SaO2% (BldA) [Mass fraction] 99 % Leidy Mckeon MD Work Phone: [facility] 08-17-2024 10:17-0500 Diastolic blood pressure 73 mm[Hg] Kristian Soto MD Work Phone: [facility] Comment on above: BP [place] 08-17-2024 10:17-0500 Systolic blood pressure 131 mm[Hg] Kristian Soto MD Work Phone: [facility] Comment on above: BP [place] 08-17-2024 10:05-0500 Body mass index (BMI) [Ratio] 29.21 kg/m2 Kristian Soto MD Work Phone: [facility] 08-17-2024 10:05-0500 Body temperature 97.7 [degF] Kristian Soto MD Work Phone: [facility] 08-17-2024 10:05-0500 Body weight 77.2 kg Kristian Soto MD Work Phone: [facility] 08-17-2024 10:05-0500 Heart rate 64 /min Kristian Soto MD Work Phone: [facility] 08-17-2024 10:05-0500 Respiratory rate 16 /min Kristian Soto MD Work Phone: [facility] 08-17-2024 10:05-0500 SaO2% (BldA) [Mass fraction] 97 % Kristian Soto MD Work Phone: [facility] 06-15-2024 09:35-0500 Body height 162.6 cm Kristian Soto MD Work Phone: [facility] 06-15-2024 09:35-0500 Body mass index (BMI) [Ratio] 30.01 kg/m2 Kristian Soto MD Work Phone: [facility] 06-15-2024 09:35-0500 Body temperature 98.8 [degF] Kristian Soto MD Work Phone: [facility] 06-15-2024 09:35-0500 Body weight 79.3 kg Kristian Soto MD Work Phone: [facility] 06-15-2024 09:35-0500 Diastolic blood pressure 84 mm[Hg] Kristian Soto MD Work Phone: [facility] 06-15-2024 09:35-0500 Heart rate 59 /min Kristian Soot MD Work Phone: [facility] 06-15-2024 09:35-0500 SaO2% (BldA) [Mass fraction] 98 % Kristian Soto MD Work Phone: [facility] 06-15-2024 09:35-0500 Systolic blood pressure 129 mm[Hg] Kristian Soto MD Work Phone: [facility] 02-14-2024 09:14-0400 Diastolic blood pressure 78 mm[Hg] Kristian Soto MD Work Phone: [facility] 02-14-2024 09:14-0400 Heart rate 61 /min Kristian Soto MD Work Phone: [facility] 02-14-2024 09:14-0400 Systolic blood pressure 145 mm[Hg] Kristian Soto MD Work Phone: [facility] 02-14-2024 09:02-0400 Body mass index (BMI) [Ratio] 30.82 kg/m2 Kristian Soto MD Work Phone: [facility] 02-14-2024 09:02-0400 Body temperature 98.71 [degF] Kristian Soto MD Work Phone: [facility] 02-14-2024 09:02-0400 Body weight 78.93 kg Kristian Soto MD Work Phone: [facility] 09-06-2023 10:19-0500 Body height 160 cm Daniel Hassan MD Work Phone: [facility] 09-06-2023 10:190500 Body weight 76.2 kg Daniel Hassan MD Work Phone: [facility] 09-06-2023 10:19-0500 Diastolic blood pressure 87 mm[Hg] Daniel Hassan MD Work Phone: [facility] 09-06-2023 10:19-0500 Heart rate 49 /min Daniel Hassan MD Work Phone: [facility] 09-06-2023 10:19-0500 Respiratory rate 16 /min Danile Hassan MD Work Phone: [facility] 09-06-2023 10:19-0500 SaO2% (BldA) [Mass fraction] 96 % Daniel Hassan MD Work Phone: [facility] 09-06-2023 10:19-0500 Systolic blood pressure 165 mm[Hg] Daniel Hassan MD Work Phone: [facility] 01-25-2023 12:20-0400 Body weight 77.56 kg NA Mcqueen PROCESSING REP.COUNTERSINKER Work Phone: [facility] 01-25-2023 12:20-0400 Heart rate 59 /min NA Mcqueen PROCESSING REP.COUNTERSINKER Work Phone: [facility] 01-25-2023 12:20-0400 Respiratory rate 18 /min NA Mcqueen PROCESSING REP.COUNTERSINKER Work Phone: [facility] 01-25-2023 12:20-0400 SaO2% (BldA) [Mass fraction] 97 % NA Mcqueen PROCESSING REP.COUNTERSINKER Work Phone: [facility] 09-27-2022 10:44-0500 Body height 163.8 cm Ramila Gilford PROCESSING REP.COUNTERSINKER Work Phone: [facility] 09-27-2022 10:44-0500 Body weight 74.39 kg Ramila Gilford PROCESSING REP.COUNTERSINKER Work Phone: [facility] 09-27-2022 10:44-0500 Diastolic blood pressure 92 mm[Hg] Ramila Gilford PROCESSING REP.COUNTERSINKER Work Phone: [facility] 09-27-2022 10:44-0500 Heart rate 59 /min Ramila Gilford PROCESSING REP.COUNTERSINKER Work Phone: [facility] 09-27-2022 10:44-0500 Respiratory rate 20 /min Ramila Gilford PROCESSING REP.COUNTERSINKER Work Phone: [facility] 09-27-2022 10:44-0500 SaO2% (BldA) [Mass fraction] 96 % Ramila Ramirez PROCESSING REP.COUNTERSINKER Work Phone: [facility] 09-27-2022 10:44-0500 Systolic blood pressure 174 mm[Hg] Ramila Ramirez PROCESSING REP.COUNTERSINKER Work Phone: [facility] 09-11-2022 21:30-0500 Diastolic blood pressure 74 mm[Hg] [facility] 09-11-2022 21:30-0500 Heart rate 61 /min [facility] 09-11-2022 21:30-0500 Respiratory rate 15 /min [facility] 09-11-2022 21:30-0500 SaO2% (BldA) [Mass fraction] 98 % [facility] 09-11-2022 21:30-0500 Systolic blood pressure 139 mm[Hg] [facility] 09-11-2022 19:24-0500 Body height 162.56 cm [facility] 09-11-2022 19:24-0500 Body mass index (BMI) [Ratio] 29.9 kg/m2 [facility] 09-11-2022 19:24-0500 Body temperature 97.5 [degF] [facility] 09-11-2022 19:24-0500 Body weight 79.1 kg [facility] 08-11-2022 08:55-0500 Diastolic blood pressure 74 mm[Hg] Kristian Soto MD Work Phone: [facility] 08-11-2022 08:55-0500 Heart rate 61 /min Kristian Soto MD Work Phone: [facility] 08-11-2022 08:55-0500 Systolic blood pressure 116 mm[Hg] Kristian Soto MD Work Phone: [facility] 08-11-2022 08:45-0500 Body height 160.7 cm Kristian Soto MD Work Phone: [facility] 08-11-2022 08:45-0500 Body temperature 97.3 [degF] Kristian Soto MD Work Phone: [facility] 08-11-2022 08:45-0500 Body weight 74.84 kg Kristian Soto MD Work Phone: [facility] 08-11-2022 08:45-0500 Respiratory rate 12 /min Kristian Soto MD Work Phone: [facility] 06-15-2022 09:45-0500 Body temperature 97.2 [degF] Kristian Soto MD Work Phone: [facility] 06-15-2022 09:45-0500 Body weight 75.3 kg Kristian Soto MD Work Phone: [facility] 06-15-2022 09:45-0500 Diastolic blood pressure 84 mm[Hg] Kristian Soto MD Work Phone: [facility] 06-15-2022 09:45-0500 Heart rate 64 /min Kristian Soto MD Work Phone: [facility] 06-15-2022 09:45-0500 Respiratory rate 12 /min Kristian Soto MD Work Phone: [facility] 06-15-2022 09:45-0500 Systolic blood pressure 134 mm[Hg] Kristian Soto MD Work Phone: [facility] 03-22-2022 12:43-0400 Diastolic blood pressure 80 mm[Hg] Kristian Soto MD Work Phone: [facility] 03-22-2022 12:43-0400 Heart rate 60 /min Kristian Soto MD Work Phone: [facility] 03-22-2022 12:43-0400 Systolic blood pressure 131 mm[Hg] Kristian Soto MD Work Phone: [facility] 03-22-2022 12:30-0400 Body temperature 96.6 [degF] Kristian Soto MD Work Phone: [facility] 03-22-2022 12:30-0400 Body weight 76.66 kg Kristian Soto MD Work Phone: [facility] 03-22-2022 12:30-0400 Respiratory rate 12 /min Kristian Soto MD Work Phone: [facility] 01-07-2022 17:26-0400 Diastolic blood pressure 77 mm[Hg] Kristian Soto MD Work Phone: [facility] 01-07-2022 17:26-0400 Heart rate 60 /min Kristian Soto MD Work Phone: [facility] 01-07-2022 17:26-0400 Systolic blood pressure 126 mm[Hg] Kristian Soto MD Work Phone: [facility] 01-07-2022 17:18-0400 Body weight 78.47 kg Kristian Soto MD Work Phone: [facility] 01-07-2022 17:18-0400 Respiratory rate 16 /min Kristian Soto MD Work Phone: [facility] 11-18-2021 08:51-0400 Body height 160 cm Sabrina Miller MD Work Phone: [facility] 11-18-2021 08:51-0400 Body temperature 96.8 [degF] Sabrina Miller MD Work Phone: [facility] 11-18-2021 08:51-0400 Body weight 79.38 kg Sabrina Miller MD Work Phone: [facility] 11-18-2021 08:51-0400 Diastolic blood pressure 76 mm[Hg] Sabrina Miller MD Work Phone: [facility] 11-18-2021 08:51-0400 Heart rate 66 /min Sabrina Miller MD Work Phone: [facility] 11-18-2021 08:51-0400 Respiratory rate 12 /min Sabrina Miller MD Work Phone: [facility] 11-18-2021 08:51-0400 SaO2% (BldA) [Mass fraction] 96 % Sabrina Miller MD Work Phone: [facility] 11-18-2021 08:51-0400 Systolic blood pressure 132 mm[Hg] Sabrina Miller MD Work Phone: [facility] Encounters Encounter Date Encounter Type Care Provider Facility Start: 02-12-2025 End: 02-12-[address] Kristian Soto MD -Physical Therapy Work Phone: Start: 02-12-2025 End: 02-14-2025 Telephone encounter Daniel Hassan MD Work Phone: Cardiology Comment on above: FORMS - Medication C larification Start: 02-12-2025 End: 02-12-[address] Kristian Soto MD Work Phone: -Physical Therapy Start: 02-11-2025 End: 02-12-2025 Orders Only Daniel Hassan MD Work Phone: Cardiology Comment on above: Palpitations (Primar y Dx) Event (Zio Patch ) PAF (paroxysmal atri al fibrillation) (HCC) (Primary Dx); Palpitations; Gastroesophageal reflux disease without esophagitis; Primary hypertension; Chronic fatigue Start: 01-18-2025 End: 01-21-2025 Telephone encounter Daniel Hassan MD Work Phone: Cardiology Comment on above: Patient Update Start: 01-18-2025 End: 01-18-2025 Emergency department patient visit Dr. Kristian Soto MD Work Phone: -Emergency Department Work Phone: Start: 01-15-[address] Héctor Soto MD -Physical Therapy Work Phone: Start: 12-10-2024 End: 12-11-2024 Refill Ingrid Perkins APRN.CNP Work Phone: [facility] Comment on above: Refill Request Start: 12-03-2024 End: 12-03-2024 Patient encounter procedure Daniel Hassan MD Work Phone: Cardiology Comment on above: Enlarged thoracic ao rta (HCC) (Primary Dx) Start: 12-03-2024 End: 12-03-2024 ambulatory DANIEL HASSAN Facility:[facility] Start: 12-03-2024 End: 12-03-2024 ambulatory DANIEL HASSAN Facility:[facility] Start: 10-31-2024 End: 10-31-2024 ambulatory KRISTIAN SOTO Facility:[facility] Start: 10-31-2024 End: 10-31-2024 Office outpatient visit 15 minutes Kristian Soto MD Work Phone: [facility] Comment on above: White coat syndrome with diagnosis of hypertension (Primary Dx); Palpitations; Multiple thyroid nodules Start: 10-22-2024 End: 10-30-2024 Telephone encounter Daniel Hassan MD Work Phone: Cardiology Comment on above: Patient Update Start: 10-19-2024 ambulatory INGRID Anni GREGORIO Facil ity:[id number] Start: 10-19-2024 End: 10-19-2024 Subsequent hospital visit by physician Kyle Esparza [facility] Comment on above: Bruit of right carot id artery [R09.89] Start: 10-18-2024 End: 10-18-2024 Telephone encounter Leidy Mckeon MD Work Phone: General Surgery Comment on above: Results Start: 10-17-2024 End: 10-17-2024 Patient encounter procedure Ingrid Hutton Gregorio PROCESSING REP.COUNTERSINKER Work Phone: [facility] [place] Comment on above: Pulsatile neck mass (Primary Dx); White coat syndrome with diagnosis of hypertension; Bruit of right carotid artery; S/P thyroid biopsy Start: 10-17-2024 End: 10-17-2024 ambulatory Kristian Soto MD Work Phone: [facility] [place] Comment on above: Hypertension Start: 10-02-2024 End: 10-02-2024 Follow-up encounter Leidy Mckeon MD Work Phone: General Surgery Start: 09-28-2024 ambulatory UNKNOWN PROVIDER Facili ty:[facility] Start: 09-28-2024 End: 09-28-2024 Subsequent hospital visit by physician Renetta Cruz MD Work Phone: [facility] Comment on above: Abnormal ultrasound of thyroid gland [R93.89] Start: 09-21-2024 End: 09-21-2024 Orders Only Leidy Mckeon MD Work Phone: General Surgery Comment on above: Abnormal ultrasound of thyroid gland (Primary Dx) Start: 09-19-2024 End: 09-19-2024 Telephone encounter Leidy Mckeon MD Work Phone: [facility] Comment on above: Results Start: 09-10-2024 End: 09-10-2024 ambulatory LEIDY MCKEON Facility:[facility] Start: 09-10-2024 End: 09-10-2024 Patient encounter procedure Leidy Mckeon MD Work Phone: General Surgery Comment on above: Abnormal ultrasound of thyroid gland (Primary Dx) Start: 09-03-2024 End: 09-03-2024 ambulatory LEIDY MCKEON Facility:[facility] Start: 09-03-2024 End: 09-03-2024 Patient encounter procedure Leidy Mckeon MD Work Phone: General Surgery Comment on above: Abnormal ultrasound of thyroid gland; Anxiety Start: 08-29-2024 End: 08-29-2024 Orders Only Kristian Soto MD Work Phone: [facility] [place] Comment on above: Multiple thyroid nod ules (Primary Dx) Start: 08-27-2024 End: 08-27-2024 ambulatory KRISTIAN SOTO Facility:[facility] Start: 08-27-2024 End: 08-27-2024 Subsequent hospital visit by physician [facility] Work Phone: Radiology Comment on above: Goiter [E04.9] Start: 08-18-2024 End: 08-18-2024 ambulatory KRISTIAN SOTO Facility:[facility] Start: 08-17-2024 End: 08-17-2024 ambulatory KRISTIAN SOTO Facility:[facility] Start: 08-17-2024 End: 08-17-2024 Patient encounter procedure Kristian Soto MD Work Phone: [facility] [place] Comment on above: Medicare annual well ness visit, subsequent (Primary Dx); Screening for depression; Encounter for screening examination for other mental health and behavioral disorders; Osteoporosis, unspecified osteoporosis type, unspecified pathological fracture presence; White coat syndrome with diagnosis of hypertension; Mixed hyperlipidemia; Goiter Start: 07-31-2024 End: 08-02-2024 Refill Daniel Hassan MD Work Phone: Cardiology Comment on above: Refill Request Start: 07-31-2024 End: 08-07-2024 Telephone encounter Daniel Hassan MD Work Phone: Cardiology Comment on above: Results Start: 07-26-2024 End: 07-26-2024 ambulatory Kristian Soto Facility:[facility] Start: 07-23-2024 End: 07-23-2024 ambulatory DANIEL HASSAN Facility:[facility] Start: 07-23-2024 End: 07-23-2024 Subsequent hospital visit by physician Bill Peralta ([facility]) Work Phone: Radiology Start: 06-19-2024 End: 06-20-2024 Orders Only Daniel Hassan MD Work Phone: Cardiology Comment on above: Results Start: 06-18-2024 End: 06-18-2024 Telephone encounter Kristian Soto MD Work Phone: [facility] [place] Comment on above: Patient Update; Boaz cation request Start: 06-18-2024 End: 06-18-2024 ambulatory KRISTIAN SOTO Facility:[facility] Start: 06-18-2024 End: 06-18-2024 Subsequent hospital visit by physician Richy [facility] Work Phone: Radiology Comment on above: Viral URI with cough [J06.9] Start: 06-15-2024 End: 06-15-2024 Telephone encounter Kristian Soto MD Work Phone: [facility] [place] Comment on above: Patient Update Start: 06-15-2024 End: 06-15-2024 ambulatory KRISTIAN SOTO Facility:[facility] Start: 06-15-2024 End: 06-15-2024 Office outpatient visit 10 minutes Kristian Soto MD Work Phone: [facility] [place] Comment on above: Sore throat (Primary Dx) Start: 06-14-2024 End: 06-14-2024 ambulatory DANIEL HASSAN Facility:[facility] Start: 05-10-2024 End: 05-10-2024 ambulatory KRISTIAN SOTO Facility:[facility] Start: 05-10-2024 End: 05-10-2024 Nursing evaluation of patient and report Mi Nurse Work Phone: [facility] [place] Comment on above: Encounter for immuni zation (Primary Dx) Start: 02-19-2024 ambulatory David Tran RN NURSE O N CALL Comment on above: Blurry Vision Left E ye Start: 02-19-2024 End: 02-19-2024 Emergency department patient visit [facility] [facility] Start: 02-17-2024 End: 06-19-2024 Orders Only Kristian Soto MD Work Phone: Internal Medicine [place] Comment on above: Need for COVID-19 va ccine Start: 02-14-2024 End: 02-14-2024 Patient encounter procedure Kristian Soto MD Work Phone: [facility] [place] Comment on above: White coat syndrome with diagnosis of hypertension (Primary Dx); Osteoporosis, unspecified osteoporosis type, unspecified pathological fracture presence; Hordeolum externum of left upper eyelid; Mixed hyperlipidemia; Need for COVID-19 vaccine Start: 12-24-2023 ambulatory Kristian moran MD Work Phone: Internal [facility] [place] Comment on above: New Pharmacy for my prescriptions Start: 12-07-2023 End: 12-07-2023 ambulatory [facility] Work Phone: Start: 12-07-2023 End: 12-07-2023 Discharged Recurring [facility]-Physical Therapy Work Phone: Start: 02-07-2024 Orders Only Daniel bravo MD Work Phone: Cardiology Start: 09-06-2023 End: 09-06-2023 Patient encounter procedure Daniel Hassan MD Work Phone: Cardiology Comment on above: Plantar fasciitis (P rimary Dx); Aneurysm of ascending aorta without rupture (HCC); Palpitations; Disorder of artery or arteriole (HCC) Start: 07-01-2023 Documentation procedure Mammog gary Coordinator [facility] Start: 07-01-2023 Letter encounter Mammography Coordinator [facility] Department Start: 06-30-2023 End: 06-30-2023 Subsequent hospital visit by physician Screen Mammo [facility] Mammogram Comment on above: Screening mammogram for breast cancer [Z12.31] Start: 06-29-2023 Telephone encounter Nurse/Ervin Carbone [facility] Work Phone: Mammogram Comment on above: Orders Visit for screening mammogram (Primary Dx) Start: 06-01-2023 End: 06-01-2023 ambulatory [facility] Work Phone: Start: 06-01-2023 End: 06-01-2023 Discharged Recurring [facility]-Physical Therapy Work Phone: Start: 05-23-2023 ambulatory Antonella Curtis MA [facility] Comment on above: Population Health [facility] ([facility]) Start: 01-25-2023 End: 01-25-2023 Patient encounter procedure Britni Mcqueen APRN.COUNTERSINKER Work Phone: Cardiology Comment on above: Aneurysm of ascendin g aorta without rupture (HCC) (Primary Dx); Palpitations; White coat syndrome with diagnosis of hypertension Start: 12-13-2022 Telephone encounter Kristian reese MD Work Phone: Family Medicine [place] Comment on above: Patient Update Start: 11-18-2022 End: 11-18-2022 Patient encounter procedure Giuliana Kendall MD Work Phone: Dermatology Comment on above: Seborrheic keratosis (Primary Dx); Rodriguez angioma; Lentigines; Multiple benign nevi; Personal history of skin cancer; Family history of malignant melanoma; Actinic keratosis; Skin neoplasm Start: 10-05-2022 End: 10-05-2022 ambulatory [facility] Work Phone: Start: 10-05-2022 End: 10-05-2022 Discharged Recurring [facility]Physical Therapy Start: 10-02-2022 Orders Only Daniel bravo MD Work Phone: Cardiology Comment on above: Encounter for screen ing for cardiovascular disorders (Primary Dx) White coat syndrome with diagnosis of hypertension (Primary Dx); Mixed hyperlipidemia; Enlarged thoracic aorta (HCC) Start: 09-27-2022 End: 09-27-2022 ambulatory [facility] Work Phone: Cardiology Comment on above: zio patch Start: 09-27-2022 End: 09-27-2022 Patient encounter procedure Ramila Ramirez APRN.CNP Work Phone: Cardiology Comment on above: Heart palpitations ( Primary Dx); White coat syndrome with diagnosis of hypertension; Mixed hyperlipidemia; Primary hypertension; Enlarged thoracic aorta (HCC); Encounter for screening for cardiovascular disorders; Obesity, Class I, BMI 30-34.9 Start: 09-13-2022 Telephone encounter Daniel Hassan MD Work Phone: Cardiology Comment on above: Symptoms Start: 09-11-2022 End: 09-11-2022 Emergency department patient visit [facility]Emergency Department Start: 09-09-2022 Registered Recurring [facility]Physical Therapy Start: 08-11-2022 End: 08-11-2022 Patient encounter procedure Kristian Soto MD Work Phone: [facility] [place] Comment on above: Medicare annual well ness visit, subsequent (Primary Dx) Start: 06-15-2022 End: 06-15-2022 Patient encounter procedure Kristian Soto MD Work Phone: [facility] [place] Comment on above: Costochondritis (Nidia warren Dx); Mixed hyperlipidemia Start: 06-09-2022 Refill Daniel bravo MD Work Phone: Cardiology Comment on above: Refill Request Start: 05-17-2022 Documentation procedure Mammog gary Coordinator [facility] Start: 05-17-2022 Letter encounter Mammography Coordinator [facility] Department Start: 05-17-2022 End: 05-17-2022 Subsequent hospital visit by physician Screen Mammo [facility] Mammogram Comment on above: Screening mammogram for breast cancer [Z12.31] Start: 05-14-2022 ambulatory Kristian moran MD Work Phone: [facility] [place] Comment on above: Magnesium Citrate Start: 03-31-2022 Telephone encounter Kristian reese MD Work Phone: [facility] [place] Comment on above: Medication Problem Start: 03-22-2022 End: 03-22-2022 Patient encounter procedure Kristian Soto MD Work Phone: [facility] [place] Comment on above: Mixed hyperlipidemia (Primary Dx); White coat syndrome with diagnosis of hypertension; Need for COVID-19 vaccine Start: 02-21-2022 End: 06-19-2024 ambulatory Kristian Soto MD Work Phone: [facility] [place] Comment on above: Blood work Start: 01-07-2022 End: 01-07-2022 Subsequent hospital visit by physician Xr [facility] Work Phone: Radiology Comment on above: Acute pain of left f oot [M79.672] Start: 01-07-2022 End: 01-07-2022 Patient encounter procedure Kristian Soto MD Work Phone: [facility] [place] Comment on above: Acute pain of left f oot (Primary Dx) Start: 01-01-2022 End: 01-01-2022 Patient encounter procedure Kristian Soto MD Work Phone: [facility] [place] Comment on above: Patellar tendonitis of left knee (Primary Dx) Start: 12-24-2021 Refill Kristian moran MD Work Phone: [facility] [place] Comment on above: Refill Request Start: 12-16-2021 End: 12-16-2021 Patient encounter procedure Giuliana Kendall MD Work Phone: Dermatology Comment on above: Nail disorders in di seases classified elsewhere (Primary Dx); Actinic keratosis; Inflamed seborrheic keratosis Start: 11-18-2021 End: 11-18-2021 Subsequent hospital visit by physician Xr [facility] Work Phone: Radiology Comment on above: ov Start: 11-18-2021 End: 11-18-2021 Patient encounter procedure Sabrina Miller MD Work Phone: [facility] [place] Comment on above: Fever, unspecified f ever cause (Primary Dx); Cough; Sore throat Start: 11-05-2021 End: 06-19-2024 ambulatory Kristian Soto MD Work Phone: [facility] [place] Comment on above: Root Canal Procedures Date Procedure Procedure Detail Performing Clinician Start: 02-11-2025 Ecg routine ecg w/le ast 12 lds i&r only Daniel Hassan MD Work Phone: Start: 01-18-2025 Plain chest X-ray Dr. Black Soto MD Work Phone: Start: 01-18-2025 Urnls dip stick/tabl et reagent auto microscopy Dr. Kristian Soto MD Work Phone: Start: 01-18-[address] Kristian Soto MD Work Phone: Start: 12-03-2024 Follow-up visit Follow Up DANIEL HASSAN Start: 10-19-2024 Duplex scan extracra nial art compl bi study Ingrid Perkins PROCESSING REP.COUNTERSINKER Work Phone: Start: 09-28-2024 Fine needle aspirati on bx w/us gdn 1st lesion Leidy Mckeon MD Work Phone: Start: 09-10-2024 US THYROID BIOPSY LE FT (POC) SURG USE ONLY Leidy Mckeon MD Work Phone: Start: 09-10-2024 US THYROID BIOPSY RI GHT (POC) SURG USE ONLY Leidy Mckeon MD Work Phone: Start: 08-17-2024 Adult depression scr eening assessment Kristian Soto MD Work Phone: Start: 07-23-2024 Ct thorax w/o contra st material Daniel Hassan MD Work Phone: Start: 06-15-2024 STREP A MOLECULAR (POC) Kristian Soto MD Work Phone: Start: 05-10-2024 PFIZER-BIONTECH COVI D-19 VACCINE AGE 12+ YR (COMIRNATY) Kristian Soto MD Work Phone: Start: 09-11-2022 Plain chest X-ray Start: 07-21-2022 Lipid 1996 panel - S deandre or Plasma Antonella Curtis MA Start: 05-17-2022 End: 05-17-2022 Screening mammography bi 2-view breast inc cad Ingrid Older PROCESSING REP.COUNTERSINKER Work Phone: Start: 03-22-2022 PFIZER-BIONTECH COVI D-19 VACCINE, AGE 12+ YR (MARQUEZ TOP) Kristian Soto MD Work Phone: Start: 01-07-2022 Radex foot complete minimum 3 views Kristian Soto MD Work Phone: Start: 11-18-2021 Radiologic exam ches t 2 views Sabrina Miller MD Work Phone: Start: 06-20-2021 Adult depression scr eening assessment Sabrina Miller MD Work Phone: Start: 05-20-2021 Mammography Sabrina huynh MD Work Phone: Start: 10-09-2015 Colonoscopy Sabrina huynh MD Work Phone: Plan of Treatment Date Care Activity Detail Author Start: 02-13-2028 Diabetes Screening Diabetes Screening [facility] Start: 07-21-2027 Lipid 1996 panel - Serum or Plasma Lipid Screening [facility] Start: 07-21-2027 LIPID SCREEN LIPID SCREEN [facility] Start: 06-14-2027 Diabetes Screening Diabetes Screening [facility] Start: 03-10-2027 LIPID SCREEN LIPID SCREEN [facility] Start: 08-03-2026 Diabetes Screening Diabetes Screening [facility] Start: 12-22-2025 LIPID SCREEN LIPID SCREEN [facility] Start: 10-08-[address] [facility] Start: 10-08-2025 COLORECTAL CANCER SCREENING COLORECTAL CANCER SCREENING [facility] Start: 08-23-2025 Screening for osteoporosis Bone Density Screening [facility] Start: 08-17-2025 Anxiety Screening Anxiety Screening [facility] Start: 08-17-2025 Depression Screening Depression Screening [facility] Start: 08-17-2025 Medicare Annual Wellness Visit Medicare Annual Wellness Visit [facility] Start: 08-17-2025 RSV Vaccine (1 - 1-dose 75+ series) RSV Vaccine (1 - 1-dose 75+ series) [facility] Comment on above: Postponed from 2022 (Declined at t his time) Start: 08-17-2025 Shingrix Vaccine (1 of 2) Shingrix Vaccine (1 of 2) [facility] Comment on above: Postponed from 1997 (Declined at t his time) Start: 08-17-2025 Urine microalbumin profile DTaP,Tdap,Td Vaccine (1 - Tdap) [facility] Comment on above: Postponed from 1966 (Declined at t his time) Start: 08-14-2025 End: 11-13-2025 CBC panel - Blood by Automated count COMPLETE BLOOD COUNT Lab Routine PAF (paroxysmal atrial fibrillation) (HCC) Palpitations Gastroesophageal reflux disease without esophagitis Primary hypertension Chronic fatigue Expected: 08/14/2025, Expires: 11/13/[address] [facility] Comment on above: Expected: 08/14/2025, Expires: Start: 08-14-2025 End: 11-13-2025 Comprehensive metabolic 2000 panel - Serum or Plasma COMPREHENSIVE METABOLIC PANEL Lab Routine PAF (paroxysmal atrial fibrillation) (HCC) Palpitations Gastroesophageal reflux disease without esophagitis Primary hypertension Chronic fatigue Expected: 08/14/2025, Expires: 11/13/[address] [facility] Comment on above: Expected: 08/14/2025, Expires: Start: 08-14-2025 End: 08-14-2025 ambulatory 08/14/2025 7:00 AM EST Results Only [place] Salinas [facility] [address] [place] [address] [place] [facility] Start: 07-21-2025 DIABETES SCREEN DIABETES SCREEN [facility] Start: 07-21-2025 Diabetes Screening Diabetes Screening [facility] Start: 04-02-2025 End: 04-02-2025 Patient encounter procedure 04/02/2025 8:40 AM EDT Office Visit [facility] [place] [address] [place] [address] Kristian Soto MD [address] [place] [address] 5 month follow-up [facility] [place] Comment on above: 5 month follow-up Start: 03-10-2025 DIABETES SCREEN DIABETES SCREEN [facility] Start: 02-12-2025 End: 02-12-2025 ambulatory 02/12/2025 1:45 PM EDT Results Only Jordin Salinas [facility] [address] [place] [address] Jordin [place] [facility] Start: 02-11-2025 End: 05-13-2025 CBC W Auto Differential panel - Blood COMPLETE BLOOD COUNT AND DIFFERENTIAL Lab Routine Palpitations Expected: 02/11/2025, Expires: 05/13/[address] [facility] Comment on above: Expected: 02/11/2025, Expires: Start: 02-11-2025 End: 05-13-2025 Comprehensive metabolic 2000 panel - Serum or Plasma COMPREHENSIVE METABOLIC PANEL Lab Routine Palpitations Expected: 02/11/2025, Expires: 05/13/[address] [facility] Comment on above: Expected: 02/11/2025, Expires: Start: 02-11-2025 End: 05-13-2025 Thyrotropin [Units/volume] in Serum or Plasma THYROID STIMULATING HORMONE Lab Routine PAF (paroxysmal atrial fibrillation) (HCC) Expected: 02/11/2025, Expires: 05/13/[address] [facility] Comment on above: Expected: 02/11/2025, Expires: Start: 02-11-2025 End: 05-13-2025 Thyroxine (T4) free [Mass/volume] in Serum or Plasma T4 FREE/FREE THYROXINE Lab Routine PAF (paroxysmal atrial fibrillation) (HCC) Expected: 02/11/2025, Expires: 05/13/2025 [facility] Work Phone: Comment on above: Expected: 02/11/2025, Expires: Start: 02-11-2025 End: 05-13-2025 Triiodothyronine (T3) [Mass/volume] in Serum or Plasma T3 Lab Routine PAF (paroxysmal atrial fibrillation) (HCC) Expected: 02/11/2025, Expires: 05/13/[address] [facility] Comment on above: Expected: 02/11/2025, Expires: Start: 01-18-2025 [facility] Start: 12-03-2024 End: 12-03-2024 ambulatory 12/03/2024 3:15 PM EDT Results Only Cardiology [address] [place] [address] Aneurysm of ascending aorta without rupture (HCC) [I71.21] Cardiology Comment on above: Aneurysm of ascending aorta without rupt ure (HCC) [I71.21] Start: 12-03-2024 End: 12-03-2024 Patient encounter procedure Cardiology Comment on above: Aneurysm of ascending aorta without rupt ure (HCC) [I71.21] Plantar fasciitis [M 72.2] Start: 11-08-2024 Covid-19 Vaccine ( season) Covid-19 Vaccine () [facility] Start: 10-31-2024 End: 10-31-2024 Patient encounter procedure 10/31/2024 1:00 PM EDT Office Visit Internal Medicine [facility] [address] [place], [place] [id number] Kristian Soto MD [address] [place], [place] [phone] bp f/u [facility] [place] Comment on above: bp f/u Start: 10-19-2024 End: 10-19-2024 Patient encounter procedure [facility] Comment on above: Pulsatile neck mass [R22.1]; Bruit of ri ght carotid artery [R09.89]; S/P thyroid biopsy [Z98.890] *Pulsatile neck mass [R22.1]; Bruit of right carotid artery [R09.89]; S/P thyroid biopsy [Z98.890] Start: 09-10-2024 End: 09-10-2024 Patient encounter procedure 09/10/2024 10:00 AM EST Office Visit General Surgery [address] [place], [place] [phone] Leidy Mckeon MD [address] [place] [id number] U/S FNA R & L THYROID General Surgery Comment on above: U/S FNA R & L THYROID Start: 09-03-2024 End: 09-03-2024 Patient encounter procedure 09/03/2024 11:00 AM EST Office Visit General Surgery [address] [place], [place] [phone] Leidy Mckeon MD [address] [place] [phone] thyroid nodules General Surgery Comment on above: thyroid nodules Start: 08-27-2024 End: 08-27-2024 Patient encounter procedure 08/27/2024 7:45 AM EST Appointment Radiology [address] [place], [place] [phone] Goiter [E04.9] Radiology Comment on above: Goiter [E04.9] Start: 08-18-2024 End: 11-17-2024 Lipid 1996 panel - Serum or Plasma LIPID PANEL BASIC Lab Routine Mixed hyperlipidemia Expected: 08/18/2024, Expires: 11/17/[address] [facility] Comment on above: Expected: 08/18/2024, Expires: Start: 08-18-2024 End: 11-17-2024 Thyrotropin [Units/volume] in Serum or Plasma THYROID STIMULATING HORMONE Lab Routine Goiter Expected: 08/18/2024, Expires: 11/17/2024 [facility] Work Phone: Comment on above: Expected: 08/18/2024, Expires: Start: 08-18-2024 End: 11-17-2024 Thyroxine (T4) free [Mass/volume] in Serum or Plasma T4 FREE/FREE THYROXINE Lab Routine Goiter Expected: 08/18/2024, Expires: 11/17/[address] [facility] Comment on above: Expected: 08/18/2024, Expires: Start: 08-18-2024 End: 09-16-2025 US Thyroid gland US THYROID/PARATHYROID Radiology Routine Goiter Expected: 08/18/2024, Expires: 09/16/[address] [facility] Comment on above: Expected: 08/18/2024, Expires: Start: 08-17-2024 End: 08-17-2024 Patient encounter procedure 08/17/2024 10:00 AM EST Office Visit Internal Medicine [place] [address] [place] [address] Kristian Soto MD [address] [place], [place] [phone] Annual Medicare Wellness w/6 month follow-up [facility] Medicine [place] Comment on above: Annual Medicare Wellness w/6 month follo w-up Start: 08-01-2024 Advance Directive Discussion Advance Directive Discussion [facility] Start: 07-23-2024 End: 07-23-2024 Patient encounter procedure Radiology Comment on above: Aneurysm of ascending aorta without rupt ure (HCC) [I71.21] Start: 06-18-2024 End: 06-18-2024 Patient encounter procedure 06/18/2024 2:20 PM EST Office Visit Cardiology [address] [place] [address] Daniel Hassan MD [address] [place] [address] Plantar fasciitis; Aneurysm of ascending aorta without rupture; Palpitations; Disorder of artery or arteriole; EKG, Echo, and CT, patient will have Labs conducted at [place] prior to app Cardiology Comment on above: Plantar fasciitis; Aneurysm of ascending aorta without rupture; Palpitations; Disorder of artery or arteriole; EKG, Echo, and CT, patient will have Labs conducted at [place] prior to appts Start: 06-18-2024 End: 06-18-2024 Patient encounter procedure 06/18/2024 12:30 PM EST Appointment Cardiology [address] [place] [address] Plantar fasciitis; Aneurysm of ascending aorta without rupture; Palpitations; Disorder of artery or arteriole; EKG, Echo, and CT, patient will have Labs conducted at [place] prior to app Cardiology Comment on above: Plantar fasciitis; Aneurysm of ascending aorta without rupture; Palpitations; Disorder of artery or arteriole; EKG, Echo, and CT, patient will have Labs conducted at [place] prior to appts Start: 06-18-2024 End: 06-18-2024 Patient encounter procedure Radiology Comment on above: PATIENT IS CLAUSTROPHOBIC, ALLERGIC TO: Iodine, Contrast, and Antihistamines Plantar fasciitis; A neurysm of ascending aorta without rupture; Palpitations; Disorder of artery or arteriole; EKG, Echo, and CT, patient will have Labs conducted at [place] prior to appts Start: 06-16-2024 DIABETES SCREEN DIABETES SCREEN [facility] Start: 06-14-2024 End: 06-14-2024 ambulatory 06/14/2024 7:00 AM EST Results Only [facility] [address] [place] [address] Labs for Plantar fasciitis [M72.2] [facility] Comment on above: Labs for Plantar fasciitis [M72.2] Start: 05-10-2024 End: 05-10-2024 Nursing evaluation of patient and report 05/10/2024 9:15 AM EDT Nurse Visit Family Medicine [place] [address] [place], [place] [phone] Nurse, Or [address] [facility] [place] [phone] Covid-19 vaccine [facility] [place] Comment on above: Covid-19 vaccine Start: 04-27-2024 End: 04-27-2024 Patient encounter procedure 04/27/2024 10:40 AM EDT Office Visit Dermatology [address] [address] Helen Alcantar MD [address] [place] [address] SKIN EXAM Dermatology Comment on above: SKIN EXAM Start: 04-01-2024 Covid-19 Vaccine ( season) Covid-19 Vaccine () [facility] Start: 02-23-2024 End: 02-23-2024 Nursing evaluation of patient and report 02/23/2024 11:30 AM EDT Nurse Visit Family Medicine [place] [address] [place], [place] [phone] Nurse, Or [address] [place], [place] [phone] Covid-19 vaccine [facility] [place] Comment on above: Covid-19 vaccine Start: 02-17-2024 PFIZER-BIONTECH COVID-19 VACCINE ( SEASON) AGE 12+ YR PFIZER-BIONTECH COVID-19 VACCINE ( SEASON) AGE 12+ YR Immunization/Injection Routine Need for COVID-19 vaccine Expected: 02/17/2024 [facility] Work Phone: Comment on above: Expected: 02/17/2024 Start: 02-14-2024 End: 02-14-2024 Patient encounter procedure 02/14/2024 9:00 AM EDT Office Visit Internal Medicine [place] [address] [place] [address] Kristian Soto MD [address] [place], [place] [phone] 6 month follow-up [facility] Comment on above: 6 month follow-up Start: 02-10-2024 Annual PCP Team Chronic Disease Visit Annual PCP Team Chronic Disease Visit [facility] Start: 02-10-2024 BP Controlled (<130/80) BP Controlled (<130/80) [facility] Start: 02-10-2024 Urine microalbumin profile DTaP,Tdap,Td Vaccine (1 - Tdap) [facility] Comment on above: Postponed from 1966 (Declined at t his time) Start: 12-15-2023 ANNUAL PCP TEAM CHRONIC DISEASE VISIT ANNUAL PCP TEAM CHRONIC DISEASE VISIT [facility] Start: 12-11-2023 ANNUAL PCP TEAM CHRONIC DISEASE VISIT ANNUAL PCP TEAM CHRONIC DISEASE VISIT [facility] Start: 09-06-2023 End: 12-06-2023 Basic metabolic 2000 panel - Serum or Plasma BASIC METABOLIC PNL Lab Routine Plantar fasciitis Aneurysm of ascending aorta without rupture (HCC) Palpitations Disorder of artery or arteriole (HCC) Expected: 09/06/2023, Expires: 12/06/2023 [facility] Work Phone: Comment on above: Expected: 09/06/2023, Expires: 4 Start: 09-06-2023 End: 12-06-2023 CBC panel - Blood by Automated count CBC Lab Routine Plantar fasciitis Aneurysm of ascending aorta without rupture (HCC) Palpitations Disorder of artery or arteriole (HCC) Expected: 09/06/2023, Expires: 12/06/2023 [facility] Work Phone: Comment on above: Expected: 09/06/2023, Expires: 4 Start: 08-11-2023 ANNUAL PCP TEAM CHRONIC DISEASE VISIT ANNUAL PCP TEAM CHRONIC DISEASE VISIT [facility] Start: 08-11-2023 BP CONTROLLED (<130/80) BP CONTROLLED (<130/80) [facility] Start: 08-01-2023 Behavioral Health Screening Behavioral Health Screening [facility] Start: 06-15-2023 ANNUAL PCP TEAM CHRONIC DISEASE VISIT ANNUAL PCP TEAM CHRONIC DISEASE VISIT [facility] Start: 05-17-[address] [facility] Start: 04-06-2023 Covid-19 Vaccine ( season) Covid-19 Vaccine () [facility] Start: 03-22-2023 ANNUAL PCP TEAM CHRONIC DISEASE VISIT ANNUAL PCP TEAM CHRONIC DISEASE VISIT [facility] Start: 01-07-2023 ANNUAL PCP TEAM CHRONIC DISEASE VISIT ANNUAL PCP TEAM CHRONIC DISEASE VISIT [facility] Start: 01-07-2023 BP CONTROLLED (<130/80) BP CONTROLLED (<130/80) [facility] Start: 01-01-2023 ANNUAL PCP TEAM CHRONIC DISEASE VISIT ANNUAL PCP TEAM CHRONIC DISEASE VISIT [facility] Start: 01-01-2023 BP CONTROLLED (<130/80) BP CONTROLLED (<130/80) [facility] Start: 11-18-2022 ANNUAL PCP TEAM CHRONIC DISEASE VISIT ANNUAL PCP TEAM CHRONIC DISEASE VISIT [facility] Start: 10-02-2022 End: 12-02-2022 Comprehensive metabolic 2000 panel - Serum or Plasma COMP METABOLIC PANEL Lab Routine White coat syndrome with diagnosis of hypertension Mixed hyperlipidemia Enlarged thoracic aorta (HCC) Expected: 10/02/2022, Expires: 12/02/2022 [facility] Work Phone: Comment on above: Expected: 10/02/2022, Expires: Start: 10-02-2022 End: 12-02-2022 Lipid 1996 panel - Serum or Plasma LIPID PANEL BASIC Lab Routine White coat syndrome with diagnosis of hypertension Mixed hyperlipidemia Enlarged thoracic aorta (HCC) Expected: 10/02/2022, Expires: 12/02/2022 [facility] Work Phone: Comment on above: Expected: 10/02/2022, Expires: 3 Start: 09-27-2022 End: 11-27-2022 Comprehensive metabolic 2000 panel - Serum or Plasma COMP METABOLIC PANEL Lab Routine Encounter for screening for cardiovascular disorders [facility] coat syndrome with diagnosis of hypertension Primary hypertension Enlarged thoracic aorta (HCC) Heart palpitations Mixed hyperlipidemia Expected: 09/27/2022, Expires: 11/27/2022 [facility] Work Phone: Comment on above: Expected: 09/27/2022, Expires: Start: 09-27-2022 End: 11-27-2022 Lipid 1996 panel - Serum or Plasma LIPID PANEL BASIC Lab Routine Encounter for screening for cardiovascular disorders White coat syndrome with diagnosis of hypertension Primary hypertension Enlarged thoracic aorta (HCC) Heart palpitations Mixed hyperlipidemia Expected: 09/27/2022, Expires: 11/27/2022 [facility] Work Phone: Comment on above: Expected: 09/27/2022, Expires: 3 Start: 09-11-2022 [facility] Start: 07-22-2022 End: 09-21-2022 Basic metabolic 2000 panel - Serum or Plasma BASIC METABOLIC PNL Lab Routine Mixed hyperlipidemia Expected: 07/22/2022, Expires: 09/21/2022 [facility] Work Phone: Comment on above: Expected: 07/22/2022, Expires: 3 Start: 07-22-2022 End: 09-21-2022 Lipid 1996 panel - Serum or Plasma LIPID PANEL BASIC Lab Routine Mixed hyperlipidemia Expected: 07/22/2022, Expires: 09/21/2022 [facility] Work Phone: Comment on above: Expected: 07/22/2022, Expires: 3 Start: 06-20-2022 Adult depression screening assessment DEPRESSION SCREENING [facility] Start: 2022 RSV Vaccine (1 - 1-dose 75+ series) RSV Vaccine (1 - 1-dose 75+ series) [facility] Start: 05-20-[address] [facility] Start: 05-17-2022 COVID-19 VACCINE (5 - Booster for Pfizer series) COVID-19 VACCINE (5 - Booster for Pfizer series) [facility] Start: 09-13-2021 COVID-19 VACCINE (4 - Booster for Pfizer series) COVID-19 VACCINE (4 - Booster for Pfizer series) [facility] Start: 08-01-2021 ADVANCE DIRECTIVE DISCUSSION ADVANCE DIRECTIVE DISCUSSION [facility] Start: 08-01-2021 DEPRESSION ASSESSMENT DEPRESSION ASSESSMENT [facility] Start: 07-29-2016 FECAL OCCULT BLOOD FECAL OCCULT BLOOD [facility] Start: 2007 RSV Vaccine (1 - 1-dose 60+ series) RSV Vaccine (1 - 1-dose 60+ series) [facility] Start: 1997 SHINGRIX VACCINE (1 of 2) SHINGRIX VACCINE (1 of 2) [facility] Start: 1992 COLOGUARD (FIT-DNA) COLOGUARD (FIT-DNA) [facility] Start: [address] COLONOGRAP[address] [facility] Start: [address] [facility] Start: 1966 Urine microalbumin profile [facility] Start: 1965 Anxiety Screening Anxiety Screening [facility] Start: 1965 BP CONTROLLED (<130/80) BP CONTROLLED (<130/80) [facility] in Start: 1965 Depression Screening Depression Screening [facility] End: 10-05-2024 Ct angiography chest w/contrast/noncontrast CTA CHEST (GATED) W IVCON Radiology Routine Disorder of artery or arteriole (HCC) 1 Occurrences starting 09/06/2023 until 10/05/2024 [facility] Work Phone: Comment on above: 1 Occurrences starting 09/06/2023 until 10/05/2024 End: 11-01-2023 CT CALCIUM SCORING SELF [place] ([place]) [place] CALCIUM SCORING [place]F [place]) Radiology Routine Encounter for screening for cardiovascular disorders 1 Occurrences starting 10/02/2022 until 11/01/2023 [facility] Work Phone: Comment on above: 1 Occurrences starting 10/02/2022 until 11/01/2023 CYTOLOGY NON-CULTURAL CENTRE MANAGER [facility] Work Phone: End: 09-28-2024 CYTOLOGY NON-CULTURAL CENTRE MANAGER CYTOLOGY NON-CULTURAL CENTRE MANAGER Lab Routine ONCE for 1 Occurrences starting 09/28/2024 until 09/28/2024 [facility] Work Phone: Comment on above: ONCE for 1 Occurrences starting 09/28/19 until 09/28/2024 ECG COMPLETE ECG COMPLETE ECG Routine Palpitations 09/27/2022 10:04 AM EST [facility] Work Phone: End: 10-03-2023 ECG COMPLETE ECG COMPLETE ECG Routine White coat syndrome with diagnosis of hypertension Mixed hyperlipidemia Enlarged thoracic aorta (HCC) 1 Occurrences starting 10/02/2022 until 10/03/2023 [facility] Work Phone: Comment on above: 1 Occurrences starting 10/02/2022 until 10/03/2023 End: 01-26-2024 ECG COMPLETE ECG COMPLETE ECG Routine Palpitations Aneurysm of ascending aorta without rupture (HCC) 1 Occurrences starting 01/25/2023 until 01/26/2024 [facility] Work Phone: Comment on above: 1 Occurrences starting 01/25/2023 until 01/26/2024 End: 09-06-2024 ECG COMPLETE ECG COMPLETE ECG Routine Plantar fasciitis Aneurysm of ascending aorta without rupture (HCC) Palpitations Disorder of artery or arteriole (HCC) 1 Occurrences starting 09/06/2023 until 09/06/2024 [facility] Work Phone: Comment on above: 1 Occurrences starting 09/06/2023 until 09/06/2024 End: 02-11-2026 ECG COMPLETE [facility] Work Phone: Comment on above: 1 Occurrences starting 02/11/2025 until 02/11/2026 ECG COMPLETE ECG COMPLETE ECG Routine PAF (paroxysmal atrial fibrillation) (HCC) 02/11/2025 8:[address] [facility] End: 09-27-2023 Echocardiography ECHO Cardiology Routine Encounter for screening for cardiovascular disorders White coat syndrome with diagnosis of hypertension Primary hypertension Enlarged thoracic aorta (HCC) Heart palpitations Mixed hyperlipidemia 1 Occurrences starting 09/27/2022 until 09/27/2023 [facility] Work Phone: Comment on above: 1 Occurrences starting 09/27/2022 until 09/27/2023 End: 09-06-2024 Echocardiography ECHO Cardiology Routine Plantar fasciitis Aneurysm of ascending aorta without rupture (HCC) Palpitations Disorder of artery or arteriole (HCC) 1 Occurrences starting 09/06/2023 until 09/06/2024 [facility] Work Phone: Comment on above: 1 Occurrences starting 09/06/2023 until 09/06/2024 End: 08-07-2025 Echocardiography ECHO Cardiology Routine Plantar fasciitis Aneurysm of ascending aorta without rupture (HCC) Disorder of artery or arteriole (HCC) Primary hypertension Enlarged thoracic aorta (HCC) 1 Occurrences starting 08/07/2024 until 08/07/2025 [facility] Work Phone: Comment on above: 1 Occurrences starting 08/07/2024 until 08/07/2025 Guidance for percuta neous biopsy.core needle of Thyroid gland IMAGING GUIDED BIOPSY THYROID Radiology Routine Abnormal ultrasound of thyroid gland Ordered: 09/21/2024 [facility] Work Phone: Comment on above: Ordered: 09/21/2024 Influenza virus A an d B RNA and SARS-CoV-2 (COVID-19) N gene panel - Respiratory specimen by DIANA with probe detection COVID WITH FLUA+B, ROUTINE Microbiology Routine Fever, unspecified fever cause Cough Sore throat 11/18/2021 9:35 AM EDT [facility] Work Phone: End: 07-29-2024 KADY SCREENING KADY SCREENING Radiology Routine Screening mammogram for breast cancer 1 Occurrences starting 06/30/2023 until 07/29/2024 [facility] Work Phone: Comment on above: 1 Occurrences starting 06/30/2023 until 07/29/2024 KADY SCREENING KADY SCREENING Ra diology Routine Screening mammogram for breast cancer 06/30/2023 1:48 PM EST [facility] Work Phone: KADY SCREENING KADY SCREENING Ra diology Routine Visit for screening mammogram Ordered: 07/01/2023 [facility] Work Phone: Comment on above: Ordered: 07/01/2023 OUTSIDE VENDOR CARDI AC OUTPATIENT EXTENDED RHYTHM RECORDING (WITHOUT TELEMETRY) OUTSIDE VENDOR CARDIAC OUTPATIENT EXTENDED RHYTHM RECORDING (WITHOUT TELEMETRY) Holter Routine Encounter for screening for cardiovascular disorders White coat syndrome with diagnosis of hypertension Primary hypertension Enlarged thoracic aorta (HCC) Heart palpitations Mixed hyperlipidemia Ordered: 09/27/2022 [facility] Work Phone: Comment on above: Ordered: 09/27/2022 OUTSIDE VENDOR CARDI AC OUTPATIENT EXTENDED RHYTHM RECORDING (WITHOUT TELEMETRY) OUTSIDE VENDOR CARDIAC OUTPATIENT EXTENDED RHYTHM RECORDING (WITHOUT TELEMETRY) Holter Routine PAF (paroxysmal atrial fibrillation) (HCC) Ordered: 02/11/[address] [facility] Comment on above: Ordered: 02/11/2025 Patient Education [facility] Work Phone: Patient referral [facility] Work Phone: SURGICAL PATHOLOGY SURGICAL PATH OLOGY Lab Routine Skin neoplasm 11/18/2022 3:10 PM EDT [facility] Work Phone: End: 10-17-2025 US Carotid arteries US CAROTID ARTERIES [facility] LAB Vascular Lab CHEY Pulsatile neck mass Bruit of right carotid artery S/P thyroid biopsy 1 Occurrences starting 10/17/2024 until 10/17/2025 [facility] Work Phone: Comment on above: 1 Occurrences starting 10/17/2024 until 10/17/2025 US Thyroid gland US THYROID/PARA THYROID Radiology Routine Goiter 08/27/2024 7:50 AM EST [facility] Work Phone: End: 07-18-2025 XR Chest PA and Lateral XR CHEST 2V FRONTAL/LAT Radiology Routine Viral URI with cough 1 Occurrences starting 06/18/2024 until 07/18/2025 [facility] Work Phone: Comment on above: 1 Occurrences starting 06/18/2024 until 07/18/2025 XR Chest PA and Lateral XR CHEST 2V FRONTAL/LAT Radiology Routine Viral URI with cough 06/18/2024 11:[address] [facility] XR FOOT GENERAL 3V AP/LAT/OBL LEFT XR FOOT GENERAL 3V AP/LAT/OBL LEFT Radiology Routine Acute pain of left foot 01/07/2022 6:19 PM EDT [facility] Work Phone: [facility] Immunizations Immunization Date Immunization Notes Care Provider Kori ozuna 05-10-2024 COVID-19 vaccine, ag e 12+ yr (PFIZER-BIONTECH COMIRNATY) Or Nurse Work Phone: [facility] 02-09-2023 COVID-19 vaccine, ag e 12+ yr, bivalent (PFIZER-BIONTECH) Antonella Curtis MA [facility] Work Phone: 10-24-2022 COVID-19 booster vaccine, age 12+ yr, bivalent (PFIZER-BIONTECH) Daniel Hassan MD Work Phone: [facility] Work Phone: 03-22-2022 COVID-19 vaccine, ag e 12+ yr (PFIZER-BIONTECH - MARQUEZ TOP) Kristian Soto MD Work Phone: [facility] Work Phone: 05-13-2021 COVID-19 vaccine, ag e 12+ yr (PFIZER-BIONTECH - PURPLE TOP) Sabrina Miller MD Work Phone: [facility] 10-22-2020 COVID-19 vaccine, ag e 12+ yr (PFIZER-BIONTECH - PURPLE TOP) Sabrina Miller MD Work Phone: [facility] Work Phone: 10-01-2020 COVID-19 vaccine, ag e 12+ yr (PFIZER-BIONTECH - PURPLE TOP) Sabrina Miller MD Work Phone: [facility] 07-21-2015 pneumococcal conjuga te vaccine, 13 valent Sabrina Miller MD Work Phone: [facility] 11-21-2012 pneumococcal polysaccharide vaccine, 23 valent Sabrina Miller MD Work Phone: [facility] Work Phone: 06-13-2009 influenza virus vacc ine, unspecified formulation Sabrina Miller MD Work Phone: [facility] 06-12-2008 influenza virus vacc ine, unspecified formulation Sabrina Miller MD Work Phone: [facility] 06-06-2007 influenza virus vacc ine, unspecified formulation Sabrina Miller MD Work Phone: [facility] 06-15-2006 influenza virus vacc ine, unspecified formulation Sabrina Miller MD Work Phone: [facility] Work Phone: Payers Date Payer Category Payer Self-pay [id number] 2014 Private Health Insurance HUMANA HU[employer]NA MEDICARE SUPPLEMENT [id number] 2014-Present [phone] [address] [address] [place] [address] Indemnity [id number] 2014 Private Health Insurance [id number] 2014 Private Health Insurance [id number] 2012 Medicare MEDICARE MEDICAR E A AND B [id number] 2012-Present [phone] [address] [address] [place] [address] Medicare [id number] 2012 Medicare [id number] 2012 Medicare [id number] Unknown [id number] Unknown [id number] Unknown [id number] Unknown [id number] Social History Date Type Detail Facility Start: 03-22-2022 End: 01-18-2025 Tobacco smoking status NHIS Never smoked tobacco [facility] Work Phone: Start: 11-18-2021 End: 08-17-2024 Alcohol intake Current non-drinker of alcohol (finding) [facility] Start: 09-29-2021 End: 08-04-2022 History SDOH Alcohol Frequency [address] [facility] Start: 09-29-2021 History SDOH Alcohol Std Drinks [address] [facility] Start: 09-29-2021 End: 08-04-2022 History SDOH Social Connections Phone [address] [facility] Start: 09-29-2021 End: 08-04-2022 History SDOH Social Connections Get Together [address] [facility] Start: 09-29-2021 End: 08-11-2022 History SDOH Social Connections Living [address] [facility] Start: 05-08-[address] [facility] Start: 1945 Sex Assigned At Female [facility] Start: 11-08-2021 End: 06-15-2022 Exposure to SARS-CoV-2 (event) Not sure [facility] Work Phone: Start: 06-30-2011 End: 03-22-2022 Tobacco use and exposure Smokeless tobacco non-user [facility] Work Phone: Start: 08-04-2022 History SDOH Alcohol Std Drinks [address] [facility] Start: 09-11-2022 End: 09-11-2022 Tobacco smoking status NHIS Unknown if ever smoked [facility] Start: 03-06-2020 None [facility] Start: 04-18-2020 Spouse/ Significant Other [facility] Start: 08-04-2022 End: 01-25-2023 History of Social function [facility] Start: 08-04-2022 End: 01-25-2023 Social connection and isolation panel [facility] Do you belong to any clubs or organizations such as baptist groups, unions, fraternal or athletic groups, or school groups? Yes [facility] Are you now , , , , never or living with a partner? [facility] How often to you hav e a drink containing alcohol? Never [facility] How many standard dr inks containing alcohol do you have on a typical day? Patient does not drink [facility] Do you feel stress - tense, restless, nervous, or anxious, or unable to sleep at night because your mind is troubled all the time - these days [OSQ] Not at all [facility] (I/We) worried wheth er (my/our) food would run out before (I/we) got money to buy more. Never true [facility] In the past 12 month s, was there a time when you were not able to pay the mortgage or rent on time? No [facility] Start: 07-26-2019 Gender identity Identifies as female gender (finding) [facility] Start: 07-26-2019 Sexual orientation Heterosexual (finding) [facility] Do you feel stress - tense, restless, nervous, or anxious, or unable to sleep at night because your mind is troubled all the time - these days [OSQ] Only a little [facility] Start: 09-03-2024 End: 02-11-2025 Alcoholic beverage intake Ex-drinker (finding) [facility] chetan Goals Date Patient Goal Desired Activity /State Personal health goal Functional Status Date Assessment Result Facility 02-06-2015 Are you deaf, or do you have serious difficulty hearing No 02/06/2015 11:38 AM Madeline Sun [facility] Work Phone: 02-06-2015 Are you blind, or do you have serious difficulty seeing, even when wearing glasses No 02/06/2015 11:38 AM Madeline Sun [facility] 02-06-2015 Do you have serious difficulty walking or climbing stairs No 02/06/2015 11:38 AM Madeline Sun [facility] 02-06-2015 Do you have difficul ty dressing or bathing No 02/06/2015 11:38 AM Madeline Sun [facility] 02-06-2015 Because of a physica l, mental, or emotional condition, do you have difficulty doing errands alone such as visiting a physician's office or shopping No 02/06/2015 11:38 AM Madeline Sun [facility] Mental Status Date Assessment Result Facility 01-18-2025 Cognitive function Level Of Cons ciousness Awake;Alert;Appropriate;Fol lows Commands [facility] Work Phone: 02-06-2015 Because of a physica l, mental, or emotional condition, do you have serious difficulty concentrating, remembering, or making decisions No 02/06/2015 11:38 AM Madeline Sun [facility] Clinical Notes 01-04-2016 to 02-14-2025 Telephone Encounter - Irma Cameron RN - 02/14/2025 10:52 AM EDTTelephone Encounter - Irma Cameron RN - 02/14/2025 10:52 AM EDTTelephone Encounter - Irma Cameron RN - 02/13/2025 10:32 AM EDT Note Date & Type Note Facility 02-14-2025 Telephone encount er Note Form signed by Dr. Hassan Given to admin Lico to fax over Irma Cameron RN [facility] 02-14-2025 Miscellaneous Notes Formattin g of this note might be different from the original. Form signed by Dr. Hassan Given to admin Lico to fax over Irma Cameron RN Form printed and placed in physician's folder. Irma Cameron RN Type of form: Medication clarification Form received via fax When form is completed, Fax form to [employer] Form has been forwarded to Nurse Endo Pool and saved on OPD folder Note: Patient last seen 02/11/25 Lico Fung documented in this encounter [facility] 02-13-2025 Telephone encount er Note Form printed and placed in physician's folder. Irma Cameron RN [facility] 02-12-2025 Telephone encount er Note Type of form: Medication clarification Form received via fax When form is completed, Fax form to [employer] Form has been forwarded to Nurse Teto Kaur and saved on OPD folder Note: Patient last seen 02/11/[address] [facility] 02-12-2025 Discharge summary [facility] 02-12-2025 Discharge summary Note Date/Time February 12, 2025 3:22pm [facility] Physical Therapy [facility] [address] [place] [address] / REHABILITATION SERVICES DISCHARGE SUMMARY MR#: [id number] Acct: [id number] Name: DOT MCGILL Rep #: [id number] : 1945 79 From: Cert. KARLA DurandT, OCS Referring Dr.: Dr. Kristian Soto MD Status : REG RCR Insurance: MEDICARE PART A B [employer] Discharge Summary D/C summary: It has been my pleasure to treat DOT MCGILL referred by Dr. Kristian Soto MD, with the diagnosis of OSTEOPOROSIS ,TYPE ,UNSPECIFIED PATHOLOGICAL FRACTURE PRESENCE for a total of 32 visit(s). Discharge Date: 02/12/25 Please see the following information for a summary of their discharge status. Subjective Subjective: Seen Dr mcelroy to resume exercises Still golfing Seen Hydraulic Spinner calcium gemma ,lotensin w/o diuretic On telle for A-Fib No SOB or chest Plan to go to family Overall Improvement % Improvement: 60 Objective Objective/Function: POSTURE: mild forward posture rounded shoulders head forward GAIT: mild forward reciprocal pattern NEURO: denies paresthesia/tingling ,reflexes L3-4,L4-5,L5-S1 1/3 PALPATION: mild tender LS/S1 PROM HIP: WFL -IR 40 DEGREES MMT: BUE 4/5 shoulders except shoulders 4-/5 quads/hamstrings/ankle 4/5 , ( peak force) hip abduction right 14.3 ,left 22.5 ,right hip flexion 22.8. right ,left 26.1 LUMBAR ROM: WFL ,extension mod,side glides min loss THORACIC ROM: flexion min loss ,extension mod loss ,rotation min loss FLEXABILITY: hamstrings min tight Goals Goal 1:: Patient to be I with HEP for spine WB activities ( Osteoporosis Program) Goal Progress: Goal Met Goal 2:: Patient to demonstrate 75% improvement with improved function no symptoms with activity Goal Progress: Goal Met Goal 3:: Patient to improve peak force hips flexion/abduction by 10-15# to improve function Goal Progress: Goal Met Goal 4:: Patient to improve LFES score by 5 points to improve QOL and function. Goal Progress: Goal Met Goal Progress: Goal Met Plan Plan: D/C O HEP D/C Information Discharge Comments: HEP d/c sentence: If there are questions or concerns regarding this patient's physical therapy, please feel free to call me at [phone]. Thank you for the referral of thispatient. Sincerely, Ray Cervantes PT, Cert MDT, OCS Balance/Gait/Functional tests Balance/Special Test Scores Lower Extremity Functional Score: 61 Improvement % Improvement: 60 <Electronically signed by Ray Cervantes PT, Cert. T, OCS> 02/12/25 150 CC: Dr. Kristian Soto MD ~ RAUL Signed [facility] Work Phone: 1(601) 327-101307-14-2025 NoteEducation (CARDMN) DOT MCGILL ([id number]) 1945 F Date Time Provider Department 02/11/25 9:30 AM [facility] MONIT[facility] Reason for Visit: Event [921] Cmt: Zio Patch Primary Visit Diagnosis:Paroxysmal atrial fibrillation (HCC) [I48.0] During your visit today, we recorded the following information about you: Allergies As of Date: 02/11/2025 Noted Allergy Reaction INFLUENZA VIRUS VACCINES 07/07/2009 14 - Other: See Comments Comments: Dizziness ADHESIVE TAPE (ROSINS) 03/12/2014 2 - Rash ANTIHISTAMINES - ALKYLAMINE 04/18/2020 14 - Other: See Comments ENTEX LA (PHENYLEPHRINE-GUAIFENES*05/19/2005 IODINATED CONTRAST MEDIA 04/18/2020 7 - Swelling Comments: Eye swelling, SOB, airway and throat swelling IODINE 05/19/2005 NORVASC (AMLODIPINE BESYLATE) 09/17/2008 Comments: lip swelling - gum bleeding Date Reviewed: 02/11/2025 Reviewed by: Yann Hughes MA - Fully Assessed Prescriptions as of 02/11/2025 - apixaban (ELIQUIS) 5 mg tab(s) Take 5 mg by mouth two times a day. - Benazepril-hydroCHLOROthiazide 10-12.5 mg per tablet Take 1 tablet by mouth once daily. - dilTIAZem LA (CARDIZEM LA) 120 mg 24 hr tablet Take 1 tablet by mouth once daily. - benazepril (LOTENSIN) 5 mg tablet Take 1 tablet by mouth once daily. - calcium carbonate/vitamin D3 (CALCIUM 500 + D ORAL) Take by mouth. - cholecalciferol, vitamin D3, (VITAMIN D3 ORAL) Take 4,000 Units by mouth once daily. - cyanocobalamin (VITAMIN B-12) 1,000 mcg tab Take 2,000 mcg by mouth once daily. - omeprazole (PRILOSEC) 20 mg capsule Take 1 capsule by mouth once daily as needed. Encounter Status:Closed by ESTIVEN DONOVAN on 02/11/25[facility]07-14-2025 NoteHNO ID: [id number] Author: ?, ?, ? Service: ? Author Type: ? Type: Progress Notes Filed: 02/11/2025 09:27 Note Text: EVENT MONITOR DISPOSABLE PATCH INSTRUCTIONS Patient Name: Dot Mcgill [facility] Number: [id number] Skin prepped and cleansed with alcohol Patch secured to prepped area Monitor Activated Serial #: [id number] Patient Instructed: Prescribed order timeframe Bathing guidelines Usage of event button and diary documentation Return of monitor at the end of prescribed order Call with problems [phone] or [phone]. [phone] Patient expresses a good understanding of instructions [facility] History of Present illness Narrative* Estiven Donovan - 02/11/2025 9:25 AM EDT EVENT MONITOR DISPOSABLE PATCH INSTRUCTIONS Patient Name: Dot Preston Number: [id number] Skin prepped and cleansed with alcohol Patch secured to prepped area Monitor Activated Serial #: [id number] Patient Instructed: Prescribed order timeframe Bathing guidelines Usage of event button and diary documentation Return of monitor at the end of prescribed order Call with problems [phone] or [phone]. [phone] Patient expresses a good understanding of instructions Estiven Sanjana Julia [facility] Instructions* Patient Instructions* Daniel Hassan MD - 02/11/2025 8:43 AM EDT Please stop at [employer] today to picker feeder your monitor. Please go to the lab in [place] tomorrow to have your thyroid checked out. Keep taking the Eliquis as prescribed. STOP metoprolol tartrate and replace it with diltiazem 120 mg once daily when it arrives from [facility] STOP Benazepril-HCT and replace it with benazepril alone, 5 mg once daily when it arrives from [facility]. You do not need to limit your lifestyle because of the Eliqus or the atrial fib. I will contact you via [employer] in several weeks to see how you are doing and to review your monitorresults. At that time we can decide if a trip to see a rhythm specialist is warranted. I will see you back again in six months. [facility] History of Present illness Narrative* Daniel Hassan MD - 02/11/2025 8:00 AM EDT Images from the original note were not included. [facility] [place] [facility] Department Principal Physician Kristian Soto MD [address] [place] [address] Visit Date February 11, 2025 Visit Type Scheduled follow up History of Present Illness Dot Mcgill is a 79 year-old woman who is here today for follow up of her palpitations, dyspnea, and dilated ascending aorta. Her medical history is also noteworthy for hypertension, GERD and obesity. I last saw Ms. Mcgill in November 2024 and at that time she described vivid nightmares that she attributed to her metoprolol. Her blood pressures were also somewhat labile making her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 Constitutional: General: She is not in acute distress. Appearance: Normal appearance. She is not ill-appearing or toxic-appearing. Neck: Vascular: Carotid bruit (right) present. Cardiovascular: Rate and Rhythm: Normal rate and regular rhythm. Pulses: Normal pulses. Heart sounds: Murmur (08/06) heard. Pulmonary: Effort: Pulmonary effort is normal. Breath sounds: Normal breath sounds. No wheezing, rhonchi or rales. Musculoskeletal: Right lower leg: No edema. Le (more content not included)...[facility]03-19-2025 History of Present illness Narrative* Ingrid Perkins, PROCESSING REP.[facility] - 10/17/2024 4:38 PM EDT Images from the original note were not included. CC: Patient presents with: Fatigue: Hypertension x 1 day HPI Dot is a 79-year-old female with a history of HTN, presenting for evaluation of elevated blood pressure readings and visible neck pulsations. The patient consented to the use of Zite software for draft documentation of the visit consistent with [facility] s Notice of Privacy Practices. Hypertension: - Recent home blood pressure readings as high as 189 mmHg; most recent reading was 141 mmHg. - Adheres strictly to medication regimen, taking benazepril/hydrochlorothiazide 5 mg/6.25 mg daily and metoprolol. - Denies missing any doses of antihypertensive medications. - Denies chest pain, palpitations, dyspnea, orthopnea, edema. - Reports feeling sluggish and experiencing mild lightheadedness. - No recent illness, but had a cold following the second thyroid biopsy, which has resolved. - Following a diet avoiding chips, salty snacks, candy, cakes, and donuts. Right neck pulsation: - Noted visible right neck pulsations and swelling last night after showering, causing concern. Associated with sensation of pressure on the right side of her neck in that general area, resolved by this morning - Reports similar neck pulsations in her sister, who had multiple CVAs and last November. - Denies severe headaches, blurred vision, or syncope. - No issues with balance, coordination, or unilateral weakness. - Denies dysphagia, odynophagia, or sore throat. - No numbness, tingling, or facial drooping. - Recent thyroid biopsies x2 in the last 6 weeks; awaiting results. - No personal history of carotid disease, stroke or TIA Review of Systems See HPI PAST MEDICAL HISTORY Diagnosis Date Abnormal ultrasound of thyroid gland 09/03/2024 Acute deep vein thrombosis (DVT) of popliteal vein of left lower extremity (HCC) 08/29/2021 Anxiety Benign neoplasm of colon Cardiac murmur 10/08/2011 Disorder of bone and cartilage, unspecified Enlarged thoracic aorta (HCC) 10/08/2011 ECHO 09/2011 - Dilated aorta, stable since 2004, mild LVH stable since 2004. 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 Osteoporosis, unspecified 05/19/2005 Pneumonia 10/03/2019 Shingles outbreak 10/09/2019 Unspecified essential hypertension Vitamin D deficiency 12/18/2010 PAST SURGICAL HISTORY Procedure Laterality Date ARTHROPLASTY GLENOHUMRL JT HEMIARTHROPLASTY Right Hemiarthroplasty, right shoulder CHOLECYSTECTOMY Cholecystectomy COLONOSCOPY FLX DX W/COLLJ SPEC WHEN PFRMD 11/11/2000 Colonoscopy COLONOSCOPY FLX DX W/COLLJ SPEC WHEN PFRMD 10/09/2015 Colonoscopy DEST [place]NEA LESION-PHOTOCOAGULATION Left 07/2024 LIG/TRNSXJ FLP TUBE ABDL/VAG APPR UNI/BI Tubal ligation PAST SURGICAL HISTORY OF Corrective Lasix Surgery/Left Eye VAGINAL HYSTERECTOMY UTERUS 250 GM/< Hysterectomy, vaginal ALLERGIES Influenza Virus Vaccines, Adhesive Tape (Rosins), Antihistamines - Alkylamine, Entex La [Phenylephrine-Guaifenesin], Iodinated Contrast Media, Iodine, and Norvasc [Amlodipine Besylate] MEDICATIONS metoprolol tartrate, short acting, (LOPRESSOR) 25 mg tablet TAKE ONE-HALF (1/2) TABLET TWICE A DAY Benazepril-hydroCHLOROthiazide (LOTENSIN HCT) 10-12.5 mg per tablet One half (1/2) tablet daily. cholecalciferol, vitamin D3, (VITAMIN D3 ORAL) Take 4,000 Units by mouth once daily. cyanocobalamin (VITAMIN B-12) 1,000 mcg tab Take 2,000 mcg by mouth once daily. omeprazole (PRILOSEC) 20 mg capsule Take 1 capsule by mouth once daily as needed. FAMILY HISTORY Problem Relation Age of Onset Heart Mother Hypertension Mother Arthritis Mother Osteoarthritis Hyperlipidemia Mother Stroke Father Hypertension Father Hyperlipidemia Father Thyroid Sister Stroke Sister Hypertension Sister Colon Cancer Sister Breast Cancer Sister Thyroid Sister Hypertension Sister Colon Cancer Maternal Grandfather Social History Tobacco Use Smoking status: Never Smokeless tobacco: Never Vaping Use Vaping status: Never Used Substance Use Topics Alcohol use: Not Currently Drug use: Never BP 152/82 Pulse 66 Resp 14 Wt 76.1 kg (167 lb 12.3 oz) SpO2 97% BMI 28.35 kg/m Physical Exam Vitals reviewed. Constitutional: General: She is not in acute distress. Appearance: Normal appearance. She is not ill-appearing or toxic-appearing. Neck: Vascular: Carotid bruit (right) present. Cardiovascular: Rate and Rhythm: Normal rate and regular rhythm. Pulses: Normal pulses. Heart sounds: Murmur (1/6) heard. Pulmonary: Effort: Pulmonary effort is normal. Breath sounds: Normal breath sounds. No wheezing, rhonchi or rales. Musculoskeletal: Right lower leg: No edema. Left lower leg: No edema. Lymphadenopathy: Cervical: No cervical adenopathy. Skin: General: Skin is warm and dry. Neurological: Mental Status: She is alert. Motor: Motor function is intact. Gait: Gait is intact. Data Reviewed: most recent labs, thyroid ultrasound, EKG and echocardiogram Assessment/Plan 1. Pulsatile neck mass (R22.1) 2. Bruit of right carotid artery (R09.89) - Noted visible pulsation in the neck; no associated pain or dysphagia. - Ordered carotid ultrasound to evaluate for potential vascular abnormalities. - Advised patient to monitor for any new or worsening symptoms such as severe headache or neurological deficits and to seek immediate medical attention if they occur. 3. White coat syndrome with diagnosis of hypertension (I10) - Blood pressure readings have been elevated at home, but improved during the visit. - Current antihypertensive regimen includes benazepril-hydrochlorothiazide and metoprolol. - Discussed potential for white coat hypertension contributing to elevated readings. - Advised patient to continue current medication regimen without changes at this time. - Instructed patient on proper home blood pressure monitoring techniques: take readings 2-3 times in a row with about a minute in between, and average the results; best taken in the morning after emptying the bladder and before eating or drinking. - Advised to avoid strenuous activities that may elevate blood pressure and to listen to her body, stopping activities if feeling weak, tired, or short of breath. - Follow-up scheduled in no longer than 2 weeks to reassess blood pressure and review carotid ultrasound results. 4. S/P thyroid biopsy (Z98.890) - Recent thyroid biopsies performed on 09/28/24, see #1 and 2 Prescription instructions reviewed with patient as applicable. Potential red flag symptoms discussed with the patient. Reviewed appropriate action plan to take if red flag symptoms occur. Patient agreeable to treatment plan. Ingrid Perkins APRN.CNP Medical Decision Making: Problems: Moderate: New problem with uncertain prognosis and 1+ chronic illnesses with change Data: Unique test result(s) reviewed: 3+ Unique test(s) ordered: 1 Risk: Low: Low risk from testing/treatment Medical Decision Making Level: 4 - Moderate documented [facility] Instructions* Patient Instructions* Ingrid Perkins APRN.CNP - 10/17/2024 4:36 PM EDT - Continue taking your current medications as prescribed. - Monitor your blood pressure at home several times a day. Take 2-4 readings in a row with about a minute in between, and average the readings. The best time to check is when you are calm, such as inthe morning before eating or drinking. - Watch for any signs of severe headache, stroke symptoms (slurred speech, facial drooping, numbness, tingling, weakness on one side of the body), or heart symptoms (chest pain, shortness of breath, dizziness, or feeling like you could pass out). If you experience any of these symptoms, call 911 orgo to the emergency room immediately. - Continue with your normal activities, but avoid strenuous activities that could raise your blood pressure or heart rate. Listen to your body and stop if you feel weak, tired, short of breath, or experience pain. - Schedule a carotid ultrasound as discussed. documented in [facility]25 Telephone encounter Note * Telephone Encounter - Amy Zuniga RN - 10/17/2024 12:57 PM EDT Patient calls for high blood pressure on at home cuff. Patient with slight headache and generalizedweakness. Nurse triage recommends see provider within 24 hours. Same day scheduled. Patient to bring blood pressure cuff in to compare to office cuff. Care advice reviewed. Patient verbalizes understanding. Reason for Disposition Systolic BP >= 180 OR Diastolic >= 110 Answer Assessment - Initial Assessment Questions 1. BLOOD PRESSURE:181/99, 175/90, 165/94. HR running in the 50's. Tired. Overall feels not well butnothing specific. 2. ONSET: Started monitoring BP just before calling in 3. HOW: Automatic BP cuff. 4. HISTORY: Yes, medicated for years with no issues. 5. MEDICINES: Lotensin 10-12.5 mg 1/2 tab daily. Metoprolol 25 mg 1/2 tablet BID. 6. OTHER SYMPTOMS: Slight headache and generalized weakness. No blurred vision, chest pain, difficulty breathing. Feels a pulsating in her neck. Protocols used: Blood Pressure - [id number]-[id number]-PP [facility]03-19-2025 Miscellaneous Notes* Telephone Encounter - Amy Zuniag RN - 10/17/2024 12:57 PM EDT Patient calls for high blood pressure on at home cuff. Patient with slight headache and generalizedweakness. Nurse triage recommends see provider within 24 hours. Same day scheduled. Patient to bring blood pressure cuff in to compare to office cuff. Care advice reviewed. Patient verbalizes understanding. Reason for Disposition Systolic BP >= 180 OR Diastolic >= 110 Answer Assessment - Initial Assessment Questions 1. BLOOD PRESSURE:181/99, 175/90, 165/94. HR running in the 50's. Tired. Overall feels not well butnothing specific. 2. ONSET: Started monitoring BP just before calling in 3. HOW: Automatic BP cuff. 4. HISTORY: Yes, medicated for years with no issues. 5. MEDICINES: Lotensin 10-12.5 mg 1/2 tab daily. Metoprolol 25 mg 1/2 tablet BID. 6. OTHER SYMPTOMS: Slight headache and generalized weakness. No blurred vision, chest pain, difficulty breathing. Feels a pulsating in her neck. Protocols used: Blood Pressure - [id number] documented in this [facility]-04-2025 Telephone encounter Note * Telephone Encounter - Leidy Mckeon MD - 10/02/2024 4:20 PM EST Called patient with results - identified by number and name. Told patient cytopathology. Specimen being sent for further testing with Afirma. Told patient that this may take several weeks and I will call her with the results. She states that it would OK to leave a message on the answering machine in the future. [facility] Work Phone: 1(509) 887-540903-04-2025 Miscellaneous Notes* Telephone Encounter - Leidy Mckeon MD - 10/02/2024 4:20 PM EST Called patient with results - identified by number and name. Told patient cytopathology. Specimen being sent for further testing with Afirma. Told patient that this may take several weeks and I will call her with the results. She states that it would OK to leave a message on the answering machine in the future. documented [facility] [address] [facility]02-28-2025 Surgery Surgical operation note* Brief Op Note - Renetta Cruz MD - 09/28/2024 1:23 PM EST BRIEF OPERATIVE / PROCEDURE NOTE LOG ID: [id number] SURGERY/PROCEDURE DATE: 09/28/2024 INCISION/PROCEDURE START TIME: INCISION CLOSE/PROCEDURE END TIME: SURGEON(S)/PROCEDURALIST(S) AND DIRECTOR OF WORKFORCE DEVELOPMENT(S): Surgeons and Role: * Renetta Cruz MD - Primary No Additional Staff SURGERY/PROCEDURE(S): Ultrasound guided right thyroid nodule FNA ANESTHESIA: Local FINDINGS: ESTIMATED BLOOD LOSS: minimal SPECIMENS: multiple aspirates COMPLICATIONS: None CLOSURE TECHNIQUE: Non-primary PRE-OP/PRE-PROCEDURE DIAGNOSIS: Right thyroid nodule POST-OP/POST-PROCEDURE DIAGNOSIS: Same as Preop SIGNATURE: Renetta Cruz MD PATIENT NAME: Dot Mcgill DATE: September 28, 2024 TIME: 1:[address] [facility] Work Phone: 1(635) 554-266202-28-2025 Surgical operation note* Brief Op Note - Renetta Cruz MD - 09/28/2024 1:23 PM EST BRIEF OPERATIVE / PROCEDURE NOTE LOG ID: [id number] SURGERY/PROCEDURE DATE: 09/28/2024 INCISION/PROCEDURE START TIME: INCISION CLOSE/PROCEDURE END TIME: SURGEON(S)/PROCEDURALIST(S) AND DIRECTOR OF WORKFORCE DEVELOPMENT(S): Surgeons and Role: * Renetta Cruz MD - Primary No Additional Staff SURGERY/PROCEDURE(S): Ultrasound guided right thyroid nodule FNA ANESTHESIA: Local FINDINGS: ESTIMATED BLOOD LOSS: minimal SPECIMENS: multiple aspirates COMPLICATIONS: None CLOSURE TECHNIQUE: Non-primary PRE-OP/PRE-PROCEDURE DIAGNOSIS: Right thyroid nodule POST-OP/POST-PROCEDURE DIAGNOSIS: Same as Preop SIGNATURE: Renetta Cruz MD PATIENT NAME: Dot Mcgill DATE: September 28, 2024 TIME: 1:24 PM documented [address] [facility]-19-2025 Telephone encounter Note * Telephone Encounter - Olivia Urrutia RN - 09/19/2024 2:54 PM EST Patient called back stating that she would like to get the repeat US FNA done at [facility]. Patient is asking that she has an order for pre procedural Valium again. Olivia Urrutia RN [facility]02-19-2025 Miscellaneous Notes* Telephone Encounter - Olivia Urrutia RN - 09/19/2024 2:54 PM EST Patient called back stating that she would like to get the repeat US FNA done at [facility]. Patient is asking that she has an order for pre procedural Valium again. Olivia Urrutia RN * Telephone Encounter - Leidy Mckeon MD - 09/19/2024 1:54 PM EST Left message - pathology from FNA of thyroid - no cancer seen. However, inadequate findings on right nodule. Left nodule was OK - no cancer seen and adequate pathology reading. I have offered repeat US FNA at [place] or I can refer patient to [facility]. Patient can call office to give her preference. documented [address] [facility]02-19-2025 Telephone encounter Note * Telephone Encounter - Leidy Mckeon MD - 09/19/2024 1:54 PM EST Left message - pathology from FNA of thyroid - no cancer seen. However, inadequate findings on right nodule. Left nodule was OK - no cancer seen and adequate pathology reading. I have offered repeat US FNA at [place] or I can refer patient to [facility]. Patient can call office to give her preference. [facility] Work Phone: 1(806) 227-981902-10-2025 Instructions* Patient Instructions* Dot Greco LPN - 09/10/2024 10:39 AM EST The following instructions are important for you related to your office visit today with the [facility]. Instructions After THYROID FINE NEEDLE ASPIRATION Please do not take aspirin or other blood thinners for the next few days. If you have bleeding from the needle site, hold pressure with a clean gauze. If the bleeding continues, contact our office immediately. I recommend taking Advil or Tylenol for the discomfort. An ice pack may improve your discomfort to the area. Contact our office immediately if you have any questions or concerns @ [phone]. Dr. Mckeon will call with results. If you note any additional difficulties, questions, or concerns, you should contact our office immediately @ [phone] and ask to be transferred to the General Surgery department. documented in this encounterWilson [facility]02-10-2025 NoteHNO ID: [id number] Author: DOT GRECO LPN Service: ? Author Type: LICENSED NURSE Type: Procedures Filed: 09/11/2024 14:09 Note Text: UNIVERSAL PROTOCOL / SAFETY CHECKLIST Procedure to be Performed: US guided FNA of right and left thyroid nodules Sign In: A Moment of CARE was completed. Personnel directly involved with the procedure wore the appropriate PPE (Personal Protective Equipment). No special equipment needed. Patient/Surrogate Stated/Verified: PATIENT VERIFIED(optional for EMERGENT procedures): Patient name, Date of , Relevant allergies, and The intended procedure Time Out Communication: Intended patient and procedure match the source documents. Consent documented and matches the intended procedure. Relevant labs, photos, and/or imaging studies have been reviewed. Correct side/site marked and visible. Medications required for procedure verified. No fire risk assessment and interventions applicable. No implant(s) inserted. Sign Out: SIGN OUT (optional for EMERGENT procedures): All specimen containers correctly labeled. All instruments, equipment, possible retained foreign bodies accounted for. Post-procedure follow-up management communicated and Plan of Care Visit completed when applicable. [facility] Procedure note* Dot Greco LPN - 09/10/2024 10:32 AM EST UNIVERSAL PROTOCOL / SAFETY CHECKLIST Procedure to be Performed: US guided FNA of right and left thyroid nodules Sign In: A Moment of CARE was completed. Personnel directly involved with the procedure wore the appropriate PPE (Personal Protective Equipment). No special equipment needed. Patient/Surrogate Stated/Verified: PATIENT VERIFIED(optional for EMERGENT procedures): Patient name, Date of , Relevant allergies, and The intended procedure Time Out Communication: Intended patient and procedure match the source documents. Consent documented and matches the intended procedure. Relevant labs, photos, and/or imaging studies have been reviewed. Correct side/site marked and visible. Medications required for procedure verified. No fire risk assessment and interventions applicable. No implant(s) inserted. Sign Out: SIGN OUT (optional for EMERGENT procedures): All specimen containers correctly labeled. All instruments, equipment, possible retained foreign bodies accounted for. Post-procedure follow-up management communicated and Plan of Care Visit completed when applicable. Dot Greco LPN [facility]02-10-2025 Procedure note* Dot Greco LPN - 09/10/2024 10:32 AM EST UNIVERSAL PROTOCOL / SAFETY CHECKLIST Procedure to be Performed: US guided FNA of right and left thyroid nodules Sign In: A Moment of CARE was completed. Personnel directly involved with the procedure wore the appropriate PPE (Personal Protective Equipment). No special equipment needed. Patient/Surrogate Stated/Verified: PATIENT VERIFIED(optional for EMERGENT procedures): Patient name, Date of , Relevant allergies, and The intended procedure Time Out Communication: Intended patient and procedure match the source documents. Consent documented and matches the intended procedure. Relevant labs, photos, and/or imaging studies have been reviewed. Correct side/site marked and visible. Medications required for procedure verified. No fire risk assessment and interventions applicable. No implant(s) inserted. Sign Out: SIGN OUT (optional for EMERGENT procedures): All specimen containers correctly labeled. All instruments, equipment, possible retained foreign bodies accounted for. Post-procedure follow-up management communicated and Plan of Care Visit completed when applicable. Dot Greco LPN documented in [address] [facility]02-10-2025 NoteHNO ID: [id number] Author: LEIDY MCKEON MD Service: ? Author Type: Physician Type: Progress Notes Filed: 09/11/2024 14:09 Note Text: Dot is here for US guided FNA of right and left thyroid nodules PROCEDURE NOTE: After informed consent was given and patient gives permission for the procedure, the patient was in the supine position with neck in slight extension. Appropriate time out protocol was followed. The ultrasound machine was used for real time imaging. The anterior neck skin was cleansed with a sterile surgical skin preparation. The skin and subcutaneous tissues were infiltrated with 1% xylocaine with epinephrine. The ultrasound transducer probe was brought up to localize the thyroid nodules. The right thyroid nodule was identified with the US transducer. It was located in the lower pole. It was about 3.5 cm in maximum dimension A 22 G needle was inserted into the nodule under US guidance. Several passes were made to ensure obtaining enough material. Of note, this was mostly of bloody fluid - which may represent a ruptured thyroid nodule. The needle was withdrawn. The specimen was placed in a cytology fixative solution and forwarded to pathology. The above was repeated with a new 22 G needle attached to a 10 cc syringe. This was done to ensure adequate sampling. This process was again repeated until adequate sampling was deemed to be achieved. The specimens were then forwarded to pathology. Hemostasis was achieved by pressure. The left thyroid nodule were then next approached. The location of the nodule(s) was inferior aspect. It was about 1.5 cm in maximum dimension. Identified under US guidance. A 22 G needle attached to a 10 cc syringe was inserted into the nodule under US guidance. Several passes were made to ensure obtaining enough material. The needle was withdrawn. The specimen was placed in a cytology fixative solution (and also a sample for Afirma testing) The above was repeated with a new 22 G needle attached to a 10 cc syringe. This was done to ensure adequate sampling. This process was again repeated until adequate sampling was deemed to be achieved. The specimens were then forwarded to pathology. Hemostasis was achieved by pressure. A small bandaid was applied to both locations and patient told that could be removed tomorrow. No evidence of bleeding noted. Patient tolerated procedure well. Complications - none EBL - minimal Of note: the labelling for the US guided right and left images are reversed. PLAN: Wound care instructions given by clinic staff. I will contact patient with results. Patient acknowledges the above.[facility]02-10[facility]25 History of Present illness Narrative* Leidy Mckeon MD - 09/10/2024 10:18 AM EST Dot is here for US guided FNA of right and left thyroid nodules PROCEDURE NOTE: After informed consent was given and patient gives permission for the procedure, the patient was inthe supine position with neck in slight extension. Appropriate time out protocol was followed. The ultrasound machine was used for real time imaging. The anterior neck skin was cleansed with a sterile surgical skin preparation. The skin and subcutaneous tissues were infiltrated with 1% xylocaine with epinephrine. The ultrasound transducer probe was brought up to localize the thyroid nodules. The right thyroid nodule was identified with the US transducer. It was located in the lower pole. It was about 3.5 cm in maximum dimension A 22 G needle was inserted into the nodule under US guidance. Several passes were made to ensure obtaining enough material. Of note, this was mostly of bloody fluid - which may represent a ruptured thyroid nodule. The needle was withdrawn. The specimen was placed in a cytology fixative solution and forwarded to pathology. The above was repeated with a new 22 G needle attached to a 10 cc syringe. This was done to ensure adequate sampling. This process was again repeated until adequate sampling was deemed to be achieved. The specimens were then forwarded to pathology. Hemostasis was achieved by pressure. The left thyroid nodule were then next approached. The location of the nodule(s) was inferior aspect. It was about 1.5 cm in maximum dimension. Identified under US guidance. A 22 G needle attached to a 10 cc syringe was inserted into the nodule under US guidance. Several passes were made to ensure obtaining enough material. The needle was withdrawn. The specimen was placed in a cytology fixative solution (and also a sample for Afirma testing) The above was repeated with a new 22 G needle attached to a 10 cc syringe. This was done to ensure adequate sampling. This process was again repeated until adequate sampling was deemed to be achieved. The specimens were then forwarded to pathology. Hemostasis was achieved by pressure. A small bandaid was applied to both locations and patient toldthat could be removed tomorrow. No evidence of bleeding noted. Patient tolerated procedure well. Complications - none EBL - minimal Of note: the labelling for the US guided right and left images are reversed. PLAN: Wound care instructions given by clinic staff. I will contact patient with results. Patient acknowledges the above. [facility] NoteHNO ID: [id number] Author: DOT GRECO LPN Service: ? Author Type: LICENSED NURSE Type: Progress Notes Filed: 09/06/2024 14:51 Note Text: REVIEW OF SYSTEMS: General: The patient denies fatigue, denies weight loss, denies weight gain, denies feeling hot, and denies feelings of cold. Eyes: The patient denies glaucoma, denies eye injury/surgery, wears glasses or contacts. Ear/Nose/Throat: The patient denies allergies, denies hayfever, denies ear infections, and denies bloody noses. Cardiovascular: The patient denies chest pain, denies heart disease, notes high blood pressure,denies cardiac stent, denies prior heart attack, denies irregular heart beat, denies high cholesterol, denies poor circulation, denies heart failure, other cardiac issues, denies claudication, denies cold feet, denies peripheral arterial stent. Respiratory: The patient denies tuberculosis, denies pneumonia, denies frequent cough, denies pulmonary embolism, denies shortness of breath, and denies coughing up blood. Gastrointestinal: The patient denies difficulty swallowing, denies acid reflux, denies ulcers, denies vomiting, denies jaundice/hepatitis, denies gallbladder problems, denies black or tarry stools, denies hemorrhoids, denies bleeding from rectum, denies diverticulitis, denies constipation, denies diarrhea, denies loss of stool control, and denies hernias. Kidney/Bladder: The patient denies kidney stones, denies urine infections, and denies bloody urine. Skin: The patient denies a history of skin cancer, denies bleeding/changing moles, and notes a history of skin rash. Neurologic: The patient denies a history of epilepsy/convulsions, denies headaches, denies head/spinal injuries, and denies stroke/TIA. Psychiatric: The patient denies psychiatric medications, denies depression, and denies voices, denies substance abuse. Endocrine: The patient denies thyroid disorders, denies diabetes, and denies hormonal problems. Hematologic: The patient denies a history of bruising, denies bleeding, and denies anemia, denies blood clots. Infections: The patient denies a history of measles and mumps, denies rheumatic fever, and denies sexually transmitted diseases. Musculoskeletal: The patient denies back pain/injury, denies back problems, denies sciatica, denies knee/foot trouble, denies arthritis, or denies gout. When was patient's last Mammogram screening? 06/30/2023 Last Colonoscopy: 8 years ago per patient Dot Greco [facility]02-03-2025 History of Present illness Narrative* Dot Greco LPN - 09/03/2024 10:58 AM EST REVIEW OF SYSTEMS: General: The patient denies fatigue, denies weight loss, denies weight gain, denies feeling hot, and denies feelings of cold. Eyes: The patient denies glaucoma, denies eye injury/surgery, wears glasses or contacts. Ear/Nose/Throat: The patient denies allergies, denies hayfever, denies ear infections, and denies bloody noses. Cardiovascular: The patient denies chest pain, denies heart disease, notes high blood pressure,denies cardiac stent, denies prior heart attack, denies irregular heart beat, denies high cholesterol, denies poor circulation, denies heart failure, other cardiac issues, denies claudication, denies coldfeet, denies peripheral arterial stent. Respiratory: The patient denies tuberculosis, denies pneumonia, denies frequent cough, denies pulmonary embolism, denies shortness of breath, and denies coughing up blood. Gastrointestinal: The patient denies difficulty swallowing, denies acid reflux, denies ulcers, denies vomiting, denies jaundice/hepatitis, denies gallbladder problems, denies black or tarry stools, denies hemorrhoids, denies bleeding from rectum, denies diverticulitis, denies constipation, denies diarrhea, denies loss of stool control, and denies hernias. Kidney/Bladder: The patient denies kidney stones, denies urine infections, and denies bloody urine. Skin: The patient denies a history of skin cancer, denies bleeding/changing moles, and notes a history of skin rash. Neurologic: The patient denies a history of epilepsy/convulsions, denies headaches, denies head/spinal injuries, and denies stroke/TIA. Psychiatric: The patient denies psychiatric medications, denies depression, and denies voices, denies substance abuse. Endocrine: The patient denies thyroid disorders, denies diabetes, and denies hormonal problems. Hematologic: The patient denies a history of bruising, denies bleeding, and denies anemia, denies blood clots. Infections: The patient denies a history of measles and mumps, denies rheumatic fever, and denies sexually transmitted diseases. Musculoskeletal: The patient denies back pain/injury, denies back problems, denies sciatica, deniesknee/foot trouble, denies arthritis, or denies gout. When was patient's last Mammogram screening? 06/30/2023 Last Colonoscopy: 8 years ago per patient Dot Greco LPN * Leidy Mckeon MD - 09/03/2024 10:55 AM EST Dot Mcgill 1945 REFERRING PHYSICIAN: Kristian Soto MD CHIEF COMPLAINT: Consult (Thyroid nodules) HPI: The patient is a 79 year old female incidental findings of thyroid nodules from CT chest. She notes no family history of thyroid cancer, though multiple family members had thyroid surgery She denies swallowing problems She denies globus symptoms She denies exposure to unusual radiation She denies taking thyroid hormones She has noted a raspy voice recently. US thyroid - 08/27/2024 - right thyroid nodule - 3.9 x 3 x 3 cm mixed cystic and solid with punctateechogenic foci; left lower - 1.9 x 1.5 x 1.5 cm - both of which radiologist recommends FNA PAST MEDICAL HISTORY Diagnosis Date Acute deep vein thrombosis (DVT) of popliteal vein of left lower extremity (HCC) 08/29/2021 Benign neoplasm of colon Cardiac murmur 10/08/2011 Disorder of bone and cartilage, unspecified Enlarged thoracic aorta (HCC) 10/08/2011 ECHO 09/2011 - Dilated aorta, stable since 2004, mild LVH stable since 2004. 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 Osteoporosis, unspecified 05/19/2005 Pneumonia 10/03/2019 Shingles outbreak 10/09/2019 Unspecified essential hypertension Vitamin D deficiency 12/18/2010 PAST SURGICAL HISTORY Procedure Laterality Date ARTHROPLASTY GLENOHUMRL JT HEMIARTHROPLASTY Right Hemiarthroplasty, right shoulder CHOLECYSTECTOMY Cholecystectomy COLONOSCOPY FLX DX W/COLLJ SPEC WHEN PFRMD 11/11/2000 Colonoscopy COLONOSCOPY FLX DX W/COLLJ SPEC WHEN PFRMD 10/09/2015 Colonoscopy DEST CORNEA LESION-PHOTOCOAGULATION Left 07/2024 LIG/TRNSXJ FLP TUBE ABDL/VAG APPR UNI/BI Tubal ligation PAST SURGICAL HISTORY OF Corrective Lasix Surgery/Left Eye VAGINAL HYSTERECTOMY UTERUS 250 GM/< Hysterectomy, vaginal Current Outpatient Medications Medication Sig metoprolol tartrate, short acting, (LOPRESSOR) 25 mg tablet TAKE ONE-HALF (1/2) TABLET TWICE A DAY Benazepril-hydroCHLOROthiazide (LOTENSIN HCT) 10-12.5 mg per tablet One half (1/2) tablet daily. cholecalciferol, vitamin D3, (VITAMIN D3 ORAL) Take 4,000 Units by mouth once daily. cyanocobalamin (VITAMIN B-12) 1,000 mcg tab Take 2,000 mcg by mouth once daily. omeprazole (PRILOSEC) 20 mg capsule Take 1 capsule by mouth once daily as needed. No current facility-administered medications for this visit. ALLERGIES: Influenza Virus Vaccines, Adhesive Tape (Rosins), Antihistamines - Alkylamine, Entex La [Phenylephrine-Guaifenesin], Iodinated Contrast Media, Iodine, and Norvasc [Amlodipine Besylate] PERSONAL HISTORY: Social History Tobacco Use Smoking status: Never Smokeless tobacco: Never Vaping Use Vaping status: Never Used Substance Use Topics Alcohol use: Not Currently Drug use: Never FAMILY HISTORY Problem Relation Age of Onset Heart Mother Hypertension Mother Arthritis Mother Osteoarthritis Hyperlipidemia Mother Stroke Father Hypertension Father Hyperlipidemia Father Hypertension Sister Hypertension Sister Hypertension Sister Hypertension Sister Colon Cancer Maternal Grandfather Breast Cancer Sister 69 Thyroid Sister Thyroid Sister REVIEW OF SYSTEMS: General: The patient denies fatigue, denies weight loss, denies weight gain, denies feeling hot, and denies feelings of cold. Eyes: The patient denies glaucoma, denies eye injury/surgery, wears glasses or contacts. Ear/Nose/Throat: The patient denies allergies, denies hayfever, denies ear infections, and denies bloody noses. Cardiovascular: The patient denies chest pain, denies heart disease, notes high blood pressure,denies cardiac stent, denies prior heart attack, denies irregular heart beat, denies high cholesterol, denies poor circulation, denies heart failure, other cardiac issues, denies claudication, denies coldfeet, denies peripheral arterial stent. Respiratory: The patient denies tuberculosis, denies pneumonia, denies frequent cough, denies pulmonary embolism, denies shortness of breath, and denies coughing up blood. Gastrointestinal: The patient denies difficulty swallowing, denies acid reflux, denies ulcers, denies vomiting, denies jaundice/hepatitis, denies gallbladder problems, denies black or tarry stools, denies hemorrhoids, denies bleeding from rectum, denies diverticulitis, denies constipation, denies diarrhea, denies loss of stool control, and denies hernias. Kidney/Bladder: The patient denies kidney stones, denies urine infections, and denies bloody urine. Skin: The patient denies a history of skin cancer, denies bleeding/changing moles, and notes a history of skin rash. Neurologic: The patient denies a history of epilepsy/convulsions, denies headaches, denies head/spinal injuries, and denies stroke/TIA. Psychiatric: The patient denies psychiatric medications, denies depression, and denies voices, denies substance abuse. Endocrine: The patient denies thyroid disorders, denies diabetes, and denies hormonal problems. Hematologic: The patient denies a history of bruising, denies bleeding, and denies anemia, denies blood clots. Infections: The patient denies a history of measles and mumps, denies rheumatic fever, and denies sexually transmitted diseases. Musculoskeletal: The patient denies back pain/injury, denies back problems, denies sciatica, deniesknee/foot trouble, denies arthritis, or denies gout. PHYSICAL EXAMINATION: General: The patient is 79 year old female, well nourished, well hydrated in no acute distress. Thepatient is oriented to time, place, and person. VITALS: Pulse 64, temperature 36.2 C (97.1 F), temperature source Temporal, resp. rate 14, height 163.8 cm (5' 4.5), weight 77.6 kg (171 lb), SpO2 99%. There is no height or weight on file to calculate BMI. Head - atraumatic, no evidence of infection Neck - supple with no jugular venous distention noted. Trachea is midline.No thyroid enlargement orthyroid nodules detected. No masses noted. Head: Normal cephalic, atraumatic Eyes: pupils are equally round, sclera are clear/anicteric Neck is supple with no tracheal deviation Cardiac: normal heart sounds, systolic murmur, regular Respiratory: Normal respiratory excursion and pattern. Abdominal exam: benign Extremities: no clubbing, cyanosis or edema. Neuro: non focal Psych: normal mood The sensitive examination was discussed with the Patient or Patient's Authorized Clip Coater. Asapplicable, any other physician, advance practice provider, medical student, or other health professional student that will be observing or involved in the sensitive examination for educational or training purposes was discussed with the Patient or Authorized Clip Coater. The Patient or Authorized Clip Coater has agreed to proceed with the sensitive examination. (Sensitive examination includes inspection and/or palpation of the breasts, pelvis, prostate and anorectal regions) Assessment IMPRESSION: abnormal ultrasound of thyroid PLAN: I have discussed the above with the patient and her who is present with her I have offered US guided FNA of right and left thyroid nodules. I have explained the procedure to the patient. I have counseled the patient as to the risks of the procedure, including but not limited to: infection, bleeding, injury to any blood vessels/nerves, scar tissue, wound infections, complications of anesthesia, etc. - the patient understands. She requests valium to take prior to the procedure. I have prescribed this. The patient wishes to proceed. I have answered all questions to the patient s satisfaction and the patient has no further questions. I have confirmed and edited as necessary, the PFSH and ROS obtained by others. Consultation requested by Dr. Kristian Soto for an opinion regarding patient's abnormal ultrasound of thyroid. My final recommendations will be communicated back to the requesting physician by wayof shared Medical record or letter to requesting physician via US mail. . Diagnoses: (R93.89) Abnormal ultrasound of thyroid gland (F41.9) Anxiety Medical Decision Making: Problems: Moderate: New problem with uncertain prognosis Risk: Low: Low risk from testing/treatment Medical Decision Making Level: 3 - Low Leidy Mckeon MD documented [facility] NoteHNO ID: [id number] Author: LEIDY MCKEON MD Service: ? Author Type: Physician Type: Progress Notes Filed: 09/06/2024 14:51 Note Text: Dot Mcgill 1945 REFERRING PHYSICIAN: Kristian Soto MD CHIEF COMPLAINT: Consult (Thyroid nodules) HPI: The patient is a 79 year old female incidental findings of thyroid nodules from CT chest. She notes no family history of thyroid cancer, though multiple family members had thyroid surgery She denies swallowing problems She denies globus symptoms She denies exposure to unusual radiation She denies taking thyroid hormones She has noted a raspy voice recently. US thyroid - 08/27/2024 - right thyroid nodule - 3.9 x 3 x 3 cm mixed cystic and solid with punctate echogenic foci; left lower - 1.9 x 1.5 x 1.5 cm - both of which radiologist recommends FNA PAST MEDICAL HISTORY Diagnosis Date Acute deep vein thrombosis (DVT) of popliteal vein of left lower extremity (HCC) 08/29/2021 Benign neoplasm of colon Cardiac murmur 10/08/2011 Disorder of bone and cartilage, unspecified Enlarged thoracic aorta (HCC) 10/08/2011 ECHO 09/2011 - Dilated aorta, stable since 2004, mild LVH stable since 2004. 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 Osteoporosis, unspecified 05/19/2005 Pneumonia 10/03/2019 Shingles outbreak 10/09/2019 Unspecified essential hypertension Vitamin D deficiency 12/18/2010 PAST SURGICAL HISTORY Procedure Laterality Date ARTHROPLASTY GLENOHUMRL JT HEMIARTHROPLASTY Right Hemiarthroplasty, right shoulder CHOLECYSTECTOMY Cholecystectomy COLONOSCOPY FLX DX W/COLLJ SPEC WHEN PFRMD 11/11/2000 Colonoscopy COLONOSCOPY FLX DX W/COLLJ SPEC WHEN PFRMD 10/09/2015 Colonoscopy DEST CORNEA LESION-PHOTOCOAGULATION Left 07/2024 LIG/TRNSXJ FLP TUBE ABDL/VAG APPR UNI/BI Tubal ligation PAST SURGICAL HISTORY OF Corrective Lasix Surgery/Left Eye VAGINAL HYSTERECTOMY UTERUS 250 GM/< Hysterectomy, vaginal Current Outpatient Medications Medication Sig metoprolol tartrate, short acting, (LOPRESSOR) 25 mg tablet TAKE ONE-HALF (1/2) TABLET TWICE A DAY Benazepril-hydroCHLOROthiazide (LOTENSIN HCT) 10-12.5 mg per tablet One half (1/2) tablet daily. cholecalciferol, vitamin D3, (VITAMIN D3 ORAL) Take 4,000 Units by mouth once daily. cyanocobalamin (VITAMIN B-12) 1,000 mcg tab Take 2,000 mcg by mouth once daily. omeprazole (PRILOSEC) 20 mg capsule Take 1 capsule by mouth once daily as needed. No current facility-administered medications for this visit. ALLERGIES: Influenza Virus Vaccines, Adhesive Tape (Rosins), Antihistamines - Alkylamine, Entex La [Phenylephrine-Guaifenesin], Iodinated Contrast Media, Iodine, and Norvasc [Amlodipine Besylate] PERSONAL HISTORY: Social History Tobacco Use Smoking status: Never Smokeless tobacco: Never Vaping Use Vaping status: Never Used Substance Use Topics Alcohol use: Not Currently Drug use: Never FAMILY HISTORY Problem Relation Age of Onset Heart Mother Hypertension Mother Arthritis Mother Osteoarthritis Hyperlipidemia Mother Stroke Father Hypertension Father Hyperlipidemia Father Hypertension Sister Hypertension Sister Hypertension Sister Hypertension Sister Colon Cancer Maternal Grandfather Breast Cancer Sister 69 Thyroid Sister Thyroid Sister REVIEW OF SYSTEMS: General: The patient denies fatigue, denies weight loss, denies weight gain, denies feeling hot, and denies feelings of cold. Eyes: The patient denies glaucoma, denies eye injury/surgery, wears glasses or contacts. Ear/Nose/Throat: The patient denies allergies, denies hayfever, denies ear infections, and denies bloody noses. Cardiovascular: The patient denies chest pain, denies heart disease, notes high blood pressure,denies cardiac stent, denies prior heart attack, denies irregular heart beat, denies high cholesterol, denies poor circulation, denies heart failure, other cardiac issues, denies claudication, denies cold feet, denies peripheral arterial stent. Respiratory: The patient denies tuberculosis, denies pneumonia, denies frequent cough, denies pulmonary embolism, denies shortness of breath, and denies coughing up blood. Gastrointestinal: The patient denies difficulty swallowing, denies acid reflux, denies ulcers, denies vomiting, denies jaundice/hepatitis, denies gallbladder problems, denies black or tarry stools, denies hemorrhoids, denies bleeding from rectum, denies diverticulitis, denies constipation, denies diarrhea, denies loss of stool control, and denies hernias. Kidney/Bladder: The patient denies kidney stones, denies urine infections, and denies bloody urine. Skin: The patient denies a history of skin cancer, denies bleeding/changing moles, and notes a history of skin rash. Neurologic: The patient denies a history of epilepsy/convulsions, denies headaches, denies hea (more content not included)...[facility] 08-27-2024 History of Present illness Narrative* Cata Stover RDMS - 08/27/2024 7:45 AM EST Radiology Service Progress Note PATIENT NAME: Dot Mcgill DATE OF SERVICE: August 27, 2024 TIME: 1:22 PM PATIENT IDENTITY VERIFICATION COMPLETED USING TWO (2) IDENTIFIERS: Name and Date of confirmedby patient verbally. FALL SCREENING: Has the patient had 2 falls in the last year or 1 fall with injury or currently using an Ambulatory Assistive Device (Walker, Cane, Wheelchair, Crutches, etc.)? No PATIENT GENDER DATA: Assigned female at . status: : No status:NO. PATIENT RELEVANT IMPLANT DATA REVIEWED: Not Applicable PATIENT PRESENTS WITH AN IMPLANTABLE OR ATTACHED DRAPERY COUNSELOR: No RADIOLOGY DEPARTMENT: Ultrasound PERIPHERAL IV DATA: Not applicable SIGNED BY: Cata Stover RDMS RVT August 27, 2024 1:22 PM [address] [facility] NoteHNO ID: [id number] Author: CATA STOVER RDMS Service: ? Author Type: [employer] Source Operations Specialist Type: Progress Notes Filed: 08/27/2024 13:22 Note Text: Radiology Service Progress Note PATIENT NAME: Dot Mcgill DATE OF SERVICE: August 27, 2024 TIME: 1:22 PM PATIENT IDENTITY VERIFICATION COMPLETED USING TWO (2) IDENTIFIERS: Name and Date of confirmed by patient verbally. FALL SCREENING: Has the patient had 2 falls in the last year or 1 fall with injury or currently using an Ambulatory Assistive Device (Walker, Cane, Wheelchair, Crutches, etc.)? No PATIENT GENDER DATA: Assigned female at . status: : No status: NO. PATIENT RELEVANT IMPLANT DATA REVIEWED: Not Applicable PATIENT PRESENTS WITH AN IMPLANTABLE OR ATTACHED DRAPERY COUNSELOR: No RADIOLOGY DEPARTMENT: Ultrasound PERIPHERAL IV DATA: Not applicable SIGNED BY: Cata Stover RDMS RVT August 27, 2024 1:22 [facility]01-17-2025 Instructions* Patient Instructions* Kristian Soto MD - 08/17/2024 10:47 AM EST Screening schedule The following prevention plan is recommended: Depression Screening Never done Anxiety Screening Never done Advance Directive Discussion due on 08/01/2024 WHAT YOU CAN DO TO PREVENT FALLS Many falls can be prevented. By making some changes, you can lower your chances of falling. Four things YOU can do to prevent falls for you* and your caregiver 1. Begin a regular exercise program Exercise is one of the most important ways to lower your chances of falling. It makes you stronger and helps you feel better. Exercises that improve balance and coordination (like Man Chi) are the most helpful. Lack of exercise leads to weakness and increases your chances of falling. Ask your doctor or health care provider about the best type of exercise program for you. 2. Have your health care provider review your medicines Have your doctor or pharmacist review all the medicines you take, even [id number] medicines. As you get older, the way medicines work in your body can change. Some medicines, or combinations of medicines, can make you sleepy or dizzy andcan cause you to fall. 3. Have your vision checked Have your eyes checked by an eye doctor at least once a year. You may be wearing the wrong glasses or have a condition like glaucoma or cataracts that limits your vision. Poor vision can increase your chances of falling. 4. Make your home safer About half of all falls happen at home. To make your home safer: Remove things you can trip over (like papers, books, clothes, and shoes) from stairs and places where you walk. Remove small throw rugs or use double-sided tape to keep the rugs from slipping. Keep items you use often in cabinets you can reach easily without using a step stool. Have grab bars put in next to your toilet and in the tub or shower. Use non-slip mats in the bathtub and on shower floors. Improve the lighting in your home. As you get older, you need brighter lights to see well. Hang light-weight curtains or shades to reduce glare. Have handrails and lights put in on all staircases. Wear shoes both inside and outside the house. Avoid going barefoot or wearing slippers. For more information, contact: Centers for Disease Control and Prevention www.cdc.gov/injury * This information may not apply if you have certain medical conditions. [facility] NoteHNO ID: [id number] Author: KRISTIAN SOTO MD Service: ? Author Type: Physician Type: Progress Notes Filed: 08/17/2024 12:50 Note Text: This note was created using Apiaryter. Subjective Dot Mcgill is a 79 year old female. She was doing well. She had some kind of corneal procedure done on the left eye. Her hypertension, palpitations, hyperlipidemia, and joint pains were controlled. She elected non medication treatment for osteoporosis. For the past several months, she had been benefiting from regular supervised physical therapy exercises, and was interested in continuing that supervised program. HEP was harder for her to sustain. She needed a new referral. 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 She's had a right sided goiter that had not been formally evaluated. Review of Systems Constitutional: Negative for fatigue and unexpected weight change. Respiratory: Negative for shortness of breath. Cardiovascular: Negative for chest pain, palpitations and leg swelling. Gastrointestinal: Negative. Musculoskeletal: Negative. Neurological: Negative for dizziness and headaches. Psychiatric/Behavioral: Negative. 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 Allergic Rhinitis, Cause Unspecified Hyperlipemia Vitamin D Deficiency Enlarged thoracic aorta (HCC) Dry Eye Syndrome Herpes Simplex Labialis Gerd (Gastroesophageal Reflux Disease) Multiple Joint Pain Palpitations Obesity, Class I, Bmi 30-34.9 Social History Tobacco Use Smoking status: Never Smokeless tobacco: Never Vaping Use Vaping status: Never Used Substance Use Topics Alcohol use: No Drug use: No Current Outpatient Medications Medication Sig metoprolol tartrate, short acting, (LOPRESSOR) 25 mg tablet TAKE ONE-HALF (1/2) TABLET TWICE A DAY Benazepril-hydroCHLOROthiazide (LOTENSIN HCT) 10-12.5 mg per tablet One half (1/2) tablet daily. cholecalciferol, vitamin D3, (VITAMIN D3 ORAL) Take 4,000 Units by mouth once daily. cyanocobalamin (VITAMIN B-12) 1,000 mcg tab Take 2,000 mcg by mouth once daily. omeprazole (PRILOSEC) 20 mg capsule Take 1 capsule by mouth once daily as needed. No current facility-administered medications for this visit. Objective BP 131/73 Pulse 64 Temp 36.5 ?C (97.7 ?F) (Temporal) Resp 16 Wt 77.2 kg (170 lb 3.1 oz) SpO2 97% BMI 29.21 kg/m? Physical Exam Constitutional: General: She is not in acute distress. Neck: Thyroid: Thyromegaly present. No thyroid tenderness. Trachea: Trachea normal. Comments: Right sided goiter. Cardiovascular: Rate and Rhythm: Normal rate and regular rhythm. Heart sounds: No murmur heard. No gallop. Pulmonary: Breath sounds: Normal breath sounds. Musculoskeletal: Right lower leg: No edema. Left lower leg: No edema. Lymphadenopathy: Cervical: No cervical adenopathy. Neurological: Mental Status: She is alert. Gait: Gait normal. Assessment and Plan 1. Medicare annual wellness visit, subsequent - ICD9: V70.0, ICD10: Z00.00 (primary diagnosis) - See wellness visit. 2. Screening for depression - ICD9: V79.0, ICD10: Z13.31 - DEPRESSION SCREENING 3. Encounter for screening examination for other mental health and behavioral disorders - ICD9: V79.8, ICD10: Z13.39 - ANXIETY SCREENING 4. Osteoporosis, unspecified osteoporosis type, unspecified pathological fracture presence - ICD9: 733.00, ICD10: M81.0 - continue tx with exercises. BMD next year. - Reviewed the need for Calcium and Vitamin D supplements and weight bearing exercise as tolerated - CONSULT TO PHYSICAL THERAPY. Patient was aware there may be limitations for coverage. 5. White coat syndrome with diagnosis of hypertension - ICD9: 401.9, ICD10: I10 - Controlled - Continue current medications 6. Mixed hyperlipidemia - ICD9: 272.2, ICD10: E78.2 - Control undetermined, due for labs - Counseled on healthy diet and regular exercise - Discussed need for and benefit of weight loss. BMI 29.21 kg/(m2) - LIPID PANEL BASIC 7. Goiter - ICD9: 240.9, ICD10: E04.[address] scans of the chest, right sided. - THYROID STIMULATING HORMONE - T4 FREE/FREE THYROXINE - US THYROID/PARATHYROID Kristian Soto [facility]01-17-2025 History of Present illness Narrative* Kristian Soto MD - 08/17/2024 10:34 AM EST This note was created using Cell[employer] Technologyriter. Subjective Dot Mcgill is a 79 year old female. She was doing well. She had some kind of corneal procedure done on the left eye. Her hypertension, palpitations, hyperlipidemia, and joint pains were controlled. She elected non medication treatment for osteoporosis. For the past several months, she had been benefiting from regular supervised physical therapy exercises, and was interested in continuing that supervised program. HEP was harder for her to sustain. She needed a new referral. 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 She's had a right sided goiter that had not been formally evaluated. Review of Systems Constitutional: Negative for fatigue and unexpected weight change. Respiratory: Negative for shortness of breath. Cardiovascular: Negative for chest pain, palpitations and leg swelling. Gastrointestinal: Negative. Musculoskeletal: Negative. Neurological: Negative for dizziness and headaches. Psychiatric/Behavioral: Negative. 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 Allergic Rhinitis, Cause Unspecified Hyperlipemia Vitamin D Deficiency Enlarged thoracic aorta (HCC) Dry Eye Syndrome Herpes Simplex Labialis Gerd (Gastroesophageal Reflux Disease) Multiple Joint Pain Palpitations Obesity, Class I, Bmi 30-34.9 Social History Tobacco Use Smoking status: Never Smokeless tobacco: Never Vaping Use Vaping status: Never Used Substance Use Topics Alcohol use: No Drug use: No Current Outpatient Medications Medication Sig metoprolol tartrate, short acting, (LOPRESSOR) 25 mg tablet TAKE ONE-HALF (1/2) TABLET TWICE A DAY Benazepril-hydroCHLOROthiazide (LOTENSIN HCT) 10-12.5 mg per tablet One half (1/2) tablet daily. cholecalciferol, vitamin D3, (VITAMIN D3 ORAL) Take 4,000 Units by mouth once daily. cyanocobalamin (VITAMIN B-12) 1,000 mcg tab Take 2,000 mcg by mouth once daily. omeprazole (PRILOSEC) 20 mg capsule Take 1 capsule by mouth once daily as needed. No current facility-administered medications for this visit. Objective BP 131/73 Pulse 64 Temp 36.5 C (97.7 F) (Temporal) Resp 16 Wt 77.2 kg (170 lb 3.1 oz) SpO2 97% BMI 29.21 kg/m Physical Exam Constitutional: General: She is not in acute distress. Neck: Thyroid: Thyromegaly present. No thyroid tenderness. Trachea: Trachea normal. Comments: Right sided goiter. Cardiovascular: Rate and Rhythm: Normal rate and regular rhythm. Heart sounds: No murmur heard. No gallop. Pulmonary: Breath sounds: Normal breath sounds. Musculoskeletal: Right lower leg: No edema. Left lower leg: No edema. Lymphadenopathy: Cervical: No cervical adenopathy. Neurological: Mental Status: She is alert. Gait: Gait normal. Assessment and Plan 1. Medicare annual wellness visit, subsequent - ICD9: V70.0, ICD10: Z00.00 (primary diagnosis) - See wellness visit. 2. Screening for depression - ICD9: V79.0, ICD10: Z13.31 - DEPRESSION SCREENING 3. Encounter for screening examination for other mental health and behavioral disorders - ICD9: V79.8, ICD10: Z13.39 - ANXIETY SCREENING 4. Osteoporosis, unspecified osteoporosis type, unspecified pathological fracture presence - ICD9: 733.00, ICD10: M81.0 - continue tx with exercises. BMD next year. - Reviewed the need for Calcium and Vitamin D supplements and weight bearing exercise as tolerated - CONSULT TO PHYSICAL THERAPY. Patient was aware there may be limitations for coverage. 5. White coat syndrome with diagnosis of hypertension - ICD9: 401.9, ICD10: I10 - Controlled - Continue current medications 6. Mixed hyperlipidemia - ICD9: 272.2, ICD10: E78.2 - Control undetermined, due for labs - Counseled on healthy diet and regular exercise - Discussed need for and benefit of weight loss. BMI 29.21 kg/(m^2) - LIPID PANEL BASIC 7. Goiter - ICD9: 240.9, ICD10: E04.[address] scans of the chest, right sided. - THYROID STIMULATING HORMONE - T4 FREE/FREE THYROXINE - US THYROID/PARATHYROID Kristian Soto MD * Kristian Soto MD - 08/17/2024 10:26 AM EST Images from the original note were not included. Dot Mcgill is a 79 year old female here for a Medicare wellness visit. Medicare Health Risk Assessment General Health Very good Exercise: Minutes/Day 60 min Exercise: Days/Week 3 days Alcohol: Daily Use Never Alcohol: Drinks/Day Patient does not drink Alcohol: 6 or more drinks Never Feel off balance No Concerns: Teeth/Dentures No Concerns: Sexual function No Troubled by feelings None of the above Frequency: Eating healthy diet Nearly every day ADLs requiring help None of the above Safety precautions in home/vehicle Yes Smoke, vape, chews tobacco No Difficulty hearing Yes, I wear a hearing aid Difficulty seeing No Current Providers Specialists: I have reviewed specialist-related care of the patient in the medical record. Current care team: Patient Care Team: Kristian Soto MD as PCP - General (Internal Medicine) Ingrid Perkins, CATHY.COUNTERSINKER as Electronics Repair Technician (Internal Medicine) Outside specialists seen: Dr. Daniel Hassan, Cardiology [facility]. Dr. Estiven Shaw, [facility] Dermatology. Dr. Ngo, Ophthalmology, [facility]. Medical/Family history review Reviewed and updated problem list, medical/surgical/family/social history, medications, and allergies. Opioid use review Opioid Medications (last 90 days) No data to display Anxiety/Depression screening PHQ-9 Score: 2 (Minimal Depression) TYSHAWN-7 Score: 0. Recommendation: no further intervention at this time Cognitive screening Mini Cog Score: 4 Cognitive screening reviewed and No further action needed (score 3-5). Functional Observation Was the patient's Timed Up & Go test unsteady or >= 12 seconds? No Advance Care Planning Patient did not wish or was not able to name a surrogate decision maker or provide an advance care plan Measurements BP 131/73 Pulse 64 Temp 36.5 C (97.7 F) (Temporal) Resp 16 Wt 77.2 kg (170 lb 3.1 oz) SpO2 97% BMI 29.21 kg/m Vision Screening: Follows with optometry/ophthalmology Assessment/Plan Medicare annual wellness visit, subsequent (Z00.00) - Counseled on healthy diet and regular exercise - Fall avoidance information provided - Personalized prevention plan provided - Discussed need for and benefit of weight loss. BMI 29.21 kg/(m^2) - We agreed to space out routine mammograms to every 2 years[address] [facility] NoteHNO ID: [id number] Author: KRISTIAN SOTO MD Service: ? Author Type: Physician Type: Progress Notes Filed: 08/17/2024 12:50 Note Text: Dot Mcgill is a 79 year old female here for a Medicare wellness visit. Medicare Health Risk Assessment General Health Very good Exercise: Minutes/Day 60 min Exercise: Days/Week 3 days Alcohol: Daily Use Never Alcohol: Drinks/Day Patient does not drink Alcohol: 6 or more drinks Never Feel off balance No Concerns: Teeth/Dentures No Concerns: Sexual function No Troubled by feelings None of the above Frequency: Eating healthy diet Nearly every day ADLs requiring help None of the above Safety precautions in home/vehicle Yes Smoke, vape, chews tobacco No Difficulty hearing Yes, I wear a hearing aid Difficulty seeing No Current Providers Specialists: I have reviewed specialist-related care of the patient in the medical record. Current care team: Patient Care Team: Kristian Soto MD as PCP - General (Internal Medicine) Ingrid Perkins APRN.COUNTERSINKER as Electronics Repair Technician (Internal Medicine) Outside specialists seen: Dr. Daniel Hassan, Cardiology [facility]. Dr. Estiven Shaw, [facility] Dermatology. Dr. Ngo, Ophthalmology, [facility]. Medical/Family history review Reviewed and updated problem list, medical/surgical/family/social history, medications, and allergies. Opioid use review Opioid Medications (last 90 days) No data to display Anxiety/Depression screening PHQ-9 Score: 2 (Minimal Depression) TYSHAWN-7 Score: 0. Recommendation: no further intervention at this time Cognitive screening Mini Cog Score: 4 Cognitive screening reviewed and No further action needed (score 3-5). Functional Observation Was the patient's Timed Up AND Go test unsteady or >= 12 seconds? No Advance Care Planning Patient did not wish or was not able to name a surrogate decision maker or provide an advance care plan Measurements BP 131/73 Pulse 64 Temp 36.5 ?C (97.7 ?F) (Temporal) Resp 16 Wt 77.2 kg (170 lb 3.1 oz) SpO2 97% BMI 29.21 kg/m? Vision Screening: Follows with optometry/ophthalmology Assessment/Plan Medicare annual wellness visit, subsequent (Z00.00) - Counseled on healthy diet and regular exercise - Fall avoidance information provided - Personalized prevention plan provided - Discussed need for and benefit of weight loss. BMI 29.21 kg/(m2) - We agreed to space out routine mammograms to every [address]01-07-2025 Telephone encounter Note* Telephone Encounter - Irma Cameron RN - 08/07/2024 7:37 AM EST Images from the original note were not included. Messaged patient Pended echo order to Dr Hassan to sign off. Irma Cameron RN [facility]01-07-2025 Miscellaneous Notes* Telephone Encounter - Irma Cameron RN - 08/07/2024 7:37 AM EST Images from the original note were not included. Messaged patient Pended echo order to Dr Hassan to sign off. Irma Cameron RN * Telephone Encounter - Lico Fung - 07/31/2024 8:13 AM EST July 31, 2024 Patient Contact Number: [phone] (home) Patient last seen within the last year: Yes Date of last office visit: 09/06/23 Reason For Call: Test Results Patient called. States she would like to know the results of her echo and CT chest from 07/23/24. She is scheduled next in November [address] Hassan, but would like to know if any medications or additional tests are needed. Physician: Daniel Hassan MD Patient was informed that non-urgent calls may be returned within the next three business days. Yes Lico Fung documented [facility]-31-[facility]24 Telephone encounter Note * Telephone Encounter - Lico Fung - 07/31/2024 1:04 PM EST Pharmacy electronic RX request to request a refill on the medication(s) below: Requested Prescriptions Pending Prescriptions Disp Refills metoprolol tartrate, short acting, (LOPRESSOR) 25 mg tablet [Pharmacy Med Name: METOPROLOL TARTRATETABS 25MG] 90 tablet 3 Sig: TAKE ONE-HALF (1/2) TABLET TWICE A DAY PHARMACY [facility] / PHONE NUMBER: [phone] Pickup RX Physician's Name: Daniel Hassan M.D. Last seen in office: 09/06/2023 If last appointment greater than one year or no follow up scheduled, sent to schedulers Grisel Fung 07/31/[address] [facility]12-31-2024 Miscellaneous Notes* Telephone Encounter - Lico Fung - 07/31/2024 1:04 PM EST Pharmacy electronic RX request to request a refill on the medication(s) below: Requested Prescriptions Pending Prescriptions Disp Refills metoprolol tartrate, short acting, (LOPRESSOR) 25 mg tablet [Pharmacy Med Name: METOPROLOL TARTRATETABS 25MG] 90 tablet 3 Sig: TAKE ONE-HALF (1/2) TABLET TWICE A DAY PHARMACY [facility] / PHONE NUMBER: [phone] Pickup RX Physician's Name: Daniel Hassan M.D. Last seen in office: 09/06/2023 If last appointment greater than one year or no follow up scheduled, sent to schedulers Grisel Fung 07/31/[address] [facility]12-31-2024 Telephone encounter Note * Telephone Encounter - Lico Fung - 07/31/2024 8:13 AM EST July 31, 2024 Patient Contact Number: [phone] (home) Patient last seen within the last year: Yes Date of last office visit: 09/06/23 Reason For Call: Test Results Patient called. States she would like to know the results of her echo and CT chest from 07/23/24. She is scheduled next in November [address] Hassan, but would like to know if any medications or additional tests are needed. Physician: Daniel Hassan MD Patient was informed that non-urgent calls may be returned within the next three business days. Yes Lico Fung [facility]12-23-2024 History of Present illness Narrative* Antonella Reyes, RT(R) - 07/23/2024 8:45 AM EST Radiology Service Progress Note PATIENT NAME: Dot Mcgill DATE OF SERVICE: July 23, 2024 TIME: 9:00 AM PATIENT IDENTITY VERIFICATION COMPLETED USING TWO (2) IDENTIFIERS: Name and Date of confirmedby patient verbally and Name and Date of confirmed by identification band. FALL SCREENING: Has the patient had 2 falls in the last year or 1 fall with injury or currently using an Ambulatory Assistive Device (Walker, Cane, Wheelchair, Crutches, etc.)? No PATIENT GENDER DATA: Female. status: : No status: NO. PATIENT RELEVANT IMPLANT DATA REVIEWED: Yes PATIENT PRESENTS WITH AN IMPLANTABLE OR ATTACHED DRAPERY COUNSELOR: No RADIOLOGY DEPARTMENT: CT; Exam(s) Completed: Cardiac PERIPHERAL IV DATA: Not applicable SIGNED BY: CECILLE Taylor) July 23, 2024 9:00 AM documented in [address] [address] [facility]12-23-2024 NoteHNO ID: [id number] Author: ANTONELLA REYES RT (R) Service: Radiology Author Type: Technologist Type: Progress Notes Filed: 07/23/2024 09:00 Note Text: Radiology Service Progress Note PATIENT NAME: Dot Mcgill DATE OF SERVICE: July 23, 2024 TIME: 9:00 AM PATIENT IDENTITY VERIFICATION COMPLETED USING TWO (2) IDENTIFIERS: Name and Date of confirmed by patient verbally and Name and Date of confirmed by identification band. FALL SCREENING: Has the patient had 2 falls in the last year or 1 fall with injury or currently using an Ambulatory Assistive Device (Walker, Cane, Wheelchair, Crutches, etc.)? No PATIENT GENDER DATA: Female. status: : No status: NO. PATIENT RELEVANT IMPLANT DATA REVIEWED: Yes PATIENT PRESENTS WITH AN IMPLANTABLE OR ATTACHED DRAPERY COUNSELOR: No RADIOLOGY DEPARTMENT: CT; Exam(s) Completed: Cardiac PERIPHERAL IV DATA: Not applicable SIGNED BY: RT Claudia(Kim) July 23, 2024 9:00 [facility]11-20-2024 Telephone encounter Note* Telephone Encounter - Trinidad Cormier LPN - 06/20/2024 4:07 PM EST Patient notified. Trinidad Cormier LPN [facility]11-20-2024 Miscellaneous Notes* Telephone Encounter - Trinidad Cormier LPN - 06/20/2024 4:07 PM EST Patient notified. Trinidad Cormier LPN * Telephone Encounter - Trinidad Cormier LPN - 06/20/2024 2:00 PM EST Left message to call & speak to nurse. Trinidad Cormier LPN * Telephone Encounter - Kristian Soto MD - 06/20/2024 12:43 PM EST No antibiotic needed. * Telephone Encounter - Trinidad Cormier LPN - 06/19/2024 11:55 AM EST Temp has returned to normal, 97.4, feels that she has turned a corner. She has been drinking fluids, resting, congestion has improved, it is yellowish in color, was able to cough this am phelgm was yellow, sore throat is gone. Family is coming to her house next week for Thanksgiving, if Dr. Soto she should be on an ATB please send to [facility]. Please advise. Trinidad Cormier LPN * Telephone Encounter - Trinidad Cormier LPN - 06/19/2024 11:53 AM EST ----- Message from Kristian Soto MD sent at 06/19/2024 11:50 AM EST ----- Chest xray normal. Update on symptoms please based on phone message yesterday. documented in this [facility]11-20-2024 Telephone encounter Note * Telephone Encounter - Trinidad Cormier LPN - 06/20/2024 2:00 PM EST Left message to call & speak to nurse. Trinidad Cormier LPN [facility]11-20-2024 Telephone encounter Note* Telephone Encounter - Kristian Soto MD - 06/20/2024 12:43 PM EST No antibiotic needed. [facility]11-19-2024 Telephone encounter Note* Telephone Encounter - Trinidad Cormier LPN - 06/19/2024 11:55 AM EST Temp has returned to normal, 97.4, feels that she has turned a corner. She has been drinking fluids, resting, congestion has improved, it is yellowish in color, was able to cough this am phelgm was yellow, sore throat is gone. Family is coming to her house next week for Thanksgiving, if Dr. Soto she should be on an ATB please send to [facility]/[place]. Please advise. Trinidad Cormier LPN [facility]11-19-2024 Telephone encounter Note* Telephone Encounter - Trinidad Cormier LPN - 06/19/2024 11:53 AM EST ----- Message from Kristian Soto MD sent at 06/19/2024 11:50 AM EST ----- Chest xray normal. Update on symptoms please based on phone message yesterday. [facility]11-18-2024 History of Present illness Narrative* Opal Elizondo, RT(R) - 06/18/2024 11:10 AM EST Radiology Service Progress Note PATIENT NAME: Dot Mcgill DATE OF SERVICE: June 18, 2024 TIME: 11:33 AM PATIENT IDENTITY VERIFICATION COMPLETED USING TWO (2) IDENTIFIERS: Name and Date of confirmedby patient verbally. FALL SCREENING: Has the patient had 2 falls in the last year or 1 fall with injury or currently using an Ambulatory Assistive Device (Walker, Cane, Wheelchair, Crutches, etc.)? No PATIENT GENDER DATA: Female. status: : No status: NO. PATIENT RELEVANT IMPLANT DATA REVIEWED: Not Applicable PATIENT PRESENTS WITH AN IMPLANTABLE OR ATTACHED DRAPERY COUNSELOR: No RADIOLOGY DEPARTMENT: General X-ray: Exam(s) Completed: Chest X-Ray PERIPHERAL IV DATA: Not applicable SIGNED BY: RT Twyla(Kim) June 18, 2024 11:33 AM documented in [address] [facility]Wilson [address] [facility]11-18-2024 NoteHNO ID: [id number] Author: OPAL ELIZONDO RT(R) Service: Radiology Author Type: Technologist Type: Progress Notes Filed: 06/18/2024 11:42 Note Text: Radiology Service Progress Note PATIENT NAME: Dot Mcgill DATE OF SERVICE: June 18, 2024 TIME: 11:33 AM PATIENT IDENTITY VERIFICATION COMPLETED USING TWO (2) IDENTIFIERS: Name and Date of confirmed by patient verbally. FALL SCREENING: Has the patient had 2 falls in the last year or 1 fall with injury or currently using an Ambulatory Assistive Device (Walker, Cane, Wheelchair, Crutches, etc.)? No PATIENT GENDER DATA: Female. status: : No status: NO. PATIENT RELEVANT IMPLANT DATA REVIEWED: Not Applicable PATIENT PRESENTS WITH AN IMPLANTABLE OR ATTACHED DRAPERY COUNSELOR: No RADIOLOGY DEPARTMENT: General X-ray: Exam(s) Completed: Chest X-Ray PERIPHERAL IV DATA: Not applicable SIGNED BY: RT Twyla(Kim) June 18, 2024 11:33 [facility]11-18-2024 Telephone encounter Note* Telephone Encounter - Stephanie Baeza RN - 06/18/2024 10:13 AM EST Pt called and is notified of providers results and instructions. Pt voices understanding. She will come in today to get chest x-ray. Stephanie Baeza RN [facility]11-18-2024 Miscellaneous Notes* Telephone Encounter - Stephanie Baeza RN - 06/18/2024 10:13 AM EST Pt called and is notified of providers results and instructions. Pt voices understanding. She will come in today to get chest x-ray. Stephanie Baeza RN * Telephone Encounter - Kristian Soto MD - 06/18/2024 9:40 AM EST ASSESSMENT/PLAN: 1. Viral URI with cough - ICD9: 465.9, ICD10: J06.9 (primary diagnosis) Please have her do chest xray. Take Mucinex over the counter for mucus. - XR CHEST 2V FRONTAL/LAT 2. Herpes simplex labialis - ICD9: 054.9, ICD10: B00.1 - ACYCLOVIR 400 MG TABLET Kristian Soto MD * Telephone Encounter - Stephanie Baeza RN - 06/18/2024 8:23 AM EST Pt called in and reports she saw Dr Soto on 06/15/24. She states last night se was running a temp of 101.4 she took an Aleve and this morning it was 100.3. The Pt states she is so congested she was up 4 hours through the night and she isn't able to lay down in be, she has to be propped up. Shesaid she is blowing out yellow mucus through her nose, and she has it in her throat but isn't able t o cough it up. She reports SOB at night when trying to lay down because of all the mucus. Pt reports pressure to her ear, jaw, and molars. She reports with all this mucus it usually sprague her skin and gives her cold sore and the provider will normally call her in Acyclovir for that. Pt is asking ifthe provider will call her in something to help all the mucus and pressure as well. Please call into [facility] and call Pt back. [facility] Telephone encounter Note * Telephone Encounter - Kristian Soto MD - 06/18/2024 9:40 AM EST ASSESSMENT/PLAN: 1. Viral URI with cough - ICD9: 465.9, ICD10: J06.9 (primary diagnosis) Please have her do chest xray. Take Mucinex over the counter for mucus. - XR CHEST 2V FRONTAL/LAT 2. Herpes simplex labialis - ICD9: 054.9, ICD10: B00.1 - ACYCLOVIR 400 MG TABLET Kristian Soto MD [facility]11-18-2024 Telephone encounter Note* Telephone Encounter - Stephanie Baeza RN - 06/18/2024 8:23 AM EST Pt called in and reports she saw Dr Soto on 06/15/24. She states last night se was running a temp of 101.4 she took an Aleve and this morning it was 100.3. The Pt states she is so congested she was up 4 hours through the night and she isn't able to lay down in be, she has to be propped up. Shesaid she is blowing out yellow mucus through her nose, and she has it in her throat but isn't able t o cough it up. She reports SOB at night when trying to lay down because of all the mucus. Pt reports pressure to her ear, jaw, and molars. She reports with all this mucus it usually sprague her skin and gives her cold sore and the provider will normally call her in Acyclovir for that. Pt is asking ifthe provider will call her in something to help all the mucus and pressure as well. Please call into [facility] and call Pt back. [facility]11-15-2024 Instructions* Patient Instructions* Kristian Soto MD - 06/15/2024 10:06 AM EST You have a viral illness for which antibiotics are not recommended. Viral illnesses, like a cold, are expected to resolve on their own. You need rest, fluids, and over the counter medications for symptoms. Call us if symptoms worsen, persist, or if you have new symptoms. documented in this encounterWilson [facility]11-15-[facility]24 NoteHNO ID: [id number] Author: KRISTIAN SOTO MD Service: ? Author Type: Physician Type: Progress Notes Filed: 06/15/2024 10:06 Note Text: This note was created using Apiaryter. Subjective Dot Mcgill is a 79 year old female who presents with complaint of sore throat mild, nasal congestion, post nasal drip, and cough- dry for a week. Associated symptoms include cold sore that resolved. She denies fever, ear pain, dyspnea, wheezing, nausea, vomiting, diarrhea, and myalgias. Treatments tried include cough drops with partial relief of symptoms. Home Covid test today was negative. Her joint pains have resolved with physical therapy, exercises,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 03/10/2022 84.5 01/28/2020 87.2 07/16/2019 85.1 Platelet Count (k/uL) Date Value 08/03/2023 414 03/10/2022 335 01/28/2020 395 07/16/2019 380 Metabolic Panel Sodium (mmol/L) Date Value 08/03/2023 138 07/21/2022 143 06/16/2021 139 12/22/2020 140 Potassium (mmol/L) Date Value 08/03/2023 4.5 07/21/2022 4.3 06/16/2021 3.7 12/22/2020 4.5 Chloride (mmol/L) Date Value 08/03/2023 103 07/21/2022 104 06/16/2021 102 12/22/2020 104 CO2 (mmol/L) Date Value 08/03/2023 29 07/21/2022 29 06/16/2021 26 12/22/2020 28 BUN (mg/dL) Date Value 08/03/2023 15 07/21/2022 15 06/16/2021 14 12/22/2020 16 Creatinine (mg/dL) Date Value 08/03/2023 0.80 07/21/2022 0.77 06/16/2021 0.88 12/22/2020 0.82 Calcium (mg/dL) Date Value 06/16/2021 9.6 12/22/2020 9.8 Calcium, Total (mg/dL) Date Value 08/03/2023 9.5 07/21/2022 9.8 Glucose (mg/dL) Date Value 08/03/2023 95 07/21/2022 96 06/16/2021 104 12/22/2020 100 Hepatic Function Protein, Total (g/dL) Date Value 08/03/2023 7.0 03/10/2022 7.1 01/28/2020 7.5 07/16/2019 6.9 Albumin (g/dL) Date Value 08/03/2023 4.1 03/10/2022 4.2 01/28/2020 4.3 07/16/2019 4.2 Alkaline Phosphatase (U/L) Date Value 08/03/2023 99 03/10/2022 106 01/28/2020 95 07/16/2019 89 Bilirubin, Total (mg/dL) Date Value 08/03/2023 0.4 01/28/2020 0.4 AST (U/L) Date Value 08/03/2023 14 03/10/2022 17 01/28/2020 20 07/16/2019 16 ALT (U/L) Date Value 08/03/2023 12 03/10/2022 11 01/28/2020 15 07/16/2019 8 Lipid Panel Cholesterol, Total (mg/dL) Date Value 08/03/2023 210 07/21/2022 212 12/22/2020 217 07/16/2019 226 Triglyceride (mg/dL) Date Value 08/03/2023 110 07/21/2022 128 12/22/2020 127 07/16/2019 101 HDL Cholesterol (mg/dL) Date Value 08/03/2023 67 07/21/2022 69 12/22/2020 70 07/16/2019 78 LDL Cholesterol (mg/dL) Date Value 08/03/2023 121 07/21/2022 117 12/22/2020 122 07/16/2019 128 Biomarkers None Other TSH (uU/mL) Date Value 12/04/2013 3.860 Vitamin D 25 Hydroxy (ng/mL) Date Value 08/03/2023 53.8 03/10/2022 49.7 12/22/2020 45.2 07/16/2019 21.2 Other Relevant Test Results Echocardiogram - - The left ventricle is normal in size. Left ventricular systolic function is normal. EF = 57 5% (2D 4-ch.) Grade I left ventricular diastolic dysfunction. - The right ventricle is normal in size. Right ventricular systolic function is normal. - The left atrial cavity is mildly dilated. - The visualized aorta is dilated with a maximal dimension of 4.6 cm at the mid-ascending aorta. Sinus of Valsalva 4.1 cm. - Estimated right ventricular systolic pressure is 27 mmHg consistent with normal pulmonary artery pressures. Estimated right atrial pressure is 3 mmHg based on IVC assessment. - Exam was compared with the prior echocardiographic exam performed on 01/25/2022. No significant change. ZIO patch monitor - 07/14/2021 Patient had a min HR of 41 bpm, max HR of 197 bpm, and avg HR of 65 bpm. Predominant underlying rhythm was Sinus Rhythm. 57 Supraventricular Tachycardia runs occurred, the run with the fastest interval lasting 18.1 secs with a max rate of 197 bpm (avg 132 bpm); the run with the fastest interval was also the longest. Some episodes of Supraventricular Tachycardia may be possible Atrial Tachycardia with variable block. Supraventricular Tachycardia was detected within +/- 45 seconds of symptomatic patient event(s). Isolated SVEs were occasional (1.1%, 38098), SVE Couplets were rare (<1.0%, 171), and SVE Triplets were rare (<1.0%, 47). Isolated VEs were rare (<1.0%), VE Couplets were rare (<1.0%), and no VE Triplets were present. Ventricular Bigeminy and Trigeminy were present. Ectopics Rare <1% Occasional 1% to 5% Frequent >5% Isolated Couplet Triplet Occasional 1.1% 36367 Rare <1.0% 171 Rare <1.0% 47 Isolated Couplet Triplet Rare <1.0% Rare <1.0% 0 Longest Ventricular Bigeminy Episode 5.2 s Longest Ventricular Trigeminy Episode 9 s Supraventricular Ectopy (SVE/PACs) Ventricular Ectopy (VE CTA aorta with contrast - 06/26/2021 Aortic root is 3.8 cm sinus to sinus, sinotubular junction is intact. Minimal aortic leaflet calcific change. There is dilation of the mid ascending aorta to 4.6 cm, 16.6 sq cm, tapers to 4 cm distal ascending, 3.3 cm mid arch, 2.8 cm mid descending. Mild calcific changes of aorta predominantly affecting descending segments, which are mildly tortuous. Focal coronary calcific changes. Biatrial enlargement. Mild mitral annular calcific change. Heterogeneous attenuation and enlargement of right thyroid lobe, interspersed nodules suspected though not clearly delineated. Further assessment with dedicated ultrasound imaging of thyroid tissue could be considered at clinical discretion. Impression Dot Mcgill is a pleasant 78-year-old woman who presents today for follow up of her complaint of palpitations, dilated ascending aorta and primary prevention of coronary artery disease. She presently feels well and denies any symptoms attributable to active cardiovascular disease at a good functional level that includes regular meaningful exercise. Her physical examination today is unremarkable and her resting ECG demonstrates sinus rhythm with borderline criteria for left anterior fascicular block, unchanged from prior tracings. Her echocardiogram from December 2022 revealed stable enlargement of the ascending aorta at 4.6 cm. Recommendations Continue present medical therapy and exercise routine. Podiatry referral regarding her plantar fasciitis. Follow-up in June 2024 with a repeat CTA and echocardiogram. Daniel Hassan M.D., F.A.C.C. Staff Hydraulic Spinner, [facility] [place] [facility] Voice recognition software was used to compose this office note. Please excuse any unintended typographical errors. documented in this encounterWilson [facility]12-01-2023 Miscellaneous Notes* Letter - Coordinator, Mammography - 07/01/2023 2:00 PM EST July 04, 2023 PID: [id number] Dot Mcgill [address] [place] [address] [place] [address] Dear Ms. Mcgill, We are pleased to inform you that the results of your recent breast imaging exam on 06/30/2023 are normal. Early detection of cancer is very important. We also understand recommendations regarding breast cancer screening are controversial. Please discuss with your primary care provider which strategy is best for you and whether a mammogram is right for you. Your imaging studies and report will be kept on file at [facility] as part of your permanent medical record and are available for your continuing care. Thank you for allowing us to help in meeting your health care needs. Sincerely, Dr. Garcia Interpreting Radiologist [facility] (Normal over 40) documented in this encounterWilson Street Hospital11-30-2023 History of Present illness Narrative* Hope Patel Mammo Tech - 06/30/2023 12:30 PM EST Radiology Service Progress Note PATIENT NAME: Dot Mcgill DATE OF SERVICE: June 30, 2023 TIME: 12:38 PM PATIENT IDENTITY VERIFICATION COMPLETED USING TWO (2) IDENTIFIERS: Name and Date of confirmedby patient verbally. FALL SCREENING: Has the patient had 2 falls in the last year or 1 fall with injury or currently using an Ambulatory Assistive Device (Walker, Cane, Wheelchair, Crutches, etc.)? No PATIENT GENDER DATA: Female. status: : No status: NO. PATIENT RELEVANT IMPLANT DATA REVIEWED: Not Applicable RADIOLOGY DEPARTMENT: Mammography PERIPHERAL IV DATA: Not applicable SIGNED BY: Lorenza Mckeono Trent June 30, 2023 12:38 PM documented in this encounterWilson [facility]11-29-2023 Miscellaneous Notes* Telephone Encounter - Nishi Ayala Mammo Trent - 06/29/2023 2:53 PM EST Could you please sign off on the pending order screening mammogram. Pt has appt tomorrow 06/29. documented in this [facility]Wilson [facility]11-01-2023 Discharge summary Author Ray Cervantes [facility] June 01, 2023 11:43am Note Date/Time June 01, 2023 1 0:28am [facility] Physical Therapy [facility] [address] [place] [address] / REHABILITATION SERVICES DISCHARGE SUMMARY MR#: [id number] Acct: [id number] Name: DOT MCGILL Rep #: [id number] : 1945 77 From: Satish Durand. T, OCS Referring DrSheela: Status: REG RCR Insurance: MEDICARE PART A B [employer] Discharge Summary D/C summary: It has been my pleasure to treat DOT MCGILL referred by ANGEL GUERRERO, with the diagnosis of BILTERAL PLANTAR FASCITIS ,EQUINUS CONTRACTURE OF ANKLE for a total of 12 visit(s). Discharge Date: 06/01/23 Please see the following information for a summary of their discharge status. Subjective Subjective: Doing well Pain Right Foot: Pain Intensity (Out of 10): 0 Overall Improvement % Improvement: 90 Objective Objective/Function: POSTURE:( frontal plane mechanics) Pes Cavus NEURO: denies paresthesia/tingling GAIT: ambulates with reciprocal pattern PALAPTION: tender G-S ,insertion of plantar fascia and calcaneus AROM: dorsiflexion 0 degrees ,plantar flexion 60 degrees , inversion 40 degrees ,eversion 5 degrees MMT: ankle grossly 5/5 ,except G-S 4/5 G-S FLEXABLITY: min tight Goals Goal 1:: Patient to be I with HEP for foot Goal Progress: Goal Met Goal 2:: Patient to normalize gait Goal Progress: Goal Met Goal 3:: Patient to improve dorsiflexion by 5 degrees to improve gait Goal Progress: Goal Met Goal 4:: Patient to demonstrate 50% improvement with decrease plantar fascia pain and heel pain for gait Goal 5:: Patient to improve LFES score by 5 -10 points to improve QOL and function Goal Progress: Goal Met Plan Plan: D/C D/C Information Discharge Comments: HEP d/c sentence: If there are questions or concerns regarding this patient's physical therapy, please feel free to call me at [phone]. Thank you for the referral of thispatient. Sincerely, Ray Cervantes PT, Cert MDT, OCS Balance/Gait/Functional tests Balance/Special Test Scores Lower Extremity Functional Score: 70 Improvement % Improvement: 90 <Electronically signed by Satish An PT. KIMBERLEY, YO> 06/01/23 1143 CC: Dr. Kristian Soto MD; ANGEL EXTEN ~ JLA Signed [facility] Work Phone: [phone] 777-405310-23-2023 History of Present illness Narrative* Antonella Curtis MA - 05/23/2023 11:58 AM EDT POPULATION HEALTH NAVIGATION OUTREACH Action/FYI scheduled Annual medicare wellness due after 08-11-22 Patient Identified by Name and : YES, via phone Outreach Outcome/Action Spoke to patient / parent / legal guardian: Patient scheduled Did you use a PCP flex slot to schedule this appointment? No Reason for Outreach Care Gap or Scheduling/Wellness visits Payer: Payor: MEDICARE / Plan: MEDICARE A AND B / Product Type: Medicare / Care Gap Reviewed:: Annual Wellness visit Reminder: Reminder note to check Health Maintenance for items below Health Maintenance items due: Shingrix Vaccine(1 of 2) Never done RSV Vaccine(1 - 1-dose 60+ series) Never done Covid-19 Vaccine( season) due on 04/06/2023 Navigation Signature: Antonella Curtis MA May 23, 2023 11:58 AM documented in this encounterWilson [facility] Hospital06-27-2023 History of Present illness Narrative* Britni Mcqueen, PROCESSING REP.COUNTERSINKER - 01/25/2023 12:15 PM EDT Images from the original note were not included. [facility] [place] [facility] Department of Cardiovascular Medicine SECTION OF CLINICAL CARDIOLOGY OUTPATIENT VISIT DATE January 25, 2023 OUTPATIENT VISIT TYPE ESTABLISHED PRIMARY CARE PHYSICIAN: Kristian Soto [address] [place] [address] REFERRING PHYSICIAN: Ramila Ramirez [address] [facility] [address] CHIEF COMPLAINT: Cardiology Follow Up HISTORY OF PRESENT ILLNESS: Ms. Mcgill is a 77 year old female who presents today for a cardiovascular medicine follow-up visit. She is an established patient of Dr. Hassan. Patients past medical history is significant for: Dilated ascending aorta 4.4 cm by echo in 2011 4.5 cm by echo dating back to 2018 4.6 cm (aortic area index 10.3 cm /m) by CTA Jun 2021 4.6 cm by echo December 2021 2. Palpitations Holter monitor demonstrating occasional runs of supraventricular tachycardia, longest 18 beats No ventricular tachycardia or atrial fibrillation 3. GERD 4. Obesity 5. White coat hypertension 6. Multiple joint pain 7. Dry eye syndrome Ms. Mcgill was last evaluated in office by Ramila Ramirez CNP on 09/27/22. Impression below for further reference: Ms. Mcgill is a 77 year old female who presents today for a Cardiovascular Medicine follow up visit. She is an established Clinical patient of Dr. Hassan. Patients past medical history, physical, medications, tests, and results are as detailed above. Today Ms. Mcgill overall feels better today. She is taking all medications as prescribed including metoprolol tartrate, benazepril-HCTZ. Her blood pressure in office is elevated, and her pulse is stable, regular. She does routintely obtain blood pressure and pulse at home, in which she reports SBP range 110-120 consistently. EKG from today detailed above. Patient is here for routine follow up. We addressed the following problems today: Dilated ascending aorta 4.4 cm by echo in 2011 4.5 cm by echo dating back to 2018 4.6 cm (aortic area index 10.3 cm /m) by CTA Jun 2021 4.6 cm by echo December 2021 2. Palpitations Holter monitor demonstrating occasional runs of supraventricular tachycardia, longest 18 beats No ventricular tachycardia or atrial fibrillation 3. GERD 4. Obesity 5. White coat hypertension 6. Multiple joint pain 7. Dry eye syndrome Ms. Mcgill is euvolemic and hemodynamically stable in office today. Her blood pressure is elevated--which is the case in office 2/2 white coat hypertension. She frequently checks her vital signs at home and reports SBP range 110-120 at home routintely. She has no signs of acute decompensation or fluid volume overload from a cardiac perspective. Ms. Mcgill is questioning what could have led to the increased heart rate on 09/11/2022 which landedher in the [place] [facility]. Could be 2/2 caffeine intake, stressors with family. She is compliant with metoprolol tartrate. She has not had any episodes since. We will continue to monitor. Furthermore, will place a 14 day Ziopatch on Ms. Mcgill to further evaluate, alleviate some stress, and rule out any silent arrhythmia. Patient agreeable. Today, we also talked about her 18.1% ten year risk of heart disease or stroke given her blood pressure, age, cholesterol levels. Her PCP would like her to start a moderate dose statin per recommendations/guidelines. She is hesitant. She does not want myalgia's. She feels healthy. I agree with the guidelines, it would be appropriate to start moderate dosage statin. Patient would like to pursue self pay CT calcium scoring to obtain more data. I will place order for her. We will continue discussion. In the meantime she will continue to work on lifestyle modifications and weight loss as she has been doing. We will recheck her FLP and CMP when she comes back in December, for annual exam with ec hocardiogram prior. Most recent testing, including most recent labs, EKG, echocardiogram on file, were reviewed and aredetailed above. She is normotensive, euvolemic, and stable from a cardiac perspective. RTC as detailed below. PLAN AND RECOMMENDATIONS: -Get a heart monitor placed in J2-2 -Continue current medications -Continue a heart healthy, low salt/fat diet -Continue to monitor blood pressure at home at least once daily, 1-2 hours after morning medications--record. -Continue to monitor weight at home-record. -Continue to increase physical activity as tolerated. -Follow up with Dr. Hassan in December, as arranged with CT calcium score, echocardiogram and EKG. You can get the lab work locally. Today, Ms Mcgill states she feels well. She stays very active with golfing multiple times per week.She is also going to start biking. She also works out with therapist once per week. She is taking all medications as prescribed. PAST MEDICAL HISTORY Diagnosis Date Acute deep vein thrombosis (DVT) of popliteal vein of left lower extremity (HCC) 08/29/2021 Benign neoplasm of colon Cardiac murmur 10/08/2011 Disorder of bone and cartilage, unspecified Enlarged thoracic aorta (HCC) 10/08/2011 ECHO 09/2011 - Dilated aorta, stable since 2004, mild LVH stable since 2004. 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 Osteoporosis, unspecified 05/19/2005 Pneumonia 10/03/2019 Shingles outbreak 10/09/2019 Unspecified essential hypertension Vitamin D deficiency 12/18/2010 PAST SURGICAL HISTORY Procedure Laterality Date ARTHROPLASTY GLENOHUMRL JT HEMIARTHROPLASTY Right Hemiarthroplasty, right shoulder CHOLECYSTECTOMY Cholecystectomy COLONOSCOPY FLX DX W/COLLJ SPEC WHEN PFRMD 11/11/2000 Colonoscopy COLONOSCOPY FLX DX W/COLLJ SPEC WHEN PFRMD 10/09/15 Colonoscopy LIG/TRNSXJ FLP TUBE ABDL/VAG APPR UNI/BI Tubal ligation PAST SURGICAL HISTORY OF Corrective Lasix Surgery/Left Eye VAGINAL HYSTERECTOMY UTERUS 250 GM/< Hysterectomy, vaginal SOCIAL HISTORY Social History Tobacco Use Smoking status: Never Smokeless tobacco: Never Vaping Use Vaping Use: Never used Substance Use Topics Alcohol use: No Drug use: No FAMILY HISTORY Problem Relation Age of Onset Heart Mother Hypertension Mother Arthritis Mother Osteoarthritis Hyperlipidemia Mother Stroke Father Hypertension Father Hyperlipidemia Father Hypertension Sister Hypertension Sister Hypertension Sister Hypertension Sister Colon Cancer Maternal Grandfather Breast Cancer Sister 69 Thyroid Sister Thyroid Sister Patient-Entered Questionnaire Scores PROMIS Global Health - (T-Scores - the mean of general population = 50. Five points is a clinicallymeaningful difference.) 01/01/2022 08/04/2022 11/15/2022 Physical T-Score 50.8 47.7 47.7 Mental T-Score 62.5 59 62.5 ALLERGIES: ALLERGIES Allergen Reactions Influenza Virus Vac* Other: See Comments Dizziness Adhesive Tape (Jenelle* Rash Antihistamines - Al* Other: See Comments Entex La [Phenyleph* Iodinated Contrast * Swelling Iodine Norvasc [Amlodipine* lip swelling - gum bleeding MEDICATIONS: metoprolol tartrate, short acting, (LOPRESSOR) 25 mg tablet^Take 0.5 tablets by mouth twice daily.^Disp: 90 tablet^Rfl: 1 magnesium citrate 100 mg tab^Take 2 tablets by mouth once daily.^Disp: ^Rfl: Benazepril-hydroCHLOROthiazide (LOTENSIN HCT) 10-12.5 mg per tablet^One half (1/2) tablet daily.^Disp: 45 tablet^Rfl: 3 diclofenac (VOLTAREN) 1 % topical gel^Apply to affected area as needed.^Disp: ^Rfl: Ca/D3/mag ox/zinc/copy clerk/nell/bor (CALCIUM 600-D3 PLUS, MAG-ZINC, ORAL)^Take 1 capsule by mouth three times daily.^Disp: ^Rfl: cholecalciferol, vitamin D3, (VITAMIN D3 ORAL)^Take 4,000 Units by mouth once daily.^Disp: ^Rfl: cyanocobalamin (VITAMIN B-12) 1,000 mcg tab^Take 2,000 mcg by mouth once daily.^Disp: ^Rfl: omeprazole (PRILOSEC) 20 mg capsule^Take 1 capsule by mouth once daily as needed.^Disp: ^Rfl: REVIEW OF SYSTEMS: Positives in Bold GENERAL: Negative for: Weight loss or gain, Fever or Chills, Weakness and Sleep difficulties. HEENT: Negative for: Headache, Impaired Vision, Glasses, Hearing Impairment, Ringing in Ears, Nosebleeds, Poor dental care, Bleeding Gums, Dentures NECK: Negative for: Swelling, Pain, Stiffness RESPIRATORY: Negative for: Cough, Blood in Sputum, Shortness of breath, Wheezing, Apnea GASTROINTESTINAL: Negative for: Trouble swallowing, Heartburn, Change in bowel habits, Blood in stool, Dark black stools MUSCULOSKELETAL: Negative for: Muscle or joint pain, Stiffness , Joint swelling NEUROLOGIC/PSYCHIATRIC: Negative for: Weakness, Paralysis, Numbness, Tingling, Tremor, Nervousness,Depressed mood, Memory loss SKIN: Negative for: Rashes, Itching HEMATOLOGICAL/LYMPHATIC: Negative for: Easy bruising , Easy bleeding ENDOCRINE: Negative for: Heat or cold intolerance, Excessive sweating, Frequent urination, Frequentthirst PHYSICAL EXAMINATION: Pulse (!) 59 Resp 18 Wt 77.6 kg (171 lb) SpO2 97% BMI 28.90 kg/m General: In no acute distress. Neck: no jugular venous distention, Lungs: Clear to auscultation bilaterally, no wheezing or rhonchi. Heart: Regular rhythm, S1, S2 normal Extremities: No peripheral edema Neuro: Oriented to person, place and time, alert, cooperative, gait coordinated. CARDIOVASCULAR MEDICINE TESTING: Last ECHO Result Conclusion ECHO Collected: 01/25/2023 10:03 AM (Final result) Impression: CONCLUSIONS: - Exam indication: Re-evaluation of known ascending aortic dilatation with the change in clinical status - The left ventricle is normal in size. Left ventricular systolic function is normal. EF = 57 5% (2D 4-ch.) Grade I left ventricular diastolic dysfunction. - The right ventricle is normal in size. Right ventricular systolic function is normal. - The left atrial cavity is mildly dilated. - The visualized aorta is dilated with a maximal dimension of 4.6 cm at the mid-ascending aorta. Sinus of Valsalva 4.1 cm. - Estimated right ventricular systolic pressure is 27 mmHg consistent with normal pulmonary artery pressures. Estimated right atrial pressure is 3 mmHg based on IVC assessment. - Exam was compared with the prior CC echocardiographic exam performed on 01/25/2022. No significant change. * * * Final * * * Last EKG Result Conclusion ECG COMPLETE Collected: 01/25/2023 11:07 AM (Preliminary result) Impression: SINUS BRADYCARDIA LEFT AXIS DEVIATION INFERIOR-POSTERIOR INFARCT , AGE UNDETERMINED ABNORMAL ECG IMPRESSION: History as stated above. I am following up with Ms Mcgill to review her echo. Currently she states she feels well. She remains very active with golfing 9 holes or 18 holes multiple times a week. She also works out with a physical trainer 1 time a week. Echo today continues to show dilated aorta 4.6 cm whichis the same as it was 1 year ago. She does state that very rarely she gets left-sided discomfort around her lower axilla area and lower left breast. It is not associated with physical exertion and she is obviously very active. She is wondering if it could be musculoskeletal. Her chest discomfort isatypical and most likely not cardiac in origin. Also will discuss the chest discomfort symptoms andecho with Dr. Hassan on his return next week. Otherwise her heart rate and blood pressure are well controlled. We also had a long discussion on the pros/cons of starting a statin for her cholesterol. At this time, she prefers to stay off of statins but understands this may put her at a slightly higher risk of developing a heart attack or stroke. She appears to be doing very well. Follow-up in 6 months or sooner if the need arises. PLAN AND RECOMMENDATIONS: -Continue current medication regimen -Refilled Metoprolol -Follow up with Dr Hassan in 6 months or sooner if the need arises I spent 38 minutes in the visit, with more than 50% of the total [id number] time of the visit in counseling / coordination of care. This note was partially generated using [employer] voice recognition system, and there may be some incorrect words, spellings, and punctuation that were not noted in checking the note before saving. Jose Mcqueen APRN.CNP documented in this encounterWilson [facility]05-16-2023 Miscellaneous Notes* Telephone Encounter - David Russell Ma - 12/14/2022 8:29 AM EDT Patient notified and office visit scheduled for today with [facility]. * Telephone Encounter - Ingrid Cordon APRN.CNP - 12/14/2022 7:28 AM EDT If patient's symptoms still haven't improved I would like to see her for follow- up in the office Ingrid Cordon APRN.CNP * Telephone Encounter - Lottie Davis RN - 12/13/2022 8:06 AM EDT Patient calling and states she was seen by Ingrid Cordon CNP on 12/10/22 for Viral URI. Patient calling this morning with these updates: -temp remains slightly elevated at 100.0 -increased pressure to her sinuses and both ears -left ear pain continues -constant flow of nasal drainage -loose stools yesterday and today -cough has improved a bit -fatigue has improved a bit -denies chest pain, wheezing, nausea or vomiting -patient states her home covid test this past was negative but she plans to test herself again today and will call office if positive Patient asking if Ingrid Cordon would advise her. Uses [facility] in [place]. Thank you. documented in this encounterWilson Street Hospital04-20-2023 Miscellaneous Notes* Addendum Note - Hallie Simmons LPN - 11/18/2022 3:10 PM EDTAddended by: HALLIE SIMMONS on: 11/18/2022 03:10 PM Modules accepted: Orders documented in this encounterWilson Street Hospital04-20-2023 Instructions* Patient Instructions* Hallie Simmons LPN - 11/18/2022 2:39 PM EDT AFTERCARE CRYOTHERAPY The skin s response to cryosurgery (freezing) can be mild to more severe, depending on the depth ofthe freeze and location of the area treated. You may have minimal redness and swelling with little discomfort or significant discoloration and blistering with considerable discomfort. A burning sensation in the skin may last from several minutes to several hours after the procedure. Follow these instructions when caring for an area treated by cryosurgery. MINOR RESPONSE 1. Keep the area clean and dry for 24 hours. After 24 hours, the area may be washed gently with soap and water. 2. The area may sting or burn for a short time after treatment. 3. The treated area will be red in color at first then turn brown and flaky as it heals and the upper layer of skin sloughs off. 4. Gently cleanse the area with Q-tips dipped in plain warm water. Pat dry and apply a thin film ofvaseline. Do this at least once a day to prevent infection. MAJOR REPSONSE 1. Follow instructions as stated above for minor response. 2. The area may sting and burn for several hours after treatment. 3. To relieve throbbing and pain, elevate the treatment area. 4. Tylenol (acetaminophen) may be taken every 3 to 4 hours for discomfort. 5. A blister will form in the area of freezing. It may be filled with clear fluid or blood. This response is not unusual. 6. Do not break the blister unless it becomes uncomfortable. You may puncture the blister with a sterile needle or pin to remove the fluid. Leave the skin intact. 7. Cleanse twice a day with plain warm water and apply Vaseline to prevent infection and a thick scab from forming. 8. All treated areas usually heal with 3 to 4 weeks. CARE INSTRUCTIONS AFTER BIOPSY/PROCEDURE WITH SUTURES 1.) Keep the area clean and dry with the dressing in place the day of surgery. 2.) The next day you may bathe or shower as usual. Do not wear a wet band-aid on the wound. 3.) Remove the band-aid daily. Wash gently with soap and water and pat dry. Apply Apply vaseline and cover with a band-aid while sutures are in place 4.) DO NOT USE NEOSPORIN as there is a fairly high incidence of allergic response to this product.. documented in this encounterWilson Street Hospital04-20-2023 History of Present illness Narrative* Giuliana Kendall MD - 11/18/2022 2:15 PM EDT CHIEF COMPLAINT: No chief complaint on file. : postmenopausal Last menstrual period: not applicable Last Dermatology Visit: 12/16/21 REFERRAL: self RELEVANT DERMATOLOGY HISTORY: Personal Hx of skin cancer: yes, ~ squamous cell CA - 12/17, left lateral calf - ED&C Personal Hx of atypical moles: no Family Hx of malignant melanoma: Yes - uncle Antibiotics before dental or other procedures: no Artificial joints: yes Pacemaker: no Anticoagulants: no DERMATOLOGY PROGRESS NOTE HISTORY: Dot Mcgill is a 77 year old female who presents with CC/HPI: Chief Complaint Lesions Location Full body skin check Duration 5-6 months Timing constant Severity mild Quality red bumps Modifying Factors: OTC Aveeno eczema lotion nonhealing spot on the back of the left thigh for 9 months no prior treatment or biopsy patient admits to picking at it PAST MEDICAL HISTORY: PAST MEDICAL HISTORY Diagnosis Date Acute deep vein thrombosis (DVT) of popliteal vein of left lower extremity (HCC) 08/29/2021 Benign neoplasm of colon Cardiac murmur 10/08/2011 Disorder of bone and cartilage, unspecified Enlarged thoracic aorta (HCC) 10/08/2011 ECHO 09/2011 - Dilated aorta, stable since 2004, mild LVH stable since 2004. 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 Allergic Rhinitis, Cause Unspecified Hyperlipemia Vitamin D Deficiency Enlarged thoracic aorta (HCC) Dry Eye Syndrome Herpes Simplex Labialis Gerd (Gastroesophageal Reflux Disease) Multiple Joint Pain Palpitations Obesity, Class I, Bmi 30-34.9 PAST SURGICAL HISTORY Procedure Laterality Date ARTHROPLASTY GLENOHUMRL JT HEMIARTHROPLASTY Right Hemiarthroplasty, right shoulder CHOLECYSTECTOMY Cholecystectomy COLONOSCOPY FLX DX W/COLLJ SPEC WHEN PFRMD 11/11/2000 Colonoscopy COLONOSCOPY FLX DX W/COLLJ SPEC WHEN PFRMD 10/09/15 Colonoscopy LIG/TRNSXJ FLP TUBE ABDL/VAG APPR UNI/BI Tubal ligation PAST SURGICAL HISTORY OF Corrective Lasix Surgery/Left Eye VAGINAL HYSTERECTOMY UTERUS 250 GM/< Hysterectomy, vaginal MEDICATIONS: Current Outpatient Medications Medication Sig metoprolol tartrate, short acting, (LOPRESSOR) 25 mg tablet Take 0.5 tablets by mouth twice daily. magnesium citrate 100 mg tab Take 2 tablets by mouth once daily. Benazepril-hydroCHLOROthiazide (LOTENSIN HCT) 10-12.5 mg per tablet One half (1/2) tablet daily. diclofenac (VOLTAREN) 1 % topical gel Apply to affected area as needed. Ca/D3/mag ox/zinc/copy clerk/nell/bor (CALCIUM 600-D3 PLUS, MAG-ZINC, ORAL) Take 1 capsule by mouth three times daily. cholecalciferol, vitamin D3, (VITAMIN D3 ORAL) Take 4,000 Units by mouth once daily. cyanocobalamin (VITAMIN B-12) 1,000 mcg tab Take 2,000 mcg by mouth once daily. omeprazole (PRILOSEC) 20 mg capsule Take 1 capsule by mouth once daily as needed. Current Facility-Administered Medications Medication Dose Route Frequency perflutren lipid microspheres 1.3 mL in NaCl (PF) 0.9% 10 mL injection (DEFINITY) INTRAVENOUS DIRECTED PRN sodium chloride 0.9 % (flush) 10 mL (BD POSIFLUSH) 10 mL INTRAVENOUS DIRECTED PRN ALLERGIES: reviewed Influenza Virus Vaccines, Adhesive Tape (Rosins), Antihistamines - Alkylamine, Entex La [Phenylephrine-Guaifenesin], Iodinated Contrast Media, Iodine, and Norvasc [Amlodipine Besylate] OCCUPATION: Retired REVIEW OF SYSTEMS:No fever, chills, night sweats or changes in weight. No dyspnea, chest pain, abdominal pain, dysuria. All other review of systems is negative FAMILY MEDICAL HISTORY: FAMILY HISTORY Problem Relation Age of Onset Heart Mother Hypertension Mother Arthritis Mother Osteoarthritis Hyperlipidemia Mother Stroke Father Hypertension Father Hyperlipidemia Father Hypertension Sister Hypertension Sister Hypertension Sister Hypertension Sister Colon Cancer Maternal Grandfather Breast Cancer Sister 69 Thyroid Sister Thyroid Sister SOCIAL HISTORY: Social History Tobacco Use Smoking status: Never Smokeless tobacco: Never Vaping Use Vaping Use: Never used Substance Use Topics Alcohol use: No Drug use: No PHYSICAL EXAMINATION: GENERAL: Patient is a well appearing, well nourished, and pleasant, female alert and oriented, NAD. SKIN: A full skin exam was performed including the scalp, face, lips, neck, chest, abdomen, back, buttocks, arms and legs. Brown waxy warty stuck on papules on trunk and extremities Rodriguez red vascular papules on trunk Light brown macules in sun distribution on upper body Multiple symmetric pigmented macules with benign features on trunk extremities No recurrence on previous skin cancer site Family history of melanoma Small erythematous gritty papules scattered on bilateral dorsal forearms left upper arm Erythematous scabbed slightly excoriated papule on left posterior thigh 1.2 x 1 cm ASSESSMENT/PLAN: 1. Seborrheic keratosis - ICD9: 702.19, ICD10: L82.1 (primary diagnosis) -Diagnosis discussed, observe 2. Rodriguez angioma - ICD9: 228.01, ICD10: D18.01 -Observe 3. Lentigines - ICD9: 709.09, ICD10: L81.4 -Sun protection sun 4. Multiple benign nevi - ICD9: 216.9, ICD10: D22.9 -Sun protection and monitoring 5. Personal history of skin cancer - ICD9: V10.83, ICD10: Z85.828 - Mole/melanoma/dysplastic nevus/skin cancer education given - Recommend sun protection with broad spectrum UVA UVB coverage, spf 30+ every day, reapply every 2-3 hours, use higher SPF 50+ for extended sun activities - Monitoring 6. Family history of malignant melanoma - ICD9: V16.8, ICD10: Z80.8 -Continue annual full-body skin exams 7. Actinic keratosis - ICD9: 702.0, ICD10: L57.0 - Cryosurgery of non-malignant lesion(s) HPI: Patient is here for cryosurgery Patient is alert oriented 3 not in apparent distress Dot Mcgill Medical Record: [id number] Date: 11/18/2022 Procedure: Cryosurgery The risks, benefits and anticipated outcomes of the procedure, the risks and benefits of the alternatives to the procedure and the roles and tasks of the personnel to be involved were discussed with the patient and the patient consents to the procedure and agrees to proceed. I verify that I personally obtained Dot Mcgill's consent. Giuliana Kendall MD Dept of DERMATOLOGY Cryosurgery performed with Liquid Nitrogen via via cryostat spray gun to Actinic Keratosis. 14 lesion(s) treated bilateral forearms left upper arm. Patient tolerated treatment well. Wound care instructions provided, pt verbalizes understanding. Giuliana Kendall MD 8. Skin neoplasm - ICD9: 239.2, ICD10: D49.2 Patient presents with: Full Body Skin Check Dot Mcgill Medical Record: [id number] Procedure: Shave biopsy Patient is alert oriented 3, not in apparent distress The risks, benefits and anticipated outcomes of the procedure, the risks and benefits of the alternatives to the procedure, and the roles and tasks of the personnel to be involved were discussed withthe patient who consents to the procedure and agrees to proceed. I verify that I personally obtained Dot Mcgill's consent. Giuliana Kendall MD DEPARTMENT OF DERMATOLOGY UNIVERSAL PROTOCOL / SAFETY CHECKLIST Procedure to be Performed: shave biopsy Sign In: A Moment of CARE was completed. Personnel directly involved with the procedure wore the appropriate PPE (Personal Protective Equipment). No special equipment needed. Patient/Surrogate Stated/Verified: PATIENT VERIFIED (optional for EMERGENT procedures): Patient name, Date of , Relevant allergies and The intended procedure Time Out Communication: Intended patient and procedure match the source documents. Consent documented and matches the intended procedure. No relevant labs, photos, and/or imaging studies were applicable for review. Correct side/site marked and visible. Medications required for procedure is verified. No fire risk assessment and interventions applicable. No implant(s) inserted. Sign Out: SIGN OUT (optional for EMERGENT procedures): All specimen containers correctly labeled. No instruments, equipment or retained foreign bodies applicable. Post-procedure follow-up management communicated and Plan of Care Visit completed when applicable. Giuliana Kendall MD Discussed with patient the procedure and risks which include bleeding, infection and scarring. The area(s) was/were identified, prepped with alcohol and anesthetized with 1% Lidocainew epi, total amount of 0.5 ml. A sterile # 15 blade was used to remove a dermatology sales representative portion of the lesion. Hemostasis was achieved with aluminum chloride, the site(s) was(were) dressed with an adhesive dressing. Size of biopsy site was approximately 0.5 cm in diameter each. EBL: none Biopsy site(s): L Posterior lower leg DDx: r/o ak vs nmsc Photo(s) taken with patient's/guardian's permission. Patient tolerated procedure well, without complications and post care instructions were given. Pt will be notified with pathology results. Giuliana Kendall MD RTC pending path The documentation for this note was partially completed by Hallie Simmons LPN acting as scribe for Giuliana Kendall MD. November 18, 2022 8:09 AM. I agree with the Chief Complaint, ROS, and Past Histories independently gathered by the clinical production support analyst and the remaining scribed note accurately describes my personal service to the patient. MADY Lugo MD Return to clinic ppath or fbse documented in this [facility]Wilson [facility]03-08-2023 Discharge summary Author Ray Cervantes [facility] October 06, 2022 2:16pm Note Date/Time October 05, 2022 9:58 am [facility] Physical Therapy [facility] [address] [place] [address] / REHABILITATION SERVICES DISCHARGE SUMMARY MR#: [id number] Acct: [id number] Name: DOT MCGILL Rep #: [id number] : 1945 77 From: Cert. KIMBERLEY Durand, OCS Referring Dr.: Dr. Daniel Wilkes DO Status: REG RCR Insurance: MEDICARE PART A B [employer] It has been my pleasure to treat DOT MCGILL referred by Dr. Daniel Wilkes DO, with the diagnosis of PRIMARY OSTEOARTHRITIS ,RIGHT SHOULDER for a total of 20 visit(s). Discharge Date: Please see the following information for a summary of their discharge status. Subjective: Doing well ..ready for d/c Right Shoulder Pain Intensity (Out of 10): 0 % Improvement: 75 Objective/Function: AROM: shoulder flexion/abduction 160 ,ER 90. MMT: RTC 4/5 ,deltoid 4-/5 Goal 1:: Patient to be I with HEP Goal Progress: Goal Met Goal 2:: Patient to demonstrate 60% improvement with improved function with lesspain Goal Progress: Goal Met Goal 3:: Patient to improve AROM shoulder flexion /abduction 150 degrees for reaching in cupboard and L1 IR to put on coat. Goal Progress: Goal Met Goal 4:: Patient to increase strength of RTC and Deltoid 4/5 to improve functionfor ADL's Goal Progress: Goal Met Goal 5:: Patient to improve quick dash by 5 points to improve function for ADLS' Goal Progress: Goal Met Plan: D/C If there are questions or concerns regarding this patient's physical therapy, please feel free to call me at [phone]. Thank you for the referral of thispatient. Sincerely, Ray Cervantes PT, Satish CHU, OCS Balance/Gait/Functional tests - Balance/Special Test Scores Quick DASH Score: 13.6350 <Electronically signed by Cert. KIMBERLEY An PT, OCS> 10/06/22 1416 CC: Dr. Daniel Wilkes DO; Dr. Kristian Soto MD ~ RAUL Signed [facility] Work Phone: [phone]) 414-986902-27-2023 History of Present illness Narrative* Janelle Dre - 09/27/2022 12:03 PM EST EVENT MONITOR DISPOSABLE PATCH INSTRUCTIONS Patient Name: Dot Mcgill [facility] Number: [id number] Skin prepped and cleansed with alcohol Patch secured to prepped area Monitor Activated Serial #: [id number] Patient Instructed: Prescribed order timeframe Bathing guidelines Usage of event button and diary documentation Return of monitor at the end of prescribed order Call with problems [phone] or [phone]. [phone] Patient expresses a good understanding of instructions Janelle Erickson documented in this [facility]Wilson [facility] Hospital02-27-2023 Instructions* Patient Instructions* Ramila Ramirez APRN.CNP - 09/27/2022 11:06 AM EST -Get a heart monitor placed in J2-2 -Continue current medications -Continue a heart healthy, low salt/fat diet -Continue to monitor blood pressure at home at least once daily, 1-2 hours after morning medications--record. -Continue to monitor weight at home-record. -Continue to increase physical activity as tolerated. -Follow up with Dr. Hassan in December, as arranged with CT calcium score, echocardiogram and EKG. You can get the lab work locally. documented in this encounterWilson [facility] Hospital02-27-2023 History of Present illness Narrative* Ramila Ramirez APRN.CNP - 09/27/2022 10:45 AM EST Images from the original note were not included. [facility] [place] [facility] Department of Cardiovascular Medicine SECTION OF CLINICAL CARDIOLOGY OUTPATIENT VISIT DATE September 27, 2022 OUTPATIENT VISIT TYPE ESTABLISHED PRIMARY CARE PHYSICIAN: Kristian Soto [address] [place] [address] REFERRING PHYSICIAN: Dr. Daniel Hassan [address] [address] CHIEF COMPLAINT: Established Patient HISTORY OF PRESENT ILLNESS: Ms. Mcgill is a 77 year old female who presents today for a cardiovascular medicine follow-up visit. She is an established patient of Dr. Hassan. Patients past medical history is significant for: Dilated ascending aorta 4.4 cm by echo in 2011 4.5 cm by echo dating back to 2018 4.6 cm (aortic area index 10.3 cm /m) by CTA Jun 2021 4.6 cm by echo December 2021 2. Palpitations Holter monitor demonstrating occasional runs of supraventricular tachycardia, longest 18 beats No ventricular tachycardia or atrial fibrillation 3. GERD 4. Obesity 5. White coat hypertension 6. Multiple joint pain 7. Dry eye syndrome Ms. Mcgill was last evaluated in office by Dr. Hassan on 01/26/2022. Impression below for further reference: Dot Mcgill is a pleasant 76-year-old woman who presents today for follow up of her complaint of palpitations and primary prevention of coronary artery disease. She currently feels well and denies any symptoms suggestive of active cardiovascular disease at a reasonably good functional level. Her physical examination today is unremarkable and her ECG is unchanged from her baseline, demonstratingsinus bradycardia with leftward axis deviation and an old inferior/posterior infarct pattern but without corresponding wall motion abnormality on echo. Today's echocardiogram demonstrates stable ascending aortic enlargement at 4.6 cm. We discussed her aortic enlargement and reviewed indications for elective surgical repair. There are data to suggest that one can consider elective replacement of the aorta once the aortic area indexreaches 10 cm /m or greater. Mrs. Mcgill is currently at 10.3 cm /m however her aortic dimensions have been quite stable with only 2 mm of increase since 2011. Her current impulse control is excellent on her present medical therapy. Given this I am inclined to continue to closely observe her aorta for any increase in size and defer a surgical referral for now. My hope is that 1) her aorta stay stable and she never ends up requiring intervention or 2) we can defer elective replacement long enough for currently experimental transcatheter approaches for ascending aortic repair to become mainstream. Interval Events since SAL: Ms. Mcgill reports on 09/11/2022 she was doing daily activities. Later that night her and her went for a drive followed by dinner. Patient noted upon closing up the house prior to shower and bed that she felt fatigued with a high heart rate in the ~190's bpm range x 40 minutes duration. She sat down, took her metoprolol tartrate early with cold water and had no relief. Patient had her call the EMS who recommended evaluated at [place] [facility]. Patient was evaluated, no acute findings and EKG revealed back to NSR. She was discharged home without changes to her medications. She presents today for follow up. Since episode above has been feeling well. Taking all medications as prescribed She is questioning if she was maybe given full caffeine coffee at dinner rather than half caffeine she ordered. Also, states she was under some stress has her older sister was just diagnosed with colon cancer that could be possibly contributing to event as well. Staying very active--doing things around the house, working out with physical trainer, active at [employer] and volunteering at the food [employer] every Tuesday. She is looking forward to golfing and bike riding as the weather improves. She currently denies chest pain, shortness of breath, orthopnea, cough, edema, palpitations, PND, lightheadedness or syncope. PAST MEDICAL HISTORY Diagnosis Date Acute deep vein thrombosis (DVT) of popliteal vein of left lower extremity (HCC) 08/29/2021 Benign neoplasm of colon Cardiac murmur 10/08/2011 Disorder of bone and cartilage, unspecified Enlarged thoracic aorta (HCC) 10/08/2011 ECHO 09/2011 - Dilated aorta, stable since 2004, mild LVH stable since 2004. 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 Osteoporosis, unspecified 05/19/2005 Pneumonia 10/03/2019 Shingles outbreak 10/09/2019 Unspecified essential hypertension Vitamin D deficiency 12/18/2010 PAST SURGICAL HISTORY Procedure Laterality Date ARTHROPLASTY GLENOHUMRL JT HEMIARTHROPLASTY Right Hemiarthroplasty, right shoulder CHOLECYSTECTOMY Cholecystectomy COLONOSCOPY FLX DX W/COLLJ SPEC WHEN PFRMD 11/11/2000 Colonoscopy COLONOSCOPY FLX DX W/COLLJ SPEC WHEN PFRMD 10/09/15 Colonoscopy LIG/TRNSXJ FLP TUBE ABDL/VAG APPR UNI/BI Tubal ligation PAST SURGICAL HISTORY OF Corrective Lasix Surgery/Left Eye VAGINAL HYSTERECTOMY UTERUS 250 GM/< Hysterectomy, vaginal SOCIAL HISTORY Social History Tobacco Use Smoking status: Never Smokeless tobacco: Never Vaping Use Vaping Use: Never used Substance Use Topics Alcohol use: No Drug use: No FAMILY HISTORY Problem Relation Age of Onset Heart Mother Hypertension Mother Arthritis Mother Osteoarthritis Hyperlipidemia Mother Stroke Father Hypertension Father Hyperlipidemia Father Hypertension Sister Hypertension Sister Hypertension Sister Hypertension Sister Colon Cancer Maternal Grandfather Breast Cancer Sister 69 Thyroid Sister Thyroid Sister ALLERGIES: ALLERGIES Allergen Reactions Influenza Virus Vac* Other: See Comments Dizziness Adhesive Tape (Jenelle* Rash Antihistamines - Al* Other: See Comments Entex La [Phenyleph* Iodinated Contrast * Swelling Iodine Norvasc [Amlodipine* lip swelling - gum bleeding MEDICATIONS: metoprolol tartrate, short acting, (LOPRESSOR) 25 mg tablet^Take 0.5 tablets by mouth twice daily.^Disp: 90 tablet^Rfl: 1 magnesium citrate 100 mg tab^Take 2 tablets by mouth once daily.^Disp: ^Rfl: Benazepril-hydroCHLOROthiazide (LOTENSIN HCT) 10-12.5 mg per tablet^One half (1/2) tablet daily.^Disp: 45 tablet^Rfl: 3 diclofenac (VOLTAREN) 1 % topical gel^Apply to affected area as needed.^Disp: ^Rfl: Ca/D3/mag ox/zinc/copy clerk/nell/bor (CALCIUM 600-D3 PLUS, MAG-ZINC, ORAL)^Take 1 capsule by mouth three times daily.^Disp: ^Rfl: cholecalciferol, vitamin D3, (VITAMIN D3 ORAL)^Take 4,000 Units by mouth once daily.^Disp: ^Rfl: cyanocobalamin (VITAMIN B-12) 1,000 mcg tab^Take 2,000 mcg by mouth once daily.^Disp: ^Rfl: omeprazole (PRILOSEC) 20 mg capsule^Take 1 capsule by mouth once daily as needed.^Disp: ^Rfl: REVIEW OF SYSTEMS: Positives in bold: GENERAL: Negative for: Weight loss or gain, Fever or Chills, Weakness and Sleep difficulties. HEENT: Negative for: Headache, Impaired Vision, Glasses, Hearing Impairment, Ringing in Ears, Nosebleeds, Poor dental care, Bleeding Gums, Dentures NECK: Negative for: Swelling, Pain, Stiffness RESPIRATORY: Negative for: Cough, Blood in Sputum, Shortness of breath, Wheezing, Apnea GASTROINTESTINAL: Negative for: Trouble swallowing, Heartburn, Change in bowel habits, Blood in stool, Dark black stools MUSCULOSKELETAL: Negative for: Muscle or joint pain, Stiffness , Joint swelling NEUROLOGIC/PSYCHIATRIC: Negative for: Weakness, Paralysis, Numbness, Tingling, Tremor, Nervousness,Depressed mood, Memory loss SKIN: Negative for: Rashes, Itching HEMATOLOGICAL/LYMPHATIC: Negative for: Easy bruising , Easy bleeding ENDOCRINE: Negative for: Heat or cold intolerance, Excessive sweating, Frequent urination, Frequentthirst PHYSICAL EXAMINATION: BP 174/92 (BP Site: Left Arm, BP Position: Sitting, BP Cuff Size: Regular Adult) Pulse (!) 59 Resp 20 Ht 163.8 cm (5' 4.5) Wt 74.4 kg (164 lb) SpO2 96% BMI 27.72 kg/m General: Well appearing, in no acute distress. Skin: No clubbing, no cyanosis. Eyes: Extra ocular movements intact Oropharynx: Teeth in good repair. Neck: No jugular venous distention Lungs: Clear to auscultation bilaterally, no wheezing or rhonchi. Heart: Regular rhythm, PMI not displaced, S1, S2 normal Abdomen: Soft, nontender, bowel sounds normal Extremities: No peripheral edema . Grade 2/4 distal pulses bilaterally. Neuro: Oriented to person, place and time, alert, cooperative, gait coordinated. CARDIOVASCULAR MEDICINE TESTING: Electrocardiogram: 09/27/2022: Last ECHO Result Conclusion ECHO Collected: 01/25/2022 9:41 AM (Final result) Impression: CONCLUSIONS: - Technically difficult exam due to body habitus. - Exam indication: Ascending aortic aneurysm - The left ventricle is normal in size. Left ventricular systolic function is normal. EF = 57 5% (2D 4-ch.) Grade I left ventricular diastolic dysfunction. - The right ventricle is normal in size. Right ventricular systolic function is normal. - There are no significant valvular abnormalities. - The visualized aorta is dilated with a maximal dimension of 4.6 cm. - Exam was compared with the prior echocardiographic exam performed on 06/16/2021, no significant change. * * * Final * * * Last EKG Result Conclusion ECG COMPLETE Collected: 09/27/2022 10:04 AM (Preliminary result) Impression: SINUS BRADYCARDIA LEFT AXIS DEVIATION INFERIOR MYOCARDIAL INFARCTION , AGE UNDETERMINED ABNORMAL ECG Most recent labs on file: Component Latest Ref Rng & Units 07/21/2022 Glucose 74 - 99 mg/dL 96 BUN 7 - 21 mg/dL 15 Creatinine 0.58 - 0.96 mg/dL 0.77 Sodium 136 - 144 mmol/L 143 Potassium 3.7 - 5.1 mmol/L 4.3 Chloride 97 - 105 mmol/L 104 CO2 22 - 30 mmol/L 29 Anion Gap 9 - 18 mmol/L 10 Calcium 8.5 - 10.2 mg/dL 9.8 eGFR >=60 mL/min/1.73m 81 Cholesterol, Total <200 mg/dL 212 (H) Triglyceride <150 mg/dL 128 HDL Cholesterol >39 mg/dL 69 Non HDL Cholesterol <130 mg/dL 143 (H) Fasting Time hrs 10 VLDL Cholesterol <30 mg/dL 26 TC:HDL Ratio <5.10 3.07 LDL Cholesterol <100 mg/dL 117 (H) LDL:HDL Ratio <2.54 1.70 I have personally reviewed the Electrocardiogram. IMPRESSION: Ms. Mcgill is a 77 year old female who presents today for a Cardiovascular Medicine follow up visit. She is an established Clinical patient of Dr. Hassan. Patients past medical history, physical, medications, tests, and results are as detailed above. Today Ms. Mcgill overall feels better today. She is taking all medications as prescribed including metoprolol tartrate, benazepril-HCTZ. Her blood pressure in office is elevated, and her pulse is stable, regular. She does routintely obtain blood pressure and pulse at home, in which she reports SBP range 110-120 consistently. EKG from today detailed above. Patient is here for routine follow up. We addressed the following problems today: Dilated ascending aorta 4.4 cm by echo in 2011 4.5 cm by echo dating back to 2018 4.6 cm (aortic area index 10.3 cm /m) by CTA Jun 2021 4.6 cm by echo December 2021 2. Palpitations Holter monitor demonstrating occasional runs of supraventricular tachycardia, longest 18 beats No ventricular tachycardia or atrial fibrillation 3. GERD 4. Obesity 5. White coat hypertension 6. Multiple joint pain 7. Dry eye syndrome Ms. Mcgill is euvolemic and hemodynamically stable in office today. Her blood pressure is elevated--which is the case in office 2/2 white coat hypertension. She frequently checks her vital signs at home and reports SBP range 110-120 at home routintely. She has no signs of acute decompensation or fluid volume overload from a cardiac perspective. Ms. Mcgill is questioning what could have led to the increased heart rate on 09/11/2022 which landedher in the [place] [facility]. Could be 2/2 caffeine intake, stressors with family. She is compliant with metoprolol tartrate. She has not had any episodes since. We will continue to monitor. Furthermore, will place a 14 day Ziopatch on Ms. Mcgill to further evaluate, alleviate some stress, and rule out any silent arrhythmia. Patient agreeable. Today, we also talked about her 18.1% ten year risk of heart disease or stroke given her blood pressure, age, cholesterol levels. Her PCP would like her to start a moderate dose statin per recommendations/guidelines. She is hesitant. She does not want myalgia's. She feels healthy. I agree with the guidelines, it would be appropriate to start moderate dosage statin. Patient would like to pursue self pay CT calcium scoring to obtain more data. I will place order for her. We will continue discussion. In the meantime she will continue to work on lifestyle modifications and weight loss as she has been doing. We will recheck her FLP and CMP when she comes back in December, for annual exam with ec hocardiogram prior. Most recent testing, including most recent labs, EKG, echocardiogram on file, were reviewed and aredetailed above. She is normotensive, euvolemic, and stable from a cardiac perspective. RTC as detailed below. PLAN AND RECOMMENDATIONS: -Get a heart monitor placed in J2-2 -Continue current medications -Continue a heart healthy, low salt/fat diet -Continue to monitor blood pressure at home at least once daily, 1-2 hours after morning medications--record. -Continue to monitor weight at home-record. -Continue to increase physical activity as tolerated. -Follow up with Dr. Hassan in December, as arranged with CT calcium score, echocardiogram and EKG. You can get the lab work locally. I personally interviewed, confirmed and edited the above information if obtained by others. CONTACT INFORMATION: Ramila Ramirez APRN.CNP I personally spent ~45 minutes with the patient reviewing cardiac history and complaints, performing a physical exam, and developing a plan of care. 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 Hassan. Messaged pt. Irma Almeida RN * Telephone Encounter - Guille Swift - 09/13/2022 8:02 AM EST 09/13/2022 Patient last seen within the last year: YES Date of last office visit: 01/26/22 Reason For Call: Symptoms: Tuesday evening patient was experiencing fatigue and high BMP. Patient was monitoring her BMP and it was averaging 190. Patient attempted to lower her BMP with no success. Patient's spousecalled 911 and [facility] Patient was eventually discharged with no clear instructions. Patient is scheduled for f/u visit in December and is wonder if she should come in sooner due to this recent issues. Patient is also wondering if times of her medication should be adjusted. Symptoms started: Tuesday evening. Today patient feels fine a bit tired but otherwise normal. Readings: Tuesday: 128/70 BP 190 BMP lasting over 45 minutes Today: Within normal range Patient wants to know how to proceed regarding these concerns. Physician: Daniel Hassan MD September 13, 2022 8:02 AM documented in this encounterWilson [facility] Hospital02-11-[address] Romano [facility] September 11, 2022 9:25pm Note Date/Time September 11, 2022 8:45pm [facility] Medical Records Department [address] [place] [address] Emergency Department Summary 09/11/22 MR#: [id number] Acct: [id number] Name: DOT MCGILL Rep #:[id number] : 1945 77 From: Stanislav Romano DO PCP: Dr. Kristian Soto MD Status:R EG ER Location: ED HPI History of Present Illness Chief Complaint: Palpitations Narrative Narrative: 77-year-old female with history of SVT with palpitations. She states they lasted about an hour and a half. Patient states she took half of her nighttime dose of metoprolol 25 mg. On arrival to the ER her palpitations has resolved. She was told by EMS she was in SVT. She denies chest pain or shortness of breath. No fever, chills, cough. She was in her normal state of health prior to this event. She sees a Dr. 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 [employer] Home Medications omeprazole 20 mg capsule,delayed release 20 mg PO DAILY 05/11/16 [History Last Taken 05/11/16] benazepril 20 mg-hydrochlorothiazide 25 mg tablet (Lotensin HCT) 1 ea PO DAILY #30 tabs 05/12/16 [Rx Last Taken Unknown] metoprolol tartrate 25 mg tablet 25 mg PO QHS 09/28/20 [History Last Taken Unknown] Allergy/AdvReac Type Severity Reaction Status Date / Time [id number] inhibitor Allergy Angioedema Verified 09/11/22 19:31 [[id number]-7-[id number] Inhibitor] Antihistamines - Alkylamine Allergy Chest Verified 09/11/22 19:31 tightness iodine Allergy Shortness Verified 09/11/22 19:31 of breath adhesive tape AdvReac Rash Verified 09/11/22 19:31 Iodinated Contrast Media AdvReac Swelling Verified 09/11/22 19:31 [CONTRASTS] Social History Smoking Status: Never smoker ROS ROS ED Review of Systems ROS Unobtainable: Denies due to encephalopathy Constitutional Constitutional ED: Denies chills or fever(s) Eyes Eyes: Denies blurry vision or change in vision ENT ENT ED: Denies rhinorrhea Cardiovascular Cardiovascular: Reports palpitations and racing heartbeat; Denies chest pain Respiratory/Chest Respiratory/Chest: Denies cough or dyspnea Gastrointestinal Gastrointestinal: Denies abdominal pain or constipation Genitourinary Genitourinary ED: Denies dysuria or hematuria Musculoskeletal Musculoskeletal: Denies arthralgias or back pain Integumentary Denies abscess or Abrasions Neurologic Neurologic: Denies headache(s) or paresthesias Psychiatric Psychiatric: Denies anxiety or depression Endocrine Endocrinology: Denies cold intolerance or heat intolerance EXAM Physical Exam Const Vital Signs: 09/11/22 19:24 09/11/22 20:06 Temperature 97.5 F L Temperature Source Temporal Pulse Rate 79 74 Respiratory Rate 15 20 H Blood Pressure 169/88 H 151/80 H Blood Pressure Mean 115 103 Pulse Ox 98 95 Oxygen Delivery Method Room Air Room Air Positive well nourished General Appearance ED: NAD; Negative for pallor HEENT Reports moist mucous membranes Eyes Negative for PERRL or EOMs intact bilaterally Neck no lymphadenopathy Chest Wall inspection of chest normal and palpation of chest normal Resp normal respiratory effort and clear to auscultation bilaterally Cardio regular rate and regular rhythm GI normal to inspection, nondistended, normoactive bowel sounds Back/Spine no CVA tenderness Neuro oriented x3 and CN's II-XII intact bilaterally Sensorium / Orientation: alert Skin no rashes or lesions noted and no wounds General Skin Exam: elasticity normal; Negative for jaundice or pallor MDM MDM MDM Narrative Medical decision making narrative: 77-year-old female presenting with palpitations. I reviewed the rhythm strip from EMS and it appears to be SVT on my interpretation. It had resolved prior to arrival. She did not need adenosine. EKG was obtained and on my interpretation shows a normal sinus rhythm with a ventricular rate of 72 bpm without sign of ischemic change. Chest x-ray on my interpretation shows no acute cardiopulmonary process radiologist are persistent agrees. CBC shows no leukocytosis, hemoglobin hematocrit stable. Platelet count normal. No left shift. Renal function electrolytes within normal limits. High-sensitivity troponin is 8. Low suspicion for PE as patient has had SVT in the past. 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 She is amenable to this plan. She discharged home in stable condition. Impression: 1. SVT 2. Palpitation Lab Data Labs: Laboratory Results - last 24 hr 09/11/22 09/11/22 19:08 19:08 WBC 6.7 RBC 5.01 Hgb 13.8 Hct 43.2 MCV 86.2 MCH 27.5 MCHC 31.9 L RDW Std Deviation 42.2 RDW Coeff of Nell 13.4 Plt Count 374 MPV 8.8 Immature Gran % (Auto) 0.300 Neut % (Auto) 50.3 Lymph % (Auto) 39.2 Carter % (Auto) 7.7 Eos % (Auto) 1.6 Baso % (Auto) 0.9 Absolute Neuts (auto) 3.4 Absolute Lymphs (auto) 2.63 Nucleated RBC % 0 Sodium 140 Potassium 3.6 Chloride 106 Carbon Dioxide 27.0 Anion Gap 7 BUN 20 H Creatinine 0.91 Estim Creat Clear Calc 46.13 Est GFR (MDRD) Af Amer 77 Est GFR (MDRD) Non-Af 64 BUN/Creatinine Ratio 22.0 H Glucose 169 H Calcium 9.8 Troponin I High Sens 8 Radiography Diagnostic Testing: Clinical Impression(s) from Imaging Studies Chest X-Ray 09/11/22 19:45 IMPRESSION: Mild left lung base atelectasis. Electronically Signed: Fernando Newberry MD at 20:21 EST , Discharge Plan Triage Chief Complaint: Palpitations ED Provider: Stanislav Romano Dx/Rx/DC Orders Instructions: ED Palpitations Prescriptions: No Action omeprazole 20 MG capsule 20 mg PO DAILY Label Comments: gastric reflux benazepril-hydrochlorothiazide [Lotensin HCT] 1 EACH tablet 1 ea PO DAILY Qty: 30 0RF Label Comments: BLOOD PRESSURE- ESCRIPTED TO [facility] metoprolol tartrate 25 MG tablet 25 mg PO QHS Primary Care Provider: Kristian Soto Referrals: Kristian Soto MD [Primary Care Provider] - Disposition Disposition: Home, Self Care What to do if you have Problems For any increased pain, shortness of breath, bleeding, nausea or vomiting, chestpain, or any unexpected problems, contact your Primary Care Provider. Call [facility] ([phone]) or report to the closest Emergency Room. Call 911 if necessary. 09/11/222124 <Electronically signed by Stanislav Romano DO> Cosigner Signature (if applicable): CC: Dr. Kristian Soto MD ~ Signed [facility] Work Phone: [phone] 234-927201-11-2023 Instructions* Patient Instructions* Kristian Soto MD - 08/11/2022 9:25 AM EST Have you ever planned for future healthcare decisions with a power of environmental attorney, living will, or advance directives? Yes. Have you shared those records with your doctor? No and No. Please bring a copyto your next appointment or email to Recombinant shingles vaccine (Shingrix) is recommended; 2 doses 2-6 months apart. Please read information, check with your insurance, and schedule vaccination at your local pharmacy. A prescription is not required. If you are certain you have coverage to receive this vaccine in the office, we can schedule this for you. Tetanus booster (Tdap or Adacel) recommended. Pharmacy can administer. documented in this encounterWilson [facility] Hospital01-11-2023 History of Present illness Narrative* Kristian Soto MD - 08/11/2022 9:06 AM EST Medicare Yearly Visit Medical B eligibilty date Date of last exam 2020 PAST MEDICAL HISTORY Diagnosis Date Acute deep vein thrombosis (DVT) of popliteal vein of left lower extremity (HCC) 08/29/2021 Benign neoplasm of colon Cardiac murmur 10/08/2011 Disorder of bone and cartilage, unspecified Enlarged thoracic aorta (HCC) 10/08/2011 ECHO 09/2011 - Dilated aorta, stable since 2004, mild LVH stable since 2004. 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 Osteoporosis, unspecified 05/19/2005 Pneumonia 10/03/2019 Shingles outbreak 10/09/2019 Unspecified essential hypertension Vitamin D deficiency 12/18/2010 PAST SURGICAL HISTORY Procedure Laterality Date ARTHROPLASTY GLENOHUMRL JT HEMIARTHROPLASTY Right Hemiarthroplasty, right shoulder CHOLECYSTECTOMY Cholecystectomy COLONOSCOPY FLX DX W/COLLJ SPEC WHEN PFRMD 11/11/2000 Colonoscopy COLONOSCOPY FLX DX W/COLLJ SPEC WHEN PFRMD 10/09/15 Colonoscopy LIG/TRNSXJ FLP TUBE ABDL/VAG APPR UNI/BI Tubal ligation PAST SURGICAL HISTORY OF Corrective Lasix Surgery/Left Eye VAGINAL HYSTERECTOMY UTERUS 250 GM/< Hysterectomy, vaginal ALLERGIES: Influenza Virus Vaccines, Adhesive Tape (Rosins), Antihistamines - Alkylamine, Entex La [Phenylephrine-Guaifenesin], Iodinated Contrast Media, Iodine, and Norvasc [Amlodipine Besylate] Medications reviewed: Yes Current Outpatient Medications Medication Sig metoprolol tartrate, short acting, (LOPRESSOR) 25 mg tablet Take 0.5 tablets by mouth twice daily. magnesium citrate 100 mg tab Take 2 tablets by mouth once daily. Benazepril-hydroCHLOROthiazide (LOTENSIN HCT) 10-12.5 mg per tablet One half (1/2) tablet daily. diclofenac (VOLTAREN) 1 % topical gel Apply to affected area as needed. Ca/D3/mag ox/zinc/copy clerk/nell/bor (CALCIUM 600-D3 PLUS, MAG-ZINC, ORAL) Take 1 capsule by mouth three times daily. cholecalciferol, vitamin D3, (VITAMIN D3 ORAL) Take 4,000 Units by mouth once daily. cyanocobalamin (VITAMIN B-12) 1,000 mcg tab Take 2,000 mcg by mouth once daily. omeprazole (PRILOSEC) 20 mg capsule Take 1 capsule by mouth once daily as needed. Current Facility-Administered Medications Medication Dose Route Frequency perflutren lipid microspheres 1.3 mL in NaCl (PF) 0.9% 10 mL injection (DEFINITY) INTRAVENOUS DIRECTED PRN sodium chloride 0.9 % (flush) 10 mL (BD POSIFLUSH) 10 mL INTRAVENOUS DIRECTED PRN FAMILY HISTORY Problem Relation Age of Onset Heart Mother Hypertension Mother Arthritis Mother Osteoarthritis Hyperlipidemia Mother Stroke Father Hypertension Father Hyperlipidemia Father Hypertension Sister Hypertension Sister Hypertension Sister Hypertension Sister Colon Cancer Maternal Grandfather Breast Cancer Sister 69 Thyroid Sister Thyroid Sister SOCIAL HISTORY: Social History Tobacco Use Smoking status: Never Smokeless tobacco: Never Vaping Use Vaping Use: Never used Substance Use Topics Alcohol use: No Drug use: No Dto works out regularly 3 times per week with walking. She watches her diet for sodium, low fat and low cholesterol most of the time. List of current specialists seen: Dr. Daniel Hassan, Cardiology [facility]. Dr. Daquan Kendall, [facility]. Dr. Camilo Wilkes, [facility]. Dr. Ngo, ophthalmology, [facility]. End of Live Planning discussed including patients advanced directive wishes: Yes I am willing to follow Dot's advanced directives. Copy needed. PHQ-2 / Depression screen She in the past two weeks denies having felt down, depressed, hopeless, or with little interest or pleasure in doing things. Functional Ability/Safety Screen 1. Was the patient's timed Up and Go test unsteady or longer than 30 seconds? No 2. Does the patient need help with the phone, transportation, shopping,preparing meals, housework, laundry, medications or managing money? No 3. Does your home have rugs in the hallway, lack of grab bars in the bathroom, lack of handrails onthe stairs or have poor lighting? No Hearing Evaluation: wears hearing aids PHYSICAL EXAM BP 116/74 (BP Site: Left Arm, BP Position: Sitting, BP Cuff Size: Large Adult) Pulse 61 Temp 36.3 C (97.3 F) (Temporal) Resp 12 Ht 160.7 cm (5' 3.25) Wt 74.8 kg (165 lb) BMI 29.00 kg/m Alert and oriented X 3: YES Body mass index is 29 kg/m . Visual acuity: OD: 20/40 OS: 20/ 20 OU: 20/20 Component Latest Ref Rng & Units 07/21/2022 WBC 3.70 - 11.00 k/uL RBC 3.90 - 5.20 m/uL Hemoglobin 11.5 - 15.5 g/dL Hematocrit 36.0 - 46.0 % MCV 80.0 - 100.0 fL MCH 26.0 - 34.0 pg MCHC 30.5 - 36.0 g/dL RDW-CV 11.5 - 15.0 % Platelet Count 150 - 400 k/uL MPV 9.0 - 12.7 fL Absolute nRBC <0.01 k/uL Glucose 74 - 99 mg/dL 96 BUN 7 - 21 mg/dL 15 Creatinine 0.58 - 0.96 mg/dL 0.77 Sodium 136 - 144 mmol/L 143 Potassium 3.7 - 5.1 mmol/L 4.3 Chloride 97 - 105 mmol/L 104 CO2 22 - 30 mmol/L 29 Anion Gap 9 - 18 mmol/L 10 Calcium 8.5 - 10.2 mg/dL 9.8 eGFR >=60 mL/min/1.73m 81 Cholesterol, Total <200 mg/dL 212 (H) Triglyceride <150 mg/dL 128 HDL Cholesterol >39 mg/dL 69 Non HDL Cholesterol <130 mg/dL 143 (H) Fasting Time hrs 10 VLDL Cholesterol <30 mg/dL 26 TC:HDL Ratio <5.10 3.07 LDL Cholesterol <100 mg/dL 117 (H) LDL:HDL Ratio <2.54 1.70 ASSESSMENT/PLAN: 77 year old female The following prevention plan was discussed during the office visit and provided to the patient: - Counseled on healthy diet and regular exercise - Discussed need for and benefit of weight loss. BMI 29.00 kg/(m^2) - Vaccines recommended Shingrix at pharmacy and Tdap at pharmacy - Depression screening - I have used a decision aid to share decision making with the patient about interventions to reduce the risk of coronary events. We estimated the patient's 10-year of atherosclerotic events at 18% and discussed how this risk could be reduced with the use of statins to 14%. After considering the patient's unique circumstances and the pros and cons of the alternatives, we have decided to continue to focus on lifestyle changes. Kristian Soto MD documented in this encounterWilson [facility] Hospital11-15-2022 History of Present illness Narrative* Kristian Soto MD - 06/15/2022 10:00 AM EST This note was created using [employer] Technology[employer]. Subjective Patient presents with: Geoff Mcgill is a 77 year old female with right rib cage pain for 2 days, aggravated by certain movements. No other symptoms were noted. She was doing Bulgarian twists for workout, but that was not unusual. She recovered from foot pains and was beginning to ramp up her exercise routines to lose weight, lower her blood pressure and cholesterol. Review of Systems Constitutional: Negative for chills and fever. Respiratory: Negative for cough and shortness of breath. Cardiovascular: Negative for chest pain. Gastrointestinal: Negative for abdominal pain and nausea. 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 Allergic Rhinitis, Cause Unspecified Hyperlipemia Vitamin D Deficiency Enlarged thoracic aorta (HCC) Dry Eye Syndrome Herpes Simplex Labialis Gerd (Gastroesophageal Reflux Disease) Multiple Joint Pain Palpitations Obesity, Class I, Bmi 30-34.9 Current Outpatient Medications Medication Sig magnesium citrate 100 mg tab Take 2 tablets by mouth once daily. Benazepril-hydroCHLOROthiazide (LOTENSIN HCT) 10-12.5 mg per tablet One half (1/2) tablet daily. diclofenac (VOLTAREN) 1 % topical gel Apply to affected area four times daily. metoprolol tartrate, short acting, (LOPRESSOR) 25 mg tablet Take 0.5 tablets by mouth twice daily. Ca/D3/mag ox/zinc/copy clerk/nell/bor (CALCIUM 600-D3 PLUS, MAG-ZINC, ORAL) Take 1 capsule by mouth three times daily. cholecalciferol, vitamin D3, (VITAMIN D3 ORAL) Take 4,000 Units by mouth once daily. cyanocobalamin (VITAMIN B-12) 1,000 mcg tab Take 2,000 mcg by mouth once daily. omeprazole (PRILOSEC) 20 mg capsule Take 1 capsule by mouth once daily as needed. Current Facility-Administered Medications Medication Dose Route Frequency perflutren lipid microspheres 1.3 mL in NaCl (PF) 0.9% 10 mL injection (DEFINITY) INTRAVENOUS DIRECTED PRN sodium chloride 0.9 % (flush) 10 mL (BD POSIFLUSH) 10 mL INTRAVENOUS DIRECTED PRN Objective BP 134/84 (BP Site: Left Arm, BP Position: Sitting, BP Cuff Size: Large Adult) Pulse 64 Temp 36.2 C (97.2 F) (Temporal) Resp 12 Wt 75.3 kg (166 lb) BMI 29.41 kg/m Physical Exam Cardiovascular: Rate and Rhythm: Normal rate and regular rhythm. Heart sounds: No murmur heard. No gallop. Pulmonary: Breath sounds: Normal breath sounds. No decreased breath sounds, wheezing or rales. Chest: Chest wall: No tenderness or crepitus. Abdominal: Palpations: Abdomen is soft. Tenderness: There is abdominal tenderness in the right upper quadrant. There is no guarding or rebound. Comments: Right costal margin tenderness. Skin: Comments: 2 erythematous macules in right mid back and right side. No vesicles. Neurological: Mental Status: She is alert. Assessment and Plan 1. Costochondritis - ICD9: 733.6, ICD10: M94.0 Analgesics as needed. Rash was chronic, and related to dry skin and unlike previous shingles. 2. Mixed hyperlipidemia - ICD9: 272.2, ICD10: E78.2 - to be determined upon return of lab results - We agreed to do labs after July, before her AWV in August. Kristian Soto MD documented [facility] Miscellaneous Notes* Telephone Encounter - Lico Fung - 06/09/2022 11:37 AM EST Pharmacy electronic RX request to request a refill on the medication(s) below: Requested Prescriptions Pending Prescriptions Disp Refills metoprolol tartrate, short acting, (LOPRESSOR) 25 mg tablet [Pharmacy Med Name: METOPROLOL [id number] MG Tablet] 90 tablet 3 Sig: TAKE 1/2 TABLET TWICE DAILY PHARMACY NAME: [facility] Mail Delivery / PHONE NUMBER: [phone] Pickup RX Physician's Name: Daniel Hassan M.D. Last seen in office: 01/26/2022 If last appointment greater than one year or no follow up scheduled, sent to schedulers No Lico Fung 06/09/[address] [facility]10-17-2022 Miscellaneous Notes* Letter - Mammography Coordinator - 05/17/2022 3:57 PM EDT May 17, 2022 PID: [id number] oDt Mcgill [address] [place] [address] [place] [address] Dear Ms. Mcgill, We are pleased to inform you that the results of your recent breast imaging exam on 05/17/2022 are normal. Early detection of cancer is very important. We also understand recommendations regarding breast cancer screening are controversial. Please discuss with your primary care provider which strategy is best for you and whether a mammogram is right for you. Your imaging studies and report will be [facility] part of [facility] permanent medical record and are available for your continuing care. Thank you for allowing us to help in meeting your health care needs. Sincerely, Dr. Valderrama Interpreting Radiologist [facility] (Normal over 40) documented in this encounterWilson [facility] Hospital10-17-2022 History of Present illness Narrative* Elisa Watson, RT(R) - 05/17/2022 8:10 AM EDT Radiology Service Progress Note PATIENT NAME: Dot Mcgill DATE OF SERVICE: May 17, 2022 TIME: 8:21 AM PATIENT IDENTITY VERIFICATION COMPLETED USING TWO (2) IDENTIFIERS: Name and Date of confirmedby patient verbally. FALL SCREENING: Has the patient had 2 falls in the last year or 1 fall with injury or currently using an Ambulatory Assistive Device (Walker, Cane, Wheelchair, Crutches, etc.)? No PATIENT GENDER DATA: Female. status: : No status: NO. PATIENT RELEVANT IMPLANT DATA REVIEWED: Not Applicable RADIOLOGY DEPARTMENT: Mammography PERIPHERAL IV DATA: Not applicable SIGNED BY: RT Mc(R) May 17, 2022 8:21 AM documented in this encounterWilson [facility] Hospital08-31-2022 Miscellaneous Notes* Telephone Encounter - Tricia Gomes LPN - 03/31/2022 8:49 AM EDT Pt called in about rx for benazepril/hctz. Pt was told by [facility] that med couldn't be fill as they had a question about med. This nurse called the pharmacy & was told that pt has an aceinhibitor allergy listed. I called pt back & she states she had a reaction to Norvasc many years ago & that she has taken Benazepril/hctz for many years. Pt thinks the allergy was mistakenly marked as an CHRISTIANE inhibitor allergy instead of CCB. Pt states the pharmacy canceled her refill order. New order pending. Tricia Gomes LPN documented in this encounterWilson [facility] Hospital08-22-2022 History of Present illness Narrative* Kristian Soto MD - 03/22/2022 12:45 PM EDT This note was created using NoteWriter. Subjective Dot Mcgill is a 76 year old female. Her foot pain resolved. She saw cardiology and medications were adjusted. Thoracic aorta was being monitored annually. We reviewed her labs. Review of Systems Constitutional: Negative. Respiratory: Negative. Cardiovascular: Negative. Gastrointestinal: Negative. Neurological: Negative. 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 metoprolol tartrate, short acting, (LOPRESSOR) 25 mg tablet Take 0.5 tablets by mouth twice daily. Ca/D3/mag ox/zinc/copy clerk/nell/bor (CALCIUM 600-D3 PLUS, MAG-ZINC, ORAL) Take 1 capsule by mouth three times daily. cholecalciferol, vitamin D3, (VITAMIN D3 ORAL) Take 4,000 Units by mouth once daily. cyanocobalamin (VITAMIN B-12) 1,000 mcg tab Take 2,000 mcg by mouth once daily. omeprazole (PRILOSEC) 20 mg capsule Take 1 capsule by mouth once daily as needed. Benazepril-hydroCHLOROthiazide (LOTENSIN HCT) 10-12.5 mg per tablet One half (1/2) tablet daily. Current Facility-Administered Medications Medication Dose Route Frequency perflutren lipid microspheres 1.3 mL in NaCl (PF) 0.9% 10 mL injection (DEFINITY) INTRAVENOUS DIRECTED PRN sodium chloride 0.9 % (flush) 10 mL (BD POSIFLUSH) 10 mL INTRAVENOUS DIRECTED PRN Objective BP 131/80 (BP Site: Left Arm, BP Position: Sitting, BP Cuff Size: Large Adult) Pulse 60 Temp (!) 35.9 C (96.6 F) (Temporal) Resp 12 Wt 76.7 kg (169 lb) BMI 29.94 kg/m Physical Exam Constitutional: General: She is not in acute distress. Cardiovascular: Rate and Rhythm: Normal rate and regular rhythm. Heart sounds: No murmur heard. No gallop. Pulmonary: Breath sounds: Normal breath sounds. Musculoskeletal: Right lower leg: No edema. Left lower leg: No edema. Neurological: Mental Status: She is alert. Component Latest Ref Rng & Units 03/10/2022 Protein, Total 6.3 - 8.0 g/dL 7.1 Albumin 3.9 - 4.9 g/dL 4.2 Calcium 8.5 - 10.2 mg/dL 9.2 Bilirubin, Total 0.2 - 1.3 mg/dL 0.3 Alkaline Phosphatase 34 - 123 U/L 106 AST 13 - 35 U/L 17 ALT 7 - 38 U/L 11 Glucose 74 - 99 mg/dL 99 BUN 7 - 21 mg/dL 14 Creatinine 0.58 - 0.96 mg/dL 0.80 Sodium 136 - 144 mmol/L 136 Potassium 3.7 - 5.1 mmol/L 4.2 Chloride 97 - 105 mmol/L 105 CO2 22 - 30 mmol/L 23 Anion Gap 9 - 18 mmol/L 8 (L) eGFR >=60 mL/min/1.73m 77 WBC 3.70 - 11.00 k/uL 5.56 RBC 3.90 - 5.20 m/uL 4.78 Hemoglobin 11.5 - 15.5 g/dL 13.0 Hematocrit 36.0 - 46.0 % 40.4 MCV 80.0 - 100.0 fL 84.5 MCH 26.0 - 34.0 pg 27.2 MCHC 30.5 - 36.0 g/dL 32.2 RDW-CV 11.5 - 15.0 % 13.4 Platelet Count 150 - 400 k/uL 335 MPV 9.0 - 12.7 fL 8.7 (L) Absolute nRBC <0.01 k/uL <0.01 Cholesterol, Total <200 mg/dL 224 (H) Triglyceride <150 mg/dL 130 HDL Cholesterol >39 mg/dL 68 Non HDL Cholesterol <130 mg/dL 156 (H) Fasting Time hrs 12 VLDL Cholesterol <30 mg/dL 26 TC:HDL Ratio <5.10 3.29 LDL Cholesterol <100 mg/dL 130 (H) LDL:HDL Ratio <2.54 1.91 Vitamin D 25 Hydroxy 31.0 - 80.0 ng/mL 49.7 The 10-year ASCVD risk score (Duc RAMIREZ Jr., et al., 2013) is: 20% Values used to calculate the score: Age: 76 years Sex: Female Is Non- : No Diabetic: No Tobacco smoker: No Systolic Blood Pressure: 131 mmHg Is BP treated: Yes HDL Cholesterol: 68 mg/dL Total Cholesterol: 224 mg/dL Assessment and Plan 1. Mixed hyperlipidemia - ICD9: 272.2, ICD10: E78.2 (primary diagnosis) - suboptimal control - Encouraged following a low carbohydrate, healthy oil intake diet. - BASIC METABOLIC PNL - LIPID PANEL BASIC - We discussed statin for primary prevention. Discussed medication dosage, usage, goals of therapy,and side effects. She preferred lifestyle changes only. 2. White coat syndrome with diagnosis of hypertension - ICD9: 401.9, ICD10: I10 - fair control - Continue current medication(s) - Reviewed risks of HTN and principles of treatment - Goal of BP <130/80 - BENAZEPRIL 10 MG-HYDROCHLOROTHIAZIDE 12.5 MG TABLET. Continue 1/2 tablet daily. 3. Need for COVID-19 vaccine - ICD9: V04.89, ICD10: Z23 - PFIZER-BIONTECH COVID-19 VACCINE, AGE 12+ YR (MARQUEZ TOP) Kristian Soto MD documented in this encounterWilson [facility] Hospital06-09-2022 History of Present illness Narrative* Kristian Soto MD - 01/07/2022 5:29 PM EDT This note was created using Apiaryter. Subjective Patient presents with: Edema: top of L foot Dot Mcgill is a 76 year old female. She developed acute pain of the left forefoot last night, 7/10, associated with some swelling of the foot. She denied any injury. I just saw here for left knee pain last week. She was not taking any medication for pain. She started using a cane, and this was helping the pain of the foot. She had been playing golf. Pain was 7/10 last night, gradually improvingtoday. She had a history of deep vein thrombosis of the left leg 5 months ago. Review of Systems Constitutional: Negative. 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 Benazepril-hydroCHLOROthiazide (LOTENSIN HCT) 10-12.5 mg per tablet One half (1/2) tablet daily. Ca/D3/mag ox/zinc/copy clerk/nell/bor (CALCIUM 600-D3 PLUS, MAG-ZINC, ORAL) Take 1 capsule by mouth three times daily. cholecalciferol, vitamin D3, (VITAMIN D3 ORAL) Take 4,000 Units by mouth once daily. cyanocobalamin (VITAMIN B-12) 1,000 mcg tab Take 2,000 mcg by mouth once daily. omeprazole (PRILOSEC) 20 mg capsule Take 1 capsule by mouth once daily as needed. naproxen (NAPROSYN) 500 mg tablet Take 1 tablet by mouth twice daily as needed (for pain/inflammation). Take with food. Current Facility-Administered Medications Medication Dose Route Frequency perflutren lipid microspheres 1.3 mL in NaCl (PF) 0.9% 10 mL injection (DEFINITY) INTRAVENOUS DIRECTED PRN sodium chloride 0.9 % (flush) 10 mL (BD POSIFLUSH) 10 mL INTRAVENOUS DIRECTED PRN perflutren lipid microspheres 1.3 mL in NaCl (PF) 0.9% 10 mL injection (DEFINITY) INTRAVENOUS DIRECTED PRN sodium chloride 0.9 % (flush) 10 mL (BD POSIFLUSH) 10 mL INTRAVENOUS DIRECTED PRN Objective BP 126/77 Pulse 60 Resp 16 Wt 78.5 kg (173 lb) BMI 30.65 kg/m Physical Exam Constitutional: General: She is not in acute distress. Musculoskeletal: Left ankle: No swelling. No tenderness. Right foot: Normal. Left foot: Swelling and tenderness present. No deformity or crepitus. Normal pulse. Comments: Minimal dorsal foot soft tissue swelling. Localize MT tenderness. Neurological: Mental Status: She is alert. Assessment and Plan 1. Acute pain of left foot - ICD9: 729.5, ICD10: M79.672 Foot strain, rule out stress fracture. - XR FOOT GENERAL 3V AP/LAT/OBL LEFT - NAPROXEN 500 MG TABLET Take one(1) tablet two(2) times daily as needed. Discussed medication dosage, usage, goals of therapy, and side effects. Kristian Soto MD documented in this encounterWilson [facility]06-03-2022 History of Present illness Narrative* Kristian Soto MD - 01/01/2022 4:31 PM EDT This note was created using Cellomics Technologyriter. Subjective Patient presents with: Knee Pain: left knee pain x1 week Dot Mcgill is a 76 year old female. She developed left knee pain getting out of the car one week ago. Knee pain was mild, aggravated by climbing steps, but not impacting on her activities of daily living. She had no injury, but noted her exercise physical trainer had her do more leg exercises a few days earlier. She had played golf uneventfully just before the knee started hurting. Pain was tolerable and analgesics have not been needed. This was the same leg affected by deep vein thrombosis earlier this year. Review of Systems Constitutional: Negative. Respiratory: Negative. Cardiovascular: Negative for leg swelling. Musculoskeletal: Negative for joint swelling. 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 Allergic Rhinitis, Cause Unspecified Hyperlipemia Vitamin D Deficiency Enlarged thoracic aorta (HCC) Dry Eye Syndrome Herpes Simplex Labialis Gerd (Gastroesophageal Reflux Disease) Multiple Joint Pain Palpitations Obesity, Class I, Bmi 30-34.9 Acute Deep Vein Thrombosis (Dvt) of Popliteal Vein of Left Lower Extremity (Hcc) Current Outpatient Medications Medication Sig metoprolol tartrate, short acting, (LOPRESSOR) 25 mg tablet Take 0.5 tablets by mouth twice daily. Benazepril-hydroCHLOROthiazide (LOTENSIN HCT) 10-12.5 mg per tablet One half (1/2) tablet daily. Ca/D3/mag ox/zinc/copy clerk/nell/bor (CALCIUM 600-D3 PLUS, MAG-ZINC, ORAL) Take 1 capsule by mouth three times daily. cholecalciferol, vitamin D3, (VITAMIN D3 ORAL) Take 4,000 Units by mouth once daily. cyanocobalamin (VITAMIN B-12) 1,000 mcg tab Take 2,000 mcg by mouth once daily. omeprazole (PRILOSEC) 20 mg capsule Take 1 capsule by mouth once daily as needed. Current Facility-Administered Medications Medication Dose Route Frequency perflutren lipid microspheres 1.3 mL in NaCl (PF) 0.9% 10 mL injection (DEFINITY) INTRAVENOUS DIRECTED PRN sodium chloride 0.9 % (flush) 10 mL (BD POSIFLUSH) 10 mL INTRAVENOUS DIRECTED PRN perflutren lipid microspheres 1.3 mL in NaCl (PF) 0.9% 10 mL injection (DEFINITY) INTRAVENOUS DIRECTED PRN sodium chloride 0.9 % (flush) 10 mL (BD POSIFLUSH) 10 mL INTRAVENOUS DIRECTED PRN Objective There were no vitals taken for this visit. Physical Exam Constitutional: Appearance: Normal appearance. Musculoskeletal: Left knee: No swelling or deformity. Normal range of motion. Tenderness present over the patellar tendon. No LCL laxity or MCL laxity.Normal alignment and normal patellar mobility. Instability Tests: Medial Allyssa test negative. Right lower leg: No edema. Left lower leg: No swelling, deformity or tenderness. No edema. Assessment and Plan 1. Patellar tendonitis of left knee - ICD9: 726.64, ICD10: M76.52 Knee supports. Avoid repetitious knee exercise. Tylenol if needed. Kristian Soto MD documented in this encounterWilson [facility] Hospital05-18-2022 Instructions* Patient Instructions* Giuliana Kendall MD - 12/16/2021 10:32 AM EDT AFTERCARE CRYOTHERAPY The skin s response to cryosurgery (freezing) can be mild to more severe, depending on the depth ofthe freeze and location of the area treated. You may have minimal redness and swelling with little discomfort or significant discoloration and blistering with considerable discomfort. A burning sensation in the skin may last from several minutes to several hours after the procedure. Follow these instructions when caring for an area treated by cryosurgery. MINOR RESPONSE 1. Keep the area clean and dry for 24 hours. After 24 hours, the area may be washed gently with soap and water. 2. The area may sting or burn for a short time after treatment. 3. The treated area will be red in color at first then turn brown and flaky as it heals and the upper layer of skin sloughs off. 4. Gently cleanse the area with Q-tips dipped in plain warm water. Pat dry and apply a thin film ofvaseline. Do this at least once a day to prevent infection. MAJOR REPSONSE 1. Follow instructions as stated above for minor response. 2. The area may sting and burn for several hours after treatment. 3. To relieve throbbing and pain, elevate the treatment area. 4. Tylenol (acetaminophen) may be taken every 3 to 4 hours for discomfort. 5. A blister will form in the area of freezing. It may be filled with clear fluid or blood. This response is not unusual. 6. Do not break the blister unless it becomes uncomfortable. You may puncture the blister with a sterile needle or pin to remove the fluid. Leave the skin intact. 7. Cleanse twice a day with plain warm water and apply Vaseline to prevent infection and a thick scab from forming. 8. All treated areas usually heal with 3 to 4 weeks. documented in [address] encounter[address] Hospital05-18-2022 History of Present illness Narrative* Giuliana Kendall MD - 12/16/2021 9:45 AM EDT DERMATOLOGY CLINIC HISTORY: Dot Mcgill is a 76 year old female who presents for CC/HPI: Chief Complaint Nail problems Location B/l toenails Duration months Timing constant Severity mild Quality pink Modifying Factors: Asymptomatic No prior tx ak follow up improved PAST MEDICAL HISTORY: PAST MEDICAL HISTORY Diagnosis Date Acute deep vein thrombosis (DVT) of popliteal vein of left lower extremity (HCC) 08/29/2021 Benign neoplasm of colon Cardiac murmur 10/08/2011 Disorder of bone and cartilage, unspecified Enlarged thoracic aorta (HCC) 10/08/2011 ECHO 09/2011 - Dilated aorta, stable since 2004, mild LVH stable since 2004. 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 Allergic Rhinitis, Cause Unspecified Hyperlipemia Vitamin D Deficiency Enlarged thoracic aorta (HCC) Dry Eye Syndrome Herpes Simplex Labialis Gerd (Gastroesophageal Reflux Disease) Multiple Joint Pain Palpitations Obesity, Class I, Bmi 30-34.9 Acute Deep Vein Thrombosis (Dvt) of Popliteal Vein of Left Lower Extremity (Hcc) PAST SURGICAL HISTORY Procedure Laterality Date ARTHROPLASTY GLENOHUMRL JT HEMIARTHROPLASTY Right Hemiarthroplasty, right shoulder CHOLECYSTECTOMY Cholecystectomy COLONOSCOPY FLX DX W/COLLJ SPEC WHEN PFRMD 11/11/2000 Colonoscopy COLONOSCOPY FLX DX W/COLLJ SPEC WHEN PFRMD 10/09/15 Colonoscopy LIG/TRNSXJ FLP TUBE ABDL/VAG APPR UNI/BI Tubal ligation PAST SURGICAL HISTORY OF Corrective Lasix Surgery/Left Eye VAGINAL HYSTERECTOMY UTERUS 250 GM/< Hysterectomy, vaginal MEDICATIONS: Current Outpatient Medications Medication Sig Dispense Refill rivaroxaban (XARELTO) 20 mg tablet Take 1 tablet by mouth daily with dinner. 90 tablet 0 metoprolol tartrate, short acting, (LOPRESSOR) 25 mg tablet Take 0.5 tablets by mouth twice daily. 90 tablet 3 Benazepril-hydroCHLOROthiazide (LOTENSIN HCT) 10-12.5 mg per tablet One half (1/2) tablet daily. 45tablet 3 Ca/D3/mag ox/zinc/copy clerk/nell/bor (CALCIUM 600-D3 PLUS, MAG-ZINC, ORAL) Take 1 capsule by mouth three times daily. cholecalciferol, vitamin D3, (VITAMIN D3 ORAL) Take 4,000 Units by mouth once daily. cyanocobalamin (VITAMIN B-12) 1,000 mcg tab Take 2,000 mcg by mouth once daily. omeprazole (PRILOSEC) 20 mg capsule Take 1 capsule by mouth once daily as needed. Current Facility-Administered Medications Medication Dose Route Frequency Provider Last Rate Last Admin perflutren lipid microspheres 1.3 mL in NaCl (PF) 0.9% 10 mL injection (DEFINITY) INTRAVENOUS DIRECTED PRN Daniel Hassan MD sodium chloride 0.9 % (flush) 10 mL (BD POSIFLUSH) 10 mL INTRAVENOUS DIRECTED PRN Daniel Hassan MD perflutren lipid microspheres 1.3 mL in NaCl (PF) 0.9% 10 mL injection (DEFINITY) INTRAVENOUS DIRECTED PRN Daniel Hassan MD sodium chloride 0.9 % (flush) 10 mL (BD POSIFLUSH) 10 mL INTRAVENOUS DIRECTED PRN Daniel Hassan MD ALLERGIES: Influenza Virus Vaccines, Adhesive Tape (Rosins), Antihistamines - Alkylamine, Entex La [Phenylephrine-Guaifenesin], Iodinated Contrast Media, Iodine, and Norvasc [Amlodipine Besylate] REVIEW OF SYSTEMS No fever, no unintentional weight gain and weight loss No shortness of breath no cough No new stressors Not Skin: PHYSICAL EXAMINATION: GENERAL: Patient is a well appearing, well nourished and pleasant, female alert and oriented, NAD. SKIN: Very mild reddish discoloration towards distal end of bilateral great toenails Erythematous scaly papules on bilateral forearms upper arms Erythematous stuck on papule on left posterior thigh (1 ISK) ASSESSMENT/PLAN: 1. Nail disorders in diseases classified elsewhere - ICD9: 703.8, ICD10: L62 (primary diagnosis) -May be due to underlying systemic disorder would recommend checking blood work -CBC with differential comprehensive -Cardiovascular work-up -Patient will discuss with PCP has checkup coming up 2. Actinic keratosis - ICD9: 702.0, ICD10: L57.0 -Diagnosis treatment options discussed agrees to freezing as below 3. Inflamed seborrheic keratosis - ICD9: 702.11, ICD10: L82.0 -Diagnosis treatment options discussed we will freeze Cryosurgery of non-malignant lesion(s) HPI: Patient is here for cryosurgery Patient is alert oriented 3 not in apparent distress Dot Mcgill Medical Record: [id number] Date: 12/16/2021 Procedure: Cryosurgery The risks, benefits and anticipated outcomes of the procedure, the risks and benefits of the alternatives to the procedure and the roles and tasks of the personnel to be involved were discussed with the patient and the patient consents to the procedure and agrees to proceed. I verify that I personally obtained Dot Mcgill's consent. Giuliana Kendall MD Dept of DERMATOLOGY Cryosurgery performed with Liquid Nitrogen to Actinic Keratosis and I Seborrheic Keratosis . 10 seborrheic keratoses treated on arms and one inflamed seborrheic keratosis on left posterior thigh lesion(s) treated Patient tolerated well. Wound care instructions provided, pt verbalizes understanding. Giuliana Kendall MD RTC 6 months The documentation for this note was partially completed by Giuliana Kendall MD acting as scribe for Giuliana Kendall MD. December 16, 2021 10:32 AM. I agree with the Chief Complaint, ROS, and Past Histories independently gathered by the clinical production support analyst and the remaining scribed note accurately describes my personal service to the patient. patient also briefly mentioned that she has cold feet recommend discussing with primary care doctoras this may be due to circulatory issues or thyroid disease or rheum concerns. Giuliana Kendall MD Return to clinic 6 months documented in [address] [facility]04-20-2022 History of Present illness Narrative* Britt Taylor RT(R) - 11/18/2021 9:50 AM EDT Radiology Service Progress Note PATIENT NAME: Dot Mcgill DATE OF SERVICE: November 18, 2021 TIME: 10:43 AM PATIENT IDENTITY VERIFICATION COMPLETED USING TWO (2) IDENTIFIERS: Name and Date of confirmedby patient verbally. FALL SCREENING: Has the patient had 2 falls in the last year or 1 fall with injury or currently using an Ambulatory Assistive Device (Walker, Cane, Wheelchair, Crutches, etc.)? No PATIENT GENDER DATA: Female. status: : No status: NO. PATIENT RELEVANT IMPLANT DATA REVIEWED: Yes RADIOLOGY DEPARTMENT: General X-ray: Exam(s) Completed: Chest X-Ray PERIPHERAL IV DATA: Not applicable SIGNED BY: RT Lauren(Kim) November 18, 2021 10:43 AM [facility] History of Present illness Narrative* Sabrina Miller MD - 11/18/2021 9:05 AM EDT Reason for Visit Patient presents with: Same Day Appointment: c/o left lung pain x 2 days Dot Mcgill is a 76 year old female who presents here today for Above Complaints.. Health Maintenance BP CONTROLLED (<130/80) DTAP,TDAP,TD(1 - Tdap) SHINGRIX VACCINE(1 of 2) ADVANCE DIRECTIVE DISCUSSION HPI Patient had a sore throat, burning fever, low grade and was not feeling very well Yesterday. Today , she denies fever but feels her symptoms settled in the lungs, and she has some lung pain/discomft when she takes a deep breath. She had covid in July , Is fully vaccinated against covid but not been able to take flu vaccine due to significant adverse affects. The pain in the lung is on the Left back side. Pain is worse with a deep breath. No coughing. Pain is intermittent, No pain when she his resting and not deep breathing. No problem-specific Assessment & Plan notes found for this encounter. PAST MEDICAL HISTORY Diagnosis Date Acute deep vein thrombosis (DVT) of popliteal vein of left lower extremity (HCC) 08/29/2021 Benign neoplasm of colon Cardiac murmur 10/08/2011 Disorder of bone and cartilage, unspecified Enlarged thoracic aorta (HCC) 10/08/2011 ECHO 09/2011 - Dilated aorta, stable since 2004, mild LVH stable since 2004. 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 Osteoporosis, unspecified 05/19/2005 Pneumonia 10/03/2019 Shingles outbreak 10/09/2019 Unspecified essential hypertension Vitamin D deficiency 12/18/2010 PAST SURGICAL HISTORY Procedure Laterality Date ARTHROPLASTY GLENOHUMRL JT HEMIARTHROPLASTY Right Hemiarthroplasty, right shoulder CHOLECYSTECTOMY Cholecystectomy COLONOSCOPY FLX DX W/COLLJ SPEC WHEN PFRMD 11/11/2000 Colonoscopy COLONOSCOPY FLX DX W/COLLJ SPEC WHEN PFRMD 10/09/15 Colonoscopy LIG/TRNSXJ FLP TUBE ABDL/VAG APPR UNI/BI Tubal ligation PAST SURGICAL HISTORY OF Corrective Lasix Surgery/Left Eye VAGINAL HYSTERECTOMY UTERUS 250 GM/< Hysterectomy, vaginal FAMILY HISTORY Problem Relation Age of Onset Heart Mother Hypertension Mother Arthritis Mother Osteoarthritis Hyperlipidemia Mother Stroke Father Hypertension Father Hyperlipidemia Father Hypertension Sister Hypertension Sister Hypertension Sister Hypertension Sister Colon Cancer Maternal Grandfather Breast Cancer Sister 69 Thyroid Sister Thyroid Sister Social History Tobacco Use Smoking status: Never Smoker Smokeless tobacco: Never Used Vaping Use Vaping Use: Never used Substance Use Topics Alcohol use: No Drug use: No Past medical history, appointments, medications, allergies reviewed. Pertinent Lab/Diagnostic Studies are reviewed and discussed today Current Outpatient Medications: rivaroxaban (XARELTO) 20 mg tablet metoprolol tartrate, short acting, (LOPRESSOR) 25 mg tablet Benazepril-hydroCHLOROthiazide (LOTENSIN HCT) 10-12.5 mg per tablet Ca/D3/mag ox/zinc/copy clerk/nell/bor (CALCIUM 600-D3 PLUS, MAG-ZINC, ORAL) cholecalciferol, vitamin D3, (VITAMIN D3 ORAL) cyanocobalamin (VITAMIN B-12) 1,000 mcg tab omeprazole (PRILOSEC) 20 mg capsule Current Facility-Administered Medications: perflutren lipid microspheres 1.3 mL in NaCl (PF) 0.9% 10 mL injection (DEFINITY) sodium chloride 0.9 % (flush) 10 mL (BD POSIFLUSH) perflutren lipid microspheres 1.3 mL in NaCl (PF) 0.9% 10 mL injection (DEFINITY) sodium chloride 0.9 % (flush) 10 mL (BD POSIFLUSH) Review of Systems CONSTITUTIONAL: No fevers, chills night sweats, unintended weight loss CARDIOVASCULAR: No chest pain, dyspnea, palpitations, orthopnea, PND, ankle edema. PULM: No dyspnea, unexplained cough. GI: No dysphagia/odynophagia, problematic reflux, constipation, diarrhea, changes in stool habits, hematochezia, melena. : No new urinary complaints, including dysuria, gross hematuria or pyuria. NEURO: No new balance problems, peripheral weakness/paresthesias or numbness of concern. Physical Exam BP 132/76 (BP Site: Left Arm, BP Position: Sitting, BP Cuff Size: Large Adult) Pulse 66 Temp 36C (96.8 F) Resp 12 Ht 160 cm (5' 3) Wt 79.4 kg (175 lb) SpO2 96% BMI 31.00 kg/m General appearance: Well appearing, alert, in no acute distress, well nourished. Skin: Skin color, texture, turgor normal, no suspicious rashes or lesions Head: Normocephalic, no masses, lesions, tenderness or abnormalities Eyes: Anicteric sclera. Pupils are equally round and reactive to light. Extraocular movements are intact. Lungs: Lungs clear to auscultation. No wheezing, rhonchi, rales Heart: RRR without murmur, gallop, or rubs. Extremities: No deformities, edema, skin discoloration, clubbing or cyanosis. Good capillary refill. ASSESSMENT/PLAN: 1. Fever, unspecified fever cause - ICD9: 780.60, ICD10: R50.9 (primary diagnosis) Due to her enlraged thoracic aorta, doing a chest xr, although I think she likely has a pleurisy since her Chest Is clear to auscultation and her temporal profile is suggestive of it She needs tested for flu A andB - COVID WITH FLUA+B, ROUTINE - XR CHEST 2V FRONTAL/LAT - COVID WITH FLUA+B, ROUTINE If pleurisy discussed self limiting nature of disease, nsaids for relief of pain but since she is on blood thinners to be careful about bleeding risk and to take the medication on with food or with use of antacid or ppi 2. Cough - ICD9: 786.2, ICD10: R05.9 - COVID WITH FLUA+B, ROUTINE - XR CHEST 2V FRONTAL/LAT - COVID WITH FLUA+B, ROUTINE 3. Sore throat - ICD9: 462, ICD10: J02.9 - suspect viral - COVID WITH FLUA+B, ROUTINE - XR CHEST 2V FRONTAL/LAT - COVID WITH FLUA+B, ROUTINE Sabrina Miller MD [facility] History of Past illness Narrative* Problem Noted Date Resolved Date Acute deep vein thrombosis ( DVT) of popliteal vein of left lower extremity 08/29/2021 01/04/2022 Occult GI bleeding 08/04/2015 11/15/2016 Wheezing 09/06/2013 07/21/2015 Capsulitis 02/14/2012 12/14/2013 Migraine aura without headache 09/30/2009 0 04/26/2012 OVERWEIGHT 09/17/2008 06/22/2021 Esophageal reflux 05/19/2005 10/08/2011 Anxiety state, unspecified 05/19/200506/15 Chest pain, unspecified 05/19/2005 06/15/20 06 documented as of this encounter (statuses as of 01/04/2022) [facility] History of Past illness Narrative* Problem Noted Date Resolved Date Acute deep vein thrombosis ( DVT) of popliteal vein of left lower extremity 08/29/2021 01/04/2022 Occult GI bleeding 08/04/2015 11/15/2016 Wheezing 09/06/2013 07/21/2015 Capsulitis 02/14/2012 12/14/2013 Migraine aura without headache 09/30/2009 0 04/26/2012 OVERWEIGHT 09/17/2008 06/22/2021 Esophageal reflux 05/19/2005 10/08/2011 Anxiety state, unspecified 05/19/200506/15 Chest pain, unspecified 05/19/2005 06/15/20 06 documented as of this encounter (statuses as of 01/07/2022) [facility] of Past illness Narrative* Problem Noted Date Resolved Date Acute deep vein thrombosis ( DVT) of popliteal vein of left lower extremity 08/29/2021 01/04/2022 Occult GI bleeding 08/04/2015 11/15/2016 Wheezing 09/06/2013 07/21/2015 Capsulitis 02/14/2012 12/14/2013 Migraine aura without headache 09/30/2009 0 04/26/2012 OVERWEIGHT 09/17/2008 06/22/2021 Esophageal reflux 05/19/2005 10/08/2011 Anxiety state, unspecified 05/19/200506/15 Chest pain, unspecified 05/19/2005 06/15/20 06 documented as of this encounter (statuses as of 03/22/2022) [facility] of Past illness Narrative* Problem Noted Date Resolved Date Acute deep vein thrombosis ( DVT) of popliteal vein of left lower extremity 08/29/2021 01/04/2022 Occult GI bleeding 08/04/2015 11/15/2016 Wheezing 09/06/2013 07/21/2015 Capsulitis 02/14/2012 12/14/2013 Migraine aura without headache 09/30/2009 0 04/26/2012 OVERWEIGHT 09/17/2008 06/22/2021 Esophageal reflux 05/19/2005 10/08/2011 Anxiety state, unspecified 05/19/200506/15 Chest pain, unspecified 05/19/2005 06/15/20 06 documented as of this encounter (statuses as of 03/31/2022) [facility] of Past illness Narrative* Problem Noted Date Resolved Date Acute deep vein thrombosis ( DVT) of popliteal vein of left lower extremity 08/29/2021 01/04/2022 Occult GI bleeding 08/04/2015 11/15/2016 Wheezing 09/06/2013 07/21/2015 Capsulitis 02/14/2012 12/14/2013 Migraine aura without headache 09/30/2009 0 04/26/2012 OVERWEIGHT 09/17/2008 06/22/2021 Esophageal reflux 05/19/2005 10/08/2011 Anxiety state, unspecified 05/19/200506/15 Chest pain, unspecified 05/19/2005 06/15/20 06 documented as of this encounter (statuses as of 05/18/2022) [facility] History of Past illness Narrative* Problem Noted Date Resolved Date Acute deep vein thrombosis ( DVT) of popliteal vein of left lower extremity 08/29/2021 01/04/2022 Occult GI bleeding 08/04/2015 11/15/2016 Wheezing 09/06/2013 07/21/2015 Capsulitis 02/14/2012 12/14/2013 Migraine aura without headache 09/30/2009 0 04/26/2012 OVERWEIGHT 09/17/2008 06/22/2021 Esophageal reflux 05/19/2005 10/08/2011 Anxiety state, unspecified 05/19/200506/15 Chest pain, unspecified 05/19/2005 06/15/20 06 documented as of this encounter (statuses as of 05/18/2022) [facility] of Past illness Narrative* Problem Noted Date Resolved Date Acute deep vein thrombosis ( DVT) of popliteal vein of left lower extremity 08/29/2021 01/04/2022 Occult GI bleeding 08/04/2015 11/15/2016 Wheezing 09/06/2013 07/21/2015 Capsulitis 02/14/2012 12/14/2013 Migraine aura without headache 09/30/2009 0 04/26/2012 OVERWEIGHT 09/17/2008 06/22/2021 Esophageal reflux 05/19/2005 10/08/2011 Anxiety state, unspecified 05/19/200506/15 Chest pain, unspecified 05/19/2005 06/15/20 06 documented as of this encounter (statuses as of 05/19/2022) [facility] of Past illness Narrative* Problem Noted Date Resolved Date Acute deep vein thrombosis ( DVT) of popliteal vein of left lower extremity 08/29/2021 01/04/2022 Occult GI bleeding 08/04/2015 11/15/2016 Wheezing 09/06/2013 07/21/2015 Capsulitis 02/14/2012 12/14/2013 Migraine aura without headache 09/30/2009 0 04/26/2012 OVERWEIGHT 09/17/2008 06/22/2021 Esophageal reflux 05/19/2005 10/08/2011 Anxiety state, unspecified 05/19/200506/15 Chest pain, unspecified 05/19/2005 06/15/20 06 documented as of this encounter (statuses as of 06/15/2022) [facility] of Past illness Narrative* Problem Noted Date Resolved Date Acute deep vein thrombosis ( DVT) of popliteal vein of left lower extremity 08/29/2021 01/04/2022 Occult GI bleeding 08/04/2015 11/15/2016 Wheezing 09/06/2013 07/21/2015 Capsulitis 02/14/2012 12/14/2013 Migraine aura without headache 09/30/2009 0 04/26/2012 OVERWEIGHT 09/17/2008 06/22/2021 Esophageal reflux 05/19/2005 10/08/2011 Anxiety state, unspecified 05/19/200506/15 Chest pain, unspecified 05/19/2005 06/15/20 06 documented as of this encounter (statuses as of 06/15/2022) [facility] of Past illness Narrative* Problem Noted Date Resolved Date Acute deep vein thrombosis ( DVT) of popliteal vein of left lower extremity 08/29/2021 01/04/2022 Occult GI bleeding 08/04/2015 11/15/2016 Wheezing 09/06/2013 07/21/2015 Capsulitis 02/14/2012 12/14/2013 Migraine aura without headache 09/30/2009 0 04/26/2012 OVERWEIGHT 09/17/2008 06/22/2021 Esophageal reflux 05/19/2005 10/08/2011 Anxiety state, unspecified 05/19/200506/15 Chest pain, unspecified 05/19/2005 06/15/20 06 documented as of this encounter (statuses as of 08/11/2022) [facility] History of Past illness Narrative* Problem Noted Date Resolved Date Acute deep vein thrombosis ( DVT) of popliteal vein of left lower extremity 08/29/2021 01/04/2022 Occult GI bleeding 08/04/2015 11/15/2016 Wheezing 09/06/2013 07/21/2015 Capsulitis 02/14/2012 12/14/2013 Migraine aura without headache 09/30/2009 0 04/26/2012 OVERWEIGHT 09/17/2008 06/22/2021 Esophageal reflux 05/19/2005 10/08/2011 Anxiety state, unspecified 05/19/200506/15 Chest pain, unspecified 05/19/2005 06/15/20 06 documented as of this encounter (statuses as of 09/16/2022) [facility] of Past illness Narrative* Problem Noted Date Resolved Date Acute deep vein thrombosis ( DVT) of popliteal vein of left lower extremity 08/29/2021 01/04/2022 Occult GI bleeding 08/04/2015 11/15/2016 Wheezing 09/06/2013 07/21/2015 Capsulitis 02/14/2012 12/14/2013 Migraine aura without headache 09/30/2009 0 04/26/2012 OVERWEIGHT 09/17/2008 06/22/2021 Esophageal reflux 05/19/2005 10/08/2011 Anxiety state, unspecified 05/19/200506/15 Chest pain, unspecified 05/19/2005 06/15/20 06 documented as of this encounter (statuses as of 09/27/2022) [address]29-2022 History of Past illness Narrative* Problem Noted Date Resolved Date Acute deep vein thrombosis ( DVT) of popliteal vein of left lower extremity 08/29/2021 01/04/2022 Occult GI bleeding 08/04/2015 11/15/2016 Wheezing 09/06/2013 07/21/2015 Capsulitis 02/14/2012 12/14/2013 Migraine aura without headache 09/30/2009 0 04/26/2012 OVERWEIGHT 09/17/2008 06/22/2021 Esophageal reflux 05/19/2005 10/08/2011 Anxiety state, unspecified 05/19/200506/15 Chest pain, unspecified 05/19/2005 06/15/20 06 documented as of this encounter (statuses as of 09/27/2022) [address]29-2022 History of Past illness Narrative* Problem Noted Date Resolved Date Acute deep vein thrombosis ( DVT) of popliteal vein of left lower extremity 08/29/2021 01/04/2022 Occult GI bleeding 08/04/2015 11/15/2016 Wheezing 09/06/2013 07/21/2015 Capsulitis 02/14/2012 12/14/2013 Migraine aura without headache 09/30/2009 0 04/26/2012 OVERWEIGHT 09/17/2008 06/22/2021 Esophageal reflux 05/19/2005 10/08/2011 Anxiety state, unspecified 05/19/200506/15 Chest pain, unspecified 05/19/2005 06/15/20 06 documented as of this encounter (statuses as of 10/02/2022) [facility] of Past illness Narrative* Problem Noted Date Resolved Date Acute deep vein thrombosis ( DVT) of popliteal vein of left lower extremity 08/29/2021 01/04/2022 Occult GI bleeding 08/04/2015 11/15/2016 Wheezing 09/06/2013 07/21/2015 Capsulitis 02/14/2012 12/14/2013 Migraine aura without headache 09/30/2009 0 04/26/2012 OVERWEIGHT 09/17/2008 06/22/2021 Esophageal reflux 05/19/2005 10/08/2011 Anxiety state, unspecified 05/19/200506/15 Chest pain, unspecified 05/19/2005 06/15/20 06 documented as of this encounter (statuses as of 10/02/2022) [facility] of Past illness Narrative* Problem Noted Date Resolved Date Acute deep vein thrombosis ( DVT) of popliteal vein of left lower extremity 08/29/2021 01/04/2022 Occult GI bleeding 08/04/2015 11/15/2016 Wheezing 09/06/2013 07/21/2015 Capsulitis 02/14/2012 12/14/2013 Migraine aura without headache 09/30/2009 0 04/26/2012 OVERWEIGHT 09/17/2008 06/22/2021 Esophageal reflux 05/19/2005 10/08/2011 Anxiety state, unspecified 05/19/200506/15 Chest pain, unspecified 05/19/2005 06/15/20 06 documented as of this encounter (statuses as of 11/19/2022) [facility] of Past illness Narrative* Problem Noted Date Resolved Date Acute deep vein thrombosis ( DVT) of popliteal vein of left lower extremity 08/29/2021 01/04/2022 Occult GI bleeding 08/04/2015 11/15/2016 Wheezing 09/06/2013 07/21/2015 Capsulitis 02/14/2012 12/14/2013 Migraine aura without headache 09/30/2009 0 04/26/2012 OVERWEIGHT 09/17/2008 06/22/2021 Esophageal reflux 05/19/2005 10/08/2011 Anxiety state, unspecified 05/19/200506/15 Chest pain, unspecified 05/19/2005 06/15/20 06 documented as of this encounter (statuses as of 12/14/2022) [facility] of Past illness Narrative* Problem Noted Date Resolved Date Acute deep vein thrombosis ( DVT) of popliteal vein of left lower extremity 08/29/2021 01/04/2022 Occult GI bleeding 08/04/2015 11/15/2016 Wheezing 09/06/2013 07/21/2015 Capsulitis 02/14/2012 12/14/2013 Migraine aura without headache 09/30/2009 0 04/26/2012 OVERWEIGHT 09/17/2008 06/22/2021 Esophageal reflux 05/19/2005 10/08/2011 Anxiety state, unspecified 05/19/200506/15 Chest pain, unspecified 05/19/2005 06/15/20 06 documented as of this encounter (statuses as of 01/26/2023) [facility] of [facility] illness Narrative* Problem Noted Date Diagnosed Date Resolved Date Acute deep vein thrombosis ( DVT) of popliteal vein of left lower extremity 08/29/2021 01/04/2022 Occult GI bleeding 08/04/2015 7 Wheezing 09/06/2013 07/21/2015 Capsulitis 02/14/2012 12/14/2013 Migraine aura without headache 09/30/2009 04/26/2012 OVERWEIGHT 09/17/2008 06/22/2021 Esophageal reflux 05/19/2005 10/08/2011 Anxiety state, unspecified 05/19/2005 1 08/15/2005 Chest pain, unspecified 05/19/200506/01 documented as of this encounter (statuses as of 05/23/2023) [facility] of [facility] Narrative* Problem Noted Date Diagnosed Date Resolved Date Acute deep vein thrombosis ( DVT) of popliteal vein of left lower extremity 08/29/2021 01/04/2022 Occult GI bleeding 08/04/2015 7 Wheezing 09/06/2013 07/21/2015 Capsulitis 02/14/2012 12/14/2013 Migraine aura without headache 09/30/2009 04/26/2012 OVERWEIGHT 09/17/2008 06/22/2021 Esophageal reflux 05/19/2005 10/08/2011 Anxiety state, unspecified 05/19/2005 1 08/15/2005 Chest pain, unspecified 05/19/200506/01 documented as of this encounter (statuses as of 06/30/2023) [facility] of [facility] Narrative* Problem Noted Date Diagnosed Date Resolved Date Acute deep vein thrombosis ( DVT) of popliteal vein of left lower extremity 08/29/2021 01/04/2022 Occult GI bleeding 08/04/2015 7 Wheezing 09/06/2013 07/21/2015 Capsulitis 02/14/2012 12/14/2013 Migraine aura without headache 09/30/2009 04/26/2012 OVERWEIGHT 09/17/2008 06/22/2021 Esophageal reflux 05/19/2005 10/08/2011 Anxiety state, unspecified 05/19/200508/15/2005 Chest pain, unspecified 05/19/200506/01 documented as of this encounter (statuses as of 07/01/2023) [facility] of [facility] Narrative* Problem Noted Date Diagnosed Date Resolved Date Acute deep vein thrombosis ( DVT) of popliteal vein of left lower extremity 08/29/2021 01/04/2022 Occult GI bleeding 08/04/2015 7 Wheezing 09/06/2013 07/21/2015 Capsulitis 02/14/2012 12/14/2013 Migraine aura without headache 09/30/2009 04/26/2012 OVERWEIGHT 09/17/2008 06/22/2021 Esophageal reflux 05/19/2005 10/08/2011 Anxiety state, unspecified 05/19/2005 1 08/15/2005 Chest pain, unspecified 05/19/200506/01 documented as of this encounter (statuses as of 07/05/2023) [facility] of [facility] Narrative* Problem Noted Date Diagnosed Date Resolved Date Acute deep vein thrombosis ( DVT) of popliteal vein of left lower extremity 08/29/2021 01/04/2022 Occult GI bleeding 08/04/2015 7 Wheezing 09/06/2013 07/21/2015 Capsulitis 02/14/2012 12/14/2013 Migraine aura without headache 09/30/2009 04/26/2012 OVERWEIGHT 09/17/2008 06/22/2021 Esophageal reflux 05/19/2005 10/08/2011 Anxiety state, unspecified 05/19/2005 1 08/15/2005 Chest pain, unspecified 05/19/200506/01 documented as of this encounter (statuses as of 09/07/2023) [facility] of Past illness Narrative* Problem Noted Date Diagnosed Date Resolved Date Acute deep vein thrombosis ( DVT) of popliteal vein of left lower extremity 08/29/2021 01/04/2022 Occult GI bleeding 08/04/2015 7 Wheezing 09/06/2013 07/21/2015 Capsulitis 02/14/2012 12/14/2013 Migraine aura without headache 09/30/2009 04/26/2012 OVERWEIGHT 09/17/2008 06/22/2021 Esophageal reflux 05/19/2005 10/08/2011 Anxiety state, unspecified 05/19/2005 1 08/15/2005 Chest pain, unspecified 05/19/200506/01 documented as of this encounter (statuses as of 09/07/2023) [facility] of Past illness Narrative* Problem Noted Date Resolved Date Occult GI bleeding 08/04/2015 11/15/2016 Wheezing 09/06/2013 07/21/2015 Capsulitis 02/14/2012 12/14/2013 Migraine aura without headache 09/30/2009 0 04/26/2012 OVERWEIGHT 09/17/2008 06/22/2021 Esophageal reflux 05/19/2005 10/08/2011 Anxiety state, unspecified 05/19/200506/15 Chest pain, unspecified 05/19/2005 06/15/20 06 documented as of this encounter (statuses as of 11/18/2021) [facility] of [facility] illness Narrative* Problem Noted Date Resolved Date Occult GI bleeding 08/04/2015 11/15/2016 Wheezing 09/06/2013 07/21/2015 Capsulitis 02/14/2012 12/14/2013 Migraine aura without headache 09/30/2009 0 04/26/2012 OVERWEIGHT 09/17/2008 06/22/2021 Esophageal reflux 05/19/2005 10/08/2011 Anxiety state, unspecified 05/19/200506/15 Chest pain, unspecified 05/19/2005 06/15/20 06 documented as of this encounter (statuses as of 12/16/2021) [facility] Narrative* Problem Noted Date Resolved Date Occult GI bleeding 08/04/2015 11/15/2016 Wheezing 09/06/2013 07/21/2015 Capsulitis 02/14/2012 12/14/2013 Migraine aura without headache 09/30/2009 0 04/26/2012 OVERWEIGHT 09/17/2008 06/22/2021 Esophageal reflux 05/19/2005 10/08/2011 Anxiety state, unspecified 05/19/200506/15 Chest pain, unspecified 05/19/2005 06/15/20 06 documented as of this encounter (statuses as of 12/24/2021) [facility] Diagnosis Fever, unspecified fever cause- Primary Cough Sore throat Acute pharyngitis documented in this encounter [facility] Diagnosis Nail disorders in diseases classified elsewhere- Primary Actinic keratosis Inflamed seborrheic keratosis documented [facility] this encounter [facility] Diagnosis White coat syndrome with diagnosis of hypertension documented [facility] this encounter [facility] Diagnosis Patellar tendonitis of left knee- Primary documented in this encounter [facility] Diagnosis Acute pain of left foot- Primary documented [facility] this encounter [facility] Diagnosis Mixed hyperlipidemia- Primary White coat syndrome with diagnosis of hypertension Need for COVID-19 vaccine documented [facility] this encounter [facility] Diagnosis White coat syndrome with diagnosis of hypertension documented [facility] this encounter [facility] Diagnosis Screening mammogram for breast cancer documented in this encounter [facility] note* Diagnosis Palpitations White coat syndrome with diagnosis of hypertension [facility] Diagnosis Costochondritis- Primary Tietze's disease Mixed hyperlipidemia [facility] Diagnosis Medicare annual wellness visit, subsequent- Primary Routine general medical examination at a health care facility documented in this encounter [facility] noteNo assessment information [facility]WH[facility]* Diagnosis Heart palpitations- Primary Palpitations White coat syndrome with diagnosis of hypertension Mixed hyperlipidemia Primary hypertension Unspecified essential hypertension Enlarged thoracic aorta (HCC) Thoracic aortic ectasia Encounter for screening for cardiovascular disorders Screening for other and unspecified cardiovascular conditions Obesity, Class I, BMI 30-34.9 Obesity, unspecified [facility] note* Diagnosis Palpitations- Primary Encounter for screening for cardiovascular disorders Screening for other and unspecified cardiovascular conditions [facility] Diagnosis Encounter for screening for cardiovascular disorders- Primary Screening for other and unspecified cardiovascular conditions documented [facility] this encounter [facility] Diagnosis White coat syndrome with diagnosis of hypertension- Primary Mixed hyperlipidemia Enlarged thoracic aorta (HCC) Thoracic aortic ectasia [facility]* Diagnosis Seborrheic keratosis- Primary Other seborrheic keratosis Rodriguez angioma Nevus, non-neoplastic Lentigines Other dyschromia Multiple benign nevi Benign neoplasm of skin, site unspecified Personal history of skin cancer Personal history of other malignant neoplasm of skin Family history of malignant melanoma Family history of other specified malignant neoplasm Actinic keratosis Skin neoplasm Neoplasm of unspecified nature of bone, soft tissue, and skin documented [facility] this encounter [facility] Diagnosis Aneurysm of ascending aorta without rupture (HCC)- Primary Palpitations White coat syndrome with diagnosis of hypertension documented in this encounter [facility]* Diagnosis Screening mammogram for breast cancer- Primary documented in this encounter [facility]* Diagnosis Screening mammogram for breast cancer documented in this encounter [facility] note* Diagnosis Visit for screening mammogram- Primary Other screening mammogram [facility]* Diagnosis Plantar fasciitis- Primary Plantar fascial fibromatosis Aneurysm of ascending aorta without rupture (HCC) Palpitations Disorder of artery or arteriole (HCC) Unspecified disorders of arteries and arterioles documented in this encounter [facility] note* Diagnosis White coat syndrome with diagnosis of hypertension [facility]* Diagnosis Acute pain of left foot documented [facility]* Diagnosis Fever, unspecified fever cause Cough Sore throat Acute pharyngitis documented in this encounter [facility] note* Diagnosis White coat syndrome with diagnosis of hypertension- Primary Osteoporosis, unspecified osteoporosis type, unspecified pathological fracture presence Hordeolum externum of left upper eyelid Hordeolum externum Mixed hyperlipidemia Need for COVID-19 vaccine [facility]* Diagnosis Encounter for immunization- Primary Need for other specified prophylactic vaccination against single bacterial disease documented in this encounter [facility] note* Diagnosis Sore throat- Primary Acute pharyngitis [facility]* Diagnosis Viral URI with cough- Primary Acute upper respiratory infections of unspecified site Herpes simplex labialis Herpes simplex without mention of complication [facility]* Diagnosis Viral URI with cough Acute upper respiratory infections of unspecified site documented in this encounter [facility]* Diagnosis Need for COVID-19 vaccine documented in this encounter [facility] note* Diagnosis Vitamin D deficiency- Primary Unspecified vitamin D deficiency White coat syndrome with diagnosis of hypertension documented [facility] this encounter [facility]* Diagnosis Disorder of artery or arteriole (HCC) Unspecified disorders of arteries and arterioles documented in this encounter [facility] note* Diagnosis Palpitations White coat syndrome with diagnosis of hypertension documented [facility] this encounter [facility] Diagnosis Plantar fasciitis- Primary Plantar fascial fibromatosis Aneurysm of ascending aorta without rupture (HCC) Disorder of artery or arteriole (HCC) Unspecified disorders of arteries and arterioles Primary hypertension Unspecified essential hypertension Enlarged thoracic aorta (HCC) Thoracic aortic ectasia [facility]* Diagnosis Medicare annual wellness visit, subsequent- Primary Routine general medical examination at a health care facility Screening for depression Encounter for screening examination for other mental health and behavioral disorders Osteoporosis, unspecified osteoporosis type, unspecified pathological fracture presence White coat syndrome with diagnosis of hypertension Mixed hyperlipidemia Goiter Goiter, unspecified [facility] Diagnosis Goiter Goiter, unspecified [facility] Diagnosis Multiple thyroid nodules- Primary Nontoxic multinodular goiter [facility]* Diagnosis Abnormal ultrasound of thyroid gland Nonspecific abnormal results of thyroid function study Anxiety Anxiety state, unspecified [facility] Diagnosis Abnormal ultrasound of thyroid gland- Primary Nonspecific abnormal results of thyroid function study [facility] encounter [facility] Diagnosis Abnormal ultrasound of thyroid gland- Primary Nonspecific abnormal results of thyroid function study [facility] Diagnosis Pulsatile neck mass- Primary Swelling, mass, or lump in head and neck White coat syndrome with diagnosis of hypertension Bruit of right carotid artery S/P thyroid biopsy [facility] this [facility] Diagnosis Bruit of right carotid artery [facility] Diagnosis White coat syndrome with diagnosis of hypertension- Primary Palpitations Multiple thyroid nodules Nontoxic multinodular goiter [facility] Diagnosis Enlarged thoracic aorta (HCC)- Primary Thoracic aortic ectasia [facility] Diagnosis White coat syndrome with diagnosis of hypertension [facility] Diagnosis Palpitations- Primary [facility] Diagnosis Paroxysmal atrial fibrillation (HCC)- Primary Atrial fibrillation [facility] Diagnosis PAF (paroxysmal atrial fibrillation) (HCC)- Primary Atrial fibrillation Palpitations Gastroesophageal reflux disease without esophagitis Esophageal reflux Primary hypertension Unspecified essential hypertension Chronic fatigue Other malaise and fatigue [facility] Additional Instructions 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 Return to the emergency department with an elevated heart rate above 120 bpm. You should take your metoprolol tartrate 12.5 mg orally twice a day as you have been doing prior to November. Take Eliquis 5 mg twice daily. Avoid falls or hitting your head. Return to the emergency department with bleeding, new or worsening symptoms.[facility] Work Phone: Reason for referral (narrative)* Diagnostic Procedure Only (Routine) - Closed Specialty Diagnoses / Procedures Referred By Alfa t Referred To Contact XR IMAGING Diagnoses Acute pain of left foot Procedures XR FOOT GENERAL 3V AP/LAT/OBL LEFT RADEX FOOT COMPLETE MINIMUM 3 VIEWS Kristian Soto MD [address] [place] [address] Xr Imaging Referral ID Status Reason Start Date Expiration Date V isits Requested Visits Authorized [id number] Closed Auto-Generate d Referral 01/07/2022 02/06/2023 1 1 [facility] for referral (narrative)* Diagnostic Procedure Only (Routine) - Closed Specialty Diagnoses / Procedures Referred By Alfa jerez Referred To Contact BR IMAGING Diagnoses Screening mammogram for breast cancer Procedures KADY SCREENING SCREENING MAMMOGRAPHY BI 2-VIEW BREAST INC CAD Ingrid Cordon PROCESSING REP.COUNTERSINKER [address] [place] [address] Br Imaging [address] [place] [address] Referral ID Status Reason Start Date Expiration Date V isits Requested Visits Authorized [id number] Closed Auto-Generate d Referral 03/22/2022 04/21/2023 1 1 [facility] for referral (narrative)* Outpatient Procedure (Routine) - Pending Review Specialty Diagnoses / Procedures Referred By Alfa t Referred To Contact [facility] Diagnoses Palpitations Encounter for screening for cardiovascular disorders White coat syndrome with diagnosis of hypertension Primary hypertension Enlarged thoracic aorta (HCC) Heart palpitations Mixed hyperlipidemia Procedures ECHO ECHO TTHRC R-T 2D W/WOM-MODE COMPL SPEC&COLR D Ramila Ramirez, PROCESSING REP.COUNTERSINKER [address] [place] [address] [facility] [place] [address] [place] [address] Referral ID Status Reason Start Date Expiration Date Visits Requested Visits Authorized [id number] Pending Review Auto-Generat ed Referral 09/27/2022 09/27/2023 1 1 * Outpatient Procedure (Routine) - Closed Specialty Diagnoses / Procedures Referred By Contac t Referred To Contact [facility] [employer] [facility] Diagnoses Palpitations Procedures ECG COMPLETE ECG ROUTINE ECG W/LEAST 12 LDS W/I&R Ramila Ramirez APRN.CNP [address] [place] [address] [address] Referral ID Status Reason Start Date Expiration Date V isits Requested Visits Authorized [id number] Closed Auto-Generate d Referral 09/23/2022 09/23/2023 1 1 [facility] for referral (narrative)* Outpatient Procedure (Routine) - Pending Review Specialty Diagnoses / Procedures Referred By Contac t Referred To Contact [facility] [employer] [facility] Diagnoses White coat syndrome with diagnosis of hypertension Mixed hyperlipidemia Enlarged thoracic aorta (HCC) Procedures ECG COMPLETE ECG ROUTINE ECG W/LEAST 12 LDS W/I&R Daniel Hassan MD [address] [place] [address] [address] Referral ID Status Reason Start Date Expiration Date Visits Requested Visits Authorized [id number] Pending Review Auto-Generat ed Referral 10/02/2022 10/02/2023 1 1 [facility] for referral (narrative)* Outpatient Procedure (Routine) - Pending Review Specialty Diagnoses / Procedures Referred By Contac t Referred To Contact [facility] [employer] [facility] Diagnoses Palpitations Aneurysm of ascending aorta without rupture (HCC) Procedures ECG COMPLETE ECG ROUTINE ECG W/LEAST 12 LDS W/I&R Britni Mcqueen APRN.CNP [address] [place] [address] [facility] [place] [address] [place] [address] Referral ID Status Reason Start Date Expiration Date Visits Requested Visits Authorized [id number] Pending Review Auto-Generat ed Referral 01/25/2023 01/25/2024 1 1 [facility] for referral (narrative)* Diagnostic Procedure Only (Routine) - Pending Review Specialty Diagnoses / Procedures Referred By Contac t Referred To Contact BR IMAGING Diagnoses Screening mammogram for breast cancer Procedures KADY SCREENING SCREENING MAMMOGRAPHY BI 2-VIEW BREAST INC Ingrid Sosa APRN.CNP [address] [place] [address] Br Imaging [address] [place] [address] Referral ID Status Reason Start Date Expiration Date Visits Requested Visits Authorized [id number] Pending Review Auto-Generat ed Referral 07/29/2024 1 1 [facility] for referral (narrative)* Diagnostic Procedure Only (Routine) - Pending Review Specialty Diagnoses / Procedures Referred By Contac t Referred To Contact BR IMAGING Diagnoses Visit for screening mammogram Procedures KADY SCREENING SCREENING MAMMOGRAPHY BI 2-VIEW BREAST INC CAD Kristian Soto MD [address] [place] [address] Br Imaging [address] [place] [address] Referral ID Status Reason Start Date Expiration Date Visits Requested Visits Authorized [id number] Pending Review Auto-Generat ed Referral 07/01/2023 07/28/2024 1 1 [facility] for referral (narrative)* Diagnostic Procedure Only (Routine) - Closed Specialty Diagnoses / Procedures Referred By Contac t Referred To Contact XR IMAGING Diagnoses Acute pain of left foot Procedures XR FOOT GENERAL 3V AP/LAT/OBL LEFT RADEX FOOT COMPLETE MINIMUM 3 VIEWS Kristian Soto MD [address] [place] [address] [place] [address] Referral ID Status Reason Start Date Expiration Date V isits Requested Visits Authorized [id number] Closed Auto-Generate d Referral 01/07/2022 02/06/2023 1 1 [facility] for referral (narrative)* Outpatient Procedure (Routine) - Authorized Specialty Diagnoses / Procedures [facility] [employer] [facility] Diagnoses Plantar fasciitis Aneurysm of ascending aorta without rupture (HCC) Disorder of artery or arteriole (HCC) Primary hypertension Enlarged thoracic aorta (HCC) Procedures ECHO ECHO TTHRC R-T 2D W/WOM-MODE COMPL SPEC&COLR D Daniel Hassan MD [address] [place] [address] [facility] [place] [address] Referral ID Status Reason Start Date Expiration Date Visits Requested Visits Authorized [id number] Authorized Auto-Generat ed Referral 08/07/2024 08/07/2025 1 1 [facility] for referral (narrative)* Diagnostic Procedure Only (Routine) - Authorized Specialty Diagnoses / Procedures [facility] To Contact [facility] IMAGING Diagnoses Goiter Procedures US THYROID/PARATHYROID US SOFT TISSUE HEAD & NECK REAL TIME IMGE Kristian Townsend MD [address] [place] [address] Us Imaging [facility] Referral ID Status Reason Start Date Expiration Date Visits Requested Visits Authorized [id number] Authorized Auto-Generat ed Referral 08/18/2024 09/16/2025 1 1 * Transition of Care (Routine) - Authorized Specialty Diagnoses / Procedures Referred By Contac t Referred To Contact Physical Therapy Diagnoses Osteoporosis, unspecified osteoporosis type, unspecified pathological fracture presence Procedures CONSULT TO PHYSICAL THERAPY Kristian Soto MD [address] [place] [address] Referral ID Status Reason Start Date Expiration Date Visits Requested Visits Authorized [id number] Authorized PCP Requested Referral 08/17/2024 08/17/2025 99 99 [facility] for referral (narrative)No reason for referral information [facility] Work Phone: Reason for visit Narrative* Diagnostic Procedure Only (Routine) - Closed Specialty Diagnoses / Procedures Referred By Contac t Referred To Contact BR IMAGING Diagnoses Screening mammogram for breast cancer Procedures KADY SCREENING SCREENING MAMMOGRAPHY BI 2-VIEW BREAST INC CAD Older, Ingrid, PROCESSING REP.COUNTERSINKER [address] [place] [address] Br Imaging [address] [place] [address] Referral ID Status Reason Start Date Expiration Date V isits Requested Visits Authorized [id number] Closed Auto-Generate d Referral 03/22/2022 04/21/2023 1 1 [facility] for visit Narrative* Diagnostic Procedure Only (Routine) - Pending Review Specialty Diagnoses / Procedures Referred By Contac t Referred To Contact BR IMAGING Diagnoses Screening mammogram for breast cancer Procedures KADY SCREENING SCREENING MAMMOGRAPHY BI 2-VIEW BREAST INC [facility], PROCESSING REP.COUNTERSINKER [address] [place] [address] Br Imaging [address] [place] [address] Referral ID Status Reason Start Date Expiration Date Visits Requested Visits Authorized [id number] Pending Review Auto-Generat ed Referral 3 07/29/2024 1 1 [facility] for visit Narrative* Diagnostic Procedure Only (Routine) - Closed Specialty Diagnoses / Procedures Referred By Contac t Referred To Contact XR IMAGING Diagnoses Acute pain of left foot Procedures XR FOOT GENERAL 3V AP/LAT/OBL LEFT RADEX FOOT COMPLETE MINIMUM 3 VIEWS Kristian Soto MD [address] [place] [address] [place] [address] Referral ID Status Reason Start Date Expiration Date V isits Requested Visits Authorized [id number] Closed Auto-Generate d Referral 01/07/2022 02/06/[address] [facility] Outpatient Procedure (Routine) - Closed Specialty Diagnoses / Procedures Referred By Contac t Referred To Contact [facility] Diagnoses Bruit of right carotid artery Procedures US CAROTID ARTERIES [facility] DUPLEX SCAN EXTRACRANIAL ART COMPL BI STUDY Ingrid Perkisn, PROCESSING REP.COUNTERSINKER [address] [place] [address] Phone: tel: fax: [facility] [place] [address] [place] [address] Referral ID Status Reason Start Date Expiration Date V isits Requested Visits Authorized [id number] Closed Auto-Generate d Referral 10/18/2024 10/18/[address] [facility] Advance Directives No Advanced Directives Records FoundDocuments on File Type Date Recorded Patient Clip Coater Expl anation Advance Directive(s) Advance Directive(s) 10/09/2015 9:17 AM Advance Directive(s) 10/06/2015 12:22 PM Documents on File Type Date Recorded Patient Clip Coater Expl anation Advance Directive(s) Advance Directive(s) 10/09/2015 9:17 AM Advance Directive(s) 10/06/2015 12:22 PM Advance Directive Response Recorded Date/ Time Ramon of Medical Power of Manager Vehicle VIVEK MCGILL September 11, 2022 7:29pm Advance Directives Yes May 11, 2016 11:23am Living Will Yes September 11 023 7:29pm Power of Manager Vehicle Yes September 11, 2022 7:29pm Advance Directive Response Recorded Date/ Time Advance Directives Yes May 11, 2016 12:23pm Living Will Yes September 11 8:29pm Power of Manager Vehicle Yes September 11, 2022 8:29pm Advance Directive Response Recorded Date/ Time Do you have a Healthcare Power of Manager Vehicle? Yes January 18, 2025 12:49pm Advance Directives Yes May 11, 2016 12:23pm Chief Complaint and Reason for Visit Chief Complaint RIGHT SHOULDER OSTEO ARTHRITIS / RX HERE PALPITATIONS Chief Complaint PALPITATIONS RIGHT SHOULDER OSTEOARTHRITIS / RX HERE Chief Complaint PLANTAR FASCIITIS PT HAS RX Chief Complaint OSTEOPOROSIS, RX HER E Chief Complaint Admit Date OSTEOPOROSIS RX HERE January 15, 2025 9:0 0am tachycardia January 18, 2025 12:4 1pm Chief Complaint Admit Date tachycardia January 18, 2025 12:4 1pm OSTEOPOROSIS RX HERE February 12, 2025 2:3 0pm Reason for Referral Specialty Diagnoses / Procedures Referred By Conradac t Referred To Contact CT IMAGING Diagnoses Encounter for screening for cardiovascular disorders Procedures CT CALCIUM SCORING SELF PAY ([place]) UNLISTED COMPUTED TOMOGRAPHY PROCEDURE Daniel Hassan MD [address] [place] [address] Ct Imaging Referral ID Status Reason Start Date Expiration Date Visits Requested Visits Authorized [id number] Pending Review Auto-Generat ed Referral 10/02/2022 11/01/2023 1 1 Specialty Diagnoses / Procedures Referred By Conradac t Referred To Contact CT IMAGING Diagnoses Disorder of artery or arteriole (HCC) Procedures CTA CHEST (GATED) W IVCON CT ANGIOGRAPHY CHEST W/CONTRAST/[place] [address] [place] [address] [place] [address] Referral ID Status Reason Start Date Expiration Date Visits Requested Visits Authorized [id number] Pending Review Auto-Generat ed Referral 09/06/2023 10/05/2024 1 1 Specialty Diagnoses / Procedures Referred By Conradac t Referred To Contact [facility] Diagnoses Plantar fasciitis Aneurysm of ascending aorta without rupture (HCC) Palpitations Disorder of artery or arteriole (HCC) Procedures ECHO ECHO TTHRC R-T 2D W/WOM-MODE COMPL SPEC&[place] [address] [place] [address] [facility] [place] [address] [place] [address] Referral ID Status Reason Start Date Expiration Date Visits Requested Visits Authorized [id number] Pending Review Auto-Generat ed Referral 09/06/2023 09/05/2024 1 1 Specialty Diagnoses / Procedures Referred By Contac t Referred To Contact [facility] Diagnoses Plantar fasciitis Aneurysm of ascending aorta without rupture (HCC) Palpitations Disorder of artery or arteriole (HCC) Procedures ECG COMPLETE ECG ROUTINE ECG W/LEAST 12 LDS W/I&R Daniel Hassan MD [address] [place] [address] [facility] [place] [address] Referral ID Status Reason Start Date Expiration Date Visits Requested Visits Authorized [id number] Pending Review Auto-Generat ed Referral 09/06/2023 09/05/2024 1 1 Specialty Diagnoses / Procedures Referred By Contac t Referred To Contact Procedures CARDIOVASCULAR MEDICINE OP FOLLOW UP APPT ORDER Daniel Hassan MD [address] [place] [address] Referral ID Status Reason Start Date Expiration Date Visits Requested Visits Authorized [id number] Ref Not Required PCP Requested Referral 09/06/2023 09/05/2024 1 1 Specialty Diagnoses / Procedures Referred By Contac t Referred To Contact Podiatry Diagnoses Plantar fasciitis Procedures CONSULT TO PODIATRY OFFICE/OUTPATIENT [facility] 60 [place] [address] [place] [address] Referral ID Status Reason Start Date Expiration Date Visits Requested Visits Authorized [id number] Authorized PCP Requested Referral 09/06/2023 09/05/2024 1 1 Specialty Diagnoses / Procedures Referred By Contac t Referred To Contact Physical Therapy Diagnoses Osteoporosis, unspecified osteoporosis type, unspecified pathological fracture presence Procedures CONSULT TO PHYSICAL THERAPY Kristian Soto MD [address] [place] [address] Referral ID Status Reason Start Date Expiration Date Visits Requested Visits Authorized [id number] Ref Not Required PCP Requested Referral 02/14/2024 02/13/2025 99 99 Specialty Diagnoses / Procedures Referred By Contac t Referred To Contact General Surgery Diagnoses Multiple thyroid nodules Procedures CONSULT TO GENERAL SURGERY OFFICE/OUTPATIENT [facility] 60 MINUTES Kristian Soto MD [address] [place] [address] Referral ID Status Reason Start Date Expiration Date Visits Requested Visits Authorized [id number] Authorized PCP Requested Referral 08/29/2024 08/29/2025 1 1 Summary Purpose Family History No Family History Records FoundNo Family History Records FoundNo Family History Records FoundNo Family History Records Found Additional Source Comments Source Comments (unrecognize d section and content) In the event this informatio n is protected by the Federal Confidentiality of Alcohol and Drug Abuse Patient Records regulations: The Federal rules restrict any use of the information to criminally investigate or prosecute any alcohol or drug abuse patient.[facility] the event this information is protected by the Federal Confidentiality of Alcohol and Drug Abuse Patient Records regulations: The Federal rules restrict any use of the information to criminally investigate or prosecute any alcohol or drug abuse patient.[facility] the event this information is protected by the Federal Confidentiality of Alcohol and Drug Abuse Patient Records regulations: The Federal rules restrict any use of the information to criminally investigate or prosecute any alcohol or drug abuse patient.[facility] the event this information is protected by the Federal Confidentiality of Alcohol and Drug Abuse Patient Records regulations: The Federal rules restrict any use of the information to criminally investigate or prosecute any alcohol or drug abuse patient.[facility] HospitalIn the event this information is protected by the Federal Confidentiality of Alcohol and Drug Abuse Patient Records regulations: The Federal rules restrict any use of the information to criminally investigate or prosecute any alcohol or drug abuse patient.[facility] HospitalIn the event this information is protected by the Federal Confidentiality of Alcohol and Drug Abuse Patient Records regulations: The Federal rules restrict any use of the information to criminally investigate or prosecute any alcohol or drug abuse patient.[facility] HospitalIn the event this information is protected by the Federal Confidentiality of Alcohol and Drug Abuse Patient Records regulations: The Federal rules restrict any use of the information to criminally investigate or prosecute any alcohol or drug abuse patient.[facility] HospitalIn the event this information is protected by the Federal Confidentiality of Alcohol and Drug Abuse Patient Records regulations: The Federal rules restrict any use of the information to criminally investigate or prosecute any alcohol or drug abuse patient.[facility] HospitalIn the event this information is protected by the Federal Confidentiality of Alcohol and Drug Abuse Patient Records regulations: The Federal rules restrict any use of the information to criminally investigate or prosecute any alcohol or drug abuse patient.[facility] HospitalIn the event this information is protected by the Federal Confidentiality of Alcohol and Drug Abuse Patient Records regulations: The Federal rules restrict any use of the information to criminally investigate or prosecute any alcohol or drug abuse patient.[facility] HospitalIn the event this information is protected by the Federal Confidentiality of Alcohol and Drug Abuse Patient Records regulations: The Federal rules restrict any use of the information to criminally investigate or prosecute any alcohol or drug abuse patient.[facility] HospitalIn the event this information is protected by the Federal Confidentiality of Alcohol and Drug Abuse Patient Records regulations: The Federal rules restrict any use of the information to criminally investigate or prosecute any alcohol or drug abuse patient.[facility] HospitalIn the event this information is protected by the Federal Confidentiality of Alcohol and Drug Abuse Patient Records regulations: The Federal rules restrict any use of the information to criminally investigate or prosecute any alcohol or drug abuse patient.[facility] HospitalIn the event this information is protected by the Federal Confidentiality of Alcohol and Drug Abuse Patient Records regulations: The Federal rules restrict any use of the information to criminally investigate or prosecute any alcohol or drug abuse patient.[facility] HospitalIn the event this information is protected by the Federal Confidentiality of Alcohol and Drug Abuse Patient Records regulations: The Federal rules restrict any use of the information to criminally investigate or prosecute any alcohol or drug abuse patient.[facility] HospitalIn the event this information is protected by the Federal Confidentiality of Alcohol and Drug Abuse Patient Records regulations: The Federal rules restrict any use of the information to criminally investigate or prosecute any alcohol or drug abuse patient.[facility] HospitalIn the event this information is protected by the Federal Confidentiality of Alcohol and Drug Abuse Patient Records regulations: The Federal rules restrict any use of the information to criminally investigate or prosecute any alcohol or drug abuse patient.[facility] HospitalIn the event this information is protected by the Federal Confidentiality of Alcohol and Drug Abuse Patient Records regulations: The Federal rules restrict any use of the information to criminally investigate or prosecute any alcohol or drug abuse patient.[facility] HospitalIn the event this information is protected by the Federal Confidentiality of Alcohol and Drug Abuse Patient Records regulations: The Federal rules restrict any use of the information to criminally investigate or prosecute any alcohol or drug abuse patient.[facility] HospitalIn the event this information is protected by the Federal Confidentiality of Alcohol and Drug Abuse Patient Records regulations: The Federal rules restrict any use of the information to criminally investigate or prosecute any alcohol or drug abuse patient.[facility] HospitalIn the event this information is protected by the Federal Confidentiality of Alcohol and Drug Abuse Patient Records regulations: The Federal rules restrict any use of the information to criminally investigate or prosecute any alcohol or drug abuse patient.[facility] HospitalIn the event this information is protected by the Federal Confidentiality of Alcohol and Drug Abuse Patient Records regulations: The Federal rules restrict any use of the information to criminally investigate or prosecute any alcohol or drug abuse patient.[facility] HospitalIn the event this information is protected by the Federal Confidentiality of Alcohol and Drug Abuse Patient Records regulations: The Federal rules restrict any use of the information to criminally investigate or prosecute any alcohol or drug abuse patient.[facility] HospitalIn the event this information is protected by the Federal Confidentiality of Alcohol and Drug Abuse Patient Records regulations: The Federal rules restrict any use of the information to criminally investigate or prosecute any alcohol or drug abuse patient.[facility] HospitalIn the event this information is protected by the Federal Confidentiality of Alcohol and Drug Abuse Patient Records regulations: The Federal rules restrict any use of the information to criminally investigate or prosecute any alcohol or drug abuse patient.[facility] HospitalIn the event this information is protected by the Federal Confidentiality of Alcohol and Drug Abuse Patient Records regulations: The Federal rules restrict any use of the information to criminally investigate or prosecute any alcohol or drug abuse patient.[facility] HospitalIn the event this information is protected by the Federal Confidentiality of Alcohol and Drug Abuse Patient Records regulations: The Federal rules restrict any use of the information to criminally investigate or prosecute any alcohol or drug abuse patient.[facility] HospitalIn the event this information is protected by the Federal Confidentiality of Alcohol and Drug Abuse Patient Records regulations: The Federal rules restrict any use of the information to criminally investigate or prosecute any alcohol or drug abuse patient.[facility] HospitalIn the event this information is protected by the Federal Confidentiality of Alcohol and Drug Abuse Patient Records regulations: The Federal rules restrict any use of the information to criminally investigate or prosecute any alcohol or drug abuse patient.[facility] HospitalIn the event this information is protected by the Federal Confidentiality of Alcohol and Drug Abuse Patient Records regulations: The Federal rules restrict any use of the information to criminally investigate or prosecute any alcohol or drug abuse patient.[facility] HospitalIn the event this information is protected by the Federal Confidentiality of Alcohol and Drug Abuse Patient Records regulations: The Federal rules restrict any use of the information to criminally investigate or prosecute any alcohol or drug abuse patient.[facility] HospitalIn the event this information is protected by the Federal Confidentiality of Alcohol and Drug Abuse Patient Records regulations: The Federal rules restrict any use of the information to criminally investigate or prosecute any alcohol or drug abuse patient.[facility] HospitalIn the event this information is protected by the Federal Confidentiality of Alcohol and Drug Abuse Patient Records regulations: The Federal rules restrict any use of the information to criminally investigate or prosecute any alcohol or drug abuse patient.[facility] HospitalIn the event this information is protected by the Federal Confidentiality of Alcohol and Drug Abuse Patient Records regulations: The Federal rules restrict any use of the information to criminally investigate or prosecute any alcohol or drug abuse patient.[facility] HospitalIn the event this information is protected by the Federal Confidentiality of Alcohol and Drug Abuse Patient Records regulations: The Federal rules restrict any use of the information to criminally investigate or prosecute any alcohol or drug abuse patient.[facility] HospitalIn the event this information is protected by the Federal Confidentiality of Alcohol and Drug Abuse Patient Records regulations: The Federal rules restrict any use of the information to criminally investigate or prosecute any alcohol or drug abuse patient.[facility] HospitalIn the event this information is protected by the Federal Confidentiality of Alcohol and Drug Abuse Patient Records regulations: The Federal rules restrict any use of the information to criminally investigate or prosecute any alcohol or drug abuse patient.[facility] HospitalIn the event this information is protected by the Federal Confidentiality of Alcohol and Drug Abuse Patient Records regulations: The Federal rules restrict any use of the information to criminally investigate or prosecute any alcohol or drug abuse patient.[facility] HospitalIn the event this information is protected by the Federal Confidentiality of Alcohol and Drug Abuse Patient Records regulations: The Federal rules restrict any use of the information to criminally investigate or prosecute any alcohol or drug abuse patient.[facility] HospitalIn the event this information is protected by the Federal Confidentiality of Alcohol and Drug Abuse Patient Records regulations: The Federal rules restrict any use of the information to criminally investigate or prosecute any alcohol or drug abuse patient.[facility] HospitalIn the event this information is protected by the Federal Confidentiality of Alcohol and Drug Abuse Patient Records regulations: The Federal rules restrict any use of the information to criminally investigate or prosecute any alcohol or drug abuse patient.[facility] HospitalIn the event this information is protected by the Federal Confidentiality of Alcohol and Drug Abuse Patient Records regulations: The Federal rules restrict any use of the information to criminally investigate or prosecute any alcohol or drug abuse patient.[facility] HospitalIn the event this information is protected by the Federal Confidentiality of Alcohol and Drug Abuse Patient Records regulations: The Federal rules restrict any use of the information to criminally investigate or prosecute any alcohol or drug abuse patient.[facility] HospitalIn the event this information is protected by the Federal Confidentiality of Alcohol and Drug Abuse Patient Records regulations: The Federal rules restrict any use of the information to criminally investigate or prosecute any alcohol or drug abuse patient.[facility] HospitalIn the event this information is protected by the Federal Confidentiality of Alcohol and Drug Abuse Patient Records regulations: The Federal rules restrict any use of the information to criminally investigate or prosecute any alcohol or drug abuse patient.[facility] HospitalIn the event this information is protected by the Federal Confidentiality of Alcohol and Drug Abuse Patient Records regulations: The Federal rules restrict any use of the information to criminally investigate or prosecute any alcohol or drug abuse patient.[facility] HospitalIn the event this information is protected by the Federal Confidentiality of Alcohol and Drug Abuse Patient Records regulations: The Federal rules restrict any use of the information to criminally investigate or prosecute any alcohol or drug abuse patient.[facility] HospitalIn the event this information is protected by the Federal Confidentiality of Alcohol and Drug Abuse Patient Records regulations: The Federal rules restrict any use of the information to criminally investigate or prosecute any alcohol or drug abuse patient.[facility] HospitalIn the event this information is protected by the Federal Confidentiality of Alcohol and Drug Abuse Patient Records regulations: The Federal rules restrict any use of the information to criminally investigate or prosecute any alcohol or drug abuse patient.[facility] HospitalIn the event this information is protected by the Federal Confidentiality of Alcohol and Drug Abuse Patient Records regulations: The Federal rules restrict any use of the information to criminally investigate or prosecute any alcohol or drug abuse patient.[facility] the event this information is protected by the Federal Confidentiality of Alcohol and Drug Abuse Patient Records regulations: The Federal rules restrict any use of the information to criminally investigate or prosecute any alcohol or drug abuse patient.[facility] HospitalIn the event this information is protected by the Federal Confidentiality of Alcohol and Drug Abuse Patient Records regulations: The Federal rules restrict any use of the information to criminally investigate or prosecute any alcohol or drug abuse patient.[facility] HospitalIn the event this information is protected by the Federal Confidentiality of Alcohol and Drug Abuse Patient Records regulations: The Federal rules restrict any use of the information to criminally investigate or prosecute any alcohol or drug abuse patient.[facility] HospitalIn the event this information is protected by the Federal Confidentiality of Alcohol and Drug Abuse Patient Records regulations: The Federal rules restrict any use of the information to criminally investigate or prosecute any alcohol or drug abuse patient.[facility] HospitalIn the event this information is protected by the Federal Confidentiality of Alcohol and Drug Abuse Patient Records regulations: The Federal rules restrict any use of the information to criminally investigate or prosecute any alcohol or drug abuse patient.[facility] HospitalIn the event this information is protected by the Federal Confidentiality of Alcohol and Drug Abuse Patient Records regulations: The Federal rules restrict any use of the information to criminally investigate or prosecute any alcohol or drug abuse patient.[facility] HospitalIn the event this information is protected by the Federal Confidentiality of Alcohol and Drug Abuse Patient Records regulations: The Federal rules restrict any use of the information to criminally investigate or prosecute any alcohol or drug abuse patient.[facility] HospitalIn the event this information is protected by the Federal Confidentiality of Alcohol and Drug Abuse Patient Records regulations: The Federal rules restrict any use of the information to criminally investigate or prosecute any alcohol or drug abuse patient.[facility] HospitalIn the event this information is protected by the Federal Confidentiality of Alcohol and Drug Abuse Patient Records regulations: The Federal rules restrict any use of the information to criminally investigate or prosecute any alcohol or drug abuse patient.[facility] HospitalIn the event this information is protected by the Federal Confidentiality of Alcohol and Drug Abuse Patient Records regulations: The Federal rules restrict any use of the information to criminally investigate or prosecute any alcohol or drug abuse patient.[facility] HospitalIn the event this information is protected by the Federal Confidentiality of Alcohol and Drug Abuse Patient Records regulations: The Federal rules restrict any use of the information to criminally investigate or prosecute any alcohol or drug abuse patient.[facility] HospitalIn the event this information is protected by the Federal Confidentiality of Alcohol and Drug Abuse Patient Records regulations: The Federal rules restrict any use of the information to criminally investigate or prosecute any alcohol or drug abuse patient.[facility] HospitalIn the event this information is protected by the Federal Confidentiality of Alcohol and Drug Abuse Patient Records regulations: The Federal rules restrict any use of the information to criminally investigate or prosecute any alcohol or drug abuse patient.[facility] HospitalIn the event this information is protected by the Federal Confidentiality of Alcohol and Drug Abuse Patient Records regulations: The Federal rules restrict any use of the information to criminally investigate or prosecute any alcohol or drug abuse patient.[facility] HospitalIn the event this information is protected by the Federal Confidentiality of Alcohol and Drug Abuse Patient Records regulations: The Federal rules restrict any use of the information to criminally investigate or prosecute any alcohol or drug abuse patient.[facility] HospitalIn the event this information is protected by the Federal Confidentiality of Alcohol and Drug Abuse Patient Records regulations: The Federal rules restrict any use of the information to criminally investigate or prosecute any alcohol or drug abuse patient.[facility] HospitalIn the event this information is protected by the Federal Confidentiality of Alcohol and Drug Abuse Patient Records regulations: The Federal rules restrict any use of the information to criminally investigate or prosecute any alcohol or drug abuse patient.[facility] HospitalIn the event this information is protected by the Federal Confidentiality of Alcohol and Drug Abuse Patient Records regulations: The Federal rules restrict any use of the information to criminally investigate or prosecute any alcohol or drug abuse patient.[facility] HospitalIn the event this information is protected by the Federal Confidentiality of Alcohol and Drug Abuse Patient Records regulations: The Federal rules restrict any use of the information to criminally investigate or prosecute any alcohol or drug abuse patient.[facility] Reason for Visit (unrecogniz ed section and content) Reason Comments Follow Up Specialty Diagnoses / Procedures Referred By Contac t Referred To Contact Procedures CARDIOVASCULAR MEDICINE OP FOLLOW UP APPT ORDER Daniel Hassan MD [address] [place] [id number] Phone: tel: fax: Referral ID Status Reason Start Date Expiration Date V isits Requested Visits Authorized [id number] Closed PCP Requested Referral 09/06/2023 09/05/2024 1 1 Reason Comments Same Day Appointment c/o left lung pain x 2 days Reason Onset Date Comments Refill Request 12/24/2021 Reason Comments Knee Pain left knee pain x1 we ek Reason Comments Edema top of L foot Reason Comments 9 month follow-up Reason Comments Medication Problem Reason Comments Refill Request Reason Comments Pain Reason Comments Annual Medicare Wellness 20 week follow-up Reason Comments Symptoms Reason Comments Follow Up Reason Comments zio patch Reason Comments Full Body Skin Check Reason Comments Patient Update Reason Comments Cardiology Follow Up Reason Onset Date Comments Population Health Navigation Outreach 05/23/2023 ACO CARE GAP Reason Comments Orders Reason Comments Follow Up Hypertension Reason Comments Blurry Vision Left Eye Reason Comments F/U 6 months Reason Comments Imm/Inj Reason Comments URI Covid was negative Reason Comments Patient Update Medacation request Reason Comments Results Specialty Diagnoses / Procedures Referred By Contac t Referred To Contact CT IMAGING Diagnoses Disorder of artery or arteriole (HCC) Procedures CTA CHEST (GATED) W IVCON CT ANGIOGRAPHY CHEST W/CONTRAST/NONCONTRAST Daniel Hassan MD [address] [place] [address] [facility] [place] [address] Referral ID Status Reason Start Date Expiration Date V isits Requested Visits Authorized [id number] Closed Auto-Generate d Referral 09/06/2023 10/05/2024 1 1 Reason Comments Results Reason Comments Medicare Wellness Exam Annual Medicare W jesús Reason Comments Radiology US Specialty Diagnoses / Procedures Referred By Contac t Referred To Contact US IMAGING Diagnoses Goiter Procedures US THYROID/PARATHYROID US SOFT TISSUE HEAD & NECK REAL TIME IMGE Kristian Townsend MD [address] [place] [address] [facility] [place] [address] Referral ID Status Reason Start Date Expiration Date V isits Requested Visits Authorized [id number] Closed Auto-Generate d Referral 08/18/2024 09/16/2025 1 1 Reason Comments Consult Thyroid nodules Specialty Diagnoses / Procedures Referred By Alfa jerez Referred To Contact General Surgery Diagnoses Multiple thyroid nodules Procedures CONSULT TO GENERAL SURGERY OFFICE/OUTPATIENT [facility] 60 MINUTES Kristian Soto MD [address] [place] [address] Referral ID Status Reason Start Date Expiration Date V isits Requested Visits Authorized [id number] Closed PCP Requested Referral 08/29/2024 08/29/2025 1 1 Reason Comments Procedure Reason Comments Hypertension Reason Comments Fatigue Hypertension x 1 day Reason Comments Blood Pressure Reason Onset Date Comments Refill Request 12/10/2024 Reason Comments Event Zio Patch Reason Comments Follow Up Reason Comments FORMS - Medication Clarification Care Teams (unrecognized sec tion and content) Record Changer Relationship Specialty Start Date End Date Kristian Soto MD [address], [place] [id number] PCP - General Internal Medicine 04/26/12 Vivek Hayward MD [address] [place] [id number] Primary Staff Physician Cardiology 10/17/18 Murphy Rosenberg MD [address] [place] [address] Primary Staff Physician Cardiology 06/15/21 Record Changer Relationship Specialty Start Date End Date Kristian Soto MD [address], [place] [id number] PCP - General Internal Medicine 04/26/12 Vivek Hayward MD [address] [place] [address] Primary Staff Physician Cardiology 10/17/18 Murphy Rosenberg MD [address] [place] [id number] Primary Staff Physician Cardiology 06/15/21 Record Changer Relationship Specialty Start Date End Date Kristian Soto MD [address] [place] [address] PCP - General Internal Medicine 04/26/12 Vivek Hayward MD [address] [facility] [place] [address] Primary Staff Physician Cardiology 10/17/18 Murphy Rosenberg MD [address] [place] [address] Primary Staff Physician Cardiology 06/15/21 Record Changer Relationship Specialty Start Date End Date Kristian Soto MD [address] [place] [address] PCP - General Internal Medicine 04/26/12 Vivek Hayward MD [address] [facility] [place] [address] Primary Staff Physician Cardiology 10/17/18 Murphy Rosenberg MD [address] [place] [id number] Primary Staff Physician Cardiology 06/15/21 Record Changer Relationship Specialty Start Date End Date Kristian Soto MD [address] [place] [address] PCP - General Internal Medicine 04/26/12 Vivek Hayward MD [address] [id number] Primary Staff Physician Cardiology 10/17/18 Murphy Rosenberg MD [address] [place] [address] Primary Staff Physician Cardiology 06/15/21 Record Changer Relationship Specialty Start Date End Date Kristian Soto MD [address] [place] [address] PCP - General Internal Medicine 04/26/12 Vivek Hayward MD [address] [address] Primary Staff Physician Cardiology 10/17/18 Murphy Rosenberg MD [address] [place] [phone] Primary Staff Physician Cardiology 06/15/21 Record Changer Relationship Specialty Start Date End Date Kristian Soto MD [address] [place] [address] PCP - General Internal Medicine 04/26/12 Vivek Hayward MD [address] [address] Primary Staff Physician Cardiology 10/17/18 Murphy Rosenberg MD [address] [place] [id number] Primary Staff Physician Cardiology 06/15/21 Record Changer Relationship Specialty Start Date End Date Kristian Soto MD [address] [place] [address] PCP - General Internal Medicine 04/26/12 Vivek Hayward MD [address] [address] Primary Staff Physician Cardiology 10/17/18 Murphy Rosenberg MD [address] [place] [address] Primary Staff Physician Cardiology 06/15/21 Record Changer Relationship Specialty Start Date End Date Kristian Soto MD [address] [place] [address] PCP - General Internal Medicine 04/26/12 Vivek Hayward MD [address] [facility]-[address] [place] [address] Primary Staff Physician Cardiology 10/17/18 Murphy Rosenberg MD [address] [place] [address] [phone] Primary Staff Physician Cardiology 06/15/21 Record Changer Relationship Specialty Start Date End Date Kristian Soto MD [address] [place] [address] PCP - General Internal Medicine 04/26/12 Vivek Hayward MD [address] [facility] [place] [address] Primary Staff Physician Cardiology 10/17/18 Murphy Rosenberg MD [address] [place] [address] Primary Staff Physician Cardiology 06/15/21 Record Changer Relationship Specialty Start Date End Date Kristian Soto MD [address] [place] [address] PCP - General Internal Medicine 04/26/12 Vivek Hayward MD [address] [facility] [place] [address] Primary Staff Physician Cardiology 10/17/18 Murphy Rosenberg MD [address] [place] [address] [phone] Primary Staff Physician Cardiology 06/15/21 Record Changer Relationship Specialty Start Date End Date Kristian Soto MD [address] [place] [address] PCP - General Internal Medicine 04/26/12 Vivek Hayward MD [address] [place] [address] Primary Staff Physician Cardiology 10/17/18 Murphy Rosenberg MD [address] [place] [address] [phone] Primary Staff Physician Cardiology 06/15/21 Team Status: Active Member Role Status Dates Dr. Kristian Soto MD Family Provider Active Dr. Kristian Soto MD Primary Care Provider Active Team Status: Active Member Role Status Dates Dr. Kristian Soto MD Primary Care Provider Active Dr. Daniel Wilkes DO Attending Provider, Referring Provider Active Team Status: Inactive Member Role Status Dates Dr. Kristian Soto MD Primary Care Provider Active Dr. Stanislav Romano , Emergency Provider Active Record Changer Relationship Specialty Start Date End Date Kristian Soto MD [address] [place], [place] 865941 PCP - General Internal Medicine 04/26/12 Vivek Hayward MD [address] [place] [address] Primary Staff Physician Cardiology 10/17/18 Murphy Rosenberg MD [address] [place] [address] Primary Staff Physician Cardiology 06/15/21 Record Changer Relationship Specialty Start Date End Date Kristian Soto MD [address] [place] [address] PCP - General Internal Medicine 04/26/12 Vivek Hayward MD [address] [facility] [place] [address] Primary Staff Physician Cardiology 10/17/18 Murphy Rosenberg MD [address] [place] [address] Primary Staff Physician Cardiology 06/15/21 Record Changer Relationship Specialty Start Date End Date Kristian Soto MD [address] [place] [address] PCP - General Internal Medicine 04/26/12 Vivek Hayward MD [address] [address] Primary Staff Physician Cardiology 10/17/18 Murphy Rosenberg MD [address] [place] [address] Primary Staff Physician Cardiology 06/15/21 Record Changer Relationship Specialty Start Date End Date Kristian Soto MD [address] [place] [address] PCP - General Internal Medicine 04/26/12 Vivek Hayward MD [address] [facility] [address] Primary Staff Physician Cardiology 10/17/18 Murphy Rosenberg MD [address] [place] [address] Primary Staff Physician Cardiology 06/15/21 Record Changer Relationship Specialty Start Date End Date Kristian Soto MD [address] [place] [address] PCP - General Internal Medicine 04/26/12 Vivek Hayward MD [address] [facility] [place] [address] Primary Staff Physician Cardiology 10/17/18 Murphy Rosenberg MD [address] [place] [address] [phone] Primary Staff Physician Cardiology 06/15/21 Team Status: Inactive Member Role Status Dates Dr. Kristian Soto MD Primary Care Provider Active Dr. Daniel Wilkes , Attending Provider, Referring Provider Active Team Status: Inactive Member Role Status Dates Dr. Kristian Soto MD Primary Care Provider Active Dr. Stanislav Romano DO Attending Provider, Emergency Provider Active Record Changer Relationship Specialty Start Date End Date Kristian Soto MD [address] [place], [place] 977921 PCP - General Internal Medicine 04/26/12 Vivek Hayward MD [address] [facility] [place] [address] Primary Staff Physician Cardiology 10/17/18 Murphy Rosenberg MD [address] [place] [address] [phone] Primary Staff Physician Cardiology 06/15/21 Record Changer Relationship Specialty Start Date End Date Kristian Soto MD [address] [place], [place] [id number] PCP - General Internal Medicine 04/26/12 Vivek Hayward MD [address] [facility] [place] [address] Primary Staff Physician Cardiology 10/17/18 Murphy Rosenberg MD [address] [place] [address] Primary Staff Physician Cardiology 06/15/21 Team Status: Inactive Member Role Status Dates Dr. Kristian Soto MD Primary Care Provider Active YOLANDA ORTIZ Attending Provider, Referring Provider Ac tive Record Changer Relationship Specialty Start Date End Date Kristian Soto MD [address] [place] [address] PCP - General Internal Medicine 04/26/12 Vivek Haywadr MD [address] [facility] [place] [address] Primary Staff Physician Cardiology 10/17/18 Murphy Rosenberg MD [address] [place] [address] Primary Staff Physician Cardiology 06/15/21 Record Changer Relationship Specialty Start Date End Date Kristian Soto MD [address] [place] [address] PCP - General Internal Medicine 04/26/12 Vivek Hayward MD [address] [facility] [place] [address] Primary Staff Physician Cardiology 10/17/18 Murphy Rosenberg MD [address] [place] [address] [phone] Primary Staff Physician Cardiology 06/15/21 Record Changer Relationship Specialty Start Date End Date Kristian Soto MD [address] [place] [address] PCP - General Internal Medicine 04/26/12 Vivek Hayward MD [address] [place] [address] Primary Staff Physician Cardiology 10/17/18 Murphy Rosenberg MD [address] [place] [address] Primary Staff Physician Cardiology 06/15/21 Record Changer Relationship Specialty Start Date End Date Kristian Soto MD [address] [place] [address] PCP - General Internal Medicine 04/26/12 Vivek Hayward MD [address] [facility] [place] [address] Primary Staff Physician Cardiology 10/17/18 Murphy Rosenberg MD [address] [place] [address] Primary Staff Physician Cardiology 06/15/21 Record Changer Relationship Specialty Start Date End Date Kristian Soto MD [address] [place] [address] PCP - General Internal Medicine 04/26/12 Vivek Hayward MD [address] [facility] [place] [address] Primary Staff Physician Cardiology 10/17/18 Murphy Rosenberg MD [address] [place] [address] Primary Staff Physician Cardiology 06/15/21 Record Changer Relationship Specialty Start Date End Date Kristian Soto MD [address] [place] [address] PCP - General Internal Medicine 04/26/12 Vivek Hayward MD [address] [facility] [place] [address] Primary Staff Physician Cardiology 10/17/18 Murphy Rosenberg MD [address] [place] [address] [phone] Primary Staff Physician Cardiology 06/15/21 Team Status: Inactive Member Role Status Dates Dr. Kristian Soto MD Primary Care P krunal, Attending Provider, Referring Provider Active Record Changer Relationship Specialty Start Date End Date Kristian Soto MD [address] [place], [place] 199501 PCP - General Internal Medicine 04/26/12 Vivek Hayward MD [address] [facility] [place] [address] Primary Staff Physician Cardiology 10/17/18 Murphy Rosenberg MD [address] [place] [address] [phone] Primary Staff Physician Cardiology 06/15/21 Record Changer Relationship Specialty Start Date End Date Kristian Soto MD [address] [place] [address] PCP - General Internal Medicine 04/26/12 Vivek Hayward MD [address] [place] [address] Primary Staff Physician Cardiology 10/17/18 Murphy Rosenberg MD [address] [place] [address] [phone] Primary Staff Physician Cardiology 06/15/21 Record Changer Relationship Specialty Start Date End Date Kristian Soto MD [address] [place] [address] PCP - General Internal Medicine 04/26/12 Vivek Hayward MD [address] [place] [address] Primary Staff Physician Cardiology 10/17/18 Murphy Rosenberg MD [address] [place] [address] [phone] Primary Staff Physician Cardiology 06/15/21 Record Changer Relationship Specialty Start Date End Date Kristian Soto MD [address] [place] [address] PCP - General Internal Medicine 04/26/12 Vivek Hayward MD [address] [place] [address] Primary Staff Physician Cardiology 10/17/18 Murphy Rosenberg MD [address] [place] [address] [phone] Primary Staff Physician Cardiology 06/15/21 Record Changer Relationship Specialty Start Date End Date Kristian Soto MD [address] [place] [address] PCP - General Internal Medicine 04/26/12 Vivek Hayward MD [address] [facility] [address] [place] [address] Primary Staff Physician Cardiology 10/17/18 Murphy Rosenberg MD [address] [place] [address] Primary Staff Physician Cardiology 06/15/21 Record Changer Relationship Specialty Start Date End Date Kristian Soto MD [address] [place] [address] PCP - General Internal Medicine 04/26/12 Vivek Hayward MD [address] [facility] [place] [address] Primary Staff Physician Cardiology 10/17/18 Murphy Rosenberg MD [address] [place] [address] Primary Staff Physician Cardiology 06/15/21 Record Changer Relationship Specialty Start Date End Date Kristian Soto MD [address] [place] [address] PCP - General Internal Medicine 04/26/12 Vivek Hayward III, MD [address] [place] [address] Primary Staff Physician Cardiology 10/17/18 Murphy Rosenberg MD [address] [place] [address] Primary Staff Physician Cardiology 06/15/21 Record Changer Relationship Specialty Start Date End Date Kristian Soto MD [address] [place] [address] PCP - General Internal Medicine 04/26/12 Vivek Hayward III, MD [address] [place] [address] Primary Staff Physician Cardiology 10/17/18 Murphy Rosenberg MD [address] [place] [address] Primary Staff Physician Cardiology 06/15/21 Record Changer Relationship Specialty Start Date End Date Kristian Soto MD [address] [place] [address] PCP - General Internal Medicine 04/26/12 Vivek Hayward III, MD [address] [place] [address] Primary Staff Physician Cardiology 10/17/18 Murphy Rosenberg MD [address] [place] [address] Primary Staff Physician Cardiology 06/15/21 Record Changer Relationship Specialty Start Date End Date Kristian Soto MD [address] [place] [address] PCP - General Internal Medicine 04/26/12 Vivek Hayward III, MD [address] [place] [address] Primary Staff Physician Cardiology 10/17/18 Murphy Rosenberg MD [address] [place] [address] Primary Staff Physician Cardiology 06/15/21 Record Changer Relationship Specialty Start Date End Date Kristian Soto MD [address] [place] [address] PCP - General Internal Medicine 04/26/12 Vivek Hayward III, MD [address] [place] [address] Primary Staff Physician Cardiology 10/17/18 Murphy Rosenberg MD [address] [place] [address] Primary Staff Physician Cardiology 06/15/21 Record Changer Relationship Specialty Start Date End Date Kristian Soto MD [address] [place] [address] PCP - General Internal Medicine 04/26/12 Vivek Hayward III, MD [address] [place] [address] Primary Staff Physician Cardiology 10/17/18 Murphy Rosenberg MD [address] [place] [address] Primary Staff Physician Cardiology 06/15/21 Record Changer Relationship Specialty Start Date End Date Kristian Soto MD [address] [place] [address] PCP - General Internal Medicine 04/26/12 Vivek Hayward III, MD [address] [place] [address] Primary Staff Physician Cardiology 10/17/18 Murphy Rosenberg MD [address] [place] [address] Primary Staff Physician Cardiology 06/15/21 Record Changer Relationship Specialty Start Date End Date Kristian Soto MD [address] [place] [address] PCP - General Internal Medicine 04/26/12 Vivek Hayward III, MD [address] [place] [address] Primary Staff Physician Cardiology 10/17/18 Murphy Rosenberg MD [address] [place] [address] Primary Staff Physician Cardiology 06/15/21 Record Changer Relationship Specialty Start Date End Date Kristian Soto MD [address] [place] [address] PCP - General Internal Medicine 04/26/12 Vivek Hayward III, MD [address] [place] [address] Primary Staff Physician Cardiology 10/17/18 Murphy Rosenberg MD [address] [place] [address] Primary Staff Physician Cardiology 06/15/21 Ingrid Perkins, PROCESSING REP.[email or web address] [address] [place] [address] Electronics Repair Technician Internal Medicine 07/09/24 Record Changer Relationship Specialty Start Date End Date Kristian Soto MD [address] [place] [address] PCP - General Internal Medicine 04/26/12 Vivek Hayward III, MD [address] [place] [address] Primary Staff Physician Cardiology 10/17/18 Murphy Rosenberg MD [address] [place] [address] Primary Staff Physician Cardiology 06/15/21 Ingrid Perkins, PROCESSING REP.[email or web address] [address] [facility] [place] [address] Electronics Repair Technician Internal Medicine 07/09/24 Record Changer Relationship Specialty Start Date End Date Kristian Soto MD [address] [place] [address] PCP - General Internal Medicine 04/26/12 Vivek Hayward III, MD [address] [place] [address] Primary Staff Physician Cardiology 10/17/18 Murphy Rosenberg MD [address] [place] [address] [phone] Primary Staff Physician Cardiology 06/15/21 Ingrid Perkins, PROCESSING REP.COUNTERSINKER [address] [place] [address] [facility] Internal Medicine 07/09/24 Record Changer Relationship Specialty Start Date End Date Kristian Soto MD [address] [place] [address] PCP - General Internal Medicine 04/26/12 Vivek Hayward III, MD [address] [facility] [address] Primary Staff Physician Cardiology 10/17/18 Murphy Rosenberg MD [address] [place] [address] Primary Staff Physician Cardiology 06/15/21 Ingrid Perkins, PROCESSING REP.[email or web address] [address] [place] [address] Electronics Repair Technician Internal Medicine 07/09/24 Record Changer Relationship Specialty Start Date End Date Kristian Soto MD [address] [place] [address] PCP - General Internal Medicine 04/26/12 Vivek Hayward III, MD [address] [place] [address] Primary Staff Physician Cardiology 10/17/18 Murphy Rosenberg MD [address] [place] [address] Primary Staff Physician Cardiology 06/15/21 Ingrid Perkins, PROCESSING REP.COUNTERSINKER [address] [place] [address] [facility] Internal Medicine 07/09/24 Record Changer Relationship Specialty Start Date End Date Kristian Soto MD [address] [place] [address] PCP - General Internal Medicine 04/26/12 Vivek Hayward III, MD [address] [place] [address] Primary Staff Physician Cardiology 10/17/18 Murphy Rosenberg MD [address] [place] [address] Primary Staff Physician Cardiology 06/15/21 Ingrid Perkins, PROCESSING REP.COUNTERSINKER [address] [place] [address] [facility] Internal Medicine 07/09/24 Record Changer Relationship Specialty Start Date End Date Kristian Soto MD [address] [place] [address] PCP - General Internal Medicine 04/26/12 Vivek Hayward III, MD [address] [facility] [place] [address] Primary Staff Physician Cardiology 10/17/18 Murphy Rosenberg MD [address] [place] [address] Primary Staff Physician Cardiology 06/15/21 Ingrid Perkins, PROCESSING REP.COUNTERSINKER [address] [place] [address] Electronics Repair Technician Internal Medicine 07/09/24 Record Changer Relationship Specialty Start Date End Date Kristian Soto MD [address] [place] [address] PCP - General Internal Medicine 04/26/12 Vivek Hayward III, MD [address] [facility] [place] [address] Primary Staff Physician Cardiology 10/17/18 Murphy Rosenberg MD [address] [place] [address] Primary Staff Physician Cardiology 06/15/21 Ingrid Perkins, PROCESSING REP.[email or web address] [address] [place] [address] Electronics Repair Technician Internal Medicine 07/09/24 Record Changer Relationship Specialty Start Date End Date Kristian Soto MD [address] [facility] [place] [address] PCP - General Internal Medicine 04/26/12 Vivek Hayward III, MD [address] [facility] [place] [address] Primary Staff Physician Cardiology 10/17/18 Murphy Rosenberg MD [address] [place] [address]298 Primary Staff Physician Cardiology 06/15/21 Ingrid Perkins, PROCESSING REP.COUNTERSINKER [address] [facility] [place] [address] Electronics Repair Technician Internal Medicine 07/09/24 Record Changer Relationship Specialty Start Date End Date Kristian Soto MD [address] [place] [address] PCP - General Internal Medicine 04/26/12 Vivek Hayward III, MD [address] [place] [address] Primary Staff Physician Cardiology 10/17/18 Murphy Rosenberg MD [address] [place] [address] Primary Staff Physician Cardiology 06/15/21 Ingrid Perkins, PROCESSING REP.COUNTERSINKER [address] [facility] [address] [facility] Internal Medicine 07/09/24 Record Changer Relationship Specialty Start Date End Date Kristian Soto MD [address] [place] [address] PCP - General Internal Medicine 04/26/12 Vivek Hayward III, MD [address] [facility] [place] [address] Primary Staff Physician Cardiology 10/17/18 Murphy Rosenberg MD [address] [place] [address] Primary Staff Physician Cardiology 06/15/21 Ingrid Perkins, PROCESSING REP.COUNTERSINKER [address] [place] [address] Electronics Repair Technician Internal Medicine 07/09/24 Team Status: Active Member Role Status Dates Dr. Kristian Soto MD Primary Care Provider Active Team Status: Active Member Role Status Dates Dr. Kristian Soto MD Primary Care Provider Active Start: January 15, 2025 Dr. Kristian Soto MD Attending Provider Active Start: January 15, 2025 Dr. Kristian Soto MD Referring Provider Active Start: January 15, 2025 Team Status: Inactive Member Role Status Dates Dr. Kristian Soto MD Primary Care Provider Active Start: January 18, 2025 End: January 18, 2025 Alfredo Matos MD Referring Provider Active Star t: January 18, 2025 End: January 18, 2025 Alfredo Matos MD Emergency Provider Active Star t: January 18, 2025 End: January 18, 2025 Record Changer Relationship Specialty Start Date End Date Kristian Soto MD [address] [place] [address] PCP - General Internal Medicine 04/26/12 Vivek Hayward III, MD [address] [place] [address] Primary Staff Physician Cardiology 10/17/18 Murphy Rosenberg MD [address] [place] [address] Primary Staff Physician Cardiology 06/15/21 Ingrid Perkins, PROCESSING REP.[email or web address] [address] [place] [address] Electronics Repair Technician Internal Medicine 07/09/24 Record Changer Relationship Specialty Start Date End Date Kristian Soto MD [address] [place], [place] 830131 PCP - General Internal Medicine 04/26/12 Vivek Hayward III, MD [address] [place] [address] Primary Staff Physician Cardiology 10/17/18 Murphy Rosenberg MD [address] [place] [address] Primary Staff Physician Cardiology 06/15/21 Ingrid Perkins, PROCESSING REP.COUNTERSINKER [address] [place] [address] Electronics Repair Technician Internal Medicine 07/09/24 Record Changer Relationship Specialty Start Date End Date Kristian Soto MD [address] [place] [address] PCP - General Internal Medicine 04/26/12 Vivek Hayward III, MD [address] [place] [address] Primary Staff Physician Cardiology 10/17/18 Murphy Rosenberg MD [address] [place] [address] Primary Staff Physician Cardiology 06/15/21 Ingrid Perkins, PROCESSING REP.COUNTERSINKER [address] [place] [address] Electronics Repair Technician Internal Medicine 07/09/24 Team Status: Active Member Role/Relationship Status Dates Dr. Kristian Soto MD Primary Care Provider Active Team Status: Inactive Member Role/Relationship Status Dates Dr. Kristian Soto MD Primary Care Provider Active Start: January 18, 2025 End: January 18, 2025 Alfredo Matos MD Attending Provider Active Star t: January 18, 2025 End: January 18, 2025 Alfredo Matos MD Referring Provider Active Star t: January 18, 2025 End: January 18, 2025 Alfredo Matos MD Emergency Provider Active Star t: January 18, 2025 End: January 18, 2025 Team Status: Inactive Member Role/Relationship Status Dates Dr. Kristian Soto MD Primary Care Provider Active Start: February 12, 2025 End: February 12, 2025 Dr. Kristian Soto MD Attending Provider Active Start: February 12, 2025 End: February 12, 2025 Dr. Kristian Soto MD Referring Provider Active Start: February 12, 2025 End: February 12, 2025 Goals (unrecognized section and content) Goals may be documented in a n alternate sectionGoals may be documented in an alternate sectionGoals may be documented in an alternate sectionGoals may be documented in an alternate sectionGoals may be documented in an alternate sectionGoals may be documented in an alternate section INFORMATION SOURCE (unrecogn ized section and content) DATE CREATED AUTHOR 10/20/2024 [facility] DATE CREATED AUTHOR AUTHOR'S ORGANIZ ATION 10/21/2024 [facility] DATE CREATED AUTHOR AUTHOR'S ORGANIZ ATION 02/16/2025 [facility] DATE CREATED AUTHOR AUTHOR'S ORGANIZ ATION 03/21/[address] [facility] FOR RECORDS PERTAINING TO PATIENTS WHO ARE OR HAVE BEEN ENROLLED IN A CHEMICAL DEPENDENCY/SUBSTANCEABUSE PROGRAM, SOME INFORMATION MAY BE OMITTED. This clinical summary was aggregated from multiple sources. Caution should be exercised in using it in the provision of clinical care. This summary normalizes information from multiple sources, and as a consequence, information in this document may materially change the coding, format and clinical context of patient data. In addition, data may be omitted in some cases. CLINICAL DECISIONS SHOULD BE BASED ON THE PRIMARY CLINICAL RECORDS. [employer] [facility]. provides no warranty or guarantee of the accuracy or completeness of information in this document.
[2025-03-30 04:30] LABS: Troponin T High Sens 2 HR 27 ng/L (<=14)
== END 2025-03-30 04:46 | disposition home or self-care (01) ==
PROVIDERS: Emergency Provider Surgery; PCP Internal Medicine; Visit Provider Surgery
DX: R00.0 Tachycardia, unspecified (principal); E03.9 Hypothyroidism, unspecified; Z79.01 Long term (current) use of anticoagulants
CPT/HCPCS: 71046; 80048; 83735; 83880; 84439; 84443; 84484; 85025; 85379; 85610; 85730; 93005; 99285; A4216; J0153

== ENCOUNTER 2025-06-24 10:00 | Outpatient (RCR) | payer MEDICARE, OTHER, SELFPAY ==
--- NOTE | 2025-05-09 12:04 | HP.PTEVAL ---
Patient's Visit Information Visit Information Visit Information: LUCIANO BACA is a 79 year old F referred to Physical Therapy by Dr. Kristian Soto MD with a diagnosis of Age-related osteoporosis without current pathological fracture. Date of Evaluation: 04/04/25 Physical Therapist: Ray Cervantes, PT, Cert MDT, OCS Visit Plan Frequency: 2x /Week Duration: 4 Weeks Plan: PT INTERVENTIONS BLE STRENGTHENING ,FUNCTIONAL STRENGTHENING , DLS ,POSTURAL STRENGTHENING ,ACTIVITY MODIFICATION , AND PATIENT EDUCATION Subjective Subjective: This 78 y/o female presents to physical therapy with osteoporosis management. Patient seen DR Torres and recommended PT. Patient did not have bone density test. Plan to have bone density test August. Patient had last bone density Aug 2023.No recent imaging. Recently in past March in ER due tachycardia in ER . A-fib went in on own . Called rapid A-Fib Flutter. Possible see a Rhythm Specialist for possible ablation .Patient wants to manage osteoporosis with diet. Patient bone density test 2023 lower body showed worse in right hip and lumbar spine had small gains. Coughing/sneezing .Bowel/bladder- Denies paresthesia/tingling .Patient sleeping good. Patient has no abnormal night pain. Patient has been more tired not sleeping well. Patient has not been active at home not maurilio cleaning house. Aggravating factors some ache twisting and excessive standing. Alleviating movement and exercises . Patient condition affects QOL and function. Patient goals to manage osteoporosis with exercises. SOCIAL: VOCATION: retired Objective Objective: POSTURE: mild forward posture rounded shoulders head forward GAIT: mild forward reciprocal pattern NEURO: denies paresthesia/tingling ,reflexes L3-4,L4-5,L5-S1 1/3 PALPATION: mild tender LS/S1 PROM HIP: WFL -IR 40 DEGREES MMT: BUE 4/5 shoulders except shoulders 4-/5 quads right 32.1 ,left 33.1 hamstrings right 24.1 ,left 23.8 hip abduction right 20.1 ,left 18.3 ,right hip flexion 23.. 5right ,left 22.8 LUMBAR ROM: FLEXION WFL ,extension MIN ,side glides min loss THORACIC ROM: flexion min loss ,extension mod loss ,rotation min loss FLEXABILITY: hamstrings min tight Balance/Special Test Scores Oswestry Low Back Score: 21 Lower Extremity Functional Score: 21 Goals Goal 1:: Patient to be I with HEP for osteoporosis and WB activities Goal Time Frame: 4-6 Weeks Goal 2:: Patient to improve back oswestry score by 5 points to improve QOL and function. Goal Time Frame: 4-6 Weeks Goal 3:: Patient to improve peak force hips flexion/abduction by 10-15# to improve function Goal Time Frame: 4-6 Weeks Goal 4:: Patient to demonstrate 75% improvement with improved function no symptoms with activity. Goal Time Frame: 4-6 Weeks Rehabilitation Potential Physical Therapy Diagnosis: This patient has h/o osteoporosis as well as cardiac issues influences condition along with BLE weakness and decreases thoracic and lumbar ROM thus benefit from skilled PT Rehabilitation Potential: Good Anticipated Interventions Patient/Client Instruction: Educate patient on: Condition and Plan of Care For the Purpose of:: To increase ROM, To improve muscle performance and motor function, To improve ability to perform ADL's, To increase tolerance to activity/condition/position, To improve ability of physical actions for home/community/work/leisure, To improve health of tissue, To decrease soft tissue restriction, To increase flexibility/ROM, To reduce risk of recurrence, To prevent re-injury and To improve tolerance to ADL's Therapeutic Exercise to Include: Strength training, Endurance training, Postural training, Flexibilty training and Dynamic Lumbar Stabilization Comment: BLE QUADS/HAMS/HIP For the Purpose of:: To increase ROM, To improve muscle performance and motor function, To improve ability to perform ADL's, To increase tolerance to activity/condition/position, To improve ability of physical actions for home/community/work/leisure, To improve health of tissue, To decrease soft tissue restriction, To increase flexibility/ROM, To reduce risk of recurrence, To prevent re-injury and To improve tolerance to ADL's Text: Thank you for the opportunity to evaluate your patient. For Medicare and Medicare HMO plans, please review the plan of care and approve it. It will need to be FAXED BACK to us at [phone] for Medicare purposes. For Medicare only, by signing this I certify the plan of care. Please let me know if there are questions or concerns regarding this plan of care. Physician Signature: Date:
--- NOTE | 2025-06-06 10:45 | HP.PTEVAL2_ITS ---
Patient's Visit Information Visit Information Visit Information: LUCIANO BACA is a 80 year old F referred to Physical Therapy by Dr. Kristian Soto MD with a diagnosis of PRIMARTY OSTEOARHTRITIS ,RIGHT ANKLE,PAIN IN RIGHT ANKLE. Date of Evaluation: 05/09/25 Physical Therapist: Ray Cervantes, PT, Cert MDT, OCS Visit Plan Frequency: 2-3x /Week Duration: 4-6 Weeks Plan: Ambulates with fww PT INTERVENTIONS CALF FLEXABILITY ,AROM /ISOMTRICS ANKLE ,STRENGTHENING ANKLE STABILIZERS , FUNCTIONAL STRENGTHENING DELMY AND MODALITIES Subjective Subjective: This 79 y/o female presents to physical therapy with right ankle pain. Patient has had ankle/foot Apr [address] following Tuesday tried voltarian cream. Patient pain increased started cane then needed fww due to severity of pain. Seen JERMAIN Garber. Did x-rays OA and tried cortisone injection. Recommended PT and continues to use FWW. Pain located around talocrural joint . Pain described as sharp pain. Aggravating factors walking/standing ,WB activities ,affects ADL'S and housework and needs assist with stairs. Denies paresthesia/tingling. Pain can affects sleeping sleeping.Allevaiting rest. Patient condition affects function/housework tasks . Goals walk tomorrow. SOCIAL: VOCATION: reired Pain Right Ankle: Intensity: 1 Pain Intensity Range: 10 Objective Objective: POSTURE: (frontal plan mechanics) pes planus GAIT: ambulates with fww with decrease stance time RLE due to pain ,step length decreased slow alejandra NEURO: denies paresthesia/tingling EDEMA: Bimlalleror joint 24.0 cm PROPRIOCEPTION: unable to SLS PALPATION: TTP PTT,navicular joint ,posterior tibialis muscle AROM ANKLE : dorsiflexion 0 degrees ,eversion3 degrees ,inversion 20 degrees ,plantarflexion 60 degrees . MMT: anterior tibialis 10.8 ,posterior tibialis 7.5 ,peroneus 9.6 , anterior tibialis 12.8 SPECAIL TEST: Talor tilt + pain ,inversion stress pain ,-anterior drawer Goals Goal 1:: Patient to be I with HEP for ankle Goal Time Frame: 4-6 Weeks Goal 2:: Patient to improve AROM ankle by 5 degrees to improve gait Goal Time Frame: 4-6 Weeks Goal 3:: Patient to increase peak force ankle stabilizers by 5-10# to improve gait. Goal Time Frame: 4-6 Weeks Goal 4:: Patient to ambulate with reciprocal pattern with /without device . Goal Time Frame: 4-6 Weeks Goal 5:: Patient to improve LFES score by 5 points to improve QOL and gait Goal Time Frame: 4-6 Weeks Rehabilitation Potential Physical Therapy Diagnosis: This patient has ankle pain with possible PPT tendonitis ,OA from x-rays ,with pain with WB and needs FWW ,decrease AROM ,weakness thus benefit from skilled PT ,may need MRI if not improved Rehabilitation Potential: Fair Anticipated Interventions Patient/Client Instruction: Educate patient on: Condition and Plan of Care For the Purpose of:: To decrease pain, To increase ROM, To improve muscle performance and motor function, To improve ability of physical actions for home/community/work/leisure, To assume or resume ADL's and To prevent re-injury Therapeutic Exercise to Include: Strength training, Power training, Balance training, Flexibilty training, Gait and locomotor training, Passive ROM and Active ROM For the Purpose of:: To decrease pain, To increase ROM, To improve muscle performance and motor function, To increase tolerance to act ivity/condition/position, To improve ability of physical actions for home/community/work/leisure, To improve gait and locomotor functions, To improve health of tissue, To decrease soft tissue restriction, To increase flexibility/ROM and To reduce risk of recurrence TENS: Yes IF ES: Yes Cryotherapy (ice pack, ice massage): Yes Thermo therapy (hot pack): Yes Ultrasound (thermal/non thermal): Yes For the Purpose of:: To decrease pain, To increase ROM, To improve nutrient delivery to tissue, To increase oxygenation perfusion, To improve health of tissue and To decrease soft tissue restriction text: Thank you for the opportunity to evaluate your patient. For Medicare and Medicare HMO plans, please review the plan of care and approve it. It will need to be FAXED BACK to us at [phone] for Medicare purposes. For Medicare only, by signing this I certify the plan of care. Please let me know if there are questions or concerns regarding this plan of care. Physician Signature:___ Date:
--- NOTE | 2025-06-06 11:05 | HP.PTRE(2) ---
Re-Evaluation Intro: Jcarlos Nunn PAC, It has been my pleasure to treat LUCIANO BACA over the last 1 visits for PRIMARTY OSTEOARHTRITIS ,RIGHT ANKLE,PAIN IN RIGHT ANKLE. Please see the progress note below for an update on the physical therapy plan of care! Subjective Subjective: Pain is not sharp just sore Progressed to cane Objective Objective/Function/Assessment: POSTURE: (frontal plan mechanics) pes planus GAIT: ambulates with fww with decrease stance time RLE due to pain ,step length decreased slow alejandra NEURO: denies paresthesia/tingling EDEMA: Bimlalleror joint 24.0 cm PROPRIOCEPTION: unable to SLS Patient progressing with decrease pain and increase strength and progressed to cane thus benefit from skilled PT with goals adjusted and appropriate PALPATION: TTP ,posterior tibialis tendon muscle AROM ANKLE : dorsiflexion 5 degrees ,eversioN 5 degrees ,inversion 30 degrees ,plantarflexion 60 degrees . MMT: anterior tibialis 20.3 ,posterior tibialis 17.3 ,peroneus 13.1 , G-S 22.8 SPECAIL TEST: Talor tilt + pain ,inversion stress pain ,-anterior drawer Plan Plan Plan: Ambulates with fww PT INTERVENTIONS CALF FLEXABILITY ,AROM /ISOMTRICS ANKLE ,STRENGTHENING ANKLE STABILIZERS , FUNCTIONAL STRENGTHENING DELMY AND MODALITIES Goals Goals Goal 1:: Patient to be I with HEP for ankle Goal Time Frame: 4-6 Weeks Goal Progress: Progressing Goal 2:: Patient to improve AROM ankle by 5 degrees to improve gait Goal Time Frame: 4-6 Weeks Goal Progress: Progressing Goal 3:: Patient to increase peak force ankle stabilizers by 5-10# to improve gait. Goal Time Frame: 4-6 Weeks Goal 4:: Patient to ambulate with reciprocal pattern with /without device . Goal Time Frame: 4-6 Weeks Goal Progress: Progressing Goal 5:: Patient to improve LFES score by 5 points to improve QOL and gait Goal Time Frame: 4-6 Weeks Goal Progress: Progressing Anticipated Interventions Anticipated Interventions Patient/Client Instruction: Educate patient on: Condition and Plan of Care For the Purpose of:: To decrease pain, To increase ROM, To improve muscle performance and motor function, To improve ability of physical actions for home/community/work/leisure, To assume or resume ADL's and To prevent re-injury Therapeutic Exercise to Include: Strength training, Power training, Balance training, Flexibilty training, Gait and locomotor training, Passive ROM and Active ROM For the Purpose of:: To decrease pain, To increase ROM, To improve muscle performance and motor function, To increase tolerance to activity/condition/position, To improve ability of physical actions for home/community/work/leisure, To improve gait and locomotor functions, To improve health of tissue, To decrease soft tissue restriction, To increase flexibility/ROM and To reduce risk of recurrence TENS: Yes IF ES: Yes Cryotherapy (ice pack, ice massage): Yes Thermo therapy (hot pack): Yes Ultrasound (thermal/non thermal): Yes For the Purpose of:: To decrease pain, To increase ROM, To improve nutrient delivery to tissue, To increase oxygenation perfusion, To improve health of tissue and To decrease soft tissue restriction Re-Evaluation Ending Re-evaluation ending: Please do not hesitate to contact me at [phone] by phone or if you have questions or concerns regarding this new plan of care! Sincerely, Ray Cervantes, PT, Cert MDT, OCS
--- NOTE | 2025-07-16 07:14 | HP.PTDCNRP_ITS ---
Patient Information Patient Information: LUCIANO BACA was seen in my office for initial evaluation on 04/04/25. The following Plan of Care was established for this patient: POC Established Initial Frequency: 2x /Week Initial Duration: 4 Weeks Anticipated Interventions Patient/Client Instruction: Educate patient on: Condition and Plan of Care For the Purpose of:: To increase ROM, To improve muscle performance and motor function, To improve ability to perform ADL's, To increase tolerance to activity/condition/position, To improve ability of physical actions for home/com munity/work/leisure, To improve health of tissue, To decrease soft tissue restriction, To increase flexibility/ROM, To reduce risk of recurrence, To prevent re-injury and To improve tolerance to ADL's Therapeutic Exercise to Include: Strength training, Endurance training, Postural training, Flexibilty training and Dynamic Lumbar Stabilization For the Purpose of:: To increase ROM, To improve muscle performance and motor function, To improve ability to perform ADL's, To increase tolerance to activity/condition/position, To improve ability of physical actions for home/community/work/leisure, To improve health of tissue, To decrease soft tissue restriction, To increase flexibility/ROM, To reduce risk of recurrence, To prevent re-injury and To improve tolerance to ADL's Last Seen Last Seen: This patient was last seen in our office . Pertinent comments regarding their Physical therapy will appear below: Patient seen for PT for osteoporosis program but is d/c due to foot problem and unable to continue At this point I will be discontinuing this patient from physical therapy. I would be happy to see this patient again in the future if found appropriate by the physician. Thank you! Ray Cervantes, PT, Cert MDT, OCS Balance/Gait/Functional tests Balance/Special Test Scores Oswestry Low Back Score: 21 Lower Extremity Functional Score: 21
== END 2025-06-24 19:00 | disposition home or self-care (01) ==
LOC: PT 10:00
PROVIDERS: PCP Internal Medicine; Referring Provider Internal Medicine; Visit Provider Internal Medicine
DX: M81.0 Age-related osteoporosis without current pathological fracture (principal); I48.91 Unspecified atrial fibrillation; I48.92 Unspecified atrial flutter; I10 Essential (primary) hypertension; R79.89 Other specified abnormal findings of blood chemistry
CPT/HCPCS: 97035; 97110; 97162; 97530